=== PATIENT | female | born 1945 | race Caucasian/White ===

== ENCOUNTER → 2019-03-01 11:29 | Outpatient (CLI) | payer MEDICARE, OTHER, SELFPAY ==
[2019-03-01 12:22] LABS: Add Manual Diff / Slide Review NO; Basophils Absolute Auto 0 /uL (0-100); Basophils Percent Auto 0.6 % (0-2); Eosinophils Absolute Auto 300 /uL (0-450); Hematocrit 44.6 % (36-46); Lymphocytes Absolute Auto 1300 /uL (1100-4500); Lymphocytes Percent Auto 22.3 % (25-40); Mean Corpuscular HGB Conc 33.7 % (30-36); Mean Corpuscular Volume 95.1 fL (80-100); Monocytes Absolute Auto 600 /uL (0-900); Monocytes Percent Auto 9.5 % (3-14); Neutrophils Absolute Auto 3700 /uL (1500-7000); Neutrophils Percent Auto 62.6 % (50-75); Platelet Count 306 X10^3/uL (150-400); Red Blood Cell Count 4.69 X10^6/uL (4.0-5.2); Red Cell Distribution Width 12.9 % (11.6-14.8); White Blood Cell Count 5.9 X10^3/uL (4.5-11.0)
[2019-03-01 13:12] LABS: Alanine Aminotransferase 29 IU/L (9-52); Albumin 4.9 g/dL (3.5-5.0); Albumin Globulin Ratio 1.5 (1.0-2.8); Alkaline Phosphatase 90 U/L (38-126); Aspartate Aminotransferase 26 IU/L (14-36); BUN Creatinine Ratio 12.5 (6-22); Bilirubin Total 0.9 mg/dL (0.2-1.3); Blood Urea Nitrogen 10 mg/dL (7-17); C-Reactive Protein Quant 1.6 mg/dL (<1.0); Calcium 9.9 mg/dL (8.4-10.2); Carbon Dioxide 25 mmol/L (22-32); Chloride 102 mmol/L (98-107); Cholesterol 292 mg/dL (140-199); Estimated Glomerular Filt Rate > 60.0 mL/min (>60); Globulin 3.3 g/dL (1.7-4.1); Glucose 106 mg/dL (80-110); HDL Cholesterol 79 mg/dL (40-60); HEMOLYSIS < 15 (0-50); LDL Cholesterol Calculated 180 mg/dL (<100); Sodium 140 mmol/L (137-145); Total Protein 8.2 g/dL (6.3-8.2); Triglycerides 167 mg/dL (35-150)
[2019-03-01 13:44] LABS: Thyroid Stimulating Hormone 2.32 uIU/mL (0.47-4.68)
[2019-03-01 14:57] LABS: Vitamin D 25 Hydroxy (D3) 64.6 ng/mL (30.0-100.0)
[2019-03-04 13:38] LABS: Homocysteine 9.2 umol/L (< 10.4)
== END ==
PROVIDERS: PCP Family Medicine; Visit Provider Family Medicine
DX: R25.1 Tremor, unspecified (principal); Z13.220 Encounter for screening for lipoid disorders; E55.9 Vitamin D deficiency, unspecified; Z13.29 Encounter for screening for other suspected endocrine disorder; E78.5 Hyperlipidemia, unspecified; E78.41 Elevated Lipoprotein(a)
CPT/HCPCS: 36415; 80053; 80061; 82306; 83090; 84443; 85025; 86140

== ENCOUNTER → 2019-03-15 13:35 | Outpatient (CLI) | payer MEDICARE, OTHER, SELFPAY ==
--- NOTE | 2019-03-15 13:41 | DI.US.S_ITS ---
LIMITED ULTRASOUND OF RIGHT BREAST: 03/15/2019 CLINICAL: Bloody nipple discharge right breast. Comparison is made to exam dated: 03/15/2019 [facility]. Real-time and Doppler ultrasound of the right breast 9-10 o'clock, and retroareolar regions were performed. Villalba scale images of the real-time examination were reviewed. Targeted ultrasound of the right nipple and retroareolar region demonstrates no abnormality or mass. There is no focal duct dilitation. No underlying breast mass or abnormality is identified. There is no ultrasound correlate for the previously noted oval focal asymmetry in the right breast near 9:00-10:00 position anterior to middle depth on comparison diagnostic mammograms, which also resolved on additional diagnostic mammogram views performed earlier today. IMPRESSION: NEGATIVE 1) No sonographic abnormality of the right nipple/retroareolar region to explain patient's reported bloody nipple discharge. Recommend clinical follow-up with the patient's referring provider for further evaluation and management. Recommend breast MRI for further evaluation if there is continued clinical concern. 2) No sonographic evidence of malignancy in the imaged right breast. Return to annual screening mammography schedule recommended. The patient is advised to monitor her breasts and to return sooner for re-evaluation should she feel anything grow or change. This exam was interpreted at Station ID: [id number]. Electronically Signed By: Tello Santiago M.D. ecl/:03/15/2019 15:00:54 letter sent: Clinical Evaluation Ultrasound BI-RADS: 1 Negative
--- NOTE | 2019-03-15 13:41 | DI.MG.S_ITS ---
BILATERAL DIGITAL DIAGNOSTIC MAMMOGRAM 3D/2D: 03/15/2019 CLINICAL: Right bloody nipple discharge. No prior exams were available for comparison. The tissue of both breasts is heterogeneously dense. This may lower the sensitivity of mammography. There is no mass or abnormality seen within the right nipple or retroareolar region on mammography. There is an oval focal asymmetry in the right breast near 9:00-10:00 position anterior to middle depth which resolves with spot compression views. There are linear scar markers overlying the breasts bilaterally. There is underlying breast parenchymal scarring. No significant masses, calcifications, or other findings are seen in either breast. IMPRESSION: INCOMPLETE: NEEDS ADDITIONAL IMAGING EVALUATION No mass or abnormality on mammography to correlate with patient's reported bloody nipple discharge. Targeted diagnostic retroareolar ultrasound recommended for further evaluation, which will be performed immediately following this exam. There is an oval focal asymmetry in the right breast near 9:00-10:00 position anterior to middle depth which resolves with spot compression views. Targeted diagnostic ultrasound recommended for further evaluation, which will be performed immediately following this exam. This exam was interpreted at Station ID: [id number]. NOTE: For mammograms, a report in lay terms will be sent to the patient. Approximately 15% of breast malignancies will not be visualized mammographically. In the management of a palpable breast mass, a negative mammogram must not discourage biopsy of a clinically suspicious lesion. Electronically Signed By: Tello Santiago M.D. ecl/:03/15/2019 14:57:19 ACR BI-RADS Category 0: Incomplete [id number]
== END ==
PROVIDERS: PCP Family Medicine; Visit Provider Family Medicine
DX: R92.8 Other abnormal and inconclusive findings on diagnostic imaging of breast (principal); N64.52 Nipple discharge
CPT/HCPCS: 76642; 77066; G0279

== ENCOUNTER → 2019-04-05 13:29 | Outpatient (CLI) | payer MEDICARE, OTHER, SELFPAY ==
--- NOTE | 2019-04-05 13:32 | DI.MRI.S_ITS ---
BREAST MRI OF BOTH BREASTS: 04/05/2019 CLINICAL: Nipple discharge. Comparison is made to exams dated: 03/15/2019 mammogram and 03/15/2019 [facility]. Interpretation of this MRI was correlated with available mammograms and ultrasounds. Informed consent was obtained from the patient. 20 cc of gadolinium contrast was injected. Axial T1, T2, sagittal T1, and pre and post contrast T1 images were obtained with a dedicated breast coil. Bilateral background breast enhancement is mild. Right breast: Within the subareolar region of the right breast at the 6:00 position, there is an oval enhancing mass measuring approximately 1.0 x 0.4 x 0.5 cm. There is associated curvilinear enhancement extending into the nipple as well as posterior to the mass. This involves a region of approximately 2.2 cm in anteroposterior extent and likely follows a ductal distribution. Elsewhere in the right breast no additional mass lesion or abnormal enhancement identified. Left breast: The left breast demonstrates no discrete mass or abnormal enhancement to suggest malignancy. Miscellaneous: Limited evaluation of the visualized thorax demonstrates suspected aneurysmal dilatation of the main pulmonary artery although evaluation is limited on the current study. No evidence of axillary or internal mammary lymphadenopathy by size criteria. IMPRESSION: INCOMPLETE: NEEDS ADDITIONAL IMAGING EVALUATION 1. Retroareolar mass demonstrated at the 6:00 position suspicious for an intraductal mass such as a papilloma. Recommend a dedicated 2nd look ultrasound and ultrasound-guided biopsy if a corresponding mass is identified. If no mass is identified sonographically, an MRI guided biopsy or wire localization for a surgical biopsy may be considered. 2. Possible aneurysmal dilatation of the main pulmonary artery which is not well valuated on the current study. Recommend further evaluation with a CT angiogram of the thorax. This exam was interpreted at Station ID: [id number]. Electronically Signed By: Stephan Mckeon M.D. ddp/:04/05/2019 17:06:53 letter sent: Need Ultrasound ACR BI-RADS Category 0: Incomplete [id number]
== END ==
PROVIDERS: PCP Family Medicine; Visit Provider Family Medicine
DX: R92.8 Other abnormal and inconclusive findings on diagnostic imaging of breast (principal); N64.52 Nipple discharge; N63.10 Unspecified lump in the right breast, unspecified quadrant
CPT/HCPCS: 77049; A9579

== ENCOUNTER → 2019-04-16 10:52 | Outpatient (CLI) | payer MEDICARE, OTHER, SELFPAY ==
[2019-04-16 11:40] LABS: BUN Creatinine Ratio 12.5 (6-22); Blood Urea Nitrogen 10 mg/dL (7-17); Estimated Glomerular Filt Rate > 60.0 mL/min (>60)
== END ==
PROVIDERS: PCP Family Medicine; Visit Provider Family Medicine
DX: I28.1 Aneurysm of pulmonary artery (principal)
CPT/HCPCS: 36415; 82565; 84520

== ENCOUNTER → 2019-04-17 11:10 | Outpatient (CLI) | payer MEDICARE, OTHER, SELFPAY ==
--- NOTE | 2019-04-17 12:33 | DI.CT.S_ITS ---
PROCEDURE: CT ANGIO CHEST INDICATIONS: pulmonary aneurysm on MRI TECHNIQUE: After the administration of intravenous contrast, 2 mm thick sections acquired from the pulmonary apices to the posterior costophrenic angles. 3-dimensional maximum intensity projection (MIP) coronal and sagittal reformats were then acquired through the thorax. For radiation dose reduction, the following was used: automated exposure control, adjustment of mA and/or kV according to patient size. COMPARISON: [facility], MR, MR BREAST BI WO/W CON, 04/05/2019, 13:40. FINDINGS: Image quality: Excellent. Pulmonary arteries: Pulmonary arteries peripherally are normal in size but centrally the main pulmonary artery is abnormally dilated/aneurysmal over much of its length. The maximal craniocaudad dimension is 5.5 cm and a maximal transverse dimension is 5.8 cm. The aneurysmal dilatation of the main pulmonary artery extends into the proximal left pulmonary artery, and the overall area of dilatation is 8.4 cm AP. The pulmonary arteries demonstrate no intraluminal filling defects to suggest central pulmonary embolism. Lungs and pleura: Lungs are clear. No pleural effusions or pneumothorax. Central and peripheral airways are patent. Mediastinum: Heart size is normal, without pericardial effusion. No mediastinal or hilar adenopathy. Thoracic aorta is normal in caliber and enhancement. Esophagus is normal in caliber, without hiatal hernia. Bones and chest wall: No suspicious bony lesions. Ribs and thoracic spine appear intact throughout. Thyroid gland appears normal. No axillary or supraclavicular adenopathy. Abdomen: Visualized upper abdominal solid organs appear normal in the early arterial phase of enhancement. 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 The overall AP length of this abnormality is up to 3.4 cm. No thrombosis is seen. Dictated by: Santosh Leyva M.D. on 04/17/2019 at 14:33 Approved by: Santosh Leyva M.D. on 04/17/2019 at 14:42
== END ==
PROVIDERS: PCP Family Medicine; Visit Provider Family Medicine
DX: I28.1 Aneurysm of pulmonary artery (principal)
CPT/HCPCS: 71275; Q9967

== ENCOUNTER → 2019-10-30 12:00 | Outpatient (CLI) | payer MEDICARE, OTHER, SELFPAY ==
--- NOTE | 2019-10-30 12:03 | DI.US.S_ITS ---
ULTRASOUND OF RIGHT BREAST: 10/30/2019 CLINICAL: 6 month follow-up of negative right breast u/s for intermittent bloody nipple discharge. Comparison is made to exams dated: 04/05/2019 breast MRI, [facility]2019 [facility] Comparison also made to outside images of an ultrasound guided biopsy 04/24/19. Color flow and real-time ultrasound of the right breast were performed. Villalba scale images of the real-time examination were reviewed. There is a 0.2 cm x 0.2 cm x 0.3 cm round intraductal mass in the right breast at 6 o'clock in the retroareolar region. This abnormality is not significantly changed from the pre-biopsy images. There is an adjacent biopsy clip. Color flow imaging demonstrates that there is no vascularity present. IMPRESSION: PROBABLY BENIGN The 0.2 cm x 0.2 cm x 0.3 cm round intraductal mass in the right breast is biopsy proven to be a papilloma and is probably benign. Continued follow-up ultrasound in 6 months at the time of screening mammography is recommended to demonstrate stability. Findings and recommendations were conveyed to the patient at time of exam. This exam was interpreted at Station ID: [id number]. Electronically Signed By: Gita houser/:10/30/2019 14:13:29 letter sent: Followup Recommended Ultrasound BI-RADS: 3 Probably benign
== END ==
PROVIDERS: PCP Family Medicine; Visit Provider Family Medicine
DX: R92.8 Other abnormal and inconclusive findings on diagnostic imaging of breast (principal); D24.1 Benign neoplasm of right breast; Z98.890 Other specified postprocedural states
CPT/HCPCS: 76642

== ENCOUNTER → 2020-08-27 14:58 | Outpatient (CLI) | payer MEDICARE, OTHER, SELFPAY ==
--- NOTE | 2020-08-27 14:59 | DI.MG.S_ITS ---
BILATERAL DIGITAL DIAGNOSTIC MAMMOGRAM 3D/2D: 08/27/2020 CLINICAL: Short follow up, due bilateral. Comparison is made to exams dated: 04/24/2019 mammogram - outside location and 03/15/2019 mammogram - [facility]. The tissue of both breasts is heterogeneously dense. This may lower the sensitivity of mammography. There are benign post operative findings and biopsy clip in the right breast. There also are benign post operative findings in the left breast. No significant masses, calcifications, or other findings are seen in either breast. There has been no significant interval change. IMPRESSION: INCOMPLETE: NEEDS ADDITIONAL IMAGING EVALUATION A targeted ultrasound of the left breast is recommended to evaluate the previously seen subareolar mass and will be performed immediately following this exam. This exam was interpreted at Station ID: [id number]. NOTE: For mammograms, a report in lay terms will be sent to the patient. Approximately 15% of breast malignancies will not be visualized mammographically. In the management of a palpable breast mass, a negative mammogram must not discourage biopsy of a clinically suspicious lesion. Electronically Signed By: Annalise Guido M.D. lk/:08/27/2020 15:33:14 ACR BI-RADS Category 0: Incomplete 3340F
--- NOTE | 2020-08-27 14:59 | DI.US.S_ITS ---
LIMITED ULTRASOUND OF RIGHT BREAST: 08/27/2020 CLINICAL: Patient returns today to evaluate a focal asymmetry in the right breast. No prior exams were available for comparison. Ultrasound of the right breast 3 o'clock, 6 o'clock, 9 o'clock, 12 o'clock, and retroareolar regions was performed on the area of interest. The small echogenic mass seen on the ultrasound dated 10/30/19 is markedly decreased in size on the current study. No new suspicious ultrasound findings in the area previously biopsied and demonstrated to represent a pailloma. IMPRESSION: BENIGN There is no sonographic evidence of malignancy. Previous papiloma biopsy site is stable. Return to annual mammogram screening schedule is recommended. This exam was interpreted at Station ID: [id number]. Electronically Signed By: Annalise Guido M.D. lk/:08/29/2020 13:01:15 letter sent: Normal Exam Ultrasound BI-RADS: 2 Benign
== END ==
PROVIDERS: PCP Family Medicine; Referring Provider Family Medicine; Visit Provider Family Medicine
DX: R92.8 Other abnormal and inconclusive findings on diagnostic imaging of breast (principal); D24.1 Benign neoplasm of right breast
CPT/HCPCS: 76642; 77066; G0279

== ENCOUNTER → 2020-12-25 12:04 | Outpatient (CLI) | payer MEDICARE, OTHER, SELFPAY ==
[2020-12-25 13:12] LABS: Cholesterol 225 mg/dL (140-199); HDL Cholesterol 71 mg/dL (40-60); LDL Cholesterol Calculated 130 mg/dL (<100); Triglycerides 122 mg/dL (35-150)
== END ==
PROVIDERS: PCP Family Medicine
DX: E78.5 Hyperlipidemia, unspecified (principal)
CPT/HCPCS: 36415; 80061

== ENCOUNTER → 2021-03-12 10:58 | Outpatient (CLI) | payer MEDICARE, OTHER, SELFPAY ==
[2021-03-12 12:28] LABS: BUN Creatinine Ratio 12.3 (6-22); Blood Urea Nitrogen 8 mg/dL (7-17); Calcium 9.8 mg/dL (8.4-10.2); Carbon Dioxide 29 mmol/L (22-32); Chloride 103 mmol/L (98-107); Estimated Glomerular Filt Rate > 60.0 mL/min (>60); Glucose 108 mg/dL (80-110); HEMOLYSIS < 15 (0-50); Potassium 4.9 mmol/L (3.4-5.1); Sodium 140 mmol/L (137-145)
== END ==
PROVIDERS: PCP Family Medicine; Referring Provider Internal Medicine Adult Congenital Heart Disease; Visit Provider Internal Medicine Adult Congenital Heart Disease
DX: I10 Essential (primary) hypertension (principal)
CPT/HCPCS: 36415; 80048

== ENCOUNTER → 2021-04-23 10:17 | Outpatient (ROUT) | payer MEDICARE, OTHER, SELFPAY ==
[2021-04-24 16:31] LABS: Fecal Immunochemical Test Negative (Negative)
== END ==
PROVIDERS: PCP Family Medicine; Visit Provider Family Medicine
DX: Z12.11 Encounter for screening for malignant neoplasm of colon (principal)
CPT/HCPCS: 82274

== ENCOUNTER → 2022-06-15 09:54 | Outpatient (CLI) | payer MEDICARE, OTHER, SELFPAY ==
[2022-06-15 10:52] LABS: Add Manual Diff / Slide Review NO; Basophils Absolute Auto 0 /uL (0-100); Basophils Percent Auto 0.5 % (0-2); Eosinophils Absolute Auto 300 /uL (0-450); Eosinophils Percent Auto 5.1 % (2-4); Hematocrit 41.5 % (36-46); Hemoglobin 13.9 g/dL (12.0-16.0); Lymphocytes Absolute Auto 1600 /uL (1100-4500); Lymphocytes Percent Auto 26.6 % (25-40); Mean Corpuscular HGB Conc 33.6 % (30-36); Mean Corpuscular Hemoglobin 32.2 PG (26-34); Mean Corpuscular Volume 95.9 fL (80-100); Monocytes Absolute Auto 600 /uL (0-900); Monocytes Percent Auto 9.7 % (3-14); Neutrophils Absolute Auto 3400 /uL (1500-7000); Neutrophils Percent Auto 58.1 % (50-75); Platelet Count 266 X10^3/uL (150-400); Red Blood Cell Count 4.32 X10^6/uL (4.0-5.2); Red Cell Distribution Width 12.9 % (11.6-14.8); White Blood Cell Count 5.9 X10^3/uL (4.5-11.0)
[2022-06-15 11:27] LABS: Alanine Aminotransferase 29 IU/L (<35); Albumin 4.4 g/dL (3.5-5.0); Albumin Globulin Ratio 1.6 (1.0-2.8); Alkaline Phosphatase 87 U/L (38-126); Aspartate Aminotransferase 25 IU/L (14-36); BUN Creatinine Ratio 10.7 (6-22); Bilirubin Total 0.8 mg/dL (0.2-1.3); Blood Urea Nitrogen 8 mg/dL (7-17); Calcium 9.3 mg/dL (8.4-10.2); Carbon Dioxide 30 mmol/L (22-32); Chloride 102 mmol/L (98-107); Estimated Glomerular Filt Rate > 60 mL/min (>60); Globulin 2.7 g/dL (1.7-4.1); Glucose 99 mg/dL (80-110); HEMOLYSIS < 15 (0-50); Potassium 4.5 mmol/L (3.4-5.1); Sodium 137 mmol/L (137-145); Total Protein 7.1 g/dL (6.3-8.2)
== END ==
PROVIDERS: PCP Family Medicine; Referring Provider Family Medicine; Visit Provider Family Medicine
DX: I10 Essential (primary) hypertension (principal)
CPT/HCPCS: 36415; 80053; 85025

== ENCOUNTER → 2022-06-29 09:49 | Outpatient (CLI) | payer MEDICARE, OTHER, SELFPAY ==
[2022-06-29 12:05] LABS: Cholesterol 180 mg/dL (140-199); HDL Cholesterol 70 mg/dL (40-60); LDL Cholesterol Calculated 84 mg/dL (<100); Triglycerides 129 mg/dL (35-150)
[2022-06-30 15:07] LABS: Fecal Immunochemical Test Negative (Negative)
== END ==
PROVIDERS: PCP Family Medicine; Referring Provider Family Medicine; Visit Provider Family Medicine
DX: I10 Essential (primary) hypertension (principal); Z12.11 Encounter for screening for malignant neoplasm of colon; Z79.899 Other long term (current) drug therapy
CPT/HCPCS: 36415; 80061; 82274

== ENCOUNTER → 2022-08-10 09:54 | Outpatient (CLI) | payer MEDICARE, OTHER, SELFPAY ==
[2022-08-10 13:08] LABS: BUN Creatinine Ratio 8.1 (6-22); Blood Urea Nitrogen 5 mg/dL (7-17); Calcium 8.7 mg/dL (8.4-10.2); Carbon Dioxide 27 mmol/L (22-32); Chloride 102 mmol/L (98-107); Estimated Glomerular Filt Rate > 60 mL/min (>60); Glucose 85 mg/dL (80-110); HEMOLYSIS < 15 (0-50); Potassium 4.1 mmol/L (3.4-5.1); Sodium 139 mmol/L (137-145)
== END ==
PROVIDERS: PCP Family Medicine; Referring Provider Internal Medicine Adult Congenital Heart Disease; Visit Provider Internal Medicine Adult Congenital Heart Disease
DX: I10 Essential (primary) hypertension (principal)
CPT/HCPCS: 36415; 80048

== ENCOUNTER → 2023-09-19 15:40 | Outpatient (CLI) | payer MEDICARE, OTHER, SELFPAY ==
[2023-09-19 16:59] LABS: Alanine Aminotransferase 26 IU/L (<35); Albumin 4.3 g/dL (3.5-5.0); Albumin Globulin Ratio 1.5 (1.0-2.8); Alkaline Phosphatase 65 U/L (38-126); Aspartate Aminotransferase 27 IU/L (14-36); BUN Creatinine Ratio 24.6 (6-22); Bilirubin Total 0.7 mg/dL (0.2-1.3); Blood Urea Nitrogen 17 mg/dL (7-17); Calcium 9.6 mg/dL (8.4-10.2); Carbon Dioxide 26 mmol/L (22-32); Chloride 101 mmol/L (98-107); Estimated Glomerular Filt Rate > 60 mL/min (>60); Globulin 2.9 g/dL (1.7-4.1); Glucose 115 mg/dL (80-110); HEMOLYSIS 17 (0-50); Potassium 3.4 mmol/L (3.4-5.1); Sodium 135 mmol/L (137-145); Total Protein 7.2 g/dL (6.3-8.2)
== END ==
PROVIDERS: PCP Family Medicine; Referring Provider Family Medicine; Visit Provider Family Medicine
DX: I28.1 Aneurysm of pulmonary artery (principal); I10 Essential (primary) hypertension; G25.0 Essential tremor
CPT/HCPCS: 36415; 80053

== ENCOUNTER → 2024-01-16 10:52 | Outpatient (CLI) | payer MEDICARE, OTHER, SELFPAY ==
[2024-01-17 10:14] LABS: Fecal Immunochemical Test Negative (Negative)
== END ==
PROVIDERS: PCP Family Medicine; Referring Provider Family Medicine; Visit Provider Family Medicine
DX: Z12.11 Encounter for screening for malignant neoplasm of colon (principal)
CPT/HCPCS: 82274

== ENCOUNTER 2024-04-16 00:13 | Emergency (ER) | payer MEDICARE, OTHER, SELFPAY ==
[2024-04-16] VITALS (20 sets, daily range): BP systolic 154–194; BP diastolic 51–99; PULSE 66–86; RESP 15–16; TEMP 36.7–36.9; O2SAT 93–98
--- NOTE | 2024-04-16 00:27 | DI.RAD.S_ITS ---
PROCEDURE: XR ANKLE LT MIN 3V INDICATIONS: fall TECHNIQUE: 3 views of the ankle were acquired. COMPARISON: None. FINDINGS: Bones: No acute displaced fracture. Nonacute appearing bone fragment seen adjacent to the lateral malleolus. Mild scattered degenerative changes. Soft tissues: No suspicious calcifications. There is soft tissue swelling. IMPRESSION: No acute displaced fracture or dislocation. Likely old bone fragment seen adjacent to the lateral malleolus, along with mild degenerative changes. If there is high concern for occult injury, consider repeat radiography or cross-sectional imaging. Dictated by: Ld Kaur M.D. on 04/16/2024 at 0:56 Approved by: Ld Kaur M.D. on 04/16/2024 at 0:57
--- NOTE | 2024-04-16 02:43 | ED_ITS ---
HPI - Fall General Chief Complaint: Fall Stated Complaint: GLF Time Seen by Provider: 04/16/24 02:43 Source: patient and EMS Mode of arrival: EMS History of Present Illness HPI Narrative: 78-year-old female with twisting left ankle foot injury earlier today, swelling of the ankle and foot, persisting pain. No other injuries. She denies pain specifically to the head, face, neck, upper back, lower back, chest, abdomen, pelvis. She has no pain to the right lower extremity or either upper extremity. She has no pain cephalad to the left ankle. She had some kind of remote left ankle fracture. She has not tried any pain medications so far. Too painful to attempt weight-bearing Related Data Previous Rx's Medication Instructions Recorded atorvastatin 40 mg tablet 40 mg PO DAILY #90 tabs 09/19/23 losartan 50 mg tablet 50 mg PO DAILY high blood pressure 09/19/23 #90 tabs propranolol 60 mg capsule,24 60 mg PO DAILY #90 caps 09/19/23 hr,extended release oxycodone-acetaminophen 5 mg-325 1 tab PO Q6H PRN pain #20 tabs 04/16/24 mg tablet (Percocet) Allergies Allergy/AdvReac Type Severity Reaction Status Date / Time Penicillins AdvReac Intermediate hives Verified 01/10/24 10:52 Review of Systems Review of Systems Narrative: See HPI Patient History Medical History Benign essential tremor Obesity (BMI 30-39.9) Alcohol use Pulmonary artery aneurysm Hypertension Asthma (~1987) Seasonal allergies (~194) Benign familial tremor (~1959) Osteopenia Fractures Mumps Measles Chicken pox Cataracts, bilateral (~2015) Painful menstrual periods (~1978) Fibroids (~1978) Endometriosis (~1978) Colon polyps (~2011) Pulmonary stenosis (~1995) Surgical History Papilloma of right breast (~2018) Anesthesia History of laparoscopy (~1978) History of lumpectomy History of cardiac catheterization History of open heart surgery (~1950) History of hysterectomy (~1978) Family History Father Cancer Mother Heart disease Social History marital status: number of children: 0 household members: spouse lives independently: Yes education level: college occupational status: other (retired) Smoking Status: Never smoker alcohol intake: current (2 drinks daily) substance use type: does not use Smoking Status: Never smoker Exam Narrative Exam Narrative: GENERAL: Well-developed patient, in mild distress. HEAD: Atraumatic. Normocephalic. EYES: Pupils equal round and reactive. Extraocular motions intact. No scleral icterus. No injection or drainage. ENT: Nose without bleeding, purulent drainage. Throat without erythema, tonsillar hypertrophy or exudate. Airway patent. NECK: Trachea midline. Non tender CARDIOVASCULAR: Regular rate and rhythm without murmurs, gallops, or rubs. RESPIRATORY: Clear to auscultation. Breath sounds equal bilaterally. No wheezes, rales, or rhonchi. GASTROINTESTINAL: Abdomen soft, non-tender, nondistended. EXTREMITIES: Tenderness medial and lateral ankle joint line, some lateral malleolar tenderness. Dorsal foot ecchymoses with swelling midfoot, no tenderness or swelling at toes. Right lower extremity atraumatic. Left lower extremity atraumatic above the level of the ankle. No bilateral hip tenderness BACK: Nontender without deformity or crepitance. No flank tenderness. NEURO: AOx3. SKIN: No rash or erythema of visible areas Initial Vital Signs Initial Vital Signs: Vital Signs Temperature 98.1 F 04/16/24 00:15 Pulse Rate 85 04/16/24 00:15 Respiratory Rate 16 04/16/24 00:15 Blood Pressure 194/85 H 04/16/24 00:15 Pulse Oximetry 98 04/16/24 00:15 Oxygen Delivery Method Room Air 04/16/24 00:15 Course Orders Ordered: ED Orders 04/16/24 00:27 XR ankle LT min 3V Stat 04/16/24 02:49 CT LE LT wo con Stat Discontinued Medications Hydromorphone HCl (Hydromorphone 1 Mg Inj) 1 mg IM NOW ONE Stop: 04/16/24 04:58 Last Admin: 04/16/24 05:17 Dose: 1 mg Documented By: Ketorolac Tromethamine (Ketorolac 30 Mg/Ml Vial) 30 mg IM NOW ONE Stop: 04/16/24 02:51 Last Admin: 04/16/24 03:00 Dose: 30 mg Documented By: Vital Signs Vital signs: Vital Signs - 8 hr 04/16/24 01:00 04/16/24 01:00 04/16/24 01:30 Temperature Pulse Rate 66 73 Respiratory Rate Blood Pressure 156/75 H Pulse Oximetry 96 95 Oxygen Delivery Method 04/16/24 01:31 04/16/24 01:31 04/16/24 02:00 Temperature Pulse Rate 73 72 Respiratory Rate Blood Pressure 173/81 H Pulse Oximetry 95 97 Oxygen Delivery Method 04/16/24 02:00 04/16/24 02:30 04/16/24 02:30 Temperature Pulse Rate 72 Respiratory Rate Blood Pressure 160/73 H 154/73 H Pulse Oximetry 96 Oxygen Delivery Method 04/16/24 03:00 04/16/24 03:00 04/16/24 03:26 Temperature Pulse Rate 86 79 Respiratory Rate Blood Pressure 171/77 H Pulse Oximetry 95 97 Oxygen Delivery Method 04/16/24 03:26 04/16/24 03:30 04/16/24 03:30 Temperature Pulse Rate 76 Respiratory Rate Blood Pressure 175/79 H 159/80 H Pulse Oximetry 97 Oxygen Delivery Method 04/16/24 04:00 04/16/24 04:00 04/16/24 04:30 Temperature Pulse Rate 76 80 Respiratory Rate Blood Pressure 158/68 H Pulse Oximetry 95 96 Oxygen Delivery Method 04/16/24 04:30 04/16/24 05:00 04/16/24 05:00 Temperature Pulse Rate 81 Respiratory Rate Blood Pressure 170/73 H 185/86 H Pulse Oximetry 96 Oxygen Delivery Method 04/16/24 05:30 04/16/24 05:31 04/16/24 05:31 Temperature Pulse Rate 82 78 Respiratory Rate Blood Pressure 192/86 H Pulse Oximetry 95 95 Oxygen Delivery Method 04/16/24 05:58 04/16/24 05:58 04/16/24 06:00 Temperature Pulse Rate 74 81 Respiratory Rate Blood Pressure 185/81 H Pulse Oximetry 93 94 Oxygen Delivery Method 04/16/24 06:08 Temperature 98.4 F Pulse Rate 86 Respiratory Rate 15 Blood Pressure 185/51 H Pulse Oximetry 98 Oxygen Delivery Method Room Air MDM - Fall MDM Narrative Medical decision making narrative: 78-year-old female with left ankle foot pain, marked swelling dorsal foot, also some tenderness and some swelling lateral aspect more than medial aspect ankle. Triage film left ankle ordered but no foot imaging, there is a question of wheth er or not the via small fracture lateral malleolus, further imaging if clinical concern. We will go ahead and obtain CT ankle, and include foot imaging, given swelling and ecchymosis mid foot noted, those bones can be hard to interpret on plain film. Patient agreeable. IM Toradol CT left lower extremity noncontrast. Impressions: ?Nondisplaced fractures of the bases of the 1-4 metatarsals and nondisplaced fractures of the distal fibula and tibia. Extensive subcutaneous inflammatory changes throughout the ankle and foot. Teleradiology report Posterior splint left with stirrup, crutches nonweightbearing. Follow up with Orthopedic surgery, contact information given for office of Dr. Rock, call later today for close follow up appointment, might need surgery for fractures above listed. Percocet prescription electronically sent to her pharmacy. Improved, home with Critical Care Time Critical Care Time Critical Care Time: No Discharge Plan Departure Patient Disposition: Home Clinical Impression: Ankle fracture, bimalleolar, closed, Fracture of metatarsal bone of left foot Activity Restrictions/Additional Instructions: Twist injury with left ankle and foot pain, swelling and bruising to the mid foot, tenderness to ankle as well. Imaging including CT scanning showed numerous fractures. There seemed to be fracture to the distal tibia and distal fibula of the ankle joint, also fractures to the 1st through the 4th metatarsal bones of the foot. Splint was placed after pain medication, crutches nonweightbearing. Follow up with Orthopedic surgery, call office of Dr. Rock later this morning during office hours for close follow up, for likely consultation and possible surgical correction of the fractures. Pain medication sent to your pharmacy to use if needed. Elevate extremity. Follow up with Orthopedic surgery as above. Return to this/nearest emergency department for any change worsening symptoms or any concerns prior Prescriptions: New oxycodone-acetaminophen [Percocet] 5-325 mg tablet 1 tab PO Q6H PRN (Reason: pain) Qty: 20 0RF No Action atorvastatin 40 mg tablet 40 mg PO DAILY Qty: 90 3RF losartan 50 mg tablet 50 mg PO DAILY Qty: 90 3RF propranolol 60 mg capsule,extended release 24 hr 60 mg PO DAILY Qty: 90 3RF Referrals: Claudio Garcias DO [Primary Care Provider] - Alethea Rock MD [Physician] - Stand Alone Forms: Patient Portal/API
--- NOTE | 2024-04-16 02:49 | DI.CT.S_ITS ---
PROCEDURE: CT LE LT W CON INDICATIONS: foot swelling/brusing, ankle ?fx on XR, eval foot/ankle TECHNIQUE: Noncontrast 1-1.5 mm axial sections acquired from above the tibiotalar joint to the bottom of the calcaneus, with coronal and sagittal reformats. COMPARISON: [facility], CR, XR ANKLE LT MIN 3V, 04/16/2024, 0:26. FINDINGS: Image quality: Excellent. Bones: There is an acute comminuted fracture involving lateral portion of distal tibia extending to lateral aspect of distal tibial plafond. No significant displacement at fracture site is seen. Slightly comminuted fracture involving distal fibular shaft/lateral malleolus is seen extending to anterior aspect of lateral malleolus tip with minimal anterior displacement of fractured fragments. Acute comminuted fracture is seen involving 2nd, 3rd and 4th metatarsal bases with fracture lines extending to TMT joint space. Slight proximal displacement of fractured fragments are noted. There is also a minimally displaced fracture involving plantar aspect of 1st metatarsal base with fracture line extending to 1st TMT joint space. No other fracture or dislocation is seen. No suspicious intraosseous lesions. Soft tissues: There is significant soft tissue swelling and edema surrounding anterior and lateral aspect of ankle joint. No significant joint effusion or calcified intra-articular loose bodies. Soft tissue swelling over dorsal aspect of metatarsal base fracture sites are seen. No abnormal soft tissue calcifications. No full-thickness tendon rupture. IMPRESSION: 1. Acute slightly comminuted and minimally displaced fractures involving lateral portion of distal tibia extending to distal tibial plafond, distal fibular shaft/lateral malleolus, 1st through 4th metatarsal bases as described above. 2. Significant soft tissue swelling adjacent to the above-mentioned fracture sites. No gross soft tissue mass or drainable fluid collection. No full-thickness tendon rupture. No significant discrepancies from preliminary reading. Dictated by: Damian Latham M.D. on 04/16/2024 at 8:04 Approved by: Damian Latham M.D. on 04/16/2024 at 8:14
[2024-04-16] MEDS: KETOROLAC 30 MG/ML VIAL IM (03:00)
[2024-04-16] MEDS: HYDROMORPHONE 1 MG INJ IM (05:17)
--- NOTE | 2024-04-16 06:05 | PC.NURSE ---
Posterior and stirup splint placed to left foot and ankle. Pt tolerated well.
== END 2024-04-16 06:00 | disposition home or self-care (01) ==
PROVIDERS: Emergency Provider Emergency Medicine; PCP Family Medicine
DX: S82.842A Displaced bimalleolar fracture of left lower leg, initial encounter for closed fracture (principal); S92.312A Displaced fracture of first metatarsal bone, left foot, initial encounter for closed fracture; S92.322A Displaced fracture of second metatarsal bone, left foot, initial encounter for closed fracture; S92.332A Displaced fracture of third metatarsal bone, left foot, initial encounter for closed fracture; S92.342A Displaced fracture of fourth metatarsal bone, left foot, initial encounter for closed fracture; X58.XXXA Exposure to other specified factors, initial encounter
CPT/HCPCS: 29515; 73610; 73700; 96374; 96375; 99283; 99284; J1170; J1885

== ENCOUNTER 2024-04-30 06:52 | Day surgery (SDC) | payer MEDICARE, OTHER, SELFPAY ==
[2024-04-25 12:07] VITALS: BMI 31.7
[2024-04-30] VITALS (7 sets, daily range): BP systolic 99–179; BP diastolic 45–95; PULSE 64–91; RESP 12–20; TEMP 36.1–36.3; O2SAT 94–99; BMI 31.7
--- NOTE | 2024-04-30 | DI.RAD.S_ITS ---
PROCEDURE: XR FOOT LT MIN 3V INDICATIONS: ORIF LEFT ANKLE AND FOOT TECHNIQUE: Multiple intraoperative views of the foot were acquired. COMPARISON: [facility], CT, CT LE LT WO CON, 04/16/2024, 3:04. FINDINGS: Bones: Intraoperative views during left ankle and foot ORIF. No evidence of hardware complication. IMPRESSION: Intraoperative views during left ankle and foot ORIF without evidence of complication. Dictated by: Vito Loredo M.D. on 04/30/2024 at 14:03 Approved by: Vito Loredo M.D. on 04/30/2024 at 14:04
[2024-04-30] MEDS: LACTATED RINGERS 1,000 ML 42 ML IV (07:22)
[2024-04-30] MEDS: ACETAMINOPHEN 325 MG TABLET 975 MG PO (07:22)
--- NOTE | 2024-04-30 07:29 | PM.PREOP ---
Pre-operative Note Interval Note History & Physical reviewed/Exam performed by Physician: Yes Changes to H&P: No
--- NOTE | 2024-04-30 07:44 | P.OP_ITS ---
Operative Date/Time/Diagnoses Date of procedure: 04/30/24 Time of procedure: 08:20 Pre-op diagnosis: Nondisplaced pilon fracture left tibia, disruption syndesmosis ankle joint left, dislocation tarsometatarsal joint left midfoot with 2nd 3rd and 4th metatarsal base fractures Post-op diagnosis: same Procedure & Clinicians Procedure: 1. ORIF (open reduction internal fixation) tibia pilon fracture CPT code 18069 left 2. Fixation syndesmosis ankle left CPT code 79540 modifier 59 for separate incision 3. ORIF left foot tarsometatarsal joint Lisfranc fracture dislocation CPT code 75022 modifier 59 for separate surgery separate site separate incision 4. Open reduction internal fixation ORIF 2nd metatarsal base fracture CPT code 28349 left 5. Non operative treatment of 3rd and 4th metatarsal base fractures Same procedure as scheduled: Yes Indications: The patient is a 78-year-old female that sustained a ground level fall resulting in nondisplaced distal tibia pilon fractures and a Chaput fractures and syndesmotic disruption of the left ankle as well as fracture dislocation of the left midfoot tarsometatarsal joint involving the 2nd 3rd and 4th metatarsal bases. Questionable involvement of 1st TMT joint. She was indicated for surgery due the unstable nature fractures an intra-articular involvement. We discussed fixation of her ankle and foot fractures as well as examination under anesthesia for the stability of her 1st TMT. Due to swelling/blister she was required to elevate and allow the skin to recover for 2 weeks after the injury before surgery be completed. Once her skin was appropriate she was indicated for fixation of the ankle and foot injuries. The risks and benefits of the procedure have been discussed with the patient and given the opportunity to ask questions. The risks of surgery include but are not limited to infection, malunion, nonunion, persistence of pain, damage to nerves and blood vessels, posttraumatic arthritis, DVT, PE, cardiopulmonary complications and . The patient expressed a thorough understanding of the risks and benefits of surgery and has elected to proceed. Consent was signed in the office. Surgeon: Lynette Guzman Click Yes if Unassisted: Yes Anesthesia Type: General, Peripheral nerve block and Local Operative Notes Findings: Exam under anesthesia. Stress examination of the 1st TMT did not demonstrate any opening therefore 1st TMT joint was treated without fixation. There was a displaced 2nd metatarsal base fracture with a Lisfranc fracture fragment this was open reduced and held with a pointed reduction clamp. A solid screw was placed from the 2nd metatarsal base across the Lisfranc interval into the medial cuneiform following reduction. Third and 4th metatarsal base fractures were nondisplaced and were treated non operatively. Left tibial pilon fracture was nondisplaced but involved a large posterior malleolar fracture as well as the comminuted nature of the anterior Chaput fracture indicative of a pilon and syndesmotic disruption. Need AP cannulated screw across the tibial pilon component was completed to avoid late displacement and stabilize the fracture. Additional lateral to medial syndesmotic screw was placed from the fibula into the tibia for syndesmotic fixation. The Chaput fragment representing the anterior syndesmosis disruption was stabilized indirectly by the syndesmotic screw. Closure Type: primary Specimen(s): none sent Prosthetic devices, grafts, tissues, transplants, or devices: Arthrex 4.0 cannulated screw 38 mm for the left tibial pilon fracture Arthrex 3.5 solid cortical screw 45 mm with a left ankle syndesmosis Arthrex 3.5 solid cortical screw 42mm with a left Lisfranc fracture dislocation 2nd metatarsal base fracture Estimated Blood Loss (mL): 10 Blood products transfused: none Tourniquet time (min): 39 Procedure in detail: Patient was seen in the preoperative area the site of surgery was marked this was the left lower extremity and informed consent was confirmed. The anesthesia team saw the patient in the preoperative area and a regional block was placed for postoperative pain control. The patient was then brought to the operating room and placed on the operative table. Anesthesia was administered. The left lower extremity had a well-padded thigh tourniquet placed and an ipsilateral thigh bump. An SCD was placed on the contralateral lower extremity. The left lower extremity was then prepped and draped in standard sterile fashion a formal time-out procedure was performed confirming the patient's side and site of surgery administration of appropriate preoperative antibiotic and presence of informed consent. All were in agreement. Esmarch was used for exsanguination the tourniquet was raised on the thigh to 250 mmHg. Attention turned to the left lower extremity we started with the ankle. Left tibial pilon fixation. C-arm was brought in and do see level of the known posterior pilon fracture was marked out on the skin. A small incision just above the level of the physeal scar was marked out anterior the on the skin and then in the lateral views the trajectory was marked on the skin as well. Next skin incision was made blunt dissection was taken down to the anterior tibia. A pin for a 4.0 cannulated screw was then directed from anterior to posterior across the minimally displaced fracture this was then measured then advanced and overdrilled and a 38 mm short thread cannulated lag screw was applied to stabilize the tibial pilon fracture. Once this was completed attention was turned to the syndesmosis. Left ankle syndesmosis fixation. Due to the nature of the fracture with a posterior tibial pilon as well as comminuted anterior tibial Chaput fractures these represented a syndesmotic disruption. Due to the injury of the fracture and desire for early mobilization additional syndesmotic fixation was indicated as the tibial trapezoid fracture was highly comminuted and not amenable to direct hardware fixation. Level proximally 4 cm above the joint was marked out anterior and laterally. A small incision was made laterally over the fibula and dissected bluntly down to bone. The drill was then centered in the fibula on the lateral and advanced from lateral to medial across the fibula and tibia for a tetra cortical screw. This was then measured and a 45 mm cortical screw was applied with gentle thumb pressure reduction fixation over the syndesmosis while this was secured. Once this was completed ankle was taken through range of motion external rotation stress and the mortise was stable on stress fluoroscopy examination. At this time attention was turned to the left foot. Previous bumps were removed. A small sterile triangle was used to position for visualization of the midfoot the C-arm was brought in and foot fluoroscopy x- rays obtained these demonstrated a displaced 2nd metatarsal base fracture and Lisfranc interval disruption. Nondisplaced fractures of the 3rd and 4th metatarsals. The 1st tarsometatarsal joint was examined under anesthesia with stress under live fluoroscopy and did not open therefore this was deemed stable. The 2nd metatarsal base fracture and displaced Lisfranc interval was unstable and required fixation. A 2 cm incision was made lateral to the 2nd metatarsal base careful blunt dissection was taken down to the lateral cortex of the 2nd metatarsal base. Fracture hematoma was evacuated. A small stab incision was made on the medial cuneiform medially and a large Dsouza clamp was used to reduce the Lisfranc interval and this was checked for appropriate placement and reduction on fluoroscopic examination in the AP, oblique and lateral planes. Once this was completed K-wire for a 4.0 cannulated screw was drilled across the interval atilio ured, advanced and then overdrilled. A K-wire was then removed and a solid 3.5 screw was applied stabilizing the 2nd metatarsal base fracture and Lisfranc interval in a reduced position. Once this was completed the clamp was removed and the foot was evaluated under AP, oblique and lateral images demonstrated a well aligned 2nd TMT reduced Lisfranc interval. Additionally stress exam was then completed on the 3rd and 4th metatarsal bases which remained nondisplaced and were treated closed. Next the tourniquet was released and hemostasis was achieved. Wounds were closed with 4-0 Monocryl and 3-0 nylon suture. Additional 20 cc of 0.25% Marcaine with epinephrine was injected for local anesthetic. And the foot and ankle were splinted with sterile dressings including Xeroform, 4 x 4 gauze, Webril bulky Browne cotton and a posterior and U splint. The patient was woken from anesthesia and taken to the recovery unit in good condition there no immediate complications. All counts were correct. Complications: none Post-operative Condition: stable Disposition: PACU Plan for aftercare: Nonweightbearing left lower extremity x6 weeks. Follow up in 2-3 weeks postop at which time we will place her into a tall boot and she will come out for init iation of early range of motion the maintain nonweightbearing on the left lower extremity for 6 weeks. We will use aspirin for DVT prophylaxis.
--- NOTE | 2024-04-30 08:00 | SUR.PREOP ---
Time out 0744 Block start time 0745 . Monitoring initiated and maintained throughout procedure. Oxygen and medications given by anesthesiologist . Patient remained stable throughout procedure, no adverse reactions noted. Block end time 0758.
[2024-04-30] MEDS: CEFAZOLIN 2 GM/100 ML PREMIX 100 ML IV (08:10)
--- NOTE | 2024-04-30 08:31 | SUR.OPER ---
Supine on padded OR bed, head on pillow, arms secured on padded arm boards at <90 degrees abduction, safety belt across abdomen, bump under left hip, padded lateral post @ left hip, tape over towel over right lower leg, left leg prepped into sterile field. Confirmed by Dr. Anderson.
[2024-04-30] MEDS: BUPIVACAINE 0.25% (PF) 30 ML, EPINEPHrine 0.15 MG INJ (08:55)
== END 2024-04-30 11:02 | disposition home or self-care (01) ==
PROVIDERS: PCP Family Medicine; Referring Provider Orthopaedic Surgery Foot and Ankle Surgery; Visit Provider Orthopaedic Surgery Foot and Ankle Surgery
PROC: (CPT 27827; principal; 2024-04-30 07:45)
DX: S82.875A Nondisplaced pilon fracture of left tibia, initial encounter for closed fracture (principal); S93.439A Sprain of tibiofibular ligament of unspecified ankle, initial encounter; S93.326A Dislocation of tarsometatarsal joint of unspecified foot, initial encounter; W18.30XA Fall on same level, unspecified, initial encounter; Y92.009 Unspecified place in unspecified non-institutional (private) residence as the place of occurrence of the external cause
CPT/HCPCS: 27827; 28485; 28615; 27829; 73630; 76000; J0171; J0690; J1885; J2405; J2704

== ENCOUNTER → 2024-09-20 14:47 | Outpatient (CLI) | payer MEDICARE, OTHER, SELFPAY ==
[2024-09-20 16:43] LABS: Hematocrit 39.4 % (36-46); Hemoglobin 13.2 g/dL (12.0-16.0); Mean Corpuscular HGB Conc 33.4 % (30-36); Mean Corpuscular Hemoglobin 32.3 PG (26-34); Mean Corpuscular Volume 96.8 fL (80-100); Platelet Count 256 X10^3/uL (150-400); Red Blood Cell Count 4.07 X10^6/uL (4.0-5.2); White Blood Cell Count 6.8 X10^3/uL (4.5-11.0)
[2024-09-20 17:12] LABS: Alanine Aminotransferase 16 IU/L (<35); Albumin 4.2 g/dL (3.5-5.0); Albumin Globulin Ratio 1.6 (1.0-2.8); Alkaline Phosphatase 78 U/L (38-126); Aspartate Aminotransferase 24 IU/L (14-36); BUN Creatinine Ratio 15.1 (6-22); Bilirubin Total 0.6 mg/dL (0.2-1.3); Blood Urea Nitrogen 11 mg/dL (7-17); Calcium 9.6 mg/dL (8.4-10.2); Carbon Dioxide 29 mmol/L (22-32); Chloride 102 mmol/L (98-107); Cholesterol 173 mg/dL (140-199); Estimated Glomerular Filt Rate > 60 mL/min (>60); Globulin 2.7 g/dL (1.7-4.1); Glucose 95 mg/dL (80-110); HDL Cholesterol 73 mg/dL (40-60); HEMOLYSIS < 15 (0-50); LDL Cholesterol Calculated 75 mg/dL (<100); Sodium 134 mmol/L (137-145); Total Protein 6.9 g/dL (6.3-8.2); Triglycerides 126 mg/dL (35-150)
[2024-09-20 18:13] LABS: Hep C Virus Ab w/Reflex Quant NEGATIVE s/c (NEGATIVE)
== END ==
PROVIDERS: Family Provider Family Medicine; PCP Family Medicine; Referring Provider Family Medicine; Visit Provider Family Medicine
DX: Z00.00 Encounter for general adult medical examination without abnormal findings (principal); G25.0 Essential tremor; I10 Essential (primary) hypertension; I28.1 Aneurysm of pulmonary artery; Z72.89 Other problems related to lifestyle
CPT/HCPCS: 36415; 80053; 80061; 85027; 86803

== ENCOUNTER → 2025-01-01 14:47 | Outpatient (CLI) | payer MEDICARE, OTHER, SELFPAY ==
[2025-01-02 12:39] LABS: Fecal Immunochemical Test Negative (Negative)
== END ==
LOC: LAB 14:48
PROVIDERS: Family Provider Family Medicine; PCP Family Medicine; Referring Provider Family Medicine; Visit Provider Family Medicine
DX: Z12.11 Encounter for screening for malignant neoplasm of colon (principal)
CPT/HCPCS: 82274

== ENCOUNTER 2025-03-05 13:45 | Outpatient (RCR) | payer MEDICARE, OTHER, SELFPAY ==
--- NOTE | 2024-07-25 13:45 | PT.OIE ---
Current Diagnoses Pain in right ankle and joints of right foot (07/25/24) Nondisplaced pilon fracture of right tibia, subsequent encounter for closed fracture with routine healing (07/25/24) Nondisplaced pilon fracture of left tibia, initial encounter for closed fracture (07/25/24) Dislocation of tarsometatarsal joint of left foot, initial encounter (07/25/24) Sprain of tibiofibular ligament of left ankle, initial encounter (07/25/24) Past Medical History (Last Reviewed 01/10/24 @ 11:39 by Aleksandra Leal PA-C) Alcohol use Asthma (~1987) Benign essential tremor Benign familial tremor (~1959) Cataracts, bilateral (~2015) Chicken pox Colon polyps (~2011) Endometriosis (~1978) Fibroids (~1978) Fractures Hypertension Measles Mumps Obesity (BMI 30-39.9) Osteopenia Painful menstrual periods (~1978) Pulmonary artery aneurysm Pulmonary stenosis (~1995) Seasonal allergies (~1945) Past Surgical History (Last Updated 04/25/24 @ 12:16 by Jyoti Loja RN) Anesthesia History of cardiac catheterization History of colonoscopy (01/2012) History of hysterectomy (~1978) History of laparoscopy (~1978) History of lumpectomy History of open heart surgery (~1950) Papilloma of right breast (~2018) Visit Care Team Role Provider Type Claudio Garcias DO Family Provider Physician Primary Care Provider Specialty: Family Practice Address: [address] [place] [address], [address], [address] Email: [email or web address] Attending Provider Physician Referring Provider Specialty: Orthopedics Orthopedic Surgery Address: [address] [place] [address], [id number] Email: [email or web address] Physical Therapy Initial Evaluation PT-OP-A Visit Information Start: 07/12/24 17:42 Freq: Status: Active Protocol: Document 07/25/24 11:38 [facility] (Rec: 07/25/24 13:45 [facility] [id number]) Out-Patient Physical Therapy Visit Information Visit Information Visit Type Initial Evaluation Visit Note 10/26 Visit Start Time 11:35 Visit Stop Time 12:23 Visit Number 1 Number of MEDICAL FRONT DESK SPECIALIST Visits 0 PT-OP-B Current Condition Start: 07/12/24 17:42 Freq: Status: Active Protocol: Document 07/25/24 11:38 [facility] (Rec: 07/25/24 13:45 [facility] [id number]) Current Condition History of Current Condition Onset Date injury april 15, sx 04/30 Current Complaints L ORIF lisfranc, pilon and syndesmosis History of Current Condition Pt reports stood up to go to bed on April 15 and fell over her feet and broke her leg and bones in foot. She was put in splint ER and on April 30 got screws in foot, leg and ankle. Has had boot for 6-8 weeks. Tried to do the walker when cleared to in May and it hurt so bad, she couldn't do it. Dr Flor Guzman told her to wait a couple weeks again and on 06/19 was told again. Sees her again next Tuesday. Last tried to use walker about 1.5 weeks ago but it is too painful . When uses the walker, L shoulder has been more painful too. Broke ankle in 80s without surgery. Denies LE and back pain. Pt reports prior ot this was a couch potato. prior to this was indep w/dressing and bathing. Cannot get into shower so has been doing bird baths insteadwith help . He helps some w/dressing too . It is a walk in shower but has a step up so can't get in. Has a built in seat in there with grab bars in there. DOes SPT for all transfers w/o FWW. Has a ramp built in now for livingroom area to cover step. [facility] w/flat entry. Pt has been doing APs Treatment Goals Patient/Caregiver Goals get back to walking PT-OP-C Subjective Start: 07/12/24 17:42 Freq: Status: Active Protocol: Document 07/25/24 11:38 [facility] (Rec: 07/25/24 13:45 [facility] [id number]) Patient Questionnaires Foot & Ankle Ability Measure- ADL and Sports FAAM-ADL Score 6/84 Lower Extremity Functional Scale LEFS Score 15/80 PT-OP-F Manual Assessment Start: 07/12/24 17:42 Freq: Status: Active Protocol: Document 07/25/24 11:38 [facility] (Rec: 07/25/24 13:45 [facility] [id number]) Manual Assessments Other Manual Assessments Other Manual Assessments signficiant midfoot swelling, some dry skin on midfoot PT-OP-G Mobility & Gait Start: 07/12/24 17:42 Freq: Status: Active Protocol: Document 07/25/24 11:38 [facility] (Rec: 07/25/24 13:45 [facility] [id number]) OP Gait Assessment Comments Gait Comments came in w/WC. able to amb w/ FWW w/cues for step to pattern PT-OP-K Range of Motion Start: 07/12/24 17:42 Freq: Status: Active Protocol: Document 07/25/24 11:38 [facility] (Rec: 07/25/24 13:45 [facility] [id number]) Ankle and Foot Goniometric Range of Motion Ankle and Foot Right Active Dorsiflexion with Knee Flexed 2 Plantarflexion 60 Inversion 36 Eversion 21 Left Active Dorsiflexion with Knee Flexed 6 Plantarflexion 36 Inversion 19 Eversion 12 Comments lacking DF to neural PT-OP-Q Treatments Start: 07/12/24 17:42 Freq: Status: Active Protocol: Document 07/25/24 11:38 [facility] (Rec: 07/25/24 13:45 [facility] [id number]) Gait Training Gait Activity step Comments up/down 4 in step w/FWW w/cues for sequencing x1 FWW Comments amb w/cues for sequence and how to set up walker height 30ft and w/turning Self-Care/Home Management Treatment Education Other Education 9 min: edu on why FWW better than 4WW for pt current condition. Discussed appropriate walker height. discussed w/pt improtance of working on inc WB. Encouraged APs mult times in day and focus on full range PT-OP-T Assessment and Plan Start: 07/12/24 17:42 Freq: Status: Active Protocol: Document 07/25/24 11:38 [facility] (Rec: 07/25/24 13:45 [facility] [id number]) Physical Therapy Assessment Goals ROM Short Term Goal (STG) Pt will have DF to neutral in knee flex position STG Duration 11/15 Correction Goal (LTG) Pt will have at least DF to 5 deg in knee flex and extended position to allow for improved gait mechanics. LTG Duration 10/17/23 activity Short Term Goal (STG) Pt will ambulate in house w/ LRAD 100% of the time instead of use WC STG Duration 08/25 Correction Goal (LTG) Pt will amb w/o AD w/o significant gait deviations and be able to go for short walks w/o inc pain greater than 2/10 LTG Duration 10/17/23 LEFS Impairment 15/80 Short Term Goal (STG) Pt will improve LEFS score to at least 30/80 to show improved functional ability. STG Duration 09/11/24 Mammography Technologist Goal (LTG) Pt will improve LEFS score to at least 50/80 to show improved functional ability. LTG Duration 10/17/24 Assessment Summary Assessment Pt is 3 months s/p L ORIF lisfranc, pilon and syndesmosis with overall decreased tolerance to WB since surgery. She has limited ROM and overall weakness d/t prolonged mobility, and signifciant swelling and pain limiting her mobility. She would benefit from skilled PT to return to more indep ADLs and improved gait along w/ improve LE strength and ankle mobility. Physical Therapy Plan Frequency and Duration Frequency of Treatment 2x/Week Duration of treatment (weeks) 12 Plan of Care Start Date 07/25/24 Plan of Care End Date 10/17/24 Therapeutic Interventions Therapeutic Interventions Balance Training,Gait Training ,Home Exercise Program,Joint Mobilizations,Manual Therapy, Neuromuscular Re-education, Orthotic/Prosthetic Management ,Patient/Caregiver Education, Self-Care/Home Management,Soft Tissue Mobilization,Taping, Therapeutic Activities, Therapeutic Exercises Modalities Cold Pack/Ice Massage,Electric Stimulation,Hot Packs, Infrared Therapy Next Visit Focus/Plan Next Note Type Treatment Note Next Visit Plan Give HEP: sit to stands, Seated hip strenthening and knee strengthening exercises gradually inc WB attempt by 25 % per wk as pt tolerates w/FWW , check how much currently WB w/boot, work on gait w/FWW and ability to step up/down step for shower and sunken living room
--- NOTE | 2024-07-25 13:45 | PT.OPPOC ---
Physical, Occupational & Speech Therapy At [facility] Current Diagnoses Pain in right ankle and joints of right foot (07/25/24) Nondisplaced pilon fracture of right tibia, subsequent encounter for closed fracture with routine healing (07/25/24) Nondisplaced pilon fracture of left tibia, initial encounter for closed fracture (07/25/24) Dislocation of tarsometatarsal joint of left foot, initial encounter (07/25/24) Sprain of tibiofibular ligament of left ankle, initial encounter (07/25/24) Visit Care Team Role Provider Type Claudio Garcias DO Family Provider Physician Primary Care Provider Specialty: Family Practice Address: [address] [place] [address], [facility] [address], [place], [address] Email: [email or web address] Guzman MD Attending Provider Physician Referring Provider Specialty: Orthopedics Orthopedic Surgery Address: [address] [place] [address], [id number] Email: [email or web address] Plan Of Care PT-OP-B Current Condition Start: 07/12/24 17:42 Freq: Status: Active Protocol: Document 07/25/24 11:38 [facility] (Rec: 07/25/24 13:45 [facility] [id number]) Current Condition History of Current Condition Onset Date injury april 15, sx 04/30 Current Complaints L ORIF lisfranc, pilon and syndesmosis History of Current Condition Pt reports stood up to go to bed on April 15 and fell over her feet and broke her leg and bones in foot. She was put in splint ER and on April 30 got screws in foot, leg and ankle. Has had boot for 6-8 weeks. Tried to do the walker when cleared to in May and it hurt so bad, she couldn't do it. Dr Flor Guzman told her to wait a couple weeks again and on 06/19 was told again. Sees her again next Tuesday. Last tried to use walker about 1.5 weeks ago but it is too painful . When uses the walker, L shoulder has been more painful too. Broke ankle in 80s without surgery. Denies LE and back pain. Pt reports prior ot this was a couch potato. prior to this was indep w/dressing and bathing. Cannot get into shower so has been doing bird baths insteadwith help . He helps some w/dressing too . It is a walk in shower but has a step up so can't get in. Has a built in seat in there with grab bars in there. DOes SPT for all transfers w/o FWW. Has a ramp built in now for livingroom area to cover step. H w/flat entry. Pt has been doing APs Treatment Goals Patient/Caregiver Goals get back to walking PT-OP-T Assessment and Plan Start: 07/12/24 17:42 Freq: Status: Active Protocol: Document 07/25/24 11:38 [facility] (Rec: 07/25/24 13:45 [facility] [id number]) Physical Therapy Assessment Goals ROM Short Term Goal (STG) Pt will have DF to neutral in knee flex position STG Duration 08/31 Penitentiary Goal (LTG) Pt will have at least DF to 5 deg in knee flex and extended position to allow for improved gait mechanics. LTG Duration 10/17/23 activity Short Term Goal (STG) Pt will ambulate in house w/ LRAD 100% of the time instead of use WC STG Duration 08/25 Care Coordinator Goal (LTG) Pt will amb w/o AD w/o significant gait deviations and be able to go for short walks w/o inc pain greater than 2/10 LTG Duration 10/17/23 LEFS Impairment 15/80 Short Term Goal (STG) Pt will improve LEFS score to at least 30/80 to show improved functional ability. STG Duration 09/11/24 Care Coordinator Goal (LTG) Pt will improve LEFS score to at least 50/80 to show improved functional ability. LTG Duration 10/17/24 Assessment Summary Assessment Pt is 3 months s/p L ORIF lisfranc, pilon and syndesmosis with overall decreased tolerance to WB since surgery. She has limited ROM and overall weakness d/t prolonged mobility, and signifciant swelling and pain limiting her mobility. She would benefit from skilled PT to return to more indep ADLs and improved gait along w/ improve LE strength and ankle mobility. Physical Therapy Plan Frequency and Duration Frequency of Treatment 2x/Week Duration of treatment (weeks) 12 Plan of Care Start Date 07/25/24 Plan of Care End Date 10/17/24 Therapeutic Interventions Therapeutic Interventions Balance Training,Gait Training ,Home Exercise Program,Joint Mobilizations,Manual Therapy, Neuromuscular Re-education, Orthotic/Prosthetic Management ,Patient/Caregiver Education, Self-Care/Home Management,Soft Tissue Mobilization,Taping, Therapeutic Activities, Therapeutic Exercises Modalities Cold Pack/Ice Massage,Electric Stimulation,Hot Packs, Infrared Therapy Next Visit Focus/Plan Next Note Type Treatment Note Next Visit Plan Give HEP: sit to stands, Seated hip strenthening and knee strengthening exercises gradually inc WB attempt by 25 % per wk as pt tolerates w/FWW , check how much currently WB w/boot, work on gait w/FWW and ability to step up/down step for shower and sunken living room Plan of Care Dates Plan of Care Start Date 07/25/24 Plan of Care End Date 10/17/24 Electronically Signed by: Tiarra Graf, PT 07/25/24 2710 If you are in agreement with this Plan of Care, please return a signed and dated copy. I have reviewed this Plan of Care and certify that the skilled therapy services above are required to meet the patient?s needs. Physician Signature Date Printed Name and Credentials Clinical Instructor Signature Printed Name and Credentials
--- NOTE | 2024-07-27 16:33 | PT.OTN ---
Current Diagnoses Pain in right ankle and joints of right foot (07/27/24) Nondisplaced pilon fracture of right tibia, subsequent encounter for closed fracture with routine healing (07/27/24) Nondisplaced pilon fracture of left tibia, initial encounter for closed fracture (07/27/24) Dislocation of tarsometatarsal joint of left foot, initial encounter (07/27/24) Sprain of tibiofibular ligament of left ankle, initial encounter (07/27/24) Physical Therapy Treatment Note PT-OP-A Visit Information Start: 07/12/24 17:42 Freq: Status: Active Protocol: Document 07/27/24 12:39 AB (Rec: 07/27/24 16:33 AB [id number]) Out-Patient Physical Therapy Visit Information Visit Information Visit Type Treatment Note Visit Note 11/26 Access Code [id number] Visit Start Time 13:49 Visit Stop Time 14:34 Visit Number 2 Number of LOADING MACHINE OPERATOR HELPER Visits 1 PT-OP-B Current Condition Start: 07/12/24 17:42 Freq: Status: Active Protocol: Document 07/25/24 11:38 [facility] (Rec: 07/25/24 13:45 [facility] [id number]) Current Condition History of Current Condition Onset Date injury april 15, sx 04/30 Current Complaints L ORIF lisfranc, pilon and syndesmosis History of Current Condition Pt reports stood up to go to bed on April 15 and fell over her feet and broke her leg and bones in foot. She was put in splint ER and on April 30 got screws in foot, leg and ankle. Has had boot for 6-8 weeks. Tried to do the walker when cleared to in May and it hurt so bad, she couldn't do it. Dr Flor Guzman told her to wait a couple weeks again and on 06/19 was told again. Sees her again next Tuesday. Last tried to use walker about 1.5 weeks ago but it is too painful . When uses the walker, L shoulder has been more painful too. Broke ankle in 80s without surgery. Denies LE and back pain. Pt reports prior ot this was a couch potato. prior to this was indep w/dressing and bathing. Cannot get into shower so has been doing bird baths insteadwith help . He helps some w/dressing too . It is a walk in shower but has a step up so can't get in. Has a built in seat in there with grab bars in there. DOes SPT for all transfers w/o FWW. Has a ramp built in now for livingroom area to cover step. [facility] w/flat entry. Pt has been doing APs Treatment Goals Patient/Caregiver Goals get back to walking PT-OP-C Subjective Start: 07/12/24 17:42 Freq: Status: Active Protocol: Document 07/27/24 12:39 AB (Rec: 07/27/24 16:33 AB [id number]) OP-PT Subjective Patient Comments Patient Comments Patient into session with FWW, adjusted too low, elbows fully extended, boot in place left LE in ER. Patient reports pain with ambulation is 2-3/ 10 and and reports bilateral shoulder pain 2/10 start of session.(FWW adjusted in waiting area due to reports of 5-6/10 left ankle pain ambulating into session and at home) Patient reports pain decreased to 2/10 post FWW height adjustment PT-OP-F Manual Assessment Start: 07/12/24 17:42 Freq: Status: Active Protocol: Document 07/25/24 11:38 [facility] (Rec: 07/25/24 13:45 [facility] [id number]) Manual Assessments Other Manual Assessments Other Manual Assessments signficiant midfoot swelling, some dry skin on midfoot PT-OP-G Mobility & Gait Start: 07/12/24 17:42 Freq: Status: Active Protocol: Document 07/25/24 11:38 [facility] (Rec: 07/25/24 13:45 [facility] [id number]) OP Gait Assessment Comments Gait Comments came in w/WC. able to amb w/ FWW w/cues for step to pattern PT-OP-K Range of Motion Start: 07/12/24 17:42 Freq: Status: Active Protocol: Document 07/25/24 11:38 [facility] (Rec: 07/25/24 13:45 [facility] [id number]) Ankle and Foot Goniometric Range of Motion Ankle and Foot Right Active Dorsiflexion with Knee Flexed 2 Plantarflexion 60 Inversion 36 Eversion 21 Left Active Dorsiflexion with Knee Flexed 6 Plantarflexion 36 Inversion 19 Eversion 12 Comments lacking DF to neural PT-OP-Q Treatments Start: 07/12/24 17:42 Freq: Status: Active Protocol: Document 07/27/24 12:39 AB (Rec: 07/27/24 16:33 AB [id number]) Therapeutic Exercises Sitting Exercises seated hip abduction Sitting Exercise Name HEP Resistance [place] green band Reps/Minutes one minute X 1 and X 10 without hold Comments Verbal cues long arc quad Sitting Exercise Name HEP without band Side left Resistance level 2, level 1 and no band Reps/Minutes X4, X 3 and X 10 Comments reports feeling it it the knee with bands Standing Exercises sit to stand Standing Exercise Name HEP Side bilateral Reps/Minutes X5 X 3 post training Comments Verbal cues to avoid left LE ER and knee ext for set up and for hip hinge Gait Training Gait Activity FWW Device Used FWW Comments FWW height increased in waiting area prior to am into clinic with VC to avoid toeing out. On scale(patient estimates weight at 195#)left LE 100- 109 # weight bearing ( L LE on scale) with FWW X4 with reports of shoulders hurting without ankle pain. Gait training on curb ascends with right descends with left using FWW, verbal cues for FWW position and sequence, down X 2 up X 1. Patient advised to perform shorter walks more often due to reports of shoulder pain bilaterally. Spouse advised to bring car to curb end of session. PT-OP-T Assessment and Plan Start: 07/12/24 17:42 Freq: Status: Active Protocol: Document 07/27/24 12:39 AB (Rec: 07/27/24 16:33 AB [id number]) Physical Therapy Assessment Goals ROM Short Term Goal (STG) Pt will have DF to neutral in knee flex position STG Duration 08/31 Base Ply Hand Goal (LTG) Pt will have at least DF to 5 deg in knee flex and extended position to allow for improved gait mechanics. LTG Duration 10/17/23 activity Short Term Goal (STG) Pt will ambulate in house w/ LRAD 100% of the time instead of use WC STG Duration 08/25 Base Ply Hand Goal (LTG) Pt will amb w/o AD w/o significant gait deviations and be able to go for short walks w/o inc pain greater than 2/10 LTG Duration 10/17/23 LEFS Impairment 15 Short Term Goal (STG) Pt will improve LEFS score to at least 30/80 to show improved functional ability. STG Duration 09/11/24 Base Ply Hand Goal (LTG) Pt will improve LEFS score to at least 50/80 to show improved functional ability. LTG Duration 10/17/24 Assessment Summary Assessment Patient rates left LE pain 2/ 10 ambulating out of session wiht FWW. Patient into session with reports of 5-6/10 ambulating with FWW ant home left ankle, and increased shoulder pain. Significant decrease in symptoms post FWW height raised. Physical Therapy Plan Frequency and Duration Frequency of Treatment 2x/Week Duration of treatment (weeks) 12 Plan of Care Start Date 07/25/24 Plan of Care End Date 10/17/24 Next Visit Focus/Plan Next Note Type Treatment Note Next Visit Plan assess zaynab to HEP: sit to stands, Seated hip strenthening and knee strengthening exercises gradually inc WB attempt by 25 % per wk as pt tolerates w/FWW , check how much currently WB w/boot,
--- NOTE | 2024-07-30 17:12 | PT.OTN ---
Current Diagnoses Pain in right ankle and joints of right foot (07/30/24) Nondisplaced pilon fracture of right tibia, subsequent encounter for closed fracture with routine healing (07/30/24) Nondisplaced pilon fracture of left tibia, initial encounter for closed fracture (07/30/24) Dislocation of tarsometatarsal joint of left foot, initial encounter (07/30/24) Sprain of tibiofibular ligament of left ankle, initial encounter (07/30/24) Physical Therapy Treatment Note PT-OP-A Visit Information Start: 07/12/24 17:42 Freq: Status: Active Protocol: Document 07/30/24 15:42 [facility] (Rec: 07/30/24 17:12 [facility] [id number]) Out-Patient Physical Therapy Visit Information Visit Information Visit Type Treatment Note Visit Note 12/24 Access Code [id number] Visit Start Time 15:20 Visit Stop Time 16:00 Visit Number 3 Number of CASING TRIMMER Visits 0 PT-OP-B Current Condition Start: 07/12/24 17:42 Freq: Status: Active Protocol: Document 07/25/24 11:38 [facility] (Rec: 07/25/24 13:45 [facility] [id number]) Current Condition History of Current Condition Onset Date injury april 15, sx 04/30 Current Complaints L ORIF lisfranc, pilon and syndesmosis History of Current Condition Pt reports stood up to go to bed on April 15 and fell over her feet and broke her leg and bones in foot. She was put in splint ER and on April 30 got screws in foot, leg and ankle. Has had boot for 6-8 weeks. Tried to do the walker when cleared to in May and it hurt so bad, she couldn't do it. Dr Flor Guzman told her to wait a couple weeks again and on 06/19 was told again. Sees her again next Tuesday. Last tried to use walker about 1.5 weeks ago but it is too painful . When uses the walker, L shoulder has been more painful too. Broke ankle in 80s without surgery. Denies LE and back pain. Pt reports prior ot this was a couch potato. prior to this was indep w/dressing and bathing. Cannot get into shower so has been doing bird baths insteadwith help . He helps some w/dressing too . It is a walk in shower but has a step up so can't get in. Has a built in seat in there with grab bars in there. DOes SPT for all transfers w/o FWW. Has a ramp built in now for livingroom area to cover step. [facility] w/flat entry. Pt has been doing APs Treatment Goals Patient/Caregiver Goals get back to walking PT-OP-C Subjective Start: 07/12/24 17:42 Freq: Status: Active Protocol: Document 07/30/24 15:42 [facility] (Rec: 07/30/24 17:12 [facility] [id number]) OP-PT Subjective Patient Comments Patient Comments Pt reports irritated R shoulder Tuesday so didn't walk this weekend. Did do HEP. sees tomorrow PT-OP-F Manual Assessment Start: 07/12/24 17:42 Freq: Status: Active Protocol: Document 07/25/24 11:38 [facility] (Rec: 07/25/24 13:45 [facility] [id number]) Manual Assessments Other Manual Assessments Other Manual Assessments signficiant midfoot swelling, some dry skin on midfoot PT-OP-G Mobility & Gait Start: 07/12/24 17:42 Freq: Status: Active Protocol: Document 07/25/24 11:38 [facility] (Rec: 07/25/24 13:45 [facility] [id number]) OP Gait Assessment Comments Gait Comments came in w/WC. able to amb w/ FWW w/cues for step to pattern PT-OP-K Range of Motion Start: 07/12/24 17:42 Freq: Status: Active Protocol: Document 07/25/24 11:38 [facility] (Rec: 07/25/24 13:45 [facility] [id number]) Ankle and Foot Goniometric Range of Motion Ankle and Foot Right Active Dorsiflexion with Knee Flexed 2 Plantarflexion 60 Inversion 36 Eversion 21 Left Active Dorsiflexion with Knee Flexed 6 Plantarflexion 36 Inversion 19 Eversion 12 Comments lacking DF to neural PT-OP-Q Treatments Start: 07/12/24 17:42 Freq: Status: Active Protocol: Document 07/30/24 15:42 [facility] (Rec: 07/30/24 17:12 [facility] [id number]) Therapeutic Exercises Sitting Exercises APs Side bilateral Reps/Minutes 29 december Side bilateral Resistance L3 Reps/Minutes 15 ea HS curls Side bilateral Equipment Used L2 Reps/Minutes 15 seated hip abduction Sitting Exercise Name HEP review Resistance [place] [employer] green band Reps/Minutes one minute X 1 and X 10 without hold Comments Verbal cues long arc quad Sitting Exercise Name HEP review Side left Reps/Minutes 5 sec hold x10 Standing Exercises sit to stand Standing Exercise Name HEP review Side bilateral Reps/Minutes x8 Comments Verbal cues to avoid left LE ER and knee ext for set up and for hip hinge Gait Training Gait Activity sidestep Description for shower manuever over small step over Comments lat over x1 ea way step Comments up/down 5 in step w/FWW w/cues for sequencing x3 FWW Device Used FWW Comments amb w/FWW 40ft, 20ft w/cues for posture PT-OP-T Assessment and Plan Start: 07/12/24 17:42 Freq: Status: Active Protocol: Document 07/30/24 15:42 [facility] (Rec: 07/30/24 17:12 [facility] [id number]) Physical Therapy Assessment Goals ROM Short Term Goal (STG) Pt will have DF to neutral in knee flex position STG Duration 08/31 Nursing Home Goal (LTG) Pt will have at least DF to 5 deg in knee flex and extended position to allow for improved gait mechanics. LTG Duration 10/17/23 activity Short Term Goal (STG) Pt will ambulate in house w/ LRAD 100% of the time instead of use WC STG Duration 08/25 Car Barn Laborer Goal (LTG) Pt will amb w/o AD w/o significant gait deviations and be able to go for short walks w/o inc pain greater than 2/10 LTG Duration 10/17/23 LEFS Impairment 15/80 Short Term Goal (STG) Pt will improve LEFS score to at least 30/80 to show improved functional ability. STG Duration 09/11/24 Nursing Home Goal (LTG) Pt will improve LEFS score to at least 50/80 to show improved functional ability. LTG Duration 10/17/24 Assessment Summary Assessment Pt improves w/posture w/gait when cued but cont to slouch which likely inc force into shoulders. She did well with step training and over obstacle to immitate shower. Physical Therapy Plan Frequency and Duration Frequency of Treatment 2x/Week Duration of treatment (weeks) 12 Plan of Care Start Date 07/25/24 Plan of Care End Date 10/17/24 Next Visit Focus/Plan Next Note Type Treatment Note Next Visit Plan advance HEP and LE strength; cont to advance WB as tolerated; cont to work on stair training (will need to for hair appt); chek in re: appt [facility]
--- NOTE | 2024-08-03 15:14 | PT.OTN ---
Current Diagnoses Pain in right ankle and joints of right foot (08/02/24) Nondisplaced pilon fracture of right tibia, subsequent encounter for closed fracture with routine healing (08/02/24) Nondisplaced pilon fracture of left tibia, initial encounter for closed fracture (08/02/24) Dislocation of tarsometatarsal joint of left foot, initial encounter (08/02/24) Sprain of tibiofibular ligament of left ankle, initial encounter (08/02/24) Physical Therapy Treatment Note PT-OP-A Visit Information Start: 07/12/24 17:42 Freq: Status: Active Protocol: Document 08/02/24 14:34 SP (Rec: 08/02/24 16:04 SP [id number]) Out-Patient Physical Therapy Visit Information Visit Information Visit Type Treatment Note Visit Note 01/24 Visit Start Time 14:34 Visit Stop Time 15:14 Visit Number 4 Number of CAREER SERVICES MANAGER Visits 1 PT-OP-B Current Condition Start: 07/12/24 17:42 Freq: Status: Active Protocol: Document 07/25/24 11:38 [facility] (Rec: 07/25/24 13:45 [facility] [id number]) Current Condition History of Current Condition Onset Date injury april 15, sx 04/30 Current Complaints L ORIF lisfranc, pilon and syndesmosis History of Current Condition Pt reports stood up to go to bed on April 15 and fell over her feet and broke her leg and bones in foot. She was put in splint ER and on April 30 got screws in foot, leg and ankle. Has had boot for 6-8 weeks. Tried to do the walker when cleared to in May and it hurt so bad, she couldn't do it. Dr Flor Guzman told her to wait a couple weeks again and on 06/19 was told again. Sees her again next Tuesday. Last tried to use walker about 1.5 weeks ago but it is too painful . When uses the walker, L shoulder has been more painful too. Broke ankle in 80s without surgery. Denies LE and back pain. Pt reports prior ot this was a couch potato. prior to this was indep w/dressing and bathing. Cannot get into shower so has been doing bird baths insteadwith help . He helps some w/dressing too . It is a walk in shower but has a step up so can't get in. Has a built in seat in there with grab bars in there. DOes SPT for all transfers w/o FWW. Has a ramp built in now for livingroom area to cover step. [facility] w/flat entry. Pt has been doing APs Treatment Goals Patient/Caregiver Goals get back to walking PT-OP-C Subjective Start: 07/12/24 17:42 Freq: Status: Active Protocol: Document 08/02/24 14:34 SP (Rec: 08/02/24 16:04 SP [id number]) OP-PT Subjective Patient Comments Patient Comments Pt reports saw ortho Dr Anna on (next follow up Sep) is cleared for wearing shoe about 1 hr day to increased ankle mobility. PT-OP-F Manual Assessment Start: 07/12/24 17:42 Freq: Status: Active Protocol: Document 07/25/24 11:38 [facility] (Rec: 07/25/24 13:45 [facility] [id number]) Manual Assessments Other Manual Assessments Other Manual Assessments signficiant midfoot swelling, some dry skin on midfoot PT-OP-G Mobility & Gait Start: 07/12/24 17:42 Freq: Status: Active Protocol: Document 07/25/24 11:38 [facility] (Rec: 07/25/24 13:45 [facility] [id number]) OP Gait Assessment Comments Gait Comments came in w/WC. able to amb w/ FWW w/cues for step to pattern PT-OP-K Range of Motion Start: 07/12/24 17:42 Freq: Status: Active Protocol: Document 07/25/24 11:38 [facility] (Rec: 07/25/24 13:45 [facility] [id number]) Ankle and Foot Goniometric Range of Motion Ankle and Foot Right Active Dorsiflexion with Knee Flexed 2 Plantarflexion 60 Inversion 36 Eversion 21 Left Active Dorsiflexion with Knee Flexed 6 Plantarflexion 36 Inversion 19 Eversion 12 Comments lacking DF to neural PT-OP-Q Treatments Start: 07/12/24 17:42 Freq: Status: Active Protocol: Document 08/02/24 14:34 SP (Rec: 08/02/24 16:04 SP [id number]) Cardio Equipment Recumbent Elliptical (Biodex) Duration (Minutes) 6 Resistance 0 Seat Position 10 Other BLEs Therapeutic Exercises Sitting Exercises toe scrunches Sitting Exercise Name added to HEP /c HO Side left Resistance AROM Reps/Minutes x10 Comments cued slow tolerant range arch lift and toe flexion for support gait toe off ankle DF, EV, IV Sitting Exercise Name added to HEP /c HO Side left Resistance AROM Reps/Minutes x10 each Comments cued knee still BAPS Sitting Exercise Name trialed in PT Side left Resistance ball 1>2 Equipment Used F/B/L/CCW/CW to challenging. Reps/Minutes x10 reps each direction Comments challenge PF>IV range- low discomfort improved range with reps HS curls Sitting Exercise Name added new HO Side bilateral Resistance L2 Equipment Used anchored by therapist/ home towel behind band Reps/Minutes 15 Comments Time spent figure out set up best for her, good HS tiring. Gait Training Gait Activity FWW Device Used FWW Distance/Duration across gym x2, approx 80 ft x2 Comments cues for posture, gait phase: heel toe and try DF into toe off , trial receiprocal stepping Manual Therapy Treatment Consent Patient gave verbal consent for manual Yes treatment Soft Tissue Mobilization swelling reduction L foot Body Location retrograde massage L dorsal and plantar foot, ankle, mid baxter Mobilization Type Manual Lymphatic Drainage Intensity/Depth Superficial Body Position Supine Comments gentle light manual prox> distal>prox- discussion carryover assist for swelling reduction and reabsorption. Slight decrease swelling noted. Discussed and will acquire compression socks for additional support. Self-Care/Home Management Treatment Education Patient Education Pain Management,Safety Caregiver Education understanding assist anchor band for HS curl and assist retrograde massage and donning compression sock. Other Education Education by PT and CAREER SERVICES MANAGER acquiring compression sock and assist retro grade massage for swelling fluid absorption. PT-OP-T Assessment and Plan Start: 07/12/24 17:42 Freq: Status: Active Protocol: Document 08/02/24 14:34 SP (Rec: 08/02/24 16:04 SP [id number]) Physical Therapy Assessment Goals ROM Short Term Goal (STG) Pt will have DF to neutral in knee flex position STG Duration 08/31 Digital Media Designer Goal (LTG) Pt will have at least DF to 5 deg in knee flex and extended position to allow for improved gait mechanics. LTG Duration 10/17/23 activity Short Term Goal (STG) Pt will ambulate in house w/ LRAD 100% of the time instead of use WC STG Duration 08/25 Fpc Goal (LTG) Pt will amb w/o AD w/o significant gait deviations and be able to go for short walks w/o inc pain greater than 2/10 LTG Duration 10/17/23 LEFS Impairment 15/80 Short Term Goal (STG) Pt will improve LEFS score to at least 30/80 to show improved functional ability. STG Duration 09/11/24 Digital Media Designer Goal (LTG) Pt will improve LEFS score to at least 50/80 to show improved functional ability. LTG Duration 10/17/24 Assessment Summary Assessment Pt reported and demonstrated improved L ankle AROM, provided ankle AROM HO. TOlerated increased resistance use of BAPS board today, challenged in supination/CCW motion. Initated toe scrunches for plantar foot intrinic mobility /c HOs for gait phase support. Improved HS engagement with new set up spouse hold band front to support strengthening for gait . Physical Therapy Plan Frequency and Duration Frequency of Treatment 2x/Week Duration of treatment (weeks) 12 Plan of Care Start Date 07/25/24 Plan of Care End Date 10/17/24 Therapeutic Interventions Therapeutic Interventions Balance Training,Gait Training ,Home Exercise Program,Joint Mobilizations,Manual Therapy, Neuromuscular Re-education, Orthotic/Prosthetic Management ,Patient/Caregiver Education, Self-Care/Home Management,Soft Tissue Mobilization,Taping, Therapeutic Activities, Therapeutic Exercises Modalities Cold Pack/Ice Massage,Electric Stimulation,Hot Packs, Infrared Therapy Next Visit Focus/Plan Next Note Type Treatment Note Next Visit Plan Recheck foot HEP. POC: advance HEP and LE strength; cont to advance WB as tolerated; cont to work on stair training (will need to for hair appt); chek in re: MD [facility]
--- NOTE | 2024-08-06 14:40 | PT.OTN ---
Current Diagnoses Pain in right ankle and joints of right foot (08/06/24) Nondisplaced pilon fracture of right tibia, subsequent encounter for closed fracture with routine healing (08/06/24) Nondisplaced pilon fracture of left tibia, initial encounter for closed fracture (08/06/24) Dislocation of tarsometatarsal joint of left foot, initial encounter (08/06/24) Sprain of tibiofibular ligament of left ankle, initial encounter (08/06/24) Physical Therapy Treatment Note PT-OP-A Visit Information Start: 07/12/24 17:42 Freq: Status: Active Protocol: Document 08/06/24 13:43 SP (Rec: 08/06/24 15:29 SP [id number]) Out-Patient Physical Therapy Visit Information Visit Information Visit Type Treatment Note Visit Note 02/23 Visit Start Time 13:45 Visit Stop Time 14:40 Visit Number 5 Number of FINANCIAL AID COUNSELOR Visits 2 PT-OP-B Current Condition Start: 07/12/24 17:42 Freq: Status: Active Protocol: Document 07/25/24 11:38 [facility] (Rec: 07/25/24 13:45 [facility] [id number]) Current Condition History of Current Condition Onset Date injury april 15, sx 04/30 Current Complaints L ORIF lisfranc, pilon and syndesmosis History of Current Condition Pt reports stood up to go to bed on April 15 and fell over her feet and broke her leg and bones in foot. She was put in splint ER and on April 30 got screws in foot, leg and ankle. Has had boot for 6-8 weeks. Tried to do the walker when cleared to in May and it hurt so bad, she couldn't do it. Dr Flor Guzman told her to wait a couple weeks again and on 06/19 was told again. Sees her again next Tuesday. Last tried to use walker about 1.5 weeks ago but it is too painful . When uses the walker, L shoulder has been more painful too. Broke ankle in 80s without surgery. Denies LE and back pain. Pt reports prior ot this was a couch potato. prior to this was indep w/dressing and bathing. Cannot get into shower so has been doing bird baths insteadwith help . He helps some w/dressing too . It is a walk in shower but has a step up so can't get in. Has a built in seat in there with grab bars in there. DOes SPT for all transfers w/o FWW. Has a ramp built in now for livingroom area to cover step. [facility] w/flat entry. Pt has been doing APs Treatment Goals Patient/Caregiver Goals get back to walking PT-OP-C Subjective Start: 07/12/24 17:42 Freq: Status: Active Protocol: Document 08/06/24 13:43 SP (Rec: 08/06/24 15:29 SP [id number]) OP-PT Subjective Patient Comments Patient Comments Pt reports was little achy L ankle after last appt but not affecting her getting around. Her R shld is still bothersome and trying to still use but not cause pain. She states took Tylenol before PT to help . PT-OP-F Manual Assessment Start: 07/12/24 17:42 Freq: Status: Active Protocol: Document 07/25/24 11:38 [facility] (Rec: 07/25/24 13:45 [facility] [id number]) Manual Assessments Other Manual Assessments Other Manual Assessments signficiant midfoot swelling, some dry skin on midfoot PT-OP-G Mobility & Gait Start: 07/12/24 17:42 Freq: Status: Active Protocol: Document 07/25/24 11:38 [facility] (Rec: 07/25/24 13:45 [facility] [id number]) OP Gait Assessment Comments Gait Comments came in w/WC. able to amb w/ FWW w/cues for step to pattern PT-OP-K Range of Motion Start: 07/12/24 17:42 Freq: Status: Active Protocol: Document 07/25/24 11:38 [facility] (Rec: 07/25/24 13:45 [facility] [id number]) Ankle and Foot Goniometric Range of Motion Ankle and Foot Right Active Dorsiflexion with Knee Flexed 2 Plantarflexion 60 Inversion 36 Eversion 21 Left Active Dorsiflexion with Knee Flexed 6 Plantarflexion 36 Inversion 19 Eversion 12 Comments lacking DF to neural PT-OP-Q Treatments Start: 07/12/24 17:42 Freq: Status: Active Protocol: Document 08/06/24 13:43 SP (Rec: 08/06/24 15:29 SP [id number]) Cardio Equipment Recumbent Elliptical (Biodex) Duration (Minutes) 6 Resistance 0 Seat Position 10 Other BLEs only Therapeutic Exercises Sitting Exercises toe abduction Side right Reps/Minutes 10 reps, 2 sec pause hold toe scrunches Side left Resistance AROM Equipment Used marble hop picker Reps/Minutes x10 Comments cued toe scrunch ankle DF, EV, IV Side left Resistance AROM Reps/Minutes x10 each Comments improved knee stability, IV BAPS Sitting Exercise Name F/B/L/CCW/ improved CW Side left Resistance ball 2>3 Equipment Used AROM Reps/Minutes x10 reps each direction Comments improved PF to IV, cued slower pacing range Standing Exercises sit to stand Standing Exercise Name HEP review Side bilateral Reps/Minutes x8 Comments Verbal cues to avoid left LE ER and knee ext for set up and for hip hinge Gait Training Gait Activity WB LLE acceptance Description f/b/lateral Device Used FWW Level of Assistance close SBA Surface foam Treatment Focus WBAT into L ankle Comments 1. wt shift f/b/lateral R & L- 10 reps each direction- light contact fww as needed 2. heel raise, heavily BUE WB on FWW- 2 reps stopped L ankle pain 3. marching, heavily BUE WB on FWW - 2 reps stopped L ankle pain stairs Description Trialed for safety and awareness prepare return to hair appt (has stairs) Device Used B HR Heavily WB BUE Level of Assistance close SBA Distance/Duration 6 stairs (4 steps) Treatment Focus step to patterning, WBAT LLE Comments Cues for lead RLE ascend, lead LLE descending, TKE LLE during WB FWW Device Used FWW Distance/Duration across gym x2 Comments cues for posture, gait phase: semi receiprocal stepping Manual Therapy Treatment Consent Patient gave verbal consent for manual Yes treatment Soft Tissue Mobilization swelling reduction L foot Body Location retrograde massage L dorsal and plantar foot, ankle, mid baxter Mobilization Type Manual Lymphatic Drainage Intensity/Depth Superficial through sock Body Position Supine Comments gentle light manual prox> distal>prox- discussion carryover assist for swelling reduction and reabsorption. Slight decrease swelling noted. Discussed and will acquire compression socks for additional support. Manual Techniques PROM L ankle Type DF- L ankle Reps/Duration 10 reps x5 SH Comments monitored for pain free range Self-Care/Home Management Treatment Education Patient Education Home Exercise Program,Posture Caregiver Education Education to pt and for pt to get up and walk around every hour if tolerated on L ankle to increase WB and progress functiona mobility / c use FWW, include 1 step mgt between room as tolerated. PT-OP-R Modalities Start: 07/12/24 17:42 Freq: Status: Active Protocol: Document 08/06/24 13:43 SP (Rec: 08/06/24 15:29 SP [id number]) Hot Pack/Cold Pack Treatment CP Location L ankle Patient Position Hooklying Patient Tolerance Good Comments Reports helps decreased discomfort end tx. PT-OP-T Assessment and Plan Start: 07/12/24 17:42 Freq: Status: Active Protocol: Document 08/06/24 13:43 SP (Rec: 08/06/24 15:29 SP [id number]) Physical Therapy Assessment Goals ROM Short Term Goal (STG) Pt will have DF to neutral in knee flex position STG Duration 08/31 Residential Goal (LTG) Pt will have at least DF to 5 deg in knee flex and extended position to allow for improved gait mechanics. LTG Duration 10/17/23 activity Short Term Goal (STG) Pt will ambulate in house w/ LRAD 100% of the time instead of use WC STG Duration 08/25 Manager Policy Goal (LTG) Pt will amb w/o AD w/o significant gait deviations and be able to go for short walks w/o inc pain greater than 2/10 LTG Duration 10/17/23 LEFS Impairment 15/80 Short Term Goal (STG) Pt will improve LEFS score to at least 30/80 to show improved functional ability. STG Duration 09/11/24 Manager Policy Goal (LTG) Pt will improve LEFS score to at least 50/80 to show improved functional ability. LTG Duration 10/17/24 Assessment Summary Assessment Pt continues to have swelling L ankle but less than previous tx, retrograde STMs. She improved increased L ankle AROM IV during BAPS level 3 ball all directions, cues for slow motion EV to DF and IV to DF motion for improved strengthening control. Initiated Wt shift BLE on uneven foam FWW support for LLE wt acceptance with reduction UE support. 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 Pt deemed not quite ready due to L ankle discomfort during short stance time on LLE to advance RLE but was pleased able to complete with. Cued to wt shift more over RLE and LUE for not over irritate WB. Pt responded well to CP on L ankle end tx for support pain control. She reports painreduction but scale rating not given. She was able to don sock self in sitting now . Physical Therapy Plan Frequency and Duration Frequency of Treatment 2x/Week Duration of treatment (weeks) 12 Plan of Care Start Date 07/25/24 Plan of Care End Date 10/17/24 Therapeutic Interventions Therapeutic Interventions Balance Training,Gait Training ,Home Exercise Program,Joint Mobilizations,Manual Therapy, Neuromuscular Re-education, Orthotic/Prosthetic Management ,Patient/Caregiver Education, Self-Care/Home Management,Soft Tissue Mobilization,Taping, Therapeutic Activities, Therapeutic Exercises Modalities Cold Pack/Ice Massage,Electric Stimulation,Hot Packs, Infrared Therapy Next Visit Focus/Plan Next Note Type Treatment Note Next Visit Plan Recheck foot HEP. POC: add leg wt to R LAQ (boot home), LE strength: SLR supine and side maybe bridge next tx; cont to advance WB as tolerated; cont to work on stair training (will need to for hair appt); check in re: appt [facility]
--- NOTE | 2024-08-10 14:34 | PT.OTN ---
Current Diagnoses Pain in right ankle and joints of right foot (08/10/24) Nondisplaced pilon fracture of right tibia, subsequent encounter for closed fracture with routine healing (08/10/24) Nondisplaced pilon fracture of left tibia, initial encounter for closed fracture (08/10/24) Dislocation of tarsometatarsal joint of left foot, initial encounter (08/10/24) Sprain of tibiofibular ligament of left ankle, initial encounter (08/10/24) Physical Therapy Treatment Note PT-OP-A Visit Information Start: 07/12/24 17:42 Freq: Status: Active Protocol: Document 08/10/24 13:50 SP (Rec: 08/10/24 14:36 SP [id number]) Out-Patient Physical Therapy Visit Information Visit Information Visit Type Treatment Note Visit Note 03/26 Visit Start Time 13:50 Visit Stop Time 14:34 Visit Number 6 (03/26 since eval) Number of DIAMOND FINISHING SUPERVISOR Visits 3 PT-OP-B Current Condition Start: 07/12/24 17:42 Freq: Status: Active Protocol: Document 07/25/24 11:38 [facility] (Rec: 07/25/24 13:45 [facility] [id number]) Current Condition History of Current Condition Onset Date injury april 15, sx 04/30 Current Complaints L ORIF lisfranc, pilon and syndesmosis History of Current Condition Pt reports stood up to go to bed on April 15 and fell over her feet and broke her leg and bones in foot. She was put in splint ER and on April 30 got screws in foot, leg and ankle. Has had boot for 6-8 weeks. Tried to do the walker when cleared to in May and it hurt so bad, she couldn't do it. Dr Flor Guzman told her to wait a couple weeks again and on 06/19 was told again. Sees her again next Tuesday. Last tried to use walker about 1.5 weeks ago but it is too painful . When uses the walker, L shoulder has been more painful too. Broke ankle in 80s without surgery. Denies LE and back pain. Pt reports prior ot this was a couch potato. prior to this was indep w/dressing and bathing. Cannot get into shower so has been doing bird baths insteadwith help . He helps some w/dressing too . It is a walk in shower but has a step up so can't get in. Has a built in seat in there with grab bars in there. DOes SPT for all transfers w/o FWW. Has a ramp built in now for livingroom area to cover step. [facility] w/flat entry. Pt has been doing APs Treatment Goals Patient/Caregiver Goals get back to walking PT-OP-C Subjective Start: 07/12/24 17:42 Freq: Status: Active Protocol: Document 08/10/24 13:50 SP (Rec: 08/10/24 14:36 SP [id number]) OP-PT Subjective Patient Comments Patient Comments Pt report L ankle sore after last tx. Using CP for swelling control. PT-OP-F Manual Assessment Start: 07/12/24 17:42 Freq: Status: Active Protocol: Document 07/25/24 11:38 [facility] (Rec: 07/25/24 13:45 [facility] [id number]) Manual Assessments Other Manual Assessments Other Manual Assessments signficiant midfoot swelling, some dry skin on midfoot PT-OP-G Mobility & Gait Start: 07/12/24 17:42 Freq: Status: Active Protocol: Document 07/25/24 11:38 [facility] (Rec: 07/25/24 13:45 [facility] [id number]) OP Gait Assessment Comments Gait Comments came in w/WC. able to amb w/ FWW w/cues for step to pattern PT-OP-K Range of Motion Start: 07/12/24 17:42 Freq: Status: Active Protocol: Document 07/25/24 11:38 [facility] (Rec: 07/25/24 13:45 [facility] [id number]) Ankle and Foot Goniometric Range of Motion Ankle and Foot Right Active Dorsiflexion with Knee Flexed 2 Plantarflexion 60 Inversion 36 Eversion 21 Left Active Dorsiflexion with Knee Flexed 6 Plantarflexion 36 Inversion 19 Eversion 12 Comments lacking DF to neural PT-OP-Q Treatments Start: 07/12/24 17:42 Freq: Status: Active Protocol: Document 08/10/24 13:50 SP (Rec: 08/10/24 14:36 SP [id number]) Cardio Equipment Recumbent Elliptical (Biodex) Duration (Minutes) 6 Resistance 1 Seat Position 10 Other BLEs only Therapeutic Exercises Sitting Exercises toe abduction Side right Reps/Minutes 10 reps, 2 sec pause hold ankle DF, EV, IV Sitting Exercise Name PF, DF, EV, IV- added to HEP / c HO Side left Resistance AROM>TB 1 Reps/Minutes x10 each Comments occ cue for knee still, eccentric return BAPS Sitting Exercise Name F/B/L/CCW/ improved CW Side left Resistance ball 3>4 (5 next tx) Equipment Used AROM Reps/Minutes x10 reps each direction Comments improved PF to IV, cued slower pacing range long arc quad Sitting Exercise Name HEP review Side left Resistance AROM Reps/Minutes 5 sec hold x10 Manual Therapy Treatment Consent Patient gave verbal consent for manual Yes treatment Soft Tissue Mobilization swelling reduction L foot Body Location retrograde massage L dorsal and plantar foot, ankle, mid baxter Mobilization Type Manual Lymphatic Drainage, Myofascial Release Intensity/Depth Moderate Body Position Supine Comments Noted decreased in swelling/ fluid reabsorption. Discussed continue wear compression socks, arrived not donned. Manual Techniques PROM L ankle Type DF- L ankle Reps/Duration 10 reps x5 SH Comments monitored for pain free range PT-OP-R Modalities Start: 07/12/24 17:42 Freq: Status: Active Protocol: Document 08/06/24 13:43 SP (Rec: 08/06/24 15:29 SP [id number]) Hot Pack/Cold Pack Treatment CP Location L ankle Patient Position Hooklying Patient Tolerance Good Comments Reports helps decreased discomfort end tx. PT-OP-T Assessment and Plan Start: 07/12/24 17:42 Freq: Status: Active Protocol: Document 08/10/24 13:50 SP (Rec: 08/10/24 14:36 SP [id number]) Physical Therapy Assessment Goals ROM Short Term Goal (STG) Pt will have DF to neutral in knee flex position STG Duration 08/31 Mcc Goal (LTG) Pt will have at least DF to 5 deg in knee flex and extended position to allow for improved gait mechanics. LTG Duration 10/17/23 activity Short Term Goal (STG) Pt will ambulate in house w/ LRAD 100% of the time instead of use WC STG Duration 08/25 Senior Risk Analyst Goal (LTG) Pt will amb w/o AD w/o significant gait deviations and be able to go for short walks w/o inc pain greater than 2/10 LTG Duration 10/17/23 LEFS Impairment 15/80 Short Term Goal (STG) Pt will improve LEFS score to at least 30/80 to show improved functional ability. STG Duration 09/11/24 Mcc Goal (LTG) Pt will improve LEFS score to at least 50/80 to show improved functional ability. LTG Duration 10/17/24 Assessment Summary Assessment Improved swelling reduction post manual, MF glides, will check when gets home if can don her L croc shoe vs wearing husbands with cues for continued use compression socks. Progressed resisted ankle mobility/strengthening and noted improved AROM BAPS 3 >4. Instructed pt hold LAQ 5 SH for progression strength. BEtter tolerance L ankle ROM on bike today, no report instance of discomfort anterior L ankle into DF. Pt is increasing walking time using FWW, modified step over step to patterning noted still not tolerating full weight on L ankle but mechanics better. Would benefit from ankle mobility on step next tx and trial rocker board with UE support. Physical Therapy Plan Frequency and Duration Frequency of Treatment 2x/Week Duration of treatment (weeks) 12 Plan of Care Start Date 07/25/24 Plan of Care End Date 10/17/24 Therapeutic Interventions Therapeutic Interventions Balance Training,Gait Training ,Home Exercise Program,Joint Mobilizations,Manual Therapy, Neuromuscular Re-education, Orthotic/Prosthetic Management ,Patient/Caregiver Education, Self-Care/Home Management,Soft Tissue Mobilization,Taping, Therapeutic Activities, Therapeutic Exercises Modalities Cold Pack/Ice Massage,Electric Stimulation,Hot Packs, Infrared Therapy Next Visit Focus/Plan Next Note Type Treatment Note Next Visit Plan Recheck resisted ankle HEP. try resisted LAQ, add bridge and ankle mobility step and trial rocker board next tx. POC: LE strength: add SLR supine and side maybe bridge next tx; cont to advance WB as tolerated; cont to work on stair training (will need to for hair appt); check in re: appt [facility]
--- NOTE | 2024-08-13 14:29 | PT.OTN ---
Current Diagnoses Pain in right ankle and joints of right foot (08/13/24) Nondisplaced pilon fracture of right tibia, subsequent encounter for closed fracture with routine healing (08/13/24) Nondisplaced pilon fracture of left tibia, initial encounter for closed fracture (08/13/24) Dislocation of tarsometatarsal joint of left foot, initial encounter (08/13/24) Sprain of tibiofibular ligament of left ankle, initial encounter (08/13/24) Physical Therapy Treatment Note PT-OP-A Visit Information Start: 07/12/24 17:42 Freq: Status: Active Protocol: Document 08/13/24 13:46 SP (Rec: 08/13/24 14:35 SP [id number]) Out-Patient Physical Therapy Visit Information Visit Information Visit Type Treatment Note Visit Note 04/25 Visit Start Time 13:46 Visit Stop Time 14:29 Visit Number 7 (04/25 since eval) 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 She was put in splint ER and on April 30 got screws in foot, leg and ankle. Has had boot for 6-8 weeks. Tried to do the walker when cleared to in May and it hurt so bad, she couldn't do it. Dr Flor Guzman told her to wait a couple weeks again and on 06/19 was told again. Sees her again next Tuesday. Last tried to use walker about 1.5 weeks ago but it is too painful . When uses the walker, L shoulder has been more painful too. Broke ankle in 80s without surgery. Denies LE and back pain. Pt reports prior ot this was a couch potato. prior to this was indep w/dressing and bathing. Cannot get into shower so has been doing bird baths insteadwith help . He helps some w/dressing too . It is a walk in shower but has a step up so can't get in. Has a built in seat in there with grab bars in there. DOes SPT for all transfers w/o FWW. Has a ramp built in now for livingroom area to cover step. [facility] w/flat entry. Pt has been doing APs Treatment Goals Patient/Caregiver Goals get back to walking PT-OP-C Subjective Start: 07/12/24 17:42 Freq: Status: Active Protocol: Document 08/13/24 13:46 SP (Rec: 08/13/24 14:35 SP [id number]) OP-PT Subjective Patient Comments Patient Comments Pt reports feels ankle moving little more, complaint with HEP. Still not walking as normal as hoped by now but slowly seeing improvement. PT-OP-F Manual Assessment Start: 07/12/24 17:42 Freq: Status: Active Protocol: Document 07/25/24 11:38 [facility] (Rec: 07/25/24 13:45 [facility] [id number]) Manual Assessments Other Manual Assessments Other Manual Assessments signficiant midfoot swelling, some dry skin on midfoot PT-OP-G Mobility & Gait Start: 07/12/24 17:42 Freq: Status: Active Protocol: Document 07/25/24 11:38 [facility] (Rec: 07/25/24 13:45 [facility] [id number]) OP Gait Assessment Comments Gait Comments came in w/WC. able to amb w/ FWW w/cues for step to pattern PT-OP-K Range of Motion Start: 07/12/24 17:42 Freq: Status: Active Protocol: Document 07/25/24 11:38 [facility] (Rec: 07/25/24 13:45 [facility] [id number]) Ankle and Foot Goniometric Range of Motion Ankle and Foot Right Active Dorsiflexion with Knee Flexed 2 Plantarflexion 60 Inversion 36 Eversion 21 Left Active Dorsiflexion with Knee Flexed 6 Plantarflexion 36 Inversion 19 Eversion 12 Comments lacking DF to neural PT-OP-Q Treatments Start: 07/12/24 17:42 Freq: Status: Active Protocol: Document 08/13/24 13:46 SP (Rec: 08/13/24 14:35 SP [id number]) Cardio Equipment Recumbent Bicycle Duration (Minutes) 5 Resistance 0 Seat Position 6 Other full revolutions- reports ankle and leg tiring Therapeutic Exercises Sitting Exercises ankle DF, EV, IV Sitting Exercise Name PF, DF, EV, IV- HEP Side left Resistance TB 1>2 Reps/Minutes x10 each Comments occ cue for knee still, eccentric return march Side bilateral Resistance L3 at feet Reps/Minutes 30 ea alternating Comments cues keep feet apart HS curls Side bilateral Resistance L Equipment Used anchored by therapist/ home towel behind band Reps/Minutes 15 Comments Time spent figure out set up best for her, good HS tiring. Standing Exercises rocker board Standing Exercise Name f/b/lateral Side bilateral Resistance AROM, supported BUE on front HR Reps/Minutes x10 Comments reports no pain, L ankle tiring ankle & knee mobility Standing Exercise Name trialed in PT Side left Equipment Used L foot on 2nd step, BUE rail support Reps/Minutes x10 Comments cued painfree range Gait Training Gait Activity stairs Device Used B HR Moderate WB BUE Level of Assistance close SBA Distance/Duration 6 stairs (4 steps) Treatment Focus Reciprocal stepping ascending, step to descending, WBAT LLE Comments Cues for taller posturing UE straighter on rail support, TKE over LLE during RLR transition ascending. Unable to tolerate receiprocal stepping leading RLE to step to performed. Manual Therapy Treatment Consent Patient gave verbal consent for manual Yes treatment Soft Tissue Mobilization swelling reduction L foot Body Location retrograde massage L dorsal and plantar foot, ankle, mid baxter Mobilization Type Manual Lymphatic Drainage, Myofascial Release Intensity/Depth Moderate Body Position Supine Comments Noted decreased in swelling/ fluid reabsorption, more inferior med/lateral malleolus and distal med/lat achilles. Discussed continue wear compression socks, arrived not donned. Manual Techniques PROM L ankle Type DF- L ankle Reps/Duration 10 reps x5 SH Comments monitored for pain free range PT-OP-R Modalities Start: 07/12/24 17:42 Freq: Status: Active Protocol: Document 08/06/24 13:43 SP (Rec: 08/06/24 15:29 SP [id number]) Hot Pack/Cold Pack Treatment CP Location L ankle Patient Position Hooklying Patient Tolerance Good Comments Reports helps decreased discomfort end tx. PT-OP-T Assessment and Plan Start: 07/12/24 17:42 Freq: Status: Active Protocol: Document 08/13/24 13:46 SP (Rec: 08/13/24 14:35 SP [id number]) Physical Therapy Assessment Goals ROM Short Term Goal (STG) Pt will have DF to neutral in knee flex position STG Duration 08/31 Vessel Captain Goal (LTG) Pt will have at least DF to 5 deg in knee flex and extended position to allow for improved gait mechanics. LTG Duration 10/17/23 activity Short Term Goal (STG) Pt will ambulate in house w/ LRAD 100% of the time instead of use WC STG Duration 08/25 Custodial Goal (LTG) Pt will amb w/o AD w/o significant gait deviations and be able to go for short walks w/o inc pain greater than 2/10 LTG Duration 10/17/23 LEFS Impairment 15/80 Short Term Goal (STG) Pt will improve LEFS score to at least 30/80 to show improved functional ability. STG Duration 09/11/24 Custodial Goal (LTG) Pt will improve LEFS score to at least 50/80 to show improved functional ability. LTG Duration 10/17/24 Assessment Summary Assessment Pt tolerated tx well including trial of recumbent full revolutions, trialed increased ankle mobiltiy activities, she reports L ankle tiring with ther ex today. Discomfort end feel ankle flexion during ankle mobility so stayed within range tolerated. Continued encouragement walking regularly around home and icing. Declined modality end PT tx will do home. Physical Therapy Plan Frequency and Duration Frequency of Treatment 2x/Week Duration of treatment (weeks) 12 Plan of Care Start Date 07/25/24 Plan of Care End Date 10/17/24 Therapeutic Interventions Therapeutic Interventions Balance Training,Gait Training ,Home Exercise Program,Joint Mobilizations,Manual Therapy, Neuromuscular Re-education, Orthotic/Prosthetic Management ,Patient/Caregiver Education, Self-Care/Home Management,Soft Tissue Mobilization,Taping, Therapeutic Activities, Therapeutic Exercises Modalities Cold Pack/Ice Massage,Electric Stimulation,Hot Packs, Infrared Therapy Next Visit Focus/Plan Next Note Type Treatment Note Next Visit Plan Recheck resisted ankle HEP. Try resisted LAQ, add bridge Progress standing mobility. POC: LE strength: add SLR supine and side maybe bridge next tx; cont to advance WB as tolerated; cont to work on stair training (will need to for hair appt); check in re: MD joan downing
--- NOTE | 2024-08-23 14:50 | PT.OTN ---
Current Diagnoses Pain in right ankle and joints of right foot (08/23/24) Nondisplaced pilon fracture of right tibia, subsequent encounter for closed fracture with routine healing (08/23/24) Nondisplaced pilon fracture of left tibia, initial encounter for closed fracture (08/23/24) Dislocation of tarsometatarsal joint of left foot, initial encounter (08/23/24) Sprain of tibiofibular ligament of left ankle, initial encounter (08/23/24) Physical Therapy Treatment Note PT-OP-A Visit Information Start: 07/12/24 17:42 Freq: Status: Active Protocol: Document 08/23/24 13:50 [facility] (Rec: 08/23/24 14:50 [facility] [id number]) Out-Patient Physical Therapy Visit Information Visit Information Visit Type Treatment Note Visit Note 05/26 Visit Start Time 13:45 Visit Stop Time 14:30 Visit Number 8 (05/26 since eval) 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 She was put in splint ER and on April 30 got screws in foot, leg and ankle. Has had boot for 6-8 weeks. Tried to do the walker when cleared to in May and it hurt so bad, she couldn't do it. Dr Flor Guzman told her to wait a couple weeks again and on 06/19 was told again. Sees her again next Tuesday. Last tried to use walker about 1.5 weeks ago but it is too painful . When uses the walker, L shoulder has been more painful too. Broke ankle in 80s without surgery. Denies LE and back pain. Pt reports prior ot this was a couch potato. prior to this was indep w/dressing and bathing. Cannot get into shower so has been doing bird baths insteadwith help . He helps some w/dressing too . It is a walk in shower but has a step up so can't get in. Has a built in seat in there with grab bars in there. DOes SPT for all transfers w/o FWW. Has a ramp built in now for livingroom area to cover step. [facility] w/flat entry. Pt has been doing APs Treatment Goals Patient/Caregiver Goals get back to walking PT-OP-C Subjective Start: 07/12/24 17:42 Freq: Status: Active Protocol: Document 08/23/24 13:50 [facility] (Rec: 08/23/24 14:50 [facility] [id number]) OP-PT Subjective Patient Comments Patient Comments pt reports she did not like the reumbant bike last visit as her right calf got really sore afterwards. She reports not wanting to do the recumbant bike again as she is afraid to tear her calf muscle PT-OP-F Manual Assessment Start: 07/12/24 17:42 Freq: Status: Active Protocol: Document 07/25/24 11:38 [facility] (Rec: 07/25/24 13:45 [facility] [id number]) Manual Assessments Other Manual Assessments Other Manual Assessments signficiant midfoot swelling, some dry skin on midfoot PT-OP-G Mobility & Gait Start: 07/12/24 17:42 Freq: Status: Active Protocol: Document 07/25/24 11:38 [facility] (Rec: 07/25/24 13:45 [facility] [id number]) OP Gait Assessment Comments Gait Comments came in w/WC. able to amb w/ FWW w/cues for step to pattern PT-OP-K Range of Motion Start: 07/12/24 17:42 Freq: Status: Active Protocol: Document 07/25/24 11:38 [facility] (Rec: 07/25/24 13:45 [facility] [id number]) Ankle and Foot Goniometric Range of Motion Ankle and Foot Right Active Dorsiflexion with Knee Flexed 2 Plantarflexion 60 Inversion 36 Eversion 21 Left Active Dorsiflexion with Knee Flexed 6 Plantarflexion 36 Inversion 19 Eversion 12 Comments lacking DF to neural PT-OP-Q Treatments Start: 07/12/24 17:42 Freq: Status: Active Protocol: Document 08/23/24 13:50 [facility] (Rec: 08/23/24 14:50 [facility] [id number]) Therapeutic Exercises Sitting Exercises ankle DF, EV, IV Sitting Exercise Name PF, DF, EV, IV- HEP Side left Resistance TB 1>2 Reps/Minutes x10 each Comments occ cue for knee still, eccentric return march Side bilateral Resistance L3 at feet Reps/Minutes 30 ea alternating Comments cues keep feet apart seated hip abduction Sitting Exercise Name HEP review Resistance [place] green band Reps/Minutes one minute X 1 and X 10 without hold Comments Verbal cues Standing Exercises PIPPA dynamic calf stretch Reps/Minutes 20 reps standing calf stretch Standing Exercise Name hands on rail for support Reps/Minutes able to do bilaterally 2 x 30 sec rocker board Standing Exercise Name f/b/lateral Side bilateral Resistance AROM, supported BUE on front HR Reps/Minutes x10 Comments reports no pain, L ankle tiring ankle & knee mobility Standing Exercise Name in clinic only Side left Equipment Used L foot on 2nd step, BUE rail support Reps/Minutes x10 Comments cued painfree range PT-OP-R Modalities Start: 07/12/24 17:42 Freq: Status: Active Protocol: Document 08/06/24 13:43 SP (Rec: 08/06/24 15:29 SP [id number]) Hot Pack/Cold Pack Treatment CP Location L ankle Patient Position Hooklying Patient Tolerance Good Comments Reports helps decreased discomfort end tx. PT-OP-T Assessment and Plan Start: 07/12/24 17:42 Freq: Status: Active Protocol: Document 08/23/24 13:50 [facility] (Rec: 08/23/24 14:50 [facility] [id number]) Physical Therapy Assessment Goals ROM Short Term Goal (STG) Pt will have DF to neutral in knee flex position STG Duration 08/31 Halfway Goal (LTG) Pt will have at least DF to 5 deg in knee flex and extended position to allow for improved gait mechanics. LTG Duration 10/17/23 activity Short Term Goal (STG) Pt will ambulate in house w/ LRAD 100% of the time instead of use WC STG Duration 08/25 Halfway Goal (LTG) Pt will amb w/o AD w/o significant gait deviations and be able to go for short walks w/o inc pain greater than 2/10 LTG Duration 10/17/23 LEFS Impairment 15/80 Short Term Goal (STG) Pt will improve LEFS score to at least 30/80 to show improved functional ability. STG Duration 09/11/24 Client Partner Goal (LTG) Pt will improve LEFS score to at least 50/80 to show improved functional ability. LTG Duration 10/17/24 Assessment Summary Assessment I was able to have [place] on the biodex today and she tolerated this well with her right calf. I explained to her how her right calf even though it wasn't injured it got tight especially since she was in a wheelchair x 3 months. I added in a standing calf stretch and advised her to do her ROM ankle exercises on both side. She tolerated all the rest of her exercises well without any other reports of right sided calf pain. Physical Therapy Plan Frequency and Duration Frequency of Treatment 2x/Week Duration of treatment (weeks) 12 Plan of Care Start Date 07/25/24 Plan of Care End Date 10/17/24 Therapeutic Interventions Therapeutic Interventions Balance Training,Gait Training ,Home Exercise Program,Joint Mobilizations,Manual Therapy, Neuromuscular Re-education, Orthotic/Prosthetic Management ,Patient/Caregiver Education, Self-Care/Home Management,Soft Tissue Mobilization,Taping, Therapeutic Activities, Therapeutic Exercises Modalities Cold Pack/Ice Massage,Electric Stimulation,Hot Packs, Infrared Therapy Next Visit Focus/Plan Next Note Type Treatment Note Next Visit Plan continue with standing calf stretch and PIPPA for dynamic calf stretching, add bridge Progress standing mobility. POC: LE strength: add SLR supine and side maybe bridge next tx; cont to advance WB as tolerated; cont to work on stair trainingMD recheck in re : October 02
--- NOTE | 2024-09-18 15:43 | PT.OTRE ---
Current Diagnoses Pain in right ankle and joints of right foot (09/18/24) Nondisplaced pilon fracture of right tibia, subsequent encounter for closed fracture with routine healing (09/18/24) Nondisplaced pilon fracture of left tibia, initial encounter for closed fracture (09/18/24) Dislocation of tarsometatarsal joint of left foot, initial encounter (09/18/24) Sprain of tibiofibular ligament of left ankle, initial encounter (09/18/24) Past Medical History (Last Updated 09/19/24 @ 15:16 by Claudio Garcias DO) Alcohol use Asthma (~1987) Benign essential tremor Benign familial tremor (~1959) Cataracts, bilateral (~2015) Chicken pox Colon polyps (~2011) Encounter for subsequent annual wellness visit (AWV) in Medicare patient Endometriosis (~1978) Fibroids (~1978) Fractures Hypertension Measles Mumps Obesity (BMI 30-39.9) Osteopenia Painful menstrual periods (~1978) Pulmonary artery aneurysm Pulmonary stenosis (~1995) Seasonal allergies (~194) Surgical History (Last Updated 04/25/24 @ 12:16 by Jyoti Loja RN) Anesthesia History of cardiac catheterization History of colonoscopy (01/2012) History of hysterectomy (~1978) History of laparoscopy (~1978) History of lumpectomy History of open heart surgery (~1950) Papilloma of right breast (~2018) Visit Care Team Role Provider Type Claudio Garcias DO Family Provider Physician Primary Care Provider Specialty: Family Practice Address: [address] [place] [address], [address] Email: [email or web address] Attending Provider Physician Referring Provider Specialty: Orthopedics Orthopedic Surgery Address: [address] [place] [address], [id number] Email: [email or web address] Physical Therapy Re-Evaluation PT-OP-A Visit Information Start: 07/12/24 17:42 Freq: Status: Active Protocol: Document 09/18/24 14:41 SW (Rec: 09/18/24 16:46 [facility] [id number]) Out-Patient Physical Therapy Visit Information Visit Information Visit Type Treatment Note Visit Note PT Tiarra Graf present at beginning of session for re- evaluation Visit Start Time 14:30 Visit Stop Time 15:15 Visit Number 9 (06/26 since eval) Number of BOILING HOUSE HAND Visits 1 PT-OP-B Current Condition Start: 07/12/24 17:42 Freq: Status: Active Protocol: Document 09/18/24 14:45 [facility] (Rec: 09/18/24 18:08 [facility] [id number]) Current Condition History of Current Condition Onset Date injury april 15, sx 04/30 Current Complaints L ORIF lisfranc, pilon and syndesmosis History of Current Condition 09/18/24-pt fell 09/04 on 1 step w/FWW and hurt from L knee down to foot. Saw ortho and no further fx and cleared to cont PT and does not have return to ortho IE:Pt reports stood up to go to bed on April 15 and fell over her feet and broke her leg and bones in foot. She was put in splint ER and on April 30 got screws in foot, leg and ankle. Has had boot for 6-8 weeks. Tried to do the walker when cleared to in May and it hurt so bad, she couldn't do it. Dr. Guzman told her to wait a couple weeks again and on 06/19 was told again. Sees her again next Tuesday. Last tried to use walker about 1.5 weeks ago but it is too painful . When uses the walker , L shoulder has been more painful too. Broke ankle in 80s without surgery. Denies LE and back pain. Pt reports prior ot this was a couch potato. prior to this was indep w/dressing and bathing. Cannot get into shower so has been doing bird baths insteadwith help. He helps some w/dressing too. It is a walk in shower but has a step up so can't get in. Has a built in seat in there with grab bars in there. DOes SPT for all transfers w/o FWW. Has a ramp built in now for livingroom area to cover step. H w/flat entry. Pt has been doing APs Treatment Goals Patient/Caregiver Goals get back to walking PT-OP-C Subjective Start: 07/12/24 17:42 Freq: Status: Active Protocol: Document 09/18/24 14:41 (Rec: 09/18/24 15:25 [id number]) OP-PT Subjective Patient Comments Patient Comments Pt reports setback, had a fall on 08/25/24 on the one step at pt home. Pt reports being in a wheelchair for 2 weeks post fall, ambulated into session today with walker. Pt reports went to doctor and followed up with surgeon. Pt reports no broken bones, doctor has cleared pt for PT. PT-OP-F Manual Assessment Start: 07/12/24 17:42 Freq: Status: Active Protocol: Document 09/18/24 14:45 [facility] (Rec: 09/18/24 18:08 [facility] [id number]) Manual Assessments Other Manual Assessments Other Manual Assessments lat foot bruising, cont foot swelling L PT-OP-G Mobility & Gait Start: 07/12/24 17:42 Freq: Status: Active Protocol: Document 07/25/24 11:38 [facility] (Rec: 07/25/24 13:45 [facility] [id number]) OP Gait Assessment Comments Gait Comments came in w/WC. able to amb w/ FWW w/cues for step to pattern PT-OP-K Range of Motion Start: 07/12/24 17:42 Freq: Status: Active Protocol: Document 09/18/24 14:45 [facility] (Rec: 09/18/24 14:46 [facility] [id number]) Ankle and Foot Goniometric Range of Motion Ankle and Foot Measured in Degrees Left Active Dorsiflexion with Knee Flexed 10 Dorsiflexion with Knee Extended 14 Plantarflexion 36 Inversion 12 Eversion 18 Comments lacking DF to neural both positions PT-OP-M Strength Start: 07/12/24 17:42 Freq: Status: Active Protocol: Document 09/18/24 14:45 [facility] (Rec: 09/18/24 14:46 [facility] [id number]) Ankle/Foot Strength Ankle and Foot Manual Muscle Testing Right Dorsiflexion (L4) 5 Normal Plantarflexion (S1) 5 Normal Inversion 5 Normal Eversion (S1) 5 Normal Comments toes 3+/5 Left Dorsiflexion (L4) 3+ Fair+ Plantarflexion (S1) 3+ Fair+ Inversion 3 Fair Eversion (S1) 3+ Fair+ Comments pain; 3/5 toe ext; unable to flex PT-OP-Q Treatments Start: 07/12/24 17:42 Freq: Status: Active Protocol: Document 09/18/24 14:41 SW (Rec: 09/18/24 15:25 SW [id number]) Therapeutic Exercises Sitting Exercises Calf stretch Sitting Exercise Name seated 1. Hold 2. Dynamic stretch Equipment Used Mateus Reps/Minutes 1. 2x30 2. x10 toe scrunches Sitting Exercise Name HEP review Side left Resistance AROM Equipment Used marble cloth picker Reps/Minutes x10 Comments cued toe scrunch ankle DF, EV, IV Sitting Exercise Name 1. ROM 2. Resisted, PF, DF, EV , IV- HEP Side left Resistance TB 1 Reps/Minutes x10 ea HS curls Sitting Exercise Name Review Side bilateral Resistance L Equipment Used anchored by therapist/ home towel behind band Reps/Minutes 15 Comments Time spent figure out set up best for her, good HS tiring. long arc quad Sitting Exercise Name reviewed HEP Standing Exercises Weight shifting Standing Exercise Name weight shifting Side bilateral Equipment Used walker for balance support Comments for increased standing tolerance and weight acceptance into LLE sit to stand Standing Exercise Name HEP review Side bilateral Reps/Minutes x8 Comments slow eccentric control PT-OP-R Modalities Start: 07/12/24 17:42 Freq: Status: Active Protocol: Document 08/06/24 13:43 SP (Rec: 08/06/24 15:29 SP [id number]) Hot Pack/Cold Pack Treatment CP Location L ankle Patient Position Hooklying Patient Tolerance Good Comments Reports helps decreased discomfort end tx. PT-OP-T Assessment and Plan Start: 07/12/24 17:42 Freq: Status: Active Protocol: Document 09/18/24 14:45 [facility] (Rec: 09/18/24 18:08 [facility] [id number]) Physical Therapy Assessment Goals ROM Short Term Goal (STG) Pt will have DF to neutral in knee flex position 09/18-worse since fall STG Duration 10/16 Thermodynamicist Goal (LTG) Pt will have at least DF to 5 deg in knee flex and extended position to allow for improved gait mechanics. LTG Duration 2/2 activity Short Term Goal (STG) Pt will ambulate in house w/ LRAD 100% of the time instead of use WC 09/18-during day but not at night STG Duration 10/16 Thermodynamicist Goal (LTG) Pt will amb w/o AD w/o significant gait deviations and be able to go for short walks w/o inc pain greater than 2/10 LTG Duration 12/11 LEFS Impairment 15/80 Short Term Goal (STG) Pt will improve LEFS score to at least 30/80 to show improved functional ability. 09/18- STG Duration 10/17/24 Assisted Goal (LTG) Pt will improve LEFS score to at least 50/80 to show improved functional ability. LTG Duration 12/11/24 Assessment Summary Assessment Pt presents after fall and clearance from physician to return to PT without any found fx. She does have dec strength, ROM and inc pain since this. She will benefit from cont PT to improve functional mobility. Since starting PT, pt is using walker more and not only using WC for mobility Physical Therapy Plan Frequency and Duration Frequency of Treatment 2x/Week Duration of treatment (weeks) 12 Plan of Care Start Date 09/18/24 Plan of Care End Date 12/11/24 Therapeutic Interventions Therapeutic Interventions Balance Training,Gait Training ,Home Exercise Program,Joint Mobilizations,Manual Therapy, Neuromuscular Re-education, Orthotic/Prosthetic Management ,Patient/Caregiver Education, Self-Care/Home Management,Soft Tissue Mobilization,Taping, Therapeutic Activities, Therapeutic Exercises Modalities Cold Pack/Ice Massage,Electric Stimulation,Hot Packs, Infrared Therapy Next Visit Focus/Plan Next Note Type Treatment Note Next Visit Plan cont exercises as pt tolerates . Consider taping if pt not allergic and no open wounds, cont to work on gait, manual to foot/ankle to improve mobility
--- NOTE | 2024-09-18 15:44 | PT.OPPOC ---
Addendum entered and electronically signed by Tiarra Graf, PT 09/20/24 11:47: POC faxed to Original Note: Physical, Occupational & Speech Therapy At [facility] Current Diagnoses Pain in right ankle and joints of right foot (09/18/24) Nondisplaced pilon fracture of right tibia, subsequent encounter for closed fracture with routine healing (09/18/24) Nondisplaced pilon fracture of left tibia, initial encounter for closed fracture (09/18/24) Dislocation of tarsometatarsal joint of left foot, initial encounter (09/18/24) Sprain of tibiofibular ligament of left ankle, initial encounter (09/18/24) Visit Care Team Role Provider Type Claudio Garcias DO Family Provider Physician Primary Care Provider Specialty: Family Practice Address: [address] [place] [address], [address], [address] Email: [email or web address] Attending Provider Physician Referring Provider Specialty: Orthopedics Orthopedic Surgery Address: [address] [place] [address], [id number] Email: [email or web address] Plan Of Care PT-OP-B Current Condition Start: 07/12/24 17:42 Freq: Status: Active Protocol: Document 09/18/24 14:45 [facility] (Rec: 09/18/24 18:08 [facility] [id number]) Current Condition History of Current Condition Onset Date injury april 15, sx 04/30 Current Complaints L ORIF lisfranc, pilon and syndesmosis History of Current Condition 09/18/24-pt fell 09/04 on 1 step w/FWW and hurt from L knee down to foot. Saw ortho and no further fx and cleared to cont PT and does not have return to ortho IE:Pt reports stood up to go to bed on April 15 and fell over her feet and broke her leg and bones in foot. She was put in splint ER and on April 30 got screws in foot, leg and ankle. Has had boot for 6-8 weeks. Tried to do the walker when cleared to in May and it hurt so bad, she couldn't do it. Dr. Guzman told her to wait a couple weeks again and on 06/19 was told again. Sees her again next Tuesday. Last tried to use walker about 1.5 weeks ago but it is too painful . When uses the walker , L shoulder has been more painful too. Broke ankle in 80s without surgery. Denies LE and back pain. Pt reports prior ot this was a couch potato. prior to this was indep w/dressing and bathing. Cannot get into shower so has been doing bird baths insteadwith help. He helps some w/dressing too. It is a walk in shower but has a step up so can't get in. Has a built in seat in there with grab bars in there. DOes SPT for all transfers w/o FWW. Has a ramp built in now for livingroom area to cover step. SLH w/flat entry. Pt has been doing APs Treatment Goals Patient/Caregiver Goals get back to walking PT-OP-T Assessment and Plan Start: 07/12/24 17:42 Freq: Status: Active Protocol: Document 09/18/24 14:45 [facility] (Rec: 09/18/24 18:08 [facility] [id number]) Physical Therapy Assessment Goals ROM Short Term Goal (STG) Pt will have DF to neutral in knee flex position 09/18-worse since fall STG Duration 10/16 Senior Living Goal (LTG) Pt will have at least DF to 5 deg in knee flex and extended position to allow for improved gait mechanics. LTG Duration / activity Short Term Goal (STG) Pt will ambulate in house w/ LRAD 100% of the time instead of use WC 09/18-during day but not at night STG Duration 10/16 Machine Chocolate Molder Goal (LTG) Pt will amb w/o AD w/o significant gait deviations and be able to go for short walks w/o inc pain greater than 2/10 LTG Duration 12/11 LEFS Impairment 15/80 Short Term Goal (STG) Pt will improve LEFS score to at least 30/80 to show improved functional ability. 09/18- STG Duration 10/17/24 Senior Living Goal (LTG) Pt will improve LEFS score to at least 50/80 to show improved functional ability. LTG Duration 12/11/24 Assessment Summary Assessment Pt presents after fall and clearance from physician to return to PT without any found fx. She does have dec strength, ROM and inc pain since this. She will benefit from cont PT to improve functional mobility. Since starting PT, pt is using walker more and not only using WC for mobility Physical Therapy Plan Frequency and Duration Frequency of Treatment 2x/Week Duration of treatment (weeks) 12 Plan of Care Start Date 09/18/24 Plan of Care End Date 12/11/24 Therapeutic Interventions Therapeutic Interventions Balance Training,Gait Training ,Home Exercise Program,Joint Mobilizations,Manual Therapy, Neuromuscular Re-education, Orthotic/Prosthetic Management ,Patient/Caregiver Education, Self-Care/Home Management,Soft Tissue Mobilization,Taping, Therapeutic Activities, Therapeutic Exercises Modalities Cold Pack/Ice Massage,Electric Stimulation,Hot Packs, Infrared Therapy Next Visit Focus/Plan Next Note Type Treatment Note Next Visit Plan cont exercises as pt tolerates . Consider taping if pt not allergic and no open wounds, cont to work on gait, manual to foot/ankle to improve mobility Plan of Care Dates Plan of Care Start Date 09/18/24 Plan of Care End Date 12/11/24 Electronically Signed by: Tiarra Graf, PT 09/20/24 [id number] If you are in agreement with this Plan of Care, please return a signed and dated copy. I have reviewed this Plan of Care and certify that the skilled therapy services above are required to meet the patient?s needs. Physician Signature Date Printed Name and Credentials Clinical Instructor Signature Printed Name and Credentials
--- NOTE | 2024-09-18 15:45 | PT.OPPOC ---
Physical, Occupational & Speech Therapy At [facility] Current Diagnoses Pain in right ankle and joints of right foot (09/18/24) Nondisplaced pilon fracture of right tibia, subsequent encounter for closed fracture with routine healing (09/18/24) Nondisplaced pilon fracture of left tibia, initial encounter for closed fracture (09/18/24) Dislocation of tarsometatarsal joint of left foot, initial encounter (09/18/24) Sprain of tibiofibular ligament of left ankle, initial encounter (09/18/24) Visit Care Team Role Provider Type Claudio Garcias DO Family Provider Physician Primary Care Provider Specialty: Family Practice Address: [address] [place] [address], [facility] [address], [place], [address] Email: [email or web address] Provider Physician Referring Provider Specialty: Orthopedics Orthopedic Surgery Address: [address] [place] [address], [address] Email: [email or web address] Plan Of Care PT-OP-B Current Condition Start: 07/12/24 17:42 Freq: Status: Active Protocol: Document 09/18/24 14:45 [facility] (Rec: 09/18/24 18:08 [facility] [id number]) Current Condition History of Current Condition Onset Date injury april 15, sx 04/30 Current Complaints L ORIF lisfranc, pilon and syndesmosis History of Current Condition 09/18/24-pt fell 09/04 on 1 step w/FWW and hurt from L knee down to foot. Saw ortho and no further fx and cleared to cont PT and does not have return to ortho IE:Pt reports stood up to go to bed on April 15 and fell over her feet and broke her leg and bones in foot. She was put in splint ER and on April 30 got screws in foot, leg and ankle. Has had boot for 6-8 weeks. Tried to do the walker when cleared to in May and it hurt so bad, she couldn't do it. Dr. Guzman told her to wait a couple weeks again and on 06/19 was told again. Sees her again next Tuesday. Last tried to use walker about 1.5 weeks ago but it is too painful . When uses the walker , L shoulder has been more painful too. Broke ankle in 80s without surgery. Denies LE and back pain. Pt reports prior ot this was a couch potato. prior to this was indep w/dressing and bathing. Cannot get into shower so has been doing bird baths insteadwith help. He helps some w/dressing too. It is a walk in shower but has a step up so can't get in. Has a built in seat in there with grab bars in there. DOes SPT for all transfers w/o FWW. Has a ramp built in now for livingroom area to cover step. H w/flat entry. Pt has been doing APs Treatment Goals Patient/Caregiver Goals get back to walking PT-OP-T Assessment and Plan Start: 07/12/24 17:42 Freq: Status: Active Protocol: Document 09/18/24 14:45 [facility] (Rec: 09/18/24 18:08 [facility] [id number]) Physical Therapy Assessment Goals ROM Short Term Goal (STG) Pt will have DF to neutral in knee flex position 09/18-worse since fall STG Duration 10/16 Business Writer Goal (LTG) Pt will have at least DF to 5 deg in knee flex and extended position to allow for improved gait mechanics. LTG Duration 11/18 activity Short Term Goal (STG) Pt will ambulate in house w/ LRAD 100% of the time instead of use WC 09/18-during day but not at night STG Duration 10/16 Business Writer Goal (LTG) Pt will amb w/o AD w/o significant gait deviations and be able to go for short walks w/o inc pain greater than 2/10 LTG Duration 12/11 LEFS Impairment 15/80 Short Term Goal (STG) Pt will improve LEFS score to at least 30/80 to show improved functional ability. 09/18- STG Duration 10/17/24 Business Writer Goal (LTG) Pt will improve LEFS score to at least 50/80 to show improved functional ability. LTG Duration 12/11/24 Assessment Summary Assessment Pt presents after fall and clearance from physician to return to PT without any found fx. She does have dec strength, ROM and inc pain since this. She will benefit from cont PT to improve functional mobility. Since starting PT, pt is using walker more and not only using WC for mobility Physical Therapy Plan Frequency and Duration Frequency of Treatment 2x/Week Duration of treatment (weeks) 12 Plan of Care Start Date 09/18/24 Plan of Care End Date 12/11/24 Therapeutic Interventions Therapeutic Interventions Balance Training,Gait Training ,Home Exercise Program,Joint Mobilizations,Manual Therapy, Neuromuscular Re-education, Orthotic/Prosthetic Management ,Patient/Caregiver Education, Self-Care/Home Management,Soft Tissue Mobilization,Taping, Therapeutic Activities, Therapeutic Exercises Modalities Cold Pack/Ice Massage,Electric Stimulation,Hot Packs, Infrared Therapy Next Visit Focus/Plan Next Note Type Treatment Note Next Visit Plan cont exercises as pt tolerates . Consider taping if pt not allergic and no open wounds, cont to work on gait, manual to foot/ankle to improve mobility Plan of Care Dates Plan of Care Start Date 09/18/24 Plan of Care End Date 12/11/24 Electronically Signed by: Tiarra Graf, PT 09/20/24 1755 If you are in agreement with this Plan of Care, please return a signed and dated copy. I have reviewed this Plan of Care and certify that the skilled therapy services above are required to meet the patient?s needs. Physician Signature Date Printed Name and Credentials Clinical Instructor Signature Printed Name and Credentials
--- NOTE | 2024-09-18 17:08 | PT.OTN ---
Current Diagnoses Pain in right ankle and joints of right foot (09/18/24) Nondisplaced pilon fracture of right tibia, subsequent encounter for closed fracture with routine healing (09/18/24) Nondisplaced pilon fracture of left tibia, initial encounter for closed fracture (09/18/24) Dislocation of tarsometatarsal joint of left foot, initial encounter (09/18/24) Sprain of tibiofibular ligament of left ankle, initial encounter (09/18/24) Physical Therapy Treatment Note PT-OP-A Visit Information Start: 07/12/24 17:42 Freq: Status: Active Protocol: Document 09/18/24 14:41 (Rec: 09/18/24 16:46 [id number]) Out-Patient Physical Therapy Visit Information Visit Information Visit Type Treatment Note Visit Note PT Tiarra Graf present at beginning of session for re- evaluation Visit Start Time 14:30 Visit Stop Time 15:15 Visit Number 9 (06/26 since eval) 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 She was put in splint ER and on April 30 got screws in foot, leg and ankle. Has had boot for 6-8 weeks. Tried to do the walker when cleared to in May and it hurt so bad, she couldn't do it. Dr Flor Guzman told her to wait a couple weeks again and on 06/19 was told again. Sees her again next Tuesday. Last tried to use walker about 1.5 weeks ago but it is too painful . When uses the walker, L shoulder has been more painful too. Broke ankle in 80s without surgery. Denies LE and back pain. Pt reports prior ot this was a couch potato. prior to this was indep w/dressing and bathing. Cannot get into shower so has been doing bird baths insteadwith help . He helps some w/dressing too . It is a walk in shower but has a step up so can't get in. Has a built in seat in there with grab bars in there. DOes SPT for all transfers w/o FWW. Has a ramp built in now for livingroom area to cover step. [facility] w/flat entry. Pt has been doing APs Treatment Goals Patient/Caregiver Goals get back to walking PT-OP-C Subjective Start: 07/12/24 17:42 Freq: Status: Active Protocol: Document 09/18/24 14:41 SW (Rec: 09/18/24 15:25 SW [id number]) OP-PT Subjective Patient Comments Patient Comments Pt reports setback, had a fall on 08/25/24 on the one step at pt home. Pt reports being in a wheelchair for 2 weeks post fall, ambulated into session today with walker. Pt reports went to doctor and followed up with surgeon. Pt reports no broken bones, doctor has cleared pt for PT. PT-OP-F Manual Assessment Start: 07/12/24 17:42 Freq: Status: Active Protocol: Document 07/25/24 11:38 [facility] (Rec: 07/25/24 13:45 [facility] [id number]) Manual Assessments Other Manual Assessments Other Manual Assessments signficiant midfoot swelling, some dry skin on midfoot PT-OP-G Mobility & Gait Start: 07/12/24 17:42 Freq: Status: Active Protocol: Document 07/25/24 11:38 [facility] (Rec: 07/25/24 13:45 [facility] [id number]) OP Gait Assessment Comments Gait Comments came in w/WC. able to amb w/ FWW w/cues for step to pattern PT-OP-K Range of Motion Start: 07/12/24 17:42 Freq: Status: Active Protocol: Document 09/18/24 14:30 LR (Rec: 09/18/24 14:46 [facility] [id number]) Ankle and Foot Goniometric Range of Motion Ankle and Foot Left Active Dorsiflexion with Knee Flexed 10 Dorsiflexion with Knee Extended 14 Plantarflexion 36 Inversion 12 Eversion 18 Comments lacking DF to neural both positions PT-OP-M Strength Start: 07/12/24 17:42 Freq: Status: Active Protocol: Document 09/18/24 14:30 [facility] (Rec: 09/18/24 14:46 [facility] [id number]) Ankle/Foot Strength Ankle and Foot Manual Muscle Testing Right Dorsiflexion (L4) 5 Normal Plantarflexion (S1) 5 Normal Inversion 5 Normal Eversion (S1) 5 Normal Comments toes 3+/5 Left Dorsiflexion (L4) 3+ Fair+ Plantarflexion (S1) 3+ Fair+ Inversion 3 Fair Eversion (S1) 3+ Fair+ Comments pain; 3/5 toe ext; unable to flex PT-OP-Q Treatments Start: 07/12/24 17:42 Freq: Status: Active Protocol: Document 09/18/24 14:41 SW (Rec: 09/18/24 15:25 SW [id number]) Therapeutic Exercises Sitting Exercises Calf stretch Sitting Exercise Name seated 1. Hold 2. Dynamic stretch Equipment Used Mateus Reps/Minutes 1. 2x30 2. x10 toe scrunches Sitting Exercise Name HEP review Side left Resistance AROM Equipment Used marble leaf size picker Reps/Minutes x10 Comments cued toe scrunch ankle DF, EV, IV Sitting Exercise Name 1. ROM 2. Resisted, PF, DF, EV , IV- HEP Side left Resistance TB 1 Reps/Minutes x10 ea HS curls Sitting Exercise Name Review Side bilateral Resistance L Equipment Used anchored by therapist/ home towel behind band Reps/Minutes 15 Comments Time spent figure out set up best for her, good HS tiring. long arc quad Sitting Exercise Name reviewed HEP Standing Exercises Weight shifting Standing Exercise Name weight shifting Side bilateral Equipment Used walker for balance support Comments for increased standing tolerance and weight acceptance into LLE sit to stand Standing Exercise Name HEP review Side bilateral Reps/Minutes x8 Comments slow eccentric control PT-OP-R Modalities Start: 07/12/24 17:42 Freq: Status: Active Protocol: Document 08/06/24 13:43 SP (Rec: 08/06/24 15:29 SP [id number]) Hot Pack/Cold Pack Treatment CP Location L ankle Patient Position Hooklying Patient Tolerance Good Comments Reports helps decreased discomfort end tx. PT-OP-T Assessment and Plan Start: 07/12/24 17:42 Freq: Status: Active Protocol: Document 09/18/24 14:41 SW (Rec: 09/18/24 15:25 SW [id number]) Physical Therapy Assessment Goals ROM Short Term Goal (STG) Pt will have DF to neutral in knee flex position STG Duration 08/31 Shelter Goal (LTG) Pt will have at least DF to 5 deg in knee flex and extended position to allow for improved gait mechanics. LTG Duration 10/17/23 activity Short Term Goal (STG) Pt will ambulate in house w/ LRAD 100% of the time instead of use WC STG Duration 08/25 Bulb Filler Goal (LTG) Pt will amb w/o AD w/o significant gait deviations and be able to go for short walks w/o inc pain greater than 2/10 LTG Duration 10/17/23 LEFS Impairment 15/80 Short Term Goal (STG) Pt will improve LEFS score to at least 30/80 to show improved functional ability. STG Duration 09/11/24 Shelter Goal (LTG) Pt will improve LEFS score to at least 50/80 to show improved functional ability. LTG Duration 10/17/24 Assessment Summary Assessment Pt had setback with fall on August 25, 2024, on the one step at pt home, pt was in a wheelchair for 2 weeks post fall. Pt reports was cleared by to come back to PT. PT Tiarra Graf was present at beginning of session for re- evaluation. Pt reports making progress prior to fall, has not been doing all of the exercises on HEP since the fall, doing some. Focused on HEP review of exercises this session for tolerance, decreased resistance to lvl 1 TB. Initiated standing weight shifts this session to increase pt standing tolerance and weight acceptance into LLE. Physical Therapy Plan Frequency and Duration Frequency of Treatment 2x/Week Duration of treatment (weeks) 12 Plan of Care Start Date 07/25/24 Plan of Care End Date 10/17/24 Therapeutic Interventions Therapeutic Interventions Balance Training,Gait Training ,Home Exercise Program,Joint Mobilizations,Manual Therapy, Neuromuscular Re-education, Orthotic/Prosthetic Management ,Patient/Caregiver Education, Self-Care/Home Management,Soft Tissue Mobilization,Taping, Therapeutic Activities, Therapeutic Exercises Modalities Cold Pack/Ice Massage,Electric Stimulation,Hot Packs, Infrared Therapy Next Visit Focus/Plan Next Note Type Treatment Note Next Visit Plan Recheck pt tolerance to HEP exercises, decreased resistance this session due to setback with pt fall on 08/25/24. Progress standing tolerance. add bridge Progress standing mobility. POC: LE strength: add SLR supine and side maybe bridge next tx; cont to advance WB as tolerated; cont to work on stair trainingMD recheck in re : October 02
--- NOTE | 2024-09-18 18:08 | PT.OTRE ---
Current Diagnoses Pain in right ankle and joints of right foot (09/18/24) Nondisplaced pilon fracture of right tibia, subsequent encounter for closed fracture with routine healing (09/18/24) Nondisplaced pilon fracture of left tibia, initial encounter for closed fracture (09/18/24) Dislocation of tarsometatarsal joint of left foot, initial encounter (09/18/24) Sprain of tibiofibular ligament of left ankle, initial encounter (09/18/24) Past Medical History (Last Reviewed 01/10/24 @ 11:39 by Aleksandra Leal PA-C) Alcohol use Asthma (~1987) Benign essential tremor Benign familial tremor (~1959) Cataracts, bilateral (~2015) Chicken pox Colon polyps (~2011) Endometriosis (~1978) Fibroids (~1978) Fractures Hypertension Measles Mumps Obesity (BMI 30-39.9) Osteopenia Painful menstrual periods (~1978) Pulmonary artery aneurysm Pulmonary stenosis (~1995) Seasonal allergies (~1945) Surgical History (Last Updated 04/25/24 @ 12:16 by Jyoti Loja RN) Anesthesia History of cardiac catheterization History of colonoscopy (01/2012) History of hysterectomy (~1978) History of laparoscopy (~1978) History of lumpectomy History of open heart surgery (~1950) Papilloma of right breast (~2018) Visit Care Team Role Provider Type Claudio Garcias DO Family Provider Physician Primary Care Provider Specialty: Family Practice Address: [address] [place] [address], [address], [address] Email: [email or web address] Attending Provider Physician Referring Provider Specialty: Orthopedics Orthopedic Surgery Address: [address] [place] [address], [id number] Email: [email or web address] Physical Therapy Re-Evaluation PT-OP-A Visit Information Start: 07/12/24 17:42 Freq: Status: Active Protocol: Document 09/18/24 14:41 SW (Rec: 09/18/24 16:46 SW [id number]) Out-Patient Physical Therapy Visit Information Visit Information Visit Type Treatment Note Visit Note PT Tiarra Graf present at beginning of session for re- evaluation Visit Start Time 14:30 Visit Stop Time 15:15 Visit Number 9 (06/26 since eval) 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 Saw ortho and no further fx and cleared to cont PT and does not have return to ortho IE:Pt reports stood up to go to bed on April 15 and fell over her feet and broke her leg and bones in foot. She was put in splint ER and on April 30 got screws in foot, leg and ankle. Has had boot for 6-8 weeks. Tried to do the walker when cleared to in May and it hurt so bad, she couldn't do it. Dr. Guzman told her to wait a couple weeks again and on 06/19 was told again. Sees her again next Tuesday. Last tried to use walker about 1.5 weeks ago but it is too painful . When uses the walker , L shoulder has been more painful too. Broke ankle in 80s without surgery. Denies LE and back pain. Pt reports prior ot this was a couch potato. prior to this was indep w/dressing and bathing. Cannot get into shower so has been doing bird baths insteadwith help. He helps some w/dressing too. It is a walk in shower but has a step up so can't get in. Has a built in seat in there with grab bars in there. DOes SPT for all transfers w/o FWW. Has a ramp built in now for livingroom area to cover step. [facility] w/flat entry. Pt has been doing APs Treatment Goals Patient/Caregiver Goals get back to walking PT-OP-C Subjective Start: 07/12/24 17:42 Freq: Status: Active Protocol: Document 09/18/24 14:41 SW (Rec: 09/18/24 15:25 SW [id number]) OP-PT Subjective Patient Comments Patient Comments Pt reports setback, had a fall on 08/25/24 on the one step at pt home. Pt reports being in a wheelchair for 2 weeks post fall, ambulated into session today with walker. Pt reports went to doctor and followed up with surgeon. Pt reports no broken bones, doctor has cleared pt for PT. PT-OP-F Manual Assessment Start: 07/12/24 17:42 Freq: Status: Active Protocol: Document 09/18/24 14:30 [facility] (Rec: 09/18/24 18:08 [facility] [id number]) Manual Assessments Other Manual Assessments Other Manual Assessments lat foot bruising, cont foot swelling L PT-OP-G Mobility & Gait Start: 07/12/24 17:42 Freq: Status: Active Protocol: Document 07/25/24 11:38 [facility] (Rec: 07/25/24 13:45 [facility] [id number]) OP Gait Assessment Comments Gait Comments came in w/WC. able to amb w/ FWW w/cues for step to pattern PT-OP-K Range of Motion Start: 07/12/24 17:42 Freq: Status: Active Protocol: Document 09/18/24 14:30 [facility] (Rec: 09/18/24 14:46 [facility] [id number]) Ankle and Foot Goniometric Range of Motion Ankle and Foot Measured in Degrees Left Active Dorsiflexion with Knee Flexed 10 Dorsiflexion with Knee Extended 14 Plantarflexion 36 Inversion 12 Eversion 18 Comments lacking DF to neural both positions PT-OP-M Strength Start: 07/12/24 17:42 Freq: Status: Active Protocol: Document 09/18/24 14:30 [facility] (Rec: 09/18/24 14:46 [facility] [id number]) Ankle/Foot Strength Ankle and Foot Manual Muscle Testing Right Dorsiflexion (L4) 5 Normal Plantarflexion (S1) 5 Normal Inversion 5 Normal Eversion (S1) 5 Normal Comments toes 3+/5 Left Dorsiflexion (L4) 3+ Fair+ Plantarflexion (S1) 3+ Fair+ Inversion 3 Fair Eversion (S1) 3+ Fair+ Comments pain; 3/5 toe ext; unable to flex PT-OP-Q Treatments Start: 07/12/24 17:42 Freq: Status: Active Protocol: Document 09/18/24 14:41 SW (Rec: 09/18/24 15:25 SW [id number]) Therapeutic Exercises Sitting Exercises Calf stretch Sitting Exercise Name seated 1. Hold 2. Dynamic stretch Equipment Used Mateus Reps/Minutes 1. 2x30 2. x10 toe scrunches Sitting Exercise Name HEP review Side left Resistance AROM Equipment Used marble flower buncher or picker Reps/Minutes x10 Comments cued toe scrunch ankle DF, EV, IV Sitting Exercise Name 1. ROM 2. Resisted, PF, DF, EV , IV- HEP Side left Resistance TB 1 Reps/Minutes x10 ea HS curls Sitting Exercise Name Review Side bilateral Resistance L Equipment Used anchored by therapist/ home towel behind band Reps/Minutes 15 Comments Time spent figure out set up best for her, good HS tiring. long arc quad Sitting Exercise Name reviewed HEP Standing Exercises Weight shifting Standing Exercise Name weight shifting Side bilateral Equipment Used walker for balance support Comments for increased standing tolerance and weight acceptance into LLE sit to stand Standing Exercise Name HEP review Side bilateral Reps/Minutes x8 Comments slow eccentric control PT-OP-R Modalities Start: 07/12/24 17:42 Freq: Status: Active Protocol: Document 08/06/24 13:43 SP (Rec: 08/06/24 15:29 SP [id number]) Hot Pack/Cold Pack Treatment CP Location L ankle Patient Position Hooklying Patient Tolerance Good Comments Reports helps decreased discomfort end tx. PT-OP-T Assessment and Plan Start: 07/12/24 17:42 Freq: Status: Active Protocol: Document 09/18/24 14:41 SW (Rec: 09/18/24 15:25 SW [id number]) Physical Therapy Assessment Goals ROM Short Term Goal (STG) Pt will have DF to neutral in knee flex position STG Duration 08/31 Speech Language Assistant Goal (LTG) Pt will have at least DF to 5 deg in knee flex and extended position to allow for improved gait mechanics. LTG Duration 10/17/23 activity Short Term Goal (STG) Pt will ambulate in house w/ LRAD 100% of the time instead of use WC STG Duration 08/25 [facility] Goal (LTG) Pt will amb w/o AD w/o significant gait deviations and be able to go for short walks w/o inc pain greater than 2/10 LTG Duration 10/17/23 LEFS Impairment 15/80 Short Term Goal (STG) Pt will improve LEFS score to at least 30/80 to show improved functional ability. STG Duration 09/11/24 Speech Language Assistant Goal (LTG) Pt will improve LEFS score to at least 50/80 to show improved functional ability. LTG Duration 10/17/24 Assessment Summary Assessment Pt had setback with fall on August 25, 2024, on the one step at pt home, pt was in a wheelchair for 2 weeks post fall. Pt reports was cleared by MD to come back to PT. PT Tiarra Graf was present at beginning of session for re- evaluation. Pt reports making progress prior to fall, has not been doing all of the exercises on HEP since the fall, doing some. Focused on HEP review of exercises this session for tolerance, decreased resistance to lvl 1 TB. Initiated standing weight shifts this session to increase pt standing tolerance and weight acceptance into LLE. Physical Therapy Plan Frequency and Duration Frequency of Treatment 2x/Week Duration of treatment (weeks) 12 Plan of Care Start Date 07/25/24 Plan of Care End Date 10/17/24 Therapeutic Interventions Therapeutic Interventions Balance Training,Gait Training ,Home Exercise Program,Joint Mobilizations,Manual Therapy, Neuromuscular Re-education, Orthotic/Prosthetic Management ,Patient/Caregiver Education, Self-Care/Home Management,Soft Tissue Mobilization,Taping, Therapeutic Activities, Therapeutic Exercises Modalities Cold Pack/Ice Massage,Electric Stimulation,Hot Packs, Infrared Therapy Next Visit Focus/Plan Next Note Type Treatment Note Next Visit Plan Recheck pt tolerance to HEP exercises, decreased resistance this session due to setback with pt fall on 08/25/24. Progress standing tolerance. add bridge Progress standing mobility. POC: LE strength: add SLR supine and side maybe bridge next tx; cont to advance WB as tolerated; cont to work on stair trainingMD recheck in re : October 02
--- NOTE | 2024-09-18 18:08 | PT.OPPOC ---
Physical, Occupational & Speech Therapy At [facility] Current Diagnoses Pain in right ankle and joints of right foot (09/18/24) Nondisplaced pilon fracture of right tibia, subsequent encounter for closed fracture with routine healing (09/18/24) Nondisplaced pilon fracture of left tibia, initial encounter for closed fracture (09/18/24) Dislocation of tarsometatarsal joint of left foot, initial encounter (09/18/24) Sprain of tibiofibular ligament of left ankle, initial encounter (09/18/24) Visit Care Team Role Provider Type Claudio Garcias DO Family Provider Physician Primary Care Provider Specialty: Family Practice Address: [address] [place] [address], [facility] [address], [place], [address] Email: [email or web address] Guzman MD Attending Provider Physician Referring Provider Specialty: Orthopedics Orthopedic Surgery Address: [address] [place] [address], [address] Email: [email or web address] Plan Of Care PT-OP-B Current Condition Start: 07/12/24 17:42 Freq: Status: Active Protocol: Document 09/18/24 14:30 [facility] (Rec: 09/18/24 18:08 [facility] [id number]) Current Condition History of Current Condition Onset Date injury april 15, sx 04/30 Current Complaints L ORIF lisfranc, pilon and syndesmosis History of Current Condition 09/18/24-pt fell 09/04 on 1 step w/FWW and hurt from L knee down to foot. Saw ortho and no further fx and cleared to cont PT and does not have return to ortho IE:Pt reports stood up to go to bed on April 15 and fell over her feet and broke her leg and bones in foot. She was put in splint ER and on April 30 got screws in foot, leg and ankle. Has had boot for 6-8 weeks. Tried to do the walker when cleared to in May and it hurt so bad, she couldn't do it. Dr. Guzman told her to wait a couple weeks again and on 06/19 was told again. Sees her again next Tuesday. Last tried to use walker about 1.5 weeks ago but it is too painful . When uses the walker , L shoulder has been more painful too. Broke ankle in 80s without surgery. Denies LE and back pain. Pt reports prior ot this was a couch potato. prior to this was indep w/dressing and bathing. Cannot get into shower so has been doing bird baths insteadwith help. He helps some w/dressing too. It is a walk in shower but has a step up so can't get in. Has a built in seat in there with grab bars in there. DOes SPT for all transfers w/o FWW. Has a ramp built in now for livingroom area to cover step. [facility] w/flat entry. Pt has been doing APs Treatment Goals Patient/Caregiver Goals get back to walking PT-OP-T Assessment and Plan Start: 07/12/24 17:42 Freq: Status: Active Protocol: Document 09/18/24 14:41 (Rec: 09/18/24 15:25 [id number]) Physical Therapy Assessment Goals ROM Short Term Goal (STG) Pt will have DF to neutral in knee flex position STG Duration 08/31 Machine Woodworking Sander Goal (LTG) Pt will have at least DF to 5 deg in knee flex and extended position to allow for improved gait mechanics. LTG Duration 10/17/23 activity Short Term Goal (STG) Pt will ambulate in house w/ LRAD 100% of the time instead of use WC STG Duration 08/25 Machine Woodworking Sander Goal (LTG) Pt will amb w/o AD w/o significant gait deviations and be able to go for short walks w/o inc pain greater than 2/10 LTG Duration 10/17/23 LEFS Impairment 15/80 Short Term Goal (STG) Pt will improve LEFS score to at least 30/80 to show improved functional ability. STG Duration 09/11/24 [facility] Care Goal (LTG) Pt will improve LEFS score to at least 50/80 to show improved functional ability. LTG Duration 10/17/24 Assessment Summary Assessment Pt had setback with fall on August 25, 2024, on the one step at pt home, pt was in a wheelchair for 2 weeks post fall. Pt reports was cleared by to come back to PT. PT Tiarra Graf was present at beginning of session for re- evaluation. Pt reports making progress prior to fall, has not been doing all of the exercises on HEP since the fall, doing some. Focused on HEP review of exercises this session for tolerance, decreased resistance to lvl 1 TB. Initiated standing weight shifts this session to increase pt standing tolerance and weight acceptance into LLE. Physical Therapy Plan Frequency and Duration Frequency of Treatment 2x/Week Duration of treatment (weeks) 12 Plan of Care Start Date 07/25/24 Plan of Care End Date 10/17/24 Therapeutic Interventions Therapeutic Interventions Balance Training,Gait Training ,Home Exercise Program,Joint Mobilizations,Manual Therapy, Neuromuscular Re-education, Orthotic/Prosthetic Management ,Patient/Caregiver Education, Self-Care/Home Management,Soft Tissue Mobilization,Taping, Therapeutic Activities, Therapeutic Exercises Modalities Cold Pack/Ice Massage,Electric Stimulation,Hot Packs, Infrared Therapy Next Visit Focus/Plan Next Note Type Treatment Note Next Visit Plan Recheck pt tolerance to HEP exercises, decreased resistance this session due to setback with pt fall on 08/25/24. Progress standing tolerance. add bridge Progress standing mobility. POC: LE strength: add SLR supine and side maybe bridge next tx; cont to advance WB as tolerated; cont to work on stair trainingMD recheck in re : October 02 Plan of Care Dates Plan of Care Start Date 07/25/24 Plan of Care End Date 10/17/24 Electronically Signed by: Tiarra Graf, PT 09/18/24 3216 If you are in agreement with this Plan of Care, please return a signed and dated copy. I have reviewed this Plan of Care and certify that the skilled therapy services above are required to meet the patient?s needs. Physician Signature Date Printed Name and Credentials Clinical Instructor Signature Printed Name and Credentials
--- NOTE | 2024-09-20 11:42 | PT.OTRE ---
Current Diagnoses Pain in right ankle and joints of right foot (09/18/24) Nondisplaced pilon fracture of right tibia, subsequent encounter for closed fracture with routine healing (09/18/24) Nondisplaced pilon fracture of left tibia, initial encounter for closed fracture (09/18/24) Dislocation of tarsometatarsal joint of left foot, initial encounter (09/18/24) Sprain of tibiofibular ligament of left ankle, initial encounter (09/18/24) Past Medical History (Last Updated 09/19/24 @ 15:16 by Claudio Garcias DO) Alcohol use Asthma (~1987) Benign essential tremor Benign familial tremor (~1959) Cataracts, bilateral (~2015) Chicken pox Colon polyps (~2011) Encounter for subsequent annual wellness visit (AWV) in Medicare patient Endometriosis (~1978) Fibroids (~1978) Fractures Hypertension Measles Mumps Obesity (BMI 30-39.9) Osteopenia Painful menstrual periods (~1978) Pulmonary artery aneurysm Pulmonary stenosis (~1995) Seasonal allergies (~194) Surgical History (Last Updated 04/25/24 @ 12:16 by Jyoti Loja RN) Anesthesia History of cardiac catheterization History of colonoscopy (01/2012) History of hysterectomy (~1978) History of laparoscopy (~1978) History of lumpectomy History of open heart surgery (~1950) Papilloma of right breast (~2018) Visit Care Team Role Provider Type Claudio Garcias DO Family Provider Physician Primary Care Provider Specialty: Family Practice Address: [address] [place] [address], [id number] Email: [email or web address] Lynette Guzman MD Attending Provider Physician Referring Provider Specialty: Orthopedics Orthopedic Surgery Address: [address] [place] [address], [id number] Email: [email or web address] Physical Therapy Re-Evaluation PT-OP-A Visit Information Start: 07/12/24 17:42 Freq: Status: Active Protocol: Document 09/18/24 14:41 SW (Rec: 09/18/24 16:46 [facility] [id number]) Out-Patient Physical Therapy Visit Information Visit Information Visit Type Treatment Note Visit Note PT Tiarra Graf present at beginning of session for re- evaluation Visit Start Time 14:30 Visit Stop Time 15:15 Visit Number 9 (06/26 since eval) Number of WELDING TESTER Visits 1 PT-OP-B Current Condition Start: 07/12/24 17:42 Freq: Status: Active Protocol: Document 09/18/24 14:45 [facility] (Rec: 09/18/24 18:08 [facility] [id number]) Current Condition History of Current Condition Onset Date injury april 15, sx 04/30 Current Complaints L ORIF lisfranc, pilon and syndesmosis History of Current Condition 09/18/24-pt fell 09/04 on 1 step w/FWW and hurt from L knee down to foot. Saw ortho and no further fx and cleared to cont PT and does not have return to ortho IE:Pt reports stood up to go to bed on April 15 and fell over her feet and broke her leg and bones in foot. She was put in splint ER and on April 30 got screws in foot, leg and ankle. Has had boot for 6-8 weeks. Tried to do the walker when cleared to in May and it hurt so bad, she couldn't do it. Dr. Guzman told her to wait a couple weeks again and on 06/19 was told again. Sees her again next Tuesday. Last tried to use walker about 1.5 weeks ago but it is too painful . When uses the walker , L shoulder has been more painful too. Broke ankle in 80s without surgery. Denies LE and back pain. Pt reports prior ot this was a couch potato. prior to this was indep w/dressing and bathing. Cannot get into shower so has been doing bird baths insteadwith help. He helps some w/dressing too. It is a walk in shower but has a step up so can't get in. Has a built in seat in there with grab bars in there. DOes SPT for all transfers w/o FWW. Has a ramp built in now for livingroom area to cover step. H w/flat entry. Pt has been doing APs Treatment Goals Patient/Caregiver Goals get back to walking PT-OP-C Subjective Start: 07/12/24 17:42 Freq: Status: Active Protocol: Document 09/18/24 14:41 (Rec: 09/18/24 15:25 [id number]) OP-PT Subjective Patient Comments Patient Comments Pt reports setback, had a fall on 08/25/24 on the one step at pt home. Pt reports being in a wheelchair for 2 weeks post fall, ambulated into session today with walker. Pt reports went to doctor and followed up with surgeon. Pt reports no broken bones, doctor has cleared pt for PT. PT-OP-F Manual Assessment Start: 07/12/24 17:42 Freq: Status: Active Protocol: Document 09/18/24 14:45 [facility] (Rec: 09/18/24 18:08 [facility] [id number]) Manual Assessments Other Manual Assessments Other Manual Assessments lat foot bruising, cont foot swelling L PT-OP-G Mobility & Gait Start: 07/12/24 17:42 Freq: Status: Active Protocol: Document 07/25/24 11:38 [facility] (Rec: 07/25/24 13:45 [facility] [id number]) OP Gait Assessment Comments Gait Comments came in w/WC. able to amb w/ FWW w/cues for step to pattern PT-OP-K Range of Motion Start: 07/12/24 17:42 Freq: Status: Active Protocol: Document 09/18/24 14:45 [facility] (Rec: 09/18/24 14:46 [facility] [id number]) Ankle and Foot Goniometric Range of Motion Ankle and Foot Measured in Degrees Left Active Dorsiflexion with Knee Flexed 10 Dorsiflexion with Knee Extended 14 Plantarflexion 36 Inversion 12 Eversion 18 Comments lacking DF to neural both positions PT-OP-M Strength Start: 07/12/24 17:42 Freq: Status: Active Protocol: Document 09/18/24 14:45 [facility] (Rec: 09/18/24 14:46 [facility] [id number]) Ankle/Foot Strength Ankle and Foot Manual Muscle Testing Right Dorsiflexion (L4) 5 Normal Plantarflexion (S1) 5 Normal Inversion 5 Normal Eversion (S1) 5 Normal Comments toes 3+/5 Left Dorsiflexion (L4) 3+ Fair+ Plantarflexion (S1) 3+ Fair+ Inversion 3 Fair Eversion (S1) 3+ Fair+ Comments pain; 3/5 toe ext; unable to flex PT-OP-Q Treatments Start: 07/12/24 17:42 Freq: Status: Active Protocol: Document 09/18/24 14:41 SW (Rec: 09/18/24 15:25 SW [id number]) Therapeutic Exercises Sitting Exercises Calf stretch Sitting Exercise Name seated 1. Hold 2. Dynamic stretch Equipment Used Mateus Reps/Minutes 1. 2x30 2. x10 toe scrunches Sitting Exercise Name HEP review Side left Resistance AROM Equipment Used marble poultry picker Reps/Minutes x10 Comments cued toe scrunch ankle DF, EV, IV Sitting Exercise Name 1. ROM 2. Resisted, PF, DF, EV , IV- HEP Side left Resistance TB 1 Reps/Minutes x10 ea HS curls Sitting Exercise Name Review Side bilateral Resistance L Equipment Used anchored by therapist/ home towel behind band Reps/Minutes 15 Comments Time spent figure out set up best for her, good HS tiring. long arc quad Sitting Exercise Name reviewed HEP Standing Exercises Weight shifting Standing Exercise Name weight shifting Side bilateral Equipment Used walker for balance support Comments for increased standing tolerance and weight acceptance into LLE sit to stand Standing Exercise Name HEP review Side bilateral Reps/Minutes x8 Comments slow eccentric control PT-OP-R Modalities Start: 07/12/24 17:42 Freq: Status: Active Protocol: Document 08/06/24 13:43 SP (Rec: 08/06/24 15:29 SP [id number]) Hot Pack/Cold Pack Treatment CP Location L ankle Patient Position Hooklying Patient Tolerance Good Comments Reports helps decreased discomfort end tx. PT-OP-T Assessment and Plan Start: 07/12/24 17:42 Freq: Status: Active Protocol: Document 09/18/24 14:45 [facility] (Rec: 09/18/24 18:08 [facility] [id number]) Physical Therapy Assessment Goals ROM Short Term Goal (STG) Pt will have DF to neutral in knee flex position 09/18-worse since fall STG Duration 10/16 Radiologist Diagnostic Goal (LTG) Pt will have at least DF to 5 deg in knee flex and extended position to allow for improved gait mechanics. LTG Duration 2/2 activity Short Term Goal (STG) Pt will ambulate in house w/ LRAD 100% of the time instead of use WC 09/18-during day but not at night STG Duration 10/16 Radiologist Diagnostic Goal (LTG) Pt will amb w/o AD w/o significant gait deviations and be able to go for short walks w/o inc pain greater than 2/10 LTG Duration 12/11 LEFS Impairment 15/80 Short Term Goal (STG) Pt will improve LEFS score to at least 30/80 to show improved functional ability. 09/18- STG Duration 10/17/24 Fdc Goal (LTG) Pt will improve LEFS score to at least 50/80 to show improved functional ability. LTG Duration 12/11/24 Assessment Summary Assessment Pt presents after fall and clearance from physician to return to PT without any found fx. She does have dec strength, ROM and inc pain since this. She will benefit from cont PT to improve functional mobility. Since starting PT, pt is using walker more and not only using WC for mobility Physical Therapy Plan Frequency and Duration Frequency of Treatment 2x/Week Duration of treatment (weeks) 12 Plan of Care Start Date 09/18/24 Plan of Care End Date 12/11/24 Therapeutic Interventions Therapeutic Interventions Balance Training,Gait Training ,Home Exercise Program,Joint Mobilizations,Manual Therapy, Neuromuscular Re-education, Orthotic/Prosthetic Management ,Patient/Caregiver Education, Self-Care/Home Management,Soft Tissue Mobilization,Taping, Therapeutic Activities, Therapeutic Exercises Modalities Cold Pack/Ice Massage,Electric Stimulation,Hot Packs, Infrared Therapy Next Visit Focus/Plan Next Note Type Treatment Note Next Visit Plan cont exercises as pt tolerates . Consider taping if pt not allergic and no open wounds, cont to work on gait, manual to foot/ankle to improve mobility
--- NOTE | 2024-09-20 14:59 | PT.OTN ---
Current Diagnoses Pain in right ankle and joints of right foot (09/20/24) Nondisplaced pilon fracture of right tibia, subsequent encounter for closed fracture with routine healing (09/20/24) Nondisplaced pilon fracture of left tibia, initial encounter for closed fracture (09/20/24) Dislocation of tarsometatarsal joint of left foot, initial encounter (09/20/24) Sprain of tibiofibular ligament of left ankle, initial encounter (09/20/24) Physical Therapy Treatment Note PT-OP-A Visit Information Start: 07/12/24 17:42 Freq: Status: Active Protocol: Document 09/20/24 13:52 [facility] (Rec: 09/20/24 14:44 [facility] [id number]) Out-Patient Physical Therapy Visit Information Visit Information Visit Type Treatment Note Visit Start Time 13:51 Visit Stop Time 14:32 Visit Number 10 (2/10 since re-eval) Number of SENIOR SECURITY ARCHITECT Visits 0 PT-OP-B Current Condition Start: 07/12/24 17:42 Freq: Status: Active Protocol: Document 09/18/24 14:45 [facility] (Rec: 09/18/24 18:08 [facility] [id number]) Current Condition History of Current Condition Onset Date injury april 15, sx 04/30 Current Complaints L ORIF lisfranc, pilon and syndesmosis History of Current Condition 09/18/24-pt fell 09/04 on 1 step w/FWW and hurt from L knee down to foot. Saw ortho and no further fx and cleared to cont PT and does not have return to ortho IE:Pt reports stood up to go to bed on April 15 and fell over her feet and broke her leg and bones in foot. She was put in splint ER and on April 30 got screws in foot, leg and ankle. Has had boot for 6-8 weeks. Tried to do the walker when cleared to in May and it hurt so bad, she couldn't do it. Dr. Guzman told her to wait a couple weeks again and on 06/19 was told again. Sees her again next Tuesday. Last tried to use walker about 1.5 weeks ago but it is too painful . When uses the walker , L shoulder has been more painful too. Broke ankle in 80s without surgery. Denies LE and back pain. Pt reports prior ot this was a couch potato. prior to this was indep w/dressing and bathing. Cannot get into shower so has been doing bird baths insteadwith help. He helps some w/dressing too. It is a walk in shower but has a step up so can't get in. Has a built in seat in there with grab bars in there. DOes SPT for all transfers w/o FWW. Has a ramp built in now for livingroom area to cover step. SLH w/flat entry. Pt has been doing APs Treatment Goals Patient/Caregiver Goals get back to walking PT-OP-C Subjective Start: 07/12/24 17:42 Freq: Status: Active Protocol: Document 09/20/24 13:52 [facility] (Rec: 09/20/24 14:44 [id number]-PT Subjective Patient Comments Patient Comments Pt reports knee feels like it is going to give out when walking. PT-OP-F Manual Assessment Start: 07/12/24 17:42 Freq: Status: Active Protocol: Document 09/18/24 14:45 [facility] (Rec: 09/18/24 18:08 [id number] Manual Assessments Other Manual Assessments Other Manual Assessments lat foot bruising, cont foot swelling L PT-OP-G Mobility & Gait Start: 07/12/24 17:42 Freq: Status: Active Protocol: Document 07/25/24 11:38 [facility] (Rec: 07/25/24 13:45 [id number] OP Gait Assessment Comments Gait Comments came in w/WC. able to amb w/ FWW w/cues for step to pattern PT-OP-K Range of Motion Start: 07/12/24 17:42 Freq: Status: Active Protocol: Document 09/18/24 14:45 [facility] (Rec: 09/18/24 14:46 [facility] [id number]) Ankle and Foot Goniometric Range of Motion Ankle and Foot Left Active Dorsiflexion with Knee Flexed 10 Dorsiflexion with Knee Extended 14 Plantarflexion 36 Inversion 12 Eversion 18 Comments lacking DF to neural both positions PT-OP-M Strength Start: 07/12/24 17:42 Freq: Status: Active Protocol: Document 09/18/24 14:45 [facility] (Rec: 09/18/24 14:46 [facility] [id number]) Ankle/Foot Strength Ankle and Foot Manual Muscle Testing Right Dorsiflexion (L4) 5 Normal Plantarflexion (S1) 5 Normal Inversion 5 Normal Eversion (S1) 5 Normal Comments toes 3+/5 Left Dorsiflexion (L4) 3+ Fair+ Plantarflexion (S1) 3+ Fair+ Inversion 3 Fair Eversion (S1) 3+ Fair+ Comments pain; 3/5 toe ext; unable to flex PT-OP-Q Treatments Start: 07/12/24 17:42 Freq: Status: Active Protocol: Document 09/20/24 13:52 [facility] (Rec: 09/20/24 14:44 [facility] [id number]) Cardio Equipment Recumbent Elliptical ([employer]) Duration (Minutes) 6 Resistance 1-2 Seat Position 9 Other BLEs only Therapeutic Exercises Sitting Exercises Calf stretch Equipment Used towel Reps/Minutes 1 min Standing Exercises sit to stand Standing Exercise Name HEP review Side bilateral Reps/Minutes 11 Comments slow eccentric control no hands Gait Training Gait Activity WB LLE acceptance Comments wt/ shift w/alt LE w/FWW as needed only x10 ea FWW Comments cues for step through gait w/ FWW 50ft, 100ft, 150ft Manual Therapy Treatment Consent Patient gave verbal consent for manual Yes treatment Soft Tissue Mobilization calf Body Location L Mobilization Type Rolling,Other Body Position Supine plantar fascia Body Location L Mobilization Type Rolling Body Position Supine Joint Mobilizations MTP Joint L distraction 1st digit Grade II Taping KT Comments arch support and I strip for ankle support (med to lat) PT-OP-R Modalities Start: 07/12/24 17:42 Freq: Status: Active Protocol: Document 08/06/24 13:43 SP (Rec: 08/06/24 15:29 SP [id number]) Hot Pack/Cold Pack Treatment CP Location L ankle Patient Position Hooklying Patient Tolerance Good Comments Reports helps decreased discomfort end tx. PT-OP-T Assessment and Plan Start: 07/12/24 17:42 Freq: Status: Active Protocol: Document 09/20/24 13:52 [facility] (Rec: 09/20/24 14:44 [facility] [id number]) Physical Therapy Assessment Goals ROM Short Term Goal (STG) Pt will have DF to neutral in knee flex position 09/18-worse since fall STG Duration 10/16 It Quality Assurance Analyst Goal (LTG) Pt will have at least DF to 5 deg in knee flex and extended position to allow for improved gait mechanics. LTG Duration 11/18 activity Short Term Goal (STG) Pt will ambulate in house w/ LRAD 100% of the time instead of use WC 09/18-during day but not at night STG Duration 10/16 Group Home Goal (LTG) Pt will amb w/o AD w/o significant gait deviations and be able to go for short walks w/o inc pain greater than 2/10 LTG Duration 12/11 LEFS Impairment 15/80 Short Term Goal (STG) Pt will improve LEFS score to at least 30/80 to show improved functional ability. 09/18- STG Duration 10/17/24 Group Home Goal (LTG) Pt will improve LEFS score to at least 50/80 to show improved functional ability. LTG Duration 12/11/24 Assessment Summary Assessment Pt felt more stable amb after manual and taping and was able to do step trhough w/greater ease after manual. Improved gait by end of session. Physical Therapy Plan Frequency and Duration Frequency of Treatment 2x/Week Duration of treatment (weeks) 12 Plan of Care Start Date 09/18/24 Plan of Care End Date 12/11/24 Next Visit Focus/Plan Next Note Type Treatment Note
--- NOTE | 2024-09-24 12:16 | PT.OTN ---
Current Diagnoses Pain in right ankle and joints of right foot (09/24/24) Nondisplaced pilon fracture of right tibia, subsequent encounter for closed fracture with routine healing (09/24/24) Nondisplaced pilon fracture of left tibia, initial encounter for closed fracture (09/24/24) Dislocation of tarsometatarsal joint of left foot, initial encounter (09/24/24) Sprain of tibiofibular ligament of left ankle, initial encounter (09/24/24) Physical Therapy Treatment Note PT-OP-A Visit Information Start: 07/12/24 17:42 Freq: Status: Active Protocol: Document 09/24/24 11:30 SP (Rec: 09/24/24 12:37 SP [id number]) Out-Patient Physical Therapy Visit Information Visit Information Visit Type Treatment Note Visit Start Time 11:30 Visit Stop Time 12:16 Visit Number 11 (12/24 since re-eval) 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 Saw ortho and no further fx and cleared to cont PT and does not have return to ortho IE:Pt reports stood up to go to bed on April 15 and fell over her feet and broke her leg and bones in foot. She was put in splint ER and on April 30 got screws in foot, leg and ankle. Has had boot for 6-8 weeks. Tried to do the walker when cleared to in May and it hurt so bad, she couldn't do it. Dr. Guzman told her to wait a couple weeks again and on 06/19 was told again. Sees her again next Tuesday. Last tried to use walker about 1.5 weeks ago but it is too painful . When uses the walker , L shoulder has been more painful too. Broke ankle in 80s without surgery. Denies LE and back pain. Pt reports prior ot this was a couch potato. prior to this was indep w/dressing and bathing. Cannot get into shower so has been doing bird baths insteadwith help. He helps some w/dressing too. It is a walk in shower but has a step up so can't get in. Has a built in seat in there with grab bars in there. DOes SPT for all transfers w/o FWW. Has a ramp built in now for livingroom area to cover step. H w/flat entry. Pt has been doing APs Treatment Goals Patient/Caregiver Goals get back to walking PT-OP-C Subjective Start: 07/12/24 17:42 Freq: Status: Active Protocol: Document 09/24/24 11:30 SP (Rec: 09/24/24 12:37 SP [id number]) OP-PT Subjective Patient Comments Patient Comments Pt arrvies with pink Crocs, mid R foot still little swollen unable to get foot PT-OP-F Manual Assessment Start: 07/12/24 17:42 Freq: Status: Active Protocol: Document 09/18/24 14:45 [facility] (Rec: 09/18/24 18:08 [facility] [id number]) Manual Assessments Other Manual Assessments Other Manual Assessments lat foot bruising, cont foot swelling L PT-OP-G Mobility & Gait Start: 07/12/24 17:42 Freq: Status: Active Protocol: Document 07/25/24 11:38 LR (Rec: 07/25/24 13:45 [facility] [id number]) OP Gait Assessment Comments Gait Comments came in w/WC. able to amb w/ FWW w/cues for step to pattern PT-OP-K Range of Motion Start: 07/12/24 17:42 Freq: Status: Active Protocol: Document 09/18/24 14:45 [facility] (Rec: 09/18/24 14:46 [facility] [id number]) Ankle and Foot Goniometric Range of Motion Ankle and Foot Left Active Dorsiflexion with Knee Flexed 10 Dorsiflexion with Knee Extended 14 Plantarflexion 36 Inversion 12 Eversion 18 Comments lacking DF to neural both positions PT-OP-M Strength Start: 07/12/24 17:42 Freq: Status: Active Protocol: Document 09/18/24 14:45 [facility] (Rec: 09/18/24 14:46 [facility] [id number]) Ankle/Foot Strength Ankle and Foot Manual Muscle Testing Right Dorsiflexion (L4) 5 Normal Plantarflexion (S1) 5 Normal Inversion 5 Normal Eversion (S1) 5 Normal Comments toes 3+/5 Left Dorsiflexion (L4) 3+ Fair+ Plantarflexion (S1) 3+ Fair+ Inversion 3 Fair Eversion (S1) 3+ Fair+ Comments pain; 3/5 toe ext; unable to flex PT-OP-Q Treatments Start: 07/12/24 17:42 Freq: Status: Active Protocol: Document 09/24/24 11:30 SP (Rec: 09/24/24 12:37 SP [id number]) Cardio Equipment Recumbent Elliptical (Biodex) Duration (Minutes) 6 Resistance 1>2 Seat Position 9 Other BLEs only Therapeutic Exercises Sitting Exercises Calf stretch Side left Equipment Used towel at forefoot Reps/Minutes 1 min Comments leg held front into LAQ positioning- good calf stretch toe abduction Sitting Exercise Name Toe extension at PIP, ABD Side left Reps/Minutes 2 SH x10 each toe scrunches Sitting Exercise Name HEP review Side left Resistance AROM Equipment Used MTP flexion over tennis ball Reps/Minutes 2 SHx10 Comments cued toe 1-5 flexion Standing Exercises olvin stepping Standing Exercise Name L ankle mobility Side bilateral Resistance 6 hurles, //bars Reps/Minutes 10 ft x3 laps Comments receiprocal stepping- cued PF toe off, knee flexion DF advancement sit to stand Standing Exercise Name HEP review Side bilateral Equipment Used 18 mesh chair, no UE Reps/Minutes 5 x2 Comments slow eccentric control no hands Gait Training Gait Activity WB LLE acceptance Description front mirror Device Used FWW Distance/Duration 10 reps Treatment Focus ankle mobility gait phases Comments wt/ shift w/alt LE: DF heel strike pos.<> PF Toe off pos. FWW Comments cues for step through gait w/ FWW 50ft, 100ft x2 Manual Therapy Treatment Consent Patient gave verbal consent for manual Yes treatment Soft Tissue Mobilization calf Body Location L Mobilization Type Rolling,Other Body Position Supine plantar fascia Body Location L Mobilization Type Myofascial Release,Rolling Body Position Supine Joint Mobilizations MTP Joint L distraction 1st digit Grade II PT-OP-R Modalities Start: 07/12/24 17:42 Freq: Status: Active Protocol: Document 08/06/24 13:43 SP (Rec: 08/06/24 15:29 SP [id number]) Hot Pack/Cold Pack Treatment CP Location L ankle Patient Position Hooklying Patient Tolerance Good Comments Reports helps decreased discomfort end tx. PT-OP-T Assessment and Plan Start: 07/12/24 17:42 Freq: Status: Active Protocol: Document 09/24/24 11:30 SP (Rec: 09/24/24 12:37 SP [id number]) Physical Therapy Assessment Goals ROM Short Term Goal (STG) Pt will have DF to neutral in knee flex position 09/18-worse since fall STG Duration 10/16 Snf Goal (LTG) Pt will have at least DF to 5 deg in knee flex and extended position to allow for improved gait mechanics. LTG Duration 11/18 activity Short Term Goal (STG) Pt will ambulate in house w/ LRAD 100% of the time instead of use WC 09/18-during day but not at night STG Duration 10/16 Restaurant Recruiter Goal (LTG) Pt will amb w/o AD w/o significant gait deviations and be able to go for short walks w/o inc pain greater than 2/10 LTG Duration 12/11 LEFS Impairment 15/80 Short Term Goal (STG) Pt will improve LEFS score to at least 30/80 to show improved functional ability. 09/18- STG Duration 10/17/24 Restaurant Recruiter Goal (LTG) Pt will improve LEFS score to at least 50/80 to show improved functional ability. LTG Duration 12/11/24 Assessment Summary Assessment Pt reported more ankle mobility after manual and midfoot HEP review. Cues wt shifting for ankle gait phases : DF toe lift heel down then PF heel lift toe down front of the mirror then with movement in //bars . Improved performance with repetitions and carryover over yard sticks and hurdles. She was able to receiprocal stepping toe off on L better leaving. Physical Therapy Plan Frequency and Duration Frequency of Treatment 2x/Week Duration of treatment (weeks) 12 Plan of Care Start Date 09/18/24 Plan of Care End Date 12/11/24 Therapeutic Interventions Therapeutic Interventions Balance Training,Gait Training ,Home Exercise Program,Joint Mobilizations,Manual Therapy, Neuromuscular Re-education, Orthotic/Prosthetic Management ,Patient/Caregiver Education, Self-Care/Home Management,Soft Tissue Mobilization,Taping, Therapeutic Activities, Therapeutic Exercises Modalities Cold Pack/Ice Massage,Electric Stimulation,Hot Packs, Infrared Therapy Next Visit Focus/Plan Next Note Type Treatment Note Next Visit Plan Retape arch, ankle mobility HEP for ankle gait phases. Manual to foot/ankle to improve mobility
--- NOTE | 2024-09-27 12:20 | PT.OTN ---
Current Diagnoses Pain in right ankle and joints of right foot (09/27/24) Nondisplaced pilon fracture of right tibia, subsequent encounter for closed fracture with routine healing (09/27/24) Nondisplaced pilon fracture of left tibia, initial encounter for closed fracture (09/27/24) Dislocation of tarsometatarsal joint of left foot, initial encounter (09/27/24) Sprain of tibiofibular ligament of left ankle, initial encounter (09/27/24) Physical Therapy Treatment Note PT-OP-A Visit Information Start: 07/12/24 17:42 Freq: Status: Active Protocol: Document 09/27/24 11:39 SP (Rec: 09/27/24 12:34 SP [id number]) Out-Patient Physical Therapy Visit Information Visit Information Visit Type Treatment Note Visit Start Time 11:39 Visit Stop Time 12:20 Visit Number 12 (01/24 since re-eval) 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 Saw ortho and no further fx and cleared to cont PT and does not have return to ortho IE:Pt reports stood up to go to bed on April 15 and fell over her feet and broke her leg and bones in foot. She was put in splint ER and on April 30 got screws in foot, leg and ankle. Has had boot for 6-8 weeks. Tried to do the walker when cleared to in May and it hurt so bad, she couldn't do it. Dr. Guzman told her to wait a couple weeks again and on 06/19 was told again. Sees her again next Tuesday. Last tried to use walker about 1.5 weeks ago but it is too painful . When uses the walker , L shoulder has been more painful too. Broke ankle in 80s without surgery. Denies LE and back pain. Pt reports prior ot this was a couch potato. prior to this was indep w/dressing and bathing. Cannot get into shower so has been doing bird baths insteadwith help. He helps some w/dressing too. It is a walk in shower but has a step up so can't get in. Has a built in seat in there with grab bars in there. DOes SPT for all transfers w/o FWW. Has a ramp built in now for livingroom area to cover step. SL[facility] w/flat entry. Pt has been doing APs Treatment Goals Patient/Caregiver Goals get back to walking PT-OP-C Subjective Start: 07/12/24 17:42 Freq: Status: Active Protocol: Document 09/27/24 11:39 SP (Rec: 09/27/24 12:34 SP [id number]) OP-PT Subjective Patient Comments Patient Comments Pt reports wants to retape to help swelling, think helped 2 tx ago. Was little sore in L ankle after last tx and icing home helped. Still not able to put pink croc fully on L foot . PT-OP-F Manual Assessment Start: 07/12/24 17:42 Freq: Status: Active Protocol: Document 09/18/24 14:45 [facility] (Rec: 09/18/24 18:08 [facility] [id number]) Manual Assessments Other Manual Assessments Other Manual Assessments lat foot bruising, cont foot swelling L PT-OP-G Mobility & Gait Start: 07/12/24 17:42 Freq: Status: Active Protocol: Document 07/25/24 11:38 LR (Rec: 07/25/24 13:45 [facility] [id number]) OP Gait Assessment Comments Gait Comments came in w/WC. able to amb w/ FWW w/cues for step to pattern PT-OP-K Range of Motion Start: 07/12/24 17:42 Freq: Status: Active Protocol: Document 09/18/24 14:45 [facility] (Rec: 09/18/24 14:46 [facility] [id number]) Ankle and Foot Goniometric Range of Motion Ankle and Foot Left Active Dorsiflexion with Knee Flexed 10 Dorsiflexion with Knee Extended 14 Plantarflexion 36 Inversion 12 Eversion 18 Comments lacking DF to neural both positions PT-OP-M Strength Start: 07/12/24 17:42 Freq: Status: Active Protocol: Document 09/18/24 14:45 [facility] (Rec: 09/18/24 14:46 [facility] [id number]) Ankle/Foot Strength Ankle and Foot Manual Muscle Testing Right Dorsiflexion (L4) 5 Normal Plantarflexion (S1) 5 Normal Inversion 5 Normal Eversion (S1) 5 Normal Comments toes 3+/5 Left Dorsiflexion (L4) 3+ Fair+ Plantarflexion (S1) 3+ Fair+ Inversion 3 Fair Eversion (S1) 3+ Fair+ Comments pain; 3/5 toe ext; unable to flex PT-OP-Q Treatments Start: 07/12/24 17:42 Freq: Status: Active Protocol: Document 09/27/24 11:39 SP (Rec: 09/27/24 12:34 SP [id number]) Cardio Equipment Recumbent Bicycle Duration (Minutes) 6 Resistance 3 Seat Position 7 Other cued ankle mobility Therapeutic Exercises Sitting Exercises ankle DF, EV, IV Sitting Exercise Name verbal review continue daily- bid Standing Exercises heel raises/ toe raises Standing Exercise Name trialed in PT and added to HEP declined HO Side bilateral Resistance AROM Equipment Used rail support. Reps/Minutes 10 reps Comments monitor for pain L heel raise due to L 1st MTP extension discomfort rocker board Standing Exercise Name fwd/bwd, lateral Side bilateral Equipment Used min> 2 finger support rail outside shuttle balance Reps/Minutes 10 reps Comments improved tolerance wt shift, cues for even WB BLE Gait Training Gait Activity FWW Device Used FWW Distance/Duration 100 ft x2 Comments cues for LLE shorter stride, step through gait w/FWW moving , proximity to back legs walker /c upright posure enter /leave- improved heel lift/toe off LLE Manual Therapy Treatment Consent Patient gave verbal consent for manual Yes treatment Soft Tissue Mobilization calf Body Location L Mobilization Type Myofascial Release Body Position Supine plantar fascia Body Location L Mobilization Type Myofascial Release Body Position Supine swelling reduction L foot Body Location retrograde massage L dorsal and plantar foot, inferior med /lat malleolus Mobilization Type Manual Lymphatic Drainage, Myofascial Release Intensity/Depth Moderate Body Position Supine Comments Noted decreased in swelling/ fluid reabsorption, more inferior med/lateral malleolus and distal med/lat achilles. Provided Ktaping & Discussed continue wear compression socks. Joint Mobilizations MTP Joint L gross motor rotational forefoot, PA MTPs, distraction 1st digit Grade II Taping KT Comments arch support, then fanning dorsal foot, inferior med & lateral malliolis Manual Techniques PROM L ankle Type DF- L ankle Reps/Duration 5 reps x5 SH Comments monitored for pain free range Other Other Manual Treatments L ankle/foot measurements: MTPs L MTP 23.8 cm> 23.5, 7cm above 1st PIP 26cm>26 cm, med/lat malloli 29cm>29cm post manual. R MTP 22 cm, 7cm above 1st PIP 23.5, med/lat malloli 28cm Neuro Re-Education Treatment Balance Activities tilt board Details fwd, bwd, lateral Equipment light contact rail shuttle balance Reps/Duration 10 reps each direction PT-OP-R Modalities Start: 07/12/24 17:42 Freq: Status: Active Protocol: Document 08/06/24 13:43 SP (Rec: 08/06/24 15:29 SP [id number]) Hot Pack/Cold Pack Treatment CP Location L ankle Patient Position Hooklying Patient Tolerance Good Comments Reports helps decreased discomfort end tx. PT-OP-T Assessment and Plan Start: 07/12/24 17:42 Freq: Status: Active Protocol: Document 09/27/24 11:39 SP (Rec: 09/27/24 12:34 SP [id number]) Physical Therapy Assessment Goals ROM Short Term Goal (STG) Pt will have DF to neutral in knee flex position 09/18-worse since fall STG Duration 10/16 Doctor Of Naprapathy Goal (LTG) Pt will have at least DF to 5 deg in knee flex and extended position to allow for improved gait mechanics. LTG Duration 2/ activity Short Term Goal (STG) Pt will ambulate in house w/ LRAD 100% of the time instead of use WC 09/18-during day but not at night STG Duration 10/16 Half-Way Goal (LTG) Pt will amb w/o AD w/o significant gait deviations and be able to go for short walks w/o inc pain greater than 2/10 LTG Duration 12/11 LEFS Impairment 15/80 Short Term Goal (STG) Pt will improve LEFS score to at least 30/80 to show improved functional ability. 09/18- STG Duration 10/17/24 Half-Way Goal (LTG) Pt will improve LEFS score to at least 50/80 to show improved functional ability. LTG Duration 12/11/24 Assessment Summary Assessment Swelling reduction 0.3 cm over PIP on L post manual. Provdied Ktaping arch support and slight approx 25% tension retraction skin lift dorsal foot and inferior med&lat malleolus with visual felt less puffy. Good understanding removal up to 4 days or sooner if needed. Improved WB tolerance heel toe rocker board lighten up 2 fingers rail and carryover toe off leaving today. Discussed heel /toe raises HEP but declined HO for carryover ankle/foot mobility. Physical Therapy Plan Frequency and Duration Frequency of Treatment 2x/Week Duration of treatment (weeks) 12 Plan of Care Start Date 09/18/24 Plan of Care End Date 12/11/24 Therapeutic Interventions Therapeutic Interventions Balance Training,Gait Training ,Home Exercise Program,Joint Mobilizations,Manual Therapy, Neuromuscular Re-education, Orthotic/Prosthetic Management ,Patient/Caregiver Education, Self-Care/Home Management,Soft Tissue Mobilization,Taping, Therapeutic Activities, Therapeutic Exercises Modalities Cold Pack/Ice Massage,Electric Stimulation,Hot Packs, Infrared Therapy Next Visit Focus/Plan Next Note Type Treatment Note Next Visit Plan Retape arch/dorsal/med&lat malleoli swelling reduction. Progress ankle mobility HEP for ankle gait phases, continue functional mobility strengthening.. Manual to foot /ankle to improve mobility
--- NOTE | 2024-10-04 12:48 | PT.OTN ---
Current Diagnoses Pain in right ankle and joints of right foot (10/04/24) Nondisplaced pilon fracture of right tibia, subsequent encounter for closed fracture with routine healing (10/04/24) Nondisplaced pilon fracture of left tibia, initial encounter for closed fracture (10/04/24) Dislocation of tarsometatarsal joint of left foot, initial encounter (10/04/24) Sprain of tibiofibular ligament of left ankle, initial encounter (10/04/24) Physical Therapy Treatment Note PT-OP-A Visit Information Start: 07/12/24 17:42 Freq: Status: Active Protocol: Document 10/04/24 11:37 (Rec: 10/04/24 12:45 [id number]) Out-Patient Physical Therapy Visit Information Visit Information Visit Type Treatment Note Visit Start Time 11:32 Visit Stop Time 12:15 Visit Number 13 (02/23 since re- eval) Number of CORRECTIVE THERAPY AIDE Visits 3 PT-OP-B Current Condition Start: 07/12/24 17:42 Freq: Status: Active Protocol: Document 09/18/24 14:45 [facility] (Rec: 09/18/24 18:08 [facility] [id number]) Current Condition History of Current Condition Onset Date injury april 15, sx 04/30 Current Complaints L ORIF lisfranc, pilon and syndesmosis History of Current Condition 09/18/24-pt fell 09/04 on 1 step w/FWW and hurt from L knee down to foot. Saw ortho and no further fx and cleared to cont PT and does not have return to ortho IE:Pt reports stood up to go to bed on April 15 and fell over her feet and broke her leg and bones in foot. She was put in splint ER and on April 30 got screws in foot, leg and ankle. Has had boot for 6-8 weeks. Tried to do the walker when cleared to in May and it hurt so bad, she couldn't do it. Dr. Guzman told her to wait a couple weeks again and on 06/19 was told again. Sees her again next Tuesday. Last tried to use walker about 1.5 weeks ago but it is too painful . When uses the walker , L shoulder has been more painful too. Broke ankle in 80s without surgery. Denies LE and back pain. Pt reports prior ot this was a couch potato. prior to this was indep w/dressing and bathing. Cannot get into shower so has been doing bird baths insteadwith help. He helps some w/dressing too. It is a walk in shower but has a step up so can't get in. Has a built in seat in there with grab bars in there. DOes SPT for all transfers w/o FWW. Has a ramp built in now for livingroom area to cover step. H w/flat entry. Pt has been doing APs Treatment Goals Patient/Caregiver Goals get back to walking PT-OP-C Subjective Start: 07/12/24 17:42 Freq: Status: Active Protocol: Document 10/04/24 11:37 SW (Rec: 10/04/24 12:45 [id number]) OP-PT Subjective Patient Comments Patient Comments Pt reports hurt knee standing up without hands, pain level 4 -5/10. PT-OP-F Manual Assessment Start: 07/12/24 17:42 Freq: Status: Active Protocol: Document 09/18/24 14:45 [facility] (Rec: 09/18/24 18:08 [facility] [id number]) Manual Assessments Other Manual Assessments Other Manual Assessments lat foot bruising, cont foot swelling L PT-OP-G Mobility & Gait Start: 07/12/24 17:42 Freq: Status: Active Protocol: Document 07/25/24 11:38 [facility] (Rec: 07/25/24 13:45 [facility] [id number]) OP Gait Assessment Comments Gait Comments came in w/WC. able to amb w/ FWW w/cues for step to pattern PT-OP-K Range of Motion Start: 07/12/24 17:42 Freq: Status: Active Protocol: Document 09/18/24 14:45 [facility] (Rec: 09/18/24 14:46 [facility] [id number]) Ankle and Foot Goniometric Range of Motion Ankle and Foot Left Active Dorsiflexion with Knee Flexed 10 Dorsiflexion with Knee Extended 14 Plantarflexion 36 Inversion 12 Eversion 18 Comments lacking DF to neural both positions PT-OP-M Strength Start: 07/12/24 17:42 Freq: Status: Active Protocol: Document 09/18/24 14:45 [facility] (Rec: 09/18/24 14:46 [facility] [id number]) Ankle/Foot Strength Ankle and Foot Manual Muscle Testing Right Dorsiflexion (L4) 5 Normal Plantarflexion (S1) 5 Normal Inversion 5 Normal Eversion (S1) 5 Normal Comments toes 3+/5 Left Dorsiflexion (L4) 3+ Fair+ Plantarflexion (S1) 3+ Fair+ Inversion 3 Fair Eversion (S1) 3+ Fair+ Comments pain; 3/5 toe ext; unable to flex PT-OP-Q Treatments Start: 07/12/24 17:42 Freq: Status: Active Protocol: Document 10/04/24 11:37 SW (Rec: 10/04/24 12:45 SW [id number]) Cardio Equipment Recumbent Stepper (Sci-Fit) Duration (Minutes) 6 Resistance 3 Other cued foot placement Therapeutic Exercises Sitting Exercises HS curls Sitting Exercise Name Review Side bilateral Resistance L Equipment Used anchored by CORRECTIVE THERAPY AIDE Reps/Minutes 2x10 w/3 hold Comments Time spent figure out set up best for her, good HS tiring. Manual Therapy Treatment Soft Tissue Mobilization calf Body Location L Mobilization Type Myofascial Release Body Position Supine plantar fascia Body Location L Mobilization Type Myofascial Release,Rolling Body Position Supine swelling reduction L foot Body Location retrograde massage L dorsal and plantar foot, inferior med /lat malleolus Mobilization Type Manual Lymphatic Drainage, Myofascial Release Intensity/Depth Moderate Body Position Supine Taping KT Body Location Left Foot Treatment Focus Edema management Type of Tape Kinesio Tape Skin Inspection Skin fully intact, no redness or dryness present Comments Fanning from L side achilles inferior to lateral malliolus over metatarsals, Fanning from R side achilles inferior to medial malliolus perpendicular across metatarsals Pt education on removal timeframe and signs of adverse reaction PT-OP-R Modalities Start: 07/12/24 17:42 Freq: Status: Active Protocol: Document 08/06/24 13:43 SP (Rec: 08/06/24 15:29 SP [id number]) Hot Pack/Cold Pack Treatment CP Location L ankle Patient Position Hooklying Patient Tolerance Good Comments Reports helps decreased discomfort end tx. PT-OP-T Assessment and Plan Start: 07/12/24 17:42 Freq: Status: Active Protocol: Document 10/04/24 11:37 SW (Rec: 10/04/24 12:45 SW [id number]) Physical Therapy Assessment Goals ROM Short Term Goal (STG) Pt will have DF to neutral in knee flex position 09/18-worse since fall STG Duration 10/16 Social Director Goal (LTG) Pt will have at least DF to 5 deg in knee flex and extended position to allow for improved gait mechanics. LTG Duration 11/18 activity Short Term Goal (STG) Pt will ambulate in house w/ LRAD 100% of the time instead of use WC 09/18-during day but not at night STG Duration 10/16 Social Director Goal (LTG) Pt will amb w/o AD w/o significant gait deviations and be able to go for short walks w/o inc pain greater than 2/10 LTG Duration 12/11 LEFS Impairment 15/80 Short Term Goal (STG) Pt will improve LEFS score to at least 30/80 to show improved functional ability. 09/18- STG Duration 10/17/24 Mcfp Goal (LTG) Pt will improve LEFS score to at least 50/80 to show improved functional ability. LTG Duration 12/11/24 Assessment Summary Assessment PT present at beginning of session for 5 min to assess pt knee pain, PT instructed pt to do non-weight bearing exercises this session. Pt tolerated session well, pt reports no knee pain or foot pain at end of session post stepper. Pt unable to get foot fully in croc due to ongoing swelling, Re-applied Ktape for edema management this session . Progressed HS curls this session, instructed pt to increase reps at home to increase muscle strength. Plan to followup next session on knee pain and further progress HS strengthening as able. Physical Therapy Plan Frequency and Duration Frequency of Treatment 2x/Week Duration of treatment (weeks) 12 Plan of Care Start Date 09/18/24 Plan of Care End Date 12/11/24 Therapeutic Interventions Therapeutic Interventions Balance Training,Gait Training ,Home Exercise Program,Joint Mobilizations,Manual Therapy, Neuromuscular Re-education, Orthotic/Prosthetic Management ,Patient/Caregiver Education, Self-Care/Home Management,Soft Tissue Mobilization,Taping, Therapeutic Activities, Therapeutic Exercises Modalities Cold Pack/Ice Massage,Electric Stimulation,Hot Packs, Infrared Therapy Next Visit Focus/Plan Next Note Type Treatment Note Next Visit Plan Next: Assess pt knee pain, assess tolerance to increased reps of HS curls and further progress HS strength as able next session. Retape arch/dorsal/med&lat malleoli swelling reduction. Progress ankle mobility HEP for ankle gait phases, continue functional mobility strengthening.. Manual to foot /ankle to improve mobility
--- NOTE | 2024-10-11 13:50 | PT.OTN ---
Current Diagnoses Pain in right ankle and joints of right foot (10/11/24) Nondisplaced pilon fracture of right tibia, subsequent encounter for closed fracture with routine healing (10/11/24) Nondisplaced pilon fracture of left tibia, initial encounter for closed fracture (10/11/24) Dislocation of tarsometatarsal joint of left foot, initial encounter (10/11/24) Sprain of tibiofibular ligament of left ankle, initial encounter (10/11/24) Physical Therapy Treatment Note PT-OP-A Visit Information Start: 07/12/24 17:42 Freq: Status: Active Protocol: Document 10/11/24 13:48 TS (Rec: 10/11/24 16:28 TS [id number]) Out-Patient Physical Therapy Visit Information Visit Information Visit Type Treatment Note Visit Start Time 13:50 Visit Stop Time 14:30 Visit Number 14 Number of SOFTWARE ENGINEER KERNEL Visits 4 PT-OP-B Current Condition Start: 07/12/24 17:42 Freq: Status: Active Protocol: Document 09/18/24 14:45 [facility] (Rec: 09/18/24 18:08 [facility] [id number]) Current Condition History of Current Condition Onset Date injury april 15, sx 04/30 Current Complaints L ORIF lisfranc, pilon and syndesmosis History of Current Condition 09/18/24-pt fell 09/04 on 1 step w/FWW and hurt from L knee down to foot. Saw ortho and no further fx and cleared to cont PT and does not have return to ortho IE:Pt reports stood up to go to bed on April 15 and fell over her feet and broke her leg and bones in foot. She was put in splint ER and on April 30 got screws in foot, leg and ankle. Has had boot for 6-8 weeks. Tried to do the walker when cleared to in May and it hurt so bad, she couldn't do it. Dr. Guzman told her to wait a couple weeks again and on 06/19 was told again. Sees her again next Tuesday. Last tried to use walker about 1.5 weeks ago but it is too painful . When uses the walker , L shoulder has been more painful too. Broke ankle in 80s without surgery. Denies LE and back pain. Pt reports prior ot this was a couch potato. prior to this was indep w/dressing and bathing. Cannot get into shower so has been doing bird baths insteadwith help. He helps some w/dressing too. It is a walk in shower but has a step up so can't get in. Has a built in seat in there with grab bars in there. DOes SPT for all transfers w/o FWW. Has a ramp built in now for livingroom area to cover step. SLH w/flat entry. Pt has been doing APs Treatment Goals Patient/Caregiver Goals get back to walking PT-OP-C Subjective Start: 07/12/24 17:42 Freq: Status: Active Protocol: Document 10/11/24 13:48 TS (Rec: 10/11/24 16:28 TS [id number]) OP-PT Subjective Patient Comments Patient Comments Pt reports pain of 1/10. Got new shoes for comfort and due to swelling. PT-OP-F Manual Assessment Start: 07/12/24 17:42 Freq: Status: Active Protocol: Document 09/18/24 14:45 [facility] (Rec: 09/18/24 18:08 [id number] Manual Assessments Other Manual Assessments Other Manual Assessments lat foot bruising, cont foot swelling L PT-OP-G Mobility & Gait Start: 07/12/24 17:42 Freq: Status: Active Protocol: Document 07/25/24 11:38 LR (Rec: 07/25/24 13:45 [id number] OP Gait Assessment Comments Gait Comments came in w/WC. able to amb w/ FWW w/cues for step to pattern PT-OP-K Range of Motion Start: 07/12/24 17:42 Freq: Status: Active Protocol: Document 09/18/24 14:45 [facility] (Rec: 09/18/24 14:46 [facility] [id number]) Ankle and Foot Goniometric Range of Motion Ankle and Foot Left Active Dorsiflexion with Knee Flexed 10 Dorsiflexion with Knee Extended 14 Plantarflexion 36 Inversion 12 Eversion 18 Comments lacking DF to neural both positions PT-OP-M Strength Start: 07/12/24 17:42 Freq: Status: Active Protocol: Document 09/18/24 14:45 [facility] (Rec: 09/18/24 14:46 [facility] [id number]) Ankle/Foot Strength Ankle and Foot Manual Muscle Testing Right Dorsiflexion (L4) 5 Normal Plantarflexion (S1) 5 Normal Inversion 5 Normal Eversion (S1) 5 Normal Comments toes 3+/5 Left Dorsiflexion (L4) 3+ Fair+ Plantarflexion (S1) 3+ Fair+ Inversion 3 Fair Eversion (S1) 3+ Fair+ Comments pain; 3/5 toe ext; unable to flex PT-OP-Q Treatments Start: 07/12/24 17:42 Freq: Status: Active Protocol: Document 10/11/24 13:48 TS (Rec: 10/11/24 16:28 TS [id number]) Cardio Equipment Recumbent Stepper (Sci-Fit) Duration (Minutes) 8 Resistance 3 Other cued foot placement Therapeutic Exercises Standing Exercises heel raises/ toe raises Standing Exercise Name trialed in PT and added to HEP declined HO Side bilateral Resistance AROM Equipment Used rail support. Reps/Minutes x20 reps rocker board Standing Exercise Name fwd/bwd, lateral Side bilateral Equipment Used min> 2 finger support rail outside shuttle balance Reps/Minutes 10 reps Comments improved tolerance wt shift, cues for even WB BLE sit to stand Reps/Minutes x5 Comments througout session Manual Therapy Treatment Soft Tissue Mobilization calf Body Location L Mobilization Type Myofascial Release Body Position Supine plantar fascia Body Location L Mobilization Type Myofascial Release,Rolling Body Position Supine swelling reduction L foot Body Location retrograde massage L dorsal and plantar foot, inferior med /lat malleolus Mobilization Type Manual Lymphatic Drainage, Myofascial Release Intensity/Depth Moderate Body Position Supine Joint Mobilizations MTP Joint L gross motor rotational forefoot, PA MTPs, distraction 1st digit Grade II Comments 1st MTP very sore with distraction and APs/PAs PT-OP-R Modalities Start: 07/12/24 17:42 Freq: Status: Active Protocol: Document 08/06/24 13:43 SP (Rec: 08/06/24 15:29 SP [id number]) Hot Pack/Cold Pack Treatment CP Location L ankle Patient Position Hooklying Patient Tolerance Good Comments Reports helps decreased discomfort end tx. PT-OP-T Assessment and Plan Start: 07/12/24 17:42 Freq: Status: Active Protocol: Document 10/11/24 13:48 TS (Rec: 10/11/24 16:28 TS [id number]) Physical Therapy Assessment Goals ROM Short Term Goal (STG) Pt will have DF to neutral in knee flex position 09/18-worse since fall STG Duration 10/16 Residential Goal (LTG) Pt will have at least DF to 5 deg in knee flex and extended position to allow for improved gait mechanics. LTG Duration 11/18 activity Short Term Goal (STG) Pt will ambulate in house w/ LRAD 100% of the time instead of use WC 09/18-during day but not at night STG Duration 10/16 Research And Development Director Goal (LTG) Pt will amb w/o AD w/o significant gait deviations and be able to go for short walks w/o inc pain greater than 2/10 LTG Duration 12/11 LEFS Impairment 15/80 Short Term Goal (STG) Pt will improve LEFS score to at least 30/80 to show improved functional ability. 09/18- STG Duration 10/17/24 Residential Goal (LTG) Pt will improve LEFS score to at least 50/80 to show improved functional ability. LTG Duration 12/11/24 Assessment Summary Assessment Pt has discomfort/pain with 1st MTP distraction and PA's/ AP's. K tape reapplied at end of session. P presented today with larger shoes due to swelling, they are more comfortable, they do limit her ROM more. She continues to have knee pain with STS's. Physical Therapy Plan Next Visit Focus/Plan Next Note Type Treatment Note Next Visit Plan Next: Continue to assess knee pain, ankle manual/ROM. Retape arch/dorsal/med&lat malleoli swelling reduction. Progress ankle mobility HEP for ankle gait phases, continue functional mobility strengthening.. Manual to foot /ankle to improve mobility
--- NOTE | 2024-10-18 12:25 | PT.OTN ---
Current Diagnoses Pain in right ankle and joints of right foot (10/18/24) Nondisplaced pilon fracture of right tibia, subsequent encounter for closed fracture with routine healing (10/18/24) Nondisplaced pilon fracture of left tibia, initial encounter for closed fracture (10/18/24) Dislocation of tarsometatarsal joint of left foot, initial encounter (10/18/24) Sprain of tibiofibular ligament of left ankle, initial encounter (10/18/24) Physical Therapy Treatment Note PT-OP-A Visit Information Start: 07/12/24 17:42 Freq: Status: Active Protocol: Document 10/18/24 10:41 [facility] (Rec: 10/18/24 12:25 [facility] [id number]) Out-Patient Physical Therapy Visit Information Visit Information Visit Type Progress Note Visit Start Time 11:30 Visit Stop Time 12:10 Visit Number 15 (10/26 PN) Number of TEAM PHYSICIAN Visits 0 PT-OP-B Current Condition Start: 07/12/24 17:42 Freq: Status: Active Protocol: Document 09/18/24 14:45 [facility] (Rec: 09/18/24 18:08 [facility] [id number]) Current Condition History of Current Condition Onset Date injury april 15, sx 04/30 Current Complaints L ORIF lisfranc, pilon and syndesmosis History of Current Condition 09/18/24-pt fell 09/04 on 1 step w/FWW and hurt from L knee down to foot. Saw ortho and no further fx and cleared to cont PT and does not have return to ortho IE:Pt reports stood up to go to bed on April 15 and fell over her feet and broke her leg and bones in foot. She was put in splint ER and on April 30 got screws in foot, leg and ankle. Has had boot for 6-8 weeks. Tried to do the walker when cleared to in May and it hurt so bad, she couldn't do it. Dr. Guzman told her to wait a couple weeks again and on 06/19 was told again. Sees her again next Tuesday. Last tried to use walker about 1.5 weeks ago but it is too painful . When uses the walker , L shoulder has been more painful too. Broke ankle in 80s without surgery. Denies LE and back pain. Pt reports prior ot this was a couch potato. prior to this was indep w/dressing and bathing. Cannot get into shower so has been doing bird baths insteadwith help. He helps some w/dressing too. It is a walk in shower but has a step up so can't get in. Has a built in seat in there with grab bars in there. DOes SPT for all transfers w/o FWW. Has a ramp built in now for livingroom area to cover step. H w/flat entry. Pt has been doing APs Treatment Goals Patient/Caregiver Goals get back to walking PT-OP-C Subjective Start: 07/12/24 17:42 Freq: Status: Active Protocol: Document 10/18/24 10:41 [facility] (Rec: 10/18/24 12:25 [facility] [id number]) OP-PT Subjective Patient Comments Patient Comments pt reports feels like L knee and ankle better PT-OP-F Manual Assessment Start: 07/12/24 17:42 Freq: Status: Active Protocol: Document 09/18/24 14:45 [facility] ([facility]18/24 18[id number] Manual Assessments Other Manual Assessments Other Manual Assessments lat foot bruising, cont foot swelling L PT-OP-G Mobility & Gait Start: 07/12/24 17:42 Freq: Status: Active Protocol: Document 07/25/24 11:38 [facility] (Rec: 07/25/24 13:45 [id number] OP Gait Assessment Comments Gait Comments came in w/WC. able to amb w/ FWW w/cues for step to pattern PT-OP-K Range of Motion Start: 07/12/24 17:42 Freq: Status: Active Protocol: Document 10/18/24 10:41 [facility] (Rec: 10/18/24 12:25 [facility] [id number]) Ankle and Foot Goniometric Range of Motion Ankle and Foot Left Active Dorsiflexion with Knee Flexed 2 Dorsiflexion with Knee Extended 14 Plantarflexion 51 Inversion 22 Eversion 21 Comments lacking DF to neural both positions PT-OP-M Strength Start: 07/12/24 17:42 Freq: Status: Active Protocol: Document 10/18/24 10:41 [facility] (Rec: 10/18/24 12:25 [facility] [id number]) Hip Strength Hip Manual Muscle Testing Left Flexion (L2) 4 Good Abduction 3+ Fair+ External Rotation 4 Good Internal Rotation 4- Good- Right Flexion (L2) 4 Good Abduction 4 Good External Rotation 4 Good Internal Rotation 4 Good Knee Strength Knee Manual Muscle Testing Left Flexion (S2) 4- Good- Extension (L3) 4 Good Right Flexion (S2) 4 Good Extension (L3) 4+ Good+ Ankle/Foot Strength Ankle and Foot Manual Muscle Testing Right Dorsiflexion (L4) 5 Normal Plantarflexion (S1) 5 Normal Inversion 5 Normal Eversion (S1) 5 Normal Left Dorsiflexion (L4) 4- Good- Plantarflexion (S1) 4 Good Inversion 3+ Fair+ Eversion (S1) 4- Good- Comments mild pain; 3/5 toe ext; 3-/5 toe flex PF tested seated PT-OP-Q Treatments Start: 07/12/24 17:42 Freq: Status: Active Protocol: Document 10/18/24 10:41 [facility] (Rec: 10/18/24 12:25 [facility] [id number]) Therapeutic Exercises Sitting Exercises isometrics Sitting Exercise Name BLE MMT Side bilateral ankle DF, EV, IV Sitting Exercise Name AROM measurement Side left Gait Training Gait Activity cane Distance/Duration 10ftx6 Comments cues for sequence w/cane in RUE w/LLE WB LLE acceptance Comments amb w/bar in R hand 2x10ft cues posture FWW Distance/Duration 50ftx2 Comments cues to dec press w/UEs Manual Therapy Treatment Consent Patient gave verbal consent for manual Yes treatment Soft Tissue Mobilization ant Body Location ant tib and MFR sup foot Mobilization Type Myofascial Release,Rolling Body Position Supine calf Body Location L Mobilization Type Myofascial Release Body Position Supine plantar fascia Body Location L Mobilization Type Myofascial Release,Rolling Body Position Supine Joint Mobilizations calcaneus Joint L distraction Grade II Body Position Supine MTP Joint L 1st distraction Grade II Taping KT Body Location Left Foot Treatment Focus Edema management Type of Tape Kinesio Tape Skin Inspection Skin fully intact, no redness or dryness present Comments Fanning from L side achilles inferior to lateral malliolus over metatarsals, Fanning from R side achilles inferior to medial malliolus perpendicular across metatarsals Pt education on removal timeframe and signs of adverse reaction Neuro Re-Education Treatment Balance Activities foam Details head turns and EC trials Surface black foam Comments WBOS, NBOS, staggered stance B PT-OP-R Modalities Start: 07/12/24 17:42 Freq: Status: Active Protocol: Document 08/06/24 13:43 [facility] (Rec: 08/06/24 15:29 [facility] [id number]) Hot Pack/Cold Pack Treatment CP Location L ankle Patient Position Hooklying Patient Tolerance Good Comments Reports helps decreased discomfort end tx. PT-OP-T Assessment and Plan Start: 07/12/24 17:42 Freq: Status: Active Protocol: Document 10/18/24 10:41 [facility] (Rec: 10/18/24 12:25 [facility] [id number]) Physical Therapy Assessment Goals ROM Short Term Goal (STG) Pt will have DF to neutral in knee flex position 09/18-worse since fall 10/18-much improved, -2 STG Duration 10/16 [employer] Office [employer] Goal (LTG) Pt will have at least DF to 5 deg in knee flex and extended position to allow for improved gait mechanics. LTG Duration 11/18 activity Short Term Goal (STG) Pt will ambulate in house w/ LRAD 100% of the time instead of use WC 09/18-during day but not at night STG Duration achieved 10/18 Shelter Goal (LTG) Pt will amb w/o AD w/o significant gait deviations and be able to go for short walks w/o inc pain greater than 2/10 LTG Duration 12/11 LEFS Impairment 15/80 Short Term Goal (STG) Pt will improve LEFS score to at least 30/80 to show improved functional ability. 09/18-14 10/18- STG Duration 10/17/24 [employer] Office Clerk Goal (LTG) Pt will improve LEFS score to at least 50/80 to show improved functional ability. LTG Duration 12/11/24 Assessment Summary Assessment Pt is making excellent progress with PT in past month . ROM and strength are improving and pt tolerating more standing and was able to start progression towards SPC today. She still is very weak at L ankle and restricted w/DF ROM but other ROM improving well. She would benefit from cont PT to work on strength, balance, ROM and gait. Physical Therapy Plan Frequency and Duration Frequency of Treatment 2x/Week Duration of treatment (weeks) 12 Plan of Care Start Date 09/18/24 Plan of Care End Date 12/11/24 Therapeutic Interventions Therapeutic Interventions Balance Training,Gait Training ,Home Exercise Program,Joint Mobilizations,Manual Therapy, Neuromuscular Re-education, Orthotic/Prosthetic Management ,Patient/Caregiver Education, Self-Care/Home Management,Soft Tissue Mobilization,Taping, Therapeutic Activities, Therapeutic Exercises Modalities Cold Pack/Ice Massage,Electric Stimulation,Hot Packs, Infrared Therapy Next Visit Focus/Plan Next Note Type Treatment Note Next Visit Plan work to progress pt to use of cane and WB activity focus and balance to wean pt off walker to cane and eventually no AD Retape arch/dorsal/med&lat malleoli swelling reduction. Progress ankle mobility HEP for ankle gait phases, continue functional mobility strengthening.. Manual to foot /ankle to improve mobility
--- NOTE | 2024-10-22 12:25 | PT.OTN ---
Current Diagnoses Pain in right ankle and joints of right foot (10/22/24) Nondisplaced pilon fracture of right tibia, subsequent encounter for closed fracture with routine healing (10/22/24) Nondisplaced pilon fracture of left tibia, initial encounter for closed fracture (10/22/24) Dislocation of tarsometatarsal joint of left foot, initial encounter (10/22/24) Sprain of tibiofibular ligament of left ankle, initial encounter (10/22/24) Physical Therapy Treatment Note PT-OP-A Visit Information Start: 07/12/24 17:42 Freq: Status: Active Protocol: Document 10/22/24 11:35 [facility] (Rec: 10/22/24 12:31 [facility] [id number]) Out-Patient Physical Therapy Visit Information Visit Information Visit Type Treatment Note Visit Start Time 11:35 Visit Stop Time 12:25 Visit Number 16 (2/10 PN) Number of GLASS WORKER Visits 1 PT-OP-B Current Condition Start: 07/12/24 17:42 Freq: Status: Active Protocol: Document 09/18/24 14:45 [facility] (Rec: 09/18/24 18:08 [facility] [id number]) Current Condition History of Current Condition Onset Date injury april 15, sx 04/30 Current Complaints L ORIF lisfranc, pilon and syndesmosis History of Current Condition 09/18/24-pt fell 09/04 on 1 step w/FWW and hurt from L knee down to foot. Saw ortho and no further fx and cleared to cont PT and does not have return to ortho IE:Pt reports stood up to go to bed on April 15 and fell over her feet and broke her leg and bones in foot. She was put in splint ER and on April 30 got screws in foot, leg and ankle. Has had boot for 6-8 weeks. Tried to do the walker when cleared to in May and it hurt so bad, she couldn't do it. Dr. Guzman told her to wait a couple weeks again and on 06/19 was told again. Sees her again next Tuesday. Last tried to use walker about 1.5 weeks ago but it is too painful . When uses the walker , L shoulder has been more painful too. Broke ankle in 80s without surgery. Denies LE and back pain. Pt reports prior ot this was a couch potato. prior to this was indep w/dressing and bathing. Cannot get into shower so has been doing bird baths insteadwith help. He helps some w/dressing too. It is a walk in shower but has a step up so can't get in. Has a built in seat in there with grab bars in there. DOes SPT for all transfers w/o FWW. Has a ramp built in now for livingroom area to cover step. H w/flat entry. Pt has been doing APs Treatment Goals Patient/Caregiver Goals get back to walking PT-OP-C Subjective Start: 07/12/24 17:42 Freq: Status: Active Protocol: Document 10/22/24 11:35 [facility] (Rec: 10/22/24 12:31 SP [id number]) OP-PT Subjective Patient Comments Patient Comments Pt arrives with husbands Keen shoes on with improved ankle mobiltiy gait, use of FWW continues. Brought wooden cane for use during PT. PT-OP-F Manual Assessment Start: 07/12/24 17:42 Freq: Status: Active Protocol: Document 09/18/24 14:45 [facility] (Rec: 09/18/24 18:08 [facility] [id number]) Manual Assessments Other Manual Assessments Other Manual Assessments lat foot bruising, cont foot swelling L PT-OP-G Mobility & Gait Start: 07/12/24 17:42 Freq: Status: Active Protocol: Document 07/25/24 11:38 [facility] (Rec: 07/25/24 13:45 [facility] [id number]) OP Gait Assessment Comments Gait Comments came in w/WC. able to amb w/ FWW w/cues for step to pattern PT-OP-K Range of Motion Start: 07/12/24 17:42 Freq: Status: Active Protocol: Document 10/18/24 10:41 [facility] (Rec: 10/18/24 12:25 [facility] [id number]) Ankle and Foot Goniometric Range of Motion Ankle and Foot Left Active Dorsiflexion with Knee Flexed 2 Dorsiflexion with Knee Extended 14 Plantarflexion 51 Inversion 22 Eversion 21 Comments lacking DF to neural both positions PT-OP-M Strength Start: 07/12/24 17:42 Freq: Status: Active Protocol: Document 10/18/24 10:41 [facility] (Rec: 10/18/24 12:25 [facility] [id number]) Hip Strength Hip Manual Muscle Testing Left Flexion (L2) 4 Good Abduction 3+ Fair+ External Rotation 4 Good Internal Rotation 4- Good- Right Flexion (L2) 4 Good Abduction 4 Good External Rotation 4 Good Internal Rotation 4 Good Knee Strength Knee Manual Muscle Testing Left Flexion (S2) 4- Good- Extension (L3) 4 Good Right Flexion (S2) 4 Good Extension (L3) 4+ Good+ Ankle/Foot Strength Ankle and Foot Manual Muscle Testing Right Dorsiflexion (L4) 5 Normal Plantarflexion (S1) 5 Normal Inversion 5 Normal Eversion (S1) 5 Normal Left Dorsiflexion (L4) 4- Good- Plantarflexion (S1) 4 Good Inversion 3+ Fair+ Eversion (S1) 4- Good- Comments mild pain; 3/5 toe ext; 3-/5 toe flex PF tested seated PT-OP-Q Treatments Start: 07/12/24 17:42 Freq: Status: Active Protocol: Document 10/22/24 11:35 [facility] (Rec: 10/22/24 12:31 [id number]) Therapeutic Exercises Supine Exercises Bridge Supine Exercise Name added to HEP Side bilateral Resistance TB #3 at thighs, press out Equipment Used forefoot on 1/2 foam roll Reps/Minutes 2x10 reps Comments cued glut, core engagement lift, good ankle mobiltiy reported Standing Exercises Step ups Standing Exercise Name Single leg repeated: added to HEP Side bilateral Equipment Used 6 step repeated Reps/Minutes x10 reps each side Comments cued TKE heel raises/ toe raises Standing Exercise Name added to HEP declined HO Side bilateral Resistance AROM Equipment Used rail support Reps/Minutes x20 reps Comments cued no rock back Gait Training Gait Activity cane Device Used teliscoping (borrow from friend) vs wooden personal cane Distance/Duration 15ftx6 front mirror Comments cues for sequence w/cane in RUE w/LLE, midline posturing WB LLE acceptance Description continue next tx step Comments 1 step w/Cane w/cues for sequencing x3 Manual Therapy Treatment Consent Patient gave verbal consent for manual Yes treatment Soft Tissue Mobilization ant Body Location ant tib and MFR sup foot Mobilization Type Myofascial Release,Rolling Body Position Supine calf Body Location L Mobilization Type Myofascial Release Body Position Supine Joint Mobilizations Talocrual Joint PA with DF calcaneus Joint L distraction Grade II Body Position Supine MTP Joint L 1st distraction Grade II Taping KT Body Location Left Foot Treatment Focus Edema management Type of Tape Kinesio Tape Skin Inspection Skin fully intact, no redness or dryness present Comments Fanning from L side achilles inferior to lateral malliolus over metatarsals, Fanning from R side achilles inferior to medial malliolus perpendicular across metatarsals Pt education on removal timeframe and signs of adverse reaction PT-OP-R Modalities Start: 07/12/24 17:42 Freq: Status: Active Protocol: Document 08/06/24 13:43 SP (Rec: 08/06/24 15:29 [facility] [id number]) Hot Pack/Cold Pack Treatment CP Location L ankle Patient Position Hooklying Patient Tolerance Good Comments Reports helps decreased discomfort end tx. PT-OP-T Assessment and Plan Start: 07/12/24 17:42 Freq: Status: Active Protocol: Document 10/22/24 11:35 [facility] (Rec: 10/22/24 12:31 [facility] [id number]) Physical Therapy Assessment Goals ROM Short Term Goal (STG) Pt will have DF to neutral in knee flex position 09/18-worse since fall 10/18-much improved, -2 STG Duration 10/16 [facility] Goal (LTG) Pt will have at least DF to 5 deg in knee flex and extended position to allow for improved gait mechanics. LTG Duration 11/18 activity Short Term Goal (STG) Pt will ambulate in house w/ LRAD 100% of the time instead of use WC 09/18-during day but not at night STG Duration achieved 10/18 [facility] Goal (LTG) Pt will amb w/o AD w/o significant gait deviations and be able to go for short walks w/o inc pain greater than 2/10 LTG Duration 12/11 LEFS Impairment Short Term Goal (STG) Pt will improve LEFS score to at least 30/80 to show improved functional ability. 09/18-14 10/18- STG Duration 10/17/24 [employer] Bank Attendant Goal (LTG) Pt will improve LEFS score to at least 50/80 to show improved functional ability. LTG Duration 12/11/24 Assessment Summary Assessment Pt responded well to bridge today for support progression and improved demonstration TA with glut firing and DF ROM toward gait (forefoot supported on 1/2 foam roll, suggested rolled towel home). Trialed using cane to increase confidence in curb mgt during tx, noted weakess in quads. Continued SPC use druing gait with cues and use of mirror for midline posturing and step ups for LE strength to support stance time gait. Continued heel and toe raises for ankle mobilty and LE strengthening. Continued Ktaping for R ankle swelling support. Physical Therapy Plan Frequency and Duration Frequency of Treatment 2x/Week Duration of treatment (weeks) 12 Plan of Care Start Date 09/18/24 Plan of Care End Date 12/11/24 Therapeutic Interventions Therapeutic Interventions Balance Training,Gait Training ,Home Exercise Program,Joint Mobilizations,Manual Therapy, Neuromuscular Re-education, Orthotic/Prosthetic Management ,Patient/Caregiver Education, Self-Care/Home Management,Soft Tissue Mobilization,Taping, Therapeutic Activities, Therapeutic Exercises Modalities Cold Pack/Ice Massage,Electric Stimulation,Hot Packs, Infrared Therapy Next Visit Focus/Plan Next Note Type Treatment Note Next Visit Plan Continue: wt shift LE acceptance pre gait, progress pt to use of cane and WB activity focus and balance to wean pt off walker to cane and eventually no AD Recheck step ups and HRTR. Retape arch/dorsal/med&lat malleoli swelling reduction. Progress ankle mobility HEP for ankle gait phases, continue functional mobility strengthening.. Manual to foot /ankle to improve mobility
--- NOTE | 2024-10-25 12:16 | PT.OTN ---
Current Diagnoses Pain in right ankle and joints of right foot (10/25/24) Nondisplaced pilon fracture of right tibia, subsequent encounter for closed fracture with routine healing (10/25/24) Nondisplaced pilon fracture of left tibia, initial encounter for closed fracture (10/25/24) Dislocation of tarsometatarsal joint of left foot, initial encounter (10/25/24) Sprain of tibiofibular ligament of left ankle, initial encounter (10/25/24) Physical Therapy Treatment Note PT-OP-A Visit Information Start: 07/12/24 17:42 Freq: Status: Active Protocol: Document 10/25/24 11:30 SP (Rec: 10/25/24 12:36 SP [id number]) Out-Patient Physical Therapy Visit Information Visit Information Visit Type Treatment Note Visit Start Time 11:30 Visit Stop Time 12:16 Visit Number 17 (12/24 PN) Number of GLUER AND SLICER HAND Visits 2 PT-OP-B Current Condition Start: 07/12/24 17:42 Freq: Status: Active Protocol: Document 09/18/24 14:45 [facility] (Rec: 09/18/24 18:08 [facility] [id number]) Current Condition History of Current Condition Onset Date injury april 15, sx 04/30 Current Complaints L ORIF lisfranc, pilon and syndesmosis History of Current Condition 09/18/24-pt fell 09/04 on 1 step w/FWW and hurt from L knee down to foot. Saw ortho and no further fx and cleared to cont PT and does not have return to ortho IE:Pt reports stood up to go to bed on April 15 and fell over her feet and broke her leg and bones in foot. She was put in splint ER and on April 30 got screws in foot, leg and ankle. Has had boot for 6-8 weeks. Tried to do the walker when cleared to in May and it hurt so bad, she couldn't do it. Dr. Guzman told her to wait a couple weeks again and on 06/19 was told again. Sees her again next Tuesday. Last tried to use walker about 1.5 weeks ago but it is too painful . When uses the walker , L shoulder has been more painful too. Broke ankle in 80s without surgery. Denies LE and back pain. Pt reports prior ot this was a couch potato. prior to this was indep w/dressing and bathing. Cannot get into shower so has been doing bird baths insteadwith help. He helps some w/dressing too. It is a walk in shower but has a step up so can't get in. Has a built in seat in there with grab bars in there. DOes SPT for all transfers w/o FWW. Has a ramp built in now for livingroom area to cover step. SLH w/flat entry. Pt has been doing APs Treatment Goals Patient/Caregiver Goals get back to walking PT-OP-C Subjective Start: 07/12/24 17:42 Freq: Status: Active Protocol: Document 10/25/24 11:30 SP (Rec: 10/25/24 12:36 SP [id number]) OP-PT Subjective Patient Comments Patient Comments Pt reports more soreness mostly shins after last tx but initially ankle stiffness when start walking. Is using SPC around home more now, fWW for community gait. Continues to wear husbands hiking boot for added support. PT-OP-F Manual Assessment Start: 07/12/24 17:42 Freq: Status: Active Protocol: Document 09/18/24 14:45 [facility] (Rec: 09/18/24 18:08 [facility] [id number]) Manual Assessments Other Manual Assessments Other Manual Assessments lat foot bruising, cont foot swelling L PT-OP-G Mobility & Gait Start: 07/12/24 17:42 Freq: Status: Active Protocol: Document 07/25/24 11:38 LR (Rec: 07/25/24 13:45 [facility] [id number]) OP Gait Assessment Comments Gait Comments came in w/WC. able to amb w/ FWW w/cues for step to pattern PT-OP-K Range of Motion Start: 07/12/24 17:42 Freq: Status: Active Protocol: Document 10/18/24 10:41 LR (Rec: 10/18/24 12:25 [facility] [id number]) Ankle and Foot Goniometric Range of Motion Ankle and Foot Left Active Dorsiflexion with Knee Flexed 2 Dorsiflexion with Knee Extended 14 Plantarflexion 51 Inversion 22 Eversion 21 Comments lacking DF to neural both positions PT-OP-M Strength Start: 07/12/24 17:42 Freq: Status: Active Protocol: Document 10/18/24 10:41 [facility] (Rec: 10/18/24 12:25 [facility] [id number]) Hip Strength Hip Manual Muscle Testing Left Flexion (L2) 4 Good Abduction 3+ Fair+ External Rotation 4 Good Internal Rotation 4- Good- Right Flexion (L2) 4 Good Abduction 4 Good External Rotation 4 Good Internal Rotation 4 Good Knee Strength Knee Manual Muscle Testing Left Flexion (S2) 4- Good- Extension (L3) 4 Good Right Flexion (S2) 4 Good Extension (L3) 4+ Good+ Ankle/Foot Strength Ankle and Foot Manual Muscle Testing Right Dorsiflexion (L4) 5 Normal Plantarflexion (S1) 5 Normal Inversion 5 Normal Eversion (S1) 5 Normal Left Dorsiflexion (L4) 4- Good- Plantarflexion (S1) 4 Good Inversion 3+ Fair+ Eversion (S1) 4- Good- Comments mild pain; 3/5 toe ext; 3-/5 toe flex PF tested seated PT-OP-Q Treatments Start: 07/12/24 17:42 Freq: Status: Active Protocol: Document 10/25/24 11:30 SP (Rec: 10/25/24 12:36 SP [id number]) Cardio Equipment Recumbent Bicycle Duration (Minutes) 6 Resistance 3 Seat Position 7 Other cued ankle mobility Therapeutic Exercises Standing Exercises Step ups Standing Exercise Name Single leg repeated Side bilateral Equipment Used 6 step repeated Reps/Minutes x10 reps each side Comments cued TKE Gait Training Gait Activity 4WW Device Used 4WW Distance/Duration 20 ft front mirror Comments Cued tall /c scap squeeze, soft heel toe stepping- improved midiline alignment and patterning form almost even geovanna when focused cane Device Used teliscoping SPC Distance/Duration 15ftx6 front mirror Comments Good sequence w/cane in RUE w/ LLE, cues scap squeeze, soft heel toe, improved more midline posturing when focused WB LLE acceptance Device Used each LLE fwd and back positioning Comments elevated table support (front mirror next tx), cued tall with trunk over pelvis over fwd LE, glut engagement step Surface 6 step Comments 1 step w/Cane w/cues for sequencing x3 Cued TKE and glut engagement, weaker L than R. Manual Therapy Treatment Soft Tissue Mobilization ant Body Location ant tib and MFR sup foot Mobilization Type Instrument Assisted,Myofascial Release,Rolling Body Position Supine calf Body Location L Mobilization Type Instrument Assisted,Myofascial Release,Strumming Body Position Supine Joint Mobilizations Talocrual Joint PA with DF calcaneus Joint L distraction Grade II Body Position Supine MTP Joint L 1st distraction Grade II Taping KT Body Location Left Foot Treatment Focus Edema management Type of Tape Kinesio Tape Skin Inspection Skin fully intact, no redness or dryness present Comments Fanning from R side achilles inferior to medial malliolus perpendicular across metatarsals good feedback less swellign support Neuro Re-Education Treatment Balance Activities foam Details wt shift, head turns and EC trials Surface black foam, hands hover elevated table Equipment Shoes doffed Comments NBOS: wt shift f/b, HTs & vertical, EC 7, 17 sec Staggered: wt shift acceptance (contact elevated table) Self-Care/Home Management Treatment Education Patient Education Home Exercise Program,Pain Management,Posture Other Education Ed use CP, rolling pin, dragon balm on shins to decrease soreness while improving strengthening. Ed swap FWW for a 4WW at [employer] and ed/ instruction proper height longer distance and continue SPC in home. PT-OP-R Modalities Start: 07/12/24 17:42 Freq: Status: Active Protocol: Document 08/06/24 13:43 SP (Rec: 08/06/24 15:29 SP [id number]) Hot Pack/Cold Pack Treatment CP Location L ankle Patient Position Hooklying Patient Tolerance Good Comments Reports helps decreased discomfort end tx. PT-OP-T Assessment and Plan Start: 07/12/24 17:42 Freq: Status: Active Protocol: Document 10/25/24 11:30 SP (Rec: 10/25/24 12:36 SP [id number]) Physical Therapy Assessment Goals ROM Short Term Goal (STG) Pt will have DF to neutral in knee flex position 09/18-worse since fall 10/18-much improved, -2 STG Duration 10/16 Detention Goal (LTG) Pt will have at least DF to 5 deg in knee flex and extended position to allow for improved gait mechanics. LTG Duration 2/2 activity Short Term Goal (STG) Pt will ambulate in house w/ LRAD 100% of the time instead of use WC 09/18-during day but not at night STG Duration achieved 1/2 Detention Goal (LTG) Pt will amb w/o AD w/o significant gait deviations and be able to go for short walks w/o inc pain greater than 2/10 LTG Duration 12/11 LEFS Impairment 15 Short Term Goal (STG) Pt will improve LEFS score to at least 30/80 to show improved functional ability. 09/18-10/18- STG Duration 10/17/24 Certified Coatings Inspector Goal (LTG) Pt will improve LEFS score to at least 50/80 to show improved functional ability. LTG Duration 12/11/24 Assessment Summary Assessment Pt making improvements in swellign reduction. Tx focused on wt shift acceptance, progression cane in front mirror for self awareness corrections midline posture soft heel toe stepping with provided cues for short distances and use 4WW today for longer commmunity gait support increase funcitonal mobility strength. will swap out FWW for 4WW at [employer] tomorrow. GLUER AND SLICER HAND provided index card with cues written to allow carryover postural and BLE normalize stepping gait to put on seat 4WW self help corrections. Physical Therapy Plan Frequency and Duration Frequency of Treatment 2x/Week Duration of treatment (weeks) 12 Plan of Care Start Date 09/18/24 Plan of Care End Date 12/11/24 Therapeutic Interventions Therapeutic Interventions Balance Training,Gait Training ,Home Exercise Program,Joint Mobilizations,Manual Therapy, Neuromuscular Re-education, Orthotic/Prosthetic Management ,Patient/Caregiver Education, Self-Care/Home Management,Soft Tissue Mobilization,Taping, Therapeutic Activities, Therapeutic Exercises Modalities Cold Pack/Ice Massage,Electric Stimulation,Hot Packs, Infrared Therapy Next Visit Focus/Plan Next Note Type Treatment Note Next Visit Plan Continue: wt shift LE acceptance pre gait, progress pt to use of cane and WB activity focus and balance to wean pt off walker to cane and eventually no AD Recheck step ups and HRTR. Retape arch/dorsal/med&lat malleoli swelling reduction. Progress ankle mobility HEP for ankle gait phases, continue functional mobility strengthening.. Manual to foot /ankle to improve mobility
--- NOTE | 2024-10-29 12:31 | PT.OTN ---
Current Diagnoses Pain in right ankle and joints of right foot (10/29/24) Nondisplaced pilon fracture of right tibia, subsequent encounter for closed fracture with routine healing (10/29/24) Nondisplaced pilon fracture of left tibia, initial encounter for closed fracture (10/29/24) Dislocation of tarsometatarsal joint of left foot, initial encounter (10/29/24) Sprain of tibiofibular ligament of left ankle, initial encounter (10/29/24) Physical Therapy Treatment Note PT-OP-A Visit Information Start: 07/12/24 17:42 Freq: Status: Active Protocol: Document 10/29/24 11:36 [facility] (Rec: 10/29/24 12:31 [facility] [id number]) Out-Patient Physical Therapy Visit Information Visit Information Visit Type Treatment Note Visit Start Time 11:35 Visit Stop Time 12:15 Visit Number 18 (4/10 PN) Number of CENTRAL OFFICE ASSOCIATE Visits 0 PT-OP-B Current Condition Start: 07/12/24 17:42 Freq: Status: Active Protocol: Document 09/18/24 14:45 [facility] (Rec: 09/18/24 18:08 [facility] [id number]) Current Condition History of Current Condition Onset Date injury april 15, sx 04/30 Current Complaints L ORIF lisfranc, pilon and syndesmosis History of Current Condition 09/18/24-pt fell 09/04 on 1 step w/FWW and hurt from L knee down to foot. Saw ortho and no further fx and cleared to cont PT and does not have return to ortho IE:Pt reports stood up to go to bed on April 15 and fell over her feet and broke her leg and bones in foot. She was put in splint ER and on April 30 got screws in foot, leg and ankle. Has had boot for 6-8 weeks. Tried to do the walker when cleared to in May and it hurt so bad, she couldn't do it. Dr. Guzman told her to wait a couple weeks again and on 06/19 was told again. Sees her again next Tuesday. Last tried to use walker about 1.5 weeks ago but it is too painful . When uses the walker , L shoulder has been more painful too. Broke ankle in 80s without surgery. Denies LE and back pain. Pt reports prior ot this was a couch potato. prior to this was indep w/dressing and bathing. Cannot get into shower so has been doing bird baths insteadwith help. He helps some w/dressing too. It is a walk in shower but has a step up so can't get in. Has a built in seat in there with grab bars in there. DOes SPT for all transfers w/o FWW. Has a ramp built in now for livingroom area to cover step. H w/flat entry. Pt has been doing APs Treatment Goals Patient/Caregiver Goals get back to walking PT-OP-C Subjective Start: 07/12/24 17:42 Freq: Status: Active Protocol: Document 10/29/24 11:36 [facility] (Rec: 10/29/24 12:31 [id number]-PT Subjective Patient Comments Patient Comments Pt reports foot is sore. has iced once PT-OP-F Manual Assessment Start: 07/12/24 17:42 Freq: Status: Active Protocol: Document 09/18/24 14:45 [facility] (Rec: 09/18/24 18:08 [id number] Manual Assessments Other Manual Assessments Other Manual Assessments lat foot bruising, cont foot swelling L PT-OP-G Mobility & Gait Start: 07/12/24 17:42 Freq: Status: Active Protocol: Document 07/25/24 11:38 [facility] (Rec: 07/25/24 13:45 [id number] OP Gait Assessment Comments Gait Comments came in w/WC. able to amb w/ FWW w/cues for step to pattern PT-OP-K Range of Motion Start: 07/12/24 17:42 Freq: Status: Active Protocol: Document 10/18/24 10:41 [facility] (Rec: 10/18/24 12:25 [facility] [id number]) Ankle and Foot Goniometric Range of Motion Ankle and Foot Left Active Dorsiflexion with Knee Flexed 2 Dorsiflexion with Knee Extended 14 Plantarflexion 51 Inversion 22 Eversion 21 Comments lacking DF to neural both positions PT-OP-M Strength Start: 07/12/24 17:42 Freq: Status: Active Protocol: Document 10/18/24 10:41 [facility] (Rec: 10/18/24 12:25 [facility] [id number]) Hip Strength Hip Manual Muscle Testing Left Flexion (L2) 4 Good Abduction 3+ Fair+ External Rotation 4 Good Internal Rotation 4- Good- Right Flexion (L2) 4 Good Abduction 4 Good External Rotation 4 Good Internal Rotation 4 Good Knee Strength Knee Manual Muscle Testing Left Flexion (S2) 4- Good- Extension (L3) 4 Good Right Flexion (S2) 4 Good Extension (L3) 4+ Good+ Ankle/Foot Strength Ankle and Foot Manual Muscle Testing Right Dorsiflexion (L4) 5 Normal Plantarflexion (S1) 5 Normal Inversion 5 Normal Eversion (S1) 5 Normal Left Dorsiflexion (L4) 4- Good- Plantarflexion (S1) 4 Good Inversion 3+ Fair+ Eversion (S1) 4- Good- Comments mild pain; 3/5 toe ext; 3-/5 toe flex PF tested seated PT-OP-Q Treatments Start: 07/12/24 17:42 Freq: Status: Active Protocol: Document 10/29/24 11:36 [facility] (Rec: 10/29/24 12:31 [facility] [id number]) Therapeutic Exercises Sitting Exercises toe abduction Sitting Exercise Name self gentle big toe abd, ext, flex Side left Reps/Minutes 5 ea Manual Therapy Treatment Consent Patient gave verbal consent for manual Yes treatment Soft Tissue Mobilization calf Body Location L achilles and soleus Mobilization Type Myofascial Release,Rolling Body Position Sitting plantar fascia Body Location L Mobilization Type Myofascial Release,Rolling Body Position Sitting Joint Mobilizations Talocrual Joint PA with DF and distraction calcaneus MTP Joint L 1st distraction and AP and PA Grade II Taping KT Type of Tape Kinesio Tape Comments I strip for arch support Neuro Re-Education Treatment Balance Activities foam Details head turns and EC trials Surface blue foam Equipment Shoes donned Comments WBOS and NBOS Staggered stance B tilt board Details fwd/ bwd, lateral Reps/Duration 10 reps each direction Coordination Activities wt shifts Comments 10 B PT-OP-R Modalities Start: 07/12/24 17:42 Freq: Status: Active Protocol: Document 08/06/24 13:43 SP (Rec: 08/06/24 15:29 SP [id number]) Hot Pack/Cold Pack Treatment CP Location L ankle Patient Position Hooklying Patient Tolerance Good Comments Reports helps decreased discomfort end tx. PT-OP-T Assessment and Plan Start: 07/12/24 17:42 Freq: Status: Active Protocol: Document 10/29/24 11:36 [facility] (Rec: 10/29/24 12:31 [facility] [id number]) Physical Therapy Assessment Goals ROM Short Term Goal (STG) Pt will have DF to neutral in knee flex position 09/18-worse since fall 10/18-much improved, -2 STG Duration 10/16 Shelter Goal (LTG) Pt will have at least DF to 5 deg in knee flex and extended position to allow for improved gait mechanics. LTG Duration 11/18 activity Short Term Goal (STG) Pt will ambulate in house w/ LRAD 100% of the time instead of use WC 09/18-during day but not at night STG Duration achieved 10/18 Shelter Goal (LTG) Pt will amb w/o AD w/o significant gait deviations and be able to go for short walks w/o inc pain greater than 2/10 LTG Duration 12/11 LEFS Impairment [id number] Short Term Goal (STG) Pt will improve LEFS score to at least 30/80 to show improved functional ability. 09/18-10/18- STG Duration 10/17/24 Lead Material Handler Goal (LTG) Pt will improve LEFS score to at least 50/80 to show improved functional ability. LTG Duration 12/11/24 Assessment Summary Assessment Pt had improved big toe ROM after manual. Did better with balance activities today but still has pain w/full wt acceptance on LLE which limits gait ability. Physical Therapy Plan Frequency and Duration Frequency of Treatment 2x/Week Duration of treatment (weeks) 12 Plan of Care Start Date 09/18/24 Plan of Care End Date 12/11/24 Next Visit Focus/Plan Next Note Type Treatment Note Next Visit Plan cont to work on balance, dec pain w/full wt acceptance LLE, toe mobility, work on gait w/ cane
--- NOTE | 2024-11-01 12:14 | PT.OTN ---
Current Diagnoses Pain in right ankle and joints of right foot (11/01/24) Nondisplaced pilon fracture of right tibia, subsequent encounter for closed fracture with routine healing (11/01/24) Nondisplaced pilon fracture of left tibia, initial encounter for closed fracture (11/01/24) Dislocation of tarsometatarsal joint of left foot, initial encounter (11/01/24) Sprain of tibiofibular ligament of left ankle, initial encounter (11/01/24) Physical Therapy Treatment Note PT-OP-A Visit Information Start: 07/12/24 17:42 Freq: Status: Active Protocol: Document 11/01/24 11:31 SP (Rec: 11/01/24 12:24 SP [id number]) Out-Patient Physical Therapy Visit Information Visit Information Visit Type Treatment Note Visit Start Time 11:31 Visit Stop Time 12:14 Visit Number 19 (5/10 PN) Number of CABLE TECHNICIAN Visits 1 PT-OP-B Current Condition Start: 07/12/24 17:42 Freq: Status: Active Protocol: Document 09/18/24 14:45 [facility] (Rec: 09/18/24 18:08 [facility] [id number]) Current Condition History of Current Condition Onset Date injury april 15, sx 04/30 Current Complaints L ORIF lisfranc, pilon and syndesmosis History of Current Condition 09/18/24-pt fell 09/04 on 1 step w/FWW and hurt from L knee down to foot. Saw ortho and no further fx and cleared to cont PT and does not have return to ortho IE:Pt reports stood up to go to bed on April 15 and fell over her feet and broke her leg and bones in foot. She was put in splint ER and on April 30 got screws in foot, leg and ankle. Has had boot for 6-8 weeks. Tried to do the walker when cleared to in May and it hurt so bad, she couldn't do it. Dr. Guzman told her to wait a couple weeks again and on 06/19 was told again. Sees her again next Tuesday. Last tried to use walker about 1.5 weeks ago but it is too painful . When uses the walker , L shoulder has been more painful too. Broke ankle in 80s without surgery. Denies LE and back pain. Pt reports prior ot this was a couch potato. prior to this was indep w/dressing and bathing. Cannot get into shower so has been doing bird baths insteadwith help. He helps some w/dressing too. It is a walk in shower but has a step up so can't get in. Has a built in seat in there with grab bars in there. DOes SPT for all transfers w/o FWW. Has a ramp built in now for livingroom area to cover step. SLH w/flat entry. Pt has been doing APs Treatment Goals Patient/Caregiver Goals get back to walking PT-OP-C Subjective Start: 07/12/24 17:42 Freq: Status: Active Protocol: Document 11/01/24 11:31 SP (Rec: 11/01/24 12:24 SP [id number]) OP-PT Subjective Patient Comments Patient Comments Pt arrives using SPC only, and acquired 4WW for longer community distances. She reports accidently came home with gait belt. Thinks manual helped with ankle mobility. PT-OP-F Manual Assessment Start: 07/12/24 17:42 Freq: Status: Active Protocol: Document 09/18/24 14:45 [facility] (Rec: 09/18/24 18:08 [facility] [id number]) Manual Assessments Other Manual Assessments Other Manual Assessments lat foot bruising, cont foot swelling L PT-OP-G Mobility & Gait Start: 07/12/24 17:42 Freq: Status: Active Protocol: Document 07/25/24 11:38 LR (Rec: 07/25/24 13:45 [facility] [id number]) OP Gait Assessment Comments Gait Comments came in w/WC. able to amb w/ FWW w/cues for step to pattern PT-OP-K Range of Motion Start: 07/12/24 17:42 Freq: Status: Active Protocol: Document 10/18/24 10:41 [facility] (Rec: 10/18/24 12:25 [facility] [id number]) Ankle and Foot Goniometric Range of Motion Ankle and Foot Left Active Dorsiflexion with Knee Flexed 2 Dorsiflexion with Knee Extended 14 Plantarflexion 51 Inversion 22 Eversion 21 Comments lacking DF to neural both positions PT-OP-M Strength Start: 07/12/24 17:42 Freq: Status: Active Protocol: Document 10/18/24 10:41 [facility] (Rec: 10/18/24 12:25 [facility] [id number]) Hip Strength Hip Manual Muscle Testing Left Flexion (L2) 4 Good Abduction 3+ Fair+ External Rotation 4 Good Internal Rotation 4- Good- Right Flexion (L2) 4 Good Abduction 4 Good External Rotation 4 Good Internal Rotation 4 Good Knee Strength Knee Manual Muscle Testing Left Flexion (S2) 4- Good- Extension (L3) 4 Good Right Flexion (S2) 4 Good Extension (L3) 4+ Good+ Ankle/Foot Strength Ankle and Foot Manual Muscle Testing Right Dorsiflexion (L4) 5 Normal Plantarflexion (S1) 5 Normal Inversion 5 Normal Eversion (S1) 5 Normal Left Dorsiflexion (L4) 4- Good- Plantarflexion (S1) 4 Good Inversion 3+ Fair+ Eversion (S1) 4- Good- Comments mild pain; 3/5 toe ext; 3-/5 toe flex PF tested seated PT-OP-Q Treatments Start: 07/12/24 17:42 Freq: Status: Active Protocol: Document 11/01/24 11:31 SP (Rec: 11/01/24 12:24 [id number]) Therapeutic Exercises Sitting Exercises toe abduction Sitting Exercise Name self gentle big toe abd, ext, flex Side left Reps/Minutes PROM then AROM toe ABD 5 SH x10 ea Standing Exercises heel raises/ toe raises Standing Exercise Name reviewed, ed continue home Side bilateral Resistance AROM Equipment Used rail support Reps/Minutes x20 reps Comments improved no rock back Gait Training Gait Activity WB LLE acceptance Device Used each LLE fwd and back positioning Distance/Duration front mirror, SPC support in RUE Comments elevated table support), cued tall with trunk over pelvis over fwd LE, glut engagement sidestep Description fwd, lateral, retro stepping- discussed continue home near counter (no HO) Device Used SPC in RUE Distance/Duration 20 ft x2 laps each direction Treatment Focus normalize ankle AROM during gait Comments front mirror cues R knee flexion, allow ankle ROM, midline trunk ( rhomboid & TA fac) Manual Therapy Treatment Consent Patient gave verbal consent for manual Yes treatment Soft Tissue Mobilization calf Body Location L achilles and soleus Mobilization Type Myofascial Release,Rolling Body Position Prone Comments STMs and MWM PF/DF plantar fascia Body Location L Mobilization Type Myofascial Release,Rolling Body Position Sitting Joint Mobilizations Talocrual Joint PA with DF and distraction calcaneus calcaneus Joint L distraction Grade II Body Position Supine MTP Joint L 1st distraction and AP and PA Grade II Comments manual and ed self instruction Neuro Re-Education Treatment Balance Activities SLS Details BUE support LLE, light 1 UE contact RLE Surface firm Equipment counter support Comments suggested performing home (no HO) PT-OP-R Modalities Start: 07/12/24 17:42 Freq: Status: Active Protocol: Document 08/06/24 13:43 SP (Rec: 08/06/24 15:29 SP [id number]) Hot Pack/Cold Pack Treatment CP Location L ankle Patient Position Hooklying Patient Tolerance Good Comments Reports helps decreased discomfort end tx. PT-OP-T Assessment and Plan Start: 07/12/24 17:42 Freq: Status: Active Protocol: Document 11/01/24 11:31 SP (Rec: 11/01/24 12:24 SP [id number]) Physical Therapy Assessment Goals ROM Short Term Goal (STG) Pt will have DF to neutral in knee flex position 09/18-worse since fall 10/18-much improved, -2 STG Duration 10/16 Long-Term Goal (LTG) Pt will have at least DF to 5 deg in knee flex and extended position to allow for improved gait mechanics. LTG Duration 11/18 activity Short Term Goal (STG) Pt will ambulate in house w/ LRAD 100% of the time instead of use WC 09/18-during day but not at night STG Duration achieved 10/18 Scuba Dive Training Instructor Goal (LTG) Pt will amb w/o AD w/o significant gait deviations and be able to go for short walks w/o inc pain greater than 2/10 LTG Duration 12/11 LEFS Impairment 15 Short Term Goal (STG) Pt will improve LEFS score to at least 30/80 to show improved functional ability. 09/18-14 10/18- STG Duration 10/17/24 Long-Term Goal (LTG) Pt will improve LEFS score to at least 50/80 to show improved functional ability. LTG Duration 12/11/24 Assessment Summary Assessment Pt improved decreased stiffness post manual, education self seated L foot over R knee, STMs and great toe mobs and toe stretching/ PROM. Improved ankle ROM with wt shift and directional stepping with use mirror for self awareness angle mobility for gait mechanics and balance . Physical Therapy Plan Frequency and Duration Frequency of Treatment 2x/Week Duration of treatment (weeks) 12 Plan of Care Start Date 09/18/24 Plan of Care End Date 12/11/24 Therapeutic Interventions Therapeutic Interventions Balance Training,Gait Training ,Home Exercise Program,Joint Mobilizations,Manual Therapy, Neuromuscular Re-education, Orthotic/Prosthetic Management ,Patient/Caregiver Education, Self-Care/Home Management,Soft Tissue Mobilization,Taping, Therapeutic Activities, Therapeutic Exercises Modalities Cold Pack/Ice Massage,Electric Stimulation,Hot Packs, Infrared Therapy Next Visit Focus/Plan Next Note Type Treatment Note Next Visit Plan HEP review for compliance incorporataing carryover more functional mobility standing, eg stepping. POC: cont to work on balance, dec pain w/full wt acceptance LLE, toe mobility, work on gait w/cane
--- NOTE | 2024-11-05 10:36 | PT.OTN ---
Current Diagnoses Pain in right ankle and joints of right foot (11/05/24) Nondisplaced pilon fracture of right tibia, subsequent encounter for closed fracture with routine healing (11/05/24) Nondisplaced pilon fracture of left tibia, initial encounter for closed fracture (11/05/24) Dislocation of tarsometatarsal joint of left foot, initial encounter (11/05/24) Sprain of tibiofibular ligament of left ankle, initial encounter (11/05/24) Physical Therapy Treatment Note PT-OP-A Visit Information Start: 07/12/24 17:42 Freq: Status: Active Protocol: Document 11/05/24 08:10 AB (Rec: 11/05/24 10:36 AB [id number]) Out-Patient Physical Therapy Visit Information Visit Information Visit Type Treatment Note Visit Start Time 09:45 Visit Stop Time 10:30 Visit Number 20 (5/10 PN) Number of [employer] OFFICER Visits 2 PT-OP-B Current Condition Start: 07/12/24 17:42 Freq: Status: Active Protocol: Document 09/18/24 14:45 [facility] (Rec: 09/18/24 18:08 [facility] [id number]) Current Condition History of Current Condition Onset Date injury april 15, sx 04/30 Current Complaints L ORIF lisfranc, pilon and syndesmosis History of Current Condition 09/18/24-pt fell 09/04 on 1 step w/FWW and hurt from L knee down to foot. Saw ortho and no further fx and cleared to cont PT and does not have return to ortho IE:Pt reports stood up to go to bed on April 15 and fell over her feet and broke her leg and bones in foot. She was put in splint ER and on April 30 got screws in foot, leg and ankle. Has had boot for 6-8 weeks. Tried to do the walker when cleared to in May and it hurt so bad, she couldn't do it. Dr. Guzman told her to wait a couple weeks again and on 06/19 was told again. Sees her again next Tuesday. Last tried to use walker about 1.5 weeks ago but it is too painful . When uses the walker , L shoulder has been more painful too. Broke ankle in 80s without surgery. Denies LE and back pain. Pt reports prior ot this was a couch potato. prior to this was indep w/dressing and bathing. Cannot get into shower so has been doing bird baths insteadwith help. He helps some w/dressing too. It is a walk in shower but has a step up so can't get in. Has a built in seat in there with grab bars in there. DOes SPT for all transfers w/o FWW. Has a ramp built in now for livingroom area to cover step. SLH w/flat entry. Pt has been doing APs Treatment Goals Patient/Caregiver Goals get back to walking PT-OP-C Subjective Start: 07/12/24 17:42 Freq: Status: Active Protocol: Document 11/05/24 08:10 AB (Rec: 11/05/24 10:36 [id number]) OP-PT Subjective Patient Comments Patient Comments Patient arrives with SPC rates toe pain 4-5/10 comments she hit it on the walker over the weekend, did use use, but had to take a Tylenol this morning . Patient ambulates with SPC left LE in ER at hip, dec DF terminal stance, antalgic gait . PT-OP-F Manual Assessment Start: 07/12/24 17:42 Freq: Status: Active Protocol: Document 09/18/24 14:45 [facility] (Rec: 09/18/24 18:08 [facility] [id number]) Manual Assessments Other Manual Assessments Other Manual Assessments lat foot bruising, cont foot swelling L PT-OP-G Mobility & Gait Start: 07/12/24 17:42 Freq: Status: Active Protocol: Document 07/25/24 11:38 LR (Rec: 07/25/24 13:45 [facility] [id number]) OP Gait Assessment Comments Gait Comments came in w/WC. able to amb w/ FWW w/cues for step to pattern PT-OP-K Range of Motion Start: 07/12/24 17:42 Freq: Status: Active Protocol: Document 10/18/24 10:41 LR (Rec: 10/18/24 12:25 [facility] [id number]) Ankle and Foot Goniometric Range of Motion Ankle and Foot Left Active Dorsiflexion with Knee Flexed 2 Dorsiflexion with Knee Extended 14 Plantarflexion 51 Inversion 22 Eversion 21 Comments lacking DF to neural both positions PT-OP-M Strength Start: 07/12/24 17:42 Freq: Status: Active Protocol: Document 10/18/24 10:41 [facility] (Rec: 10/18/24 12:25 [facility] [id number]) Hip Strength Hip Manual Muscle Testing Left Flexion (L2) 4 Good Abduction 3+ Fair+ External Rotation 4 Good Internal Rotation 4- Good- Right Flexion (L2) 4 Good Abduction 4 Good External Rotation 4 Good Internal Rotation 4 Good Knee Strength Knee Manual Muscle Testing Left Flexion (S2) 4- Good- Extension (L3) 4 Good Right Flexion (S2) 4 Good Extension (L3) 4+ Good+ Ankle/Foot Strength Ankle and Foot Manual Muscle Testing Right Dorsiflexion (L4) 5 Normal Plantarflexion (S1) 5 Normal Inversion 5 Normal Eversion (S1) 5 Normal Left Dorsiflexion (L4) 4- Good- Plantarflexion (S1) 4 Good Inversion 3+ Fair+ Eversion (S1) 4- Good- Comments mild pain; 3/5 toe ext; 3-/5 toe flex PF tested seated PT-OP-Q Treatments Start: 07/12/24 17:42 Freq: Status: Active Protocol: Document 11/05/24 08:10 AB (Rec: 11/05/24 10:36 AB [id number]) Therapeutic Exercises Sitting Exercises ankle DF, EV, IV Sitting Exercise Name DF HEP without band post stretch then notes to perform with band Side left Reps/Minutes X10 without band X 10 with level one band Comments verbal cues Standing Exercises heel raises/ toe raises Standing Exercise Name toe raise back to wall HEP Side left Reps/Minutes X10 Comments verbal cues standing calf stretch Standing Exercise Name standing at wall, gastroc and soleus HEP Side left Reps/Minutes 60 sec X 2 each Comments verbal and visual cues sit to stand Reps/Minutes x5 Comments post manual, calf stretches and DF exercises, VC for LE positioning Manual Therapy Treatment Consent Patient gave verbal consent for manual Yes treatment Soft Tissue Mobilization calf Body Location L achilles and soleus Mobilization Type Cross-Friction,Myofascial Release,Rolling,Other Body Position Hooklying Joint Mobilizations Talocrual Joint Mulligan with movement TC mob left ankle Direction AP Grade III Body Position Standing Reps/Duration 3X10 PT-OP-R Modalities Start: 07/12/24 17:42 Freq: Status: Active Protocol: Document 08/06/24 13:43 SP (Rec: 08/06/24 15:29 SP [id number]) Hot Pack/Cold Pack Treatment CP Location L ankle Patient Position Hooklying Patient Tolerance Good Comments Reports helps decreased discomfort end tx. PT-OP-T Assessment and Plan Start: 07/12/24 17:42 Freq: Status: Active Protocol: Document 11/05/24 08:10 AB (Rec: 11/05/24 10:36 AB [id number]) Physical Therapy Assessment Goals ROM Short Term Goal (STG) Pt will have DF to neutral in knee flex position 09/18-worse since fall 10/18-much improved, -2 11/05/2024 lacking 2 deg from neutral end of session AROM left ankle STG Duration 10/16 Skilled Nursing Goal (LTG) Pt will have at least DF to 5 deg in knee flex and extended position to allow for improved gait mechanics. LTG Duration 11/18 activity Short Term Goal (STG) Pt will ambulate in house w/ LRAD 100% of the time instead of use WC 09/18-during day but not at night STG Duration achieved 10/18 Apiculture Teacher Goal (LTG) Pt will amb w/o AD w/o significant gait deviations and be able to go for short walks w/o inc pain greater than 2/10 LTG Duration 12/11 LEFS Impairment 15/80 Short Term Goal (STG) Pt will improve LEFS score to at least 30/80 to show improved functional ability. 09/18-14 10/18- STG Duration 10/17/24 Apiculture Teacher Goal (LTG) Pt will improve LEFS score to at least 50/80 to show improved functional ability. LTG Duration 12/11/24 Assessment Summary Assessment AROM DF with knee straight lacking 2 deg from neutral Left ankle end of session, rates pain 0/10 ambulating out of session with SPC left LE with improved alignment, ie less ER at hip L LE. Physical Therapy Plan Frequency and Duration Frequency of Treatment 2x/Week Duration of treatment (weeks) 12 Plan of Care Start Date 09/18/24 Plan of Care End Date 12/11/24 Next Visit Focus/Plan Next Note Type Treatment Note Next Visit Plan HEP review for compliance incorporataing carryover more functional mobility standing, eg stepping. POC: cont to work on balance, dec pain w/full wt acceptance LLE, toe mobility, work on gait w/cane
--- NOTE | 2024-11-08 12:30 | PT.OTN ---
Current Diagnoses Pain in right ankle and joints of right foot (11/08/24) Nondisplaced pilon fracture of right tibia, subsequent encounter for closed fracture with routine healing (11/08/24) Nondisplaced pilon fracture of left tibia, initial encounter for closed fracture (11/08/24) Dislocation of tarsometatarsal joint of left foot, initial encounter (11/08/24) Sprain of tibiofibular ligament of left ankle, initial encounter (11/08/24) Physical Therapy Treatment Note PT-OP-A Visit Information Start: 07/12/24 17:42 Freq: Status: Active Protocol: Document 11/08/24 11:37 [facility] (Rec: 11/08/24 12:30 [facility] [id number]) Out-Patient Physical Therapy Visit Information Visit Information Visit Type Treatment Note Visit Start Time 11:35 Visit Stop Time 12:15 Visit Number 21 (6 PN) Number of MANAGER MATERIALS MANAGEMENT Visits 0 PT-OP-B Current Condition Start: 07/12/24 17:42 Freq: Status: Active Protocol: Document 09/18/24 14:45 [facility] (Rec: 09/18/24 18:08 [facility] [id number]) Current Condition History of Current Condition Onset Date injury april 15, sx 04/30 Current Complaints L ORIF lisfranc, pilon and syndesmosis History of Current Condition 09/18/24-pt fell 09/04 on 1 step w/FWW and hurt from L knee down to foot. Saw ortho and no further fx and cleared to cont PT and does not have return to ortho IE:Pt reports stood up to go to bed on April 15 and fell over her feet and broke her leg and bones in foot. She was put in splint ER and on April 30 got screws in foot, leg and ankle. Has had boot for 6-8 weeks. Tried to do the walker when cleared to in May and it hurt so bad, she couldn't do it. Dr. Guzman told her to wait a couple weeks again and on 06/19 was told again. Sees her again next Tuesday. Last tried to use walker about 1.5 weeks ago but it is too painful . When uses the walker , L shoulder has been more painful too. Broke ankle in 80s without surgery. Denies LE and back pain. Pt reports prior ot this was a couch potato. prior to this was indep w/dressing and bathing. Cannot get into shower so has been doing bird baths insteadwith help. He helps some w/dressing too. It is a walk in shower but has a step up so can't get in. Has a built in seat in there with grab bars in there. DOes SPT for all transfers w/o FWW. Has a ramp built in now for livingroom area to cover step. H w/flat entry. Pt has been doing APs Treatment Goals Patient/Caregiver Goals get back to walking PT-OP-C Subjective Start: 07/12/24 17:42 Freq: Status: Active Protocol: Document 11/08/24 11:37 [facility] (Rec: 11/08/24 12:30 [id number]-PT Subjective Patient Comments Patient Comments big toe still sore since stubbing it. PT-OP-F Manual Assessment Start: 07/12/24 17:42 Freq: Status: Active Protocol: Document 09/18/24 14:45 [facility] (Rec: 09/18/24 18:08 [id number] Manual Assessments Other Manual Assessments Other Manual Assessments lat foot bruising, cont foot swelling L PT-OP-G Mobility & Gait Start: 07/12/24 17:42 Freq: Status: Active Protocol: Document 07/25/24 11:38 [facility] (Rec: 07/25/24 13:45 [id number] OP Gait Assessment Comments Gait Comments came in w/WC. able to amb w/ FWW w/cues for step to pattern PT-OP-K Range of Motion Start: 07/12/24 17:42 Freq: Status: Active Protocol: Document 10/18/24 10:41 [facility] (Rec: 10/18/24 12:25 [facility] [id number]) Ankle and Foot Goniometric Range of Motion Ankle and Foot Left Active Dorsiflexion with Knee Flexed 2 Dorsiflexion with Knee Extended 14 Plantarflexion 51 Inversion 22 Eversion 21 Comments lacking DF to neural both positions PT-OP-M Strength Start: 07/12/24 17:42 Freq: Status: Active Protocol: Document 10/18/24 10:41 [facility] (Rec: 10/18/24 12:25 [facility] [id number]) Hip Strength Hip Manual Muscle Testing Left Flexion (L2) 4 Good Abduction 3+ Fair+ External Rotation 4 Good Internal Rotation 4- Good- Right Flexion (L2) 4 Good Abduction 4 Good External Rotation 4 Good Internal Rotation 4 Good Knee Strength Knee Manual Muscle Testing Left Flexion (S2) 4- Good- Extension (L3) 4 Good Right Flexion (S2) 4 Good Extension (L3) 4+ Good+ Ankle/Foot Strength Ankle and Foot Manual Muscle Testing Right Dorsiflexion (L4) 5 Normal Plantarflexion (S1) 5 Normal Inversion 5 Normal Eversion (S1) 5 Normal Left Dorsiflexion (L4) 4- Good- Plantarflexion (S1) 4 Good Inversion 3+ Fair+ Eversion (S1) 4- Good- Comments mild pain; 3/5 toe ext; 3-/5 toe flex PF tested seated PT-OP-Q Treatments Start: 07/12/24 17:42 Freq: Status: Active Protocol: Document 11/08/24 11:37 [facility] (Rec: 11/08/24 12:30 [facility] [id number]) Therapeutic Exercises Standing Exercises sidesteps Side bilateral Equipment Used L2 Reps/Minutes 10ftx2 ea Comments cues ft fwd and no lean Step ups Standing Exercise Name Single leg repeated Side bilateral Equipment Used 6 step repeated Reps/Minutes x10 reps each side Comments cued TKE heel raises/ toe raises Standing Exercise Name toe raise back to wall HEP Side bilateral Reps/Minutes 15 Comments verbal cues standing calf stretch Standing Exercise Name standing at wall, gastroc and soleus HEP Side left Reps/Minutes 60 sec ea Comments verbal and visual cues Manual Therapy Treatment Consent Patient gave verbal consent for manual Yes treatment Soft Tissue Mobilization calf Body Location L achilles and soleus Mobilization Type Cross-Friction,Myofascial Release,Rolling,Other Body Position Hooklying plantar fascia Body Location L Mobilization Type Myofascial Release,Rolling Body Position Sitting Joint Mobilizations Talocrual Grade II Comments L distraction calcaneus and talus L med glide talus Neuro Re-Education Treatment Balance Activities tilt board Details fwd/back and lat facing Comments 1. EC balance 2. wt shifts Coordination Activities grape[place] Details b 2x10ft ea Comments 1 rail as needed PT-OP-R Modalities Start: 07/12/24 17:42 Freq: Status: Active Protocol: Document 08/06/24 13:43 [facility] (Rec: 08/06/24 15:29 [facility] [id number]) Hot Pack/Cold Pack Treatment CP Location L ankle Patient Position Hooklying Patient Tolerance Good Comments Reports helps decreased discomfort end tx. PT-OP-T Assessment and Plan Start: 07/12/24 17:42 Freq: Status: Active Protocol: Document 11/08/24 11:37 [facility] (Rec: 11/08/24 12:30 [facility] [id number]) Physical Therapy Assessment Goals ROM Short Term Goal (STG) Pt will have DF to neutral in knee flex position 09/18-worse since fall 10/18-much improved, -2 11/05/2024 lacking 2 deg from neutral end of session AROM left ankle STG Duration 10/16 Long-Term Goal (LTG) Pt will have at least DF to 5 deg in knee flex and extended position to allow for improved gait mechanics. LTG Duration 11/18 activity Short Term Goal (STG) Pt will ambulate in house w/ LRAD 100% of the time instead of use WC 09/18-during day but not at night STG Duration achieved 10/18 Proced Tech Goal (LTG) Pt will amb w/o AD w/o significant gait deviations and be able to go for short walks w/o inc pain greater than 2/10 LTG Duration 12/11 LEFS Impairment 15 Short Term Goal (STG) Pt will improve LEFS score to at least 30/80 to show improved functional ability. 09/18-10/18- STG Duration 10/17/24 Proced Tech Goal (LTG) Pt will improve LEFS score to at least 50/80 to show improved functional ability. LTG Duration 12/11/24 Assessment Summary Assessment Pt is improving w/balance overall but still struggle especially w/EC activities. She is cont to lack DF and encouraged to make sure stretching a few times a day in calf. Physical Therapy Plan Frequency and Duration Frequency of Treatment 2x/Week Duration of treatment (weeks) 12 Plan of Care Start Date 09/18/24 Plan of Care End Date 12/11/24 Next Visit Focus/Plan Next Note Type Treatment Note Next Visit Plan HEP review for compliance incorporataing carryover more functional mobility standing, eg stepping. POC: cont to work on balance, dec pain w/full wt acceptance LLE, toe mobility, work on gait w/cane
--- NOTE | 2024-11-13 13:46 | PT.OTN ---
Current Diagnoses Pain in right ankle and joints of right foot (11/13/24) Nondisplaced pilon fracture of right tibia, subsequent encounter for closed fracture with routine healing (11/13/24) Nondisplaced pilon fracture of left tibia, initial encounter for closed fracture (11/13/24) Dislocation of tarsometatarsal joint of left foot, initial encounter (11/13/24) Sprain of tibiofibular ligament of left ankle, initial encounter (11/13/24) Physical Therapy Treatment Note PT-OP-A Visit Information Start: 07/12/24 17:42 Freq: Status: Active Protocol: Document 11/13/24 13:01 [facility] (Rec: 11/13/24 13:49 [facility] [id number]) Out-Patient Physical Therapy Visit Information Visit Information Visit Type Treatment Note Visit Start Time 13:01 Visit Stop Time 13:46 Visit Number 22 (7 PN) Number of NURSE PLASTICS Visits 1 PT-OP-B Current Condition Start: 07/12/24 17:42 Freq: Status: Active Protocol: Document 09/18/24 14:45 [facility] (Rec: 09/18/24 18:08 [facility] [id number]) Current Condition History of Current Condition Onset Date injury april 15, sx 04/30 Current Complaints L ORIF lisfranc, pilon and syndesmosis History of Current Condition 09/18/24-pt fell 09/04 on 1 step w/FWW and hurt from L knee down to foot. Saw ortho and no further fx and cleared to cont PT and does not have return to ortho IE:Pt reports stood up to go to bed on April 15 and fell over her feet and broke her leg and bones in foot. She was put in splint ER and on April 30 got screws in foot, leg and ankle. Has had boot for 6-8 weeks. Tried to do the walker when cleared to in May and it hurt so bad, she couldn't do it. Dr. Guzman told her to wait a couple weeks again and on 06/19 was told again. Sees her again next Tuesday. Last tried to use walker about 1.5 weeks ago but it is too painful . When uses the walker , L shoulder has been more painful too. Broke ankle in 80s without surgery. Denies LE and back pain. Pt reports prior ot this was a couch potato. prior to this was indep w/dressing and bathing. Cannot get into shower so has been doing bird baths insteadwith help. He helps some w/dressing too. It is a walk in shower but has a step up so can't get in. Has a built in seat in there with grab bars in there. DOes SPT for all transfers w/o FWW. Has a ramp built in now for livingroom area to cover step. H w/flat entry. Pt has been doing APs Treatment Goals Patient/Caregiver Goals get back to walking PT-OP-C Subjective Start: 07/12/24 17:42 Freq: Status: Active Protocol: Document 11/13/24 13:01 [facility] (Rec: 11/13/24 13:49 [facility] [id number]) OP-PT Subjective Patient Comments Patient Comments Pt reports her L knee got unhappy doing step ups. It was ok on R. Did try little side stepping at counter went well. PT-OP-F Manual Assessment Start: 07/12/24 17:42 Freq: Status: Active Protocol: Document 09/18/24 14:45 [facility] (Rec: 09/18/24 18:08 [facility] [id number]) Manual Assessments Other Manual Assessments Other Manual Assessments lat foot bruising, cont foot swelling L PT-OP-G Mobility & Gait Start: 07/12/24 17:42 Freq: Status: Active Protocol: Document 07/25/24 11:38 [facility] (Rec: 07/25/24 13:45 [facility] [id number]) OP Gait Assessment Comments Gait Comments came in w/WC. able to amb w/ FWW w/cues for step to pattern PT-OP-K Range of Motion Start: 07/12/24 17:42 Freq: Status: Active Protocol: Document 10/18/24 10:41 [facility] (Rec: 10/18/24 12:25 [facility] [id number]) Ankle and Foot Goniometric Range of Motion Ankle and Foot Left Active Dorsiflexion with Knee Flexed 2 Dorsiflexion with Knee Extended 14 Plantarflexion 51 Inversion 22 Eversion 21 Comments lacking DF to neural both positions PT-OP-M Strength Start: 07/12/24 17:42 Freq: Status: Active Protocol: Document 10/18/24 10:41 [facility] (Rec: 10/18/24 12:25 [facility] [id number]) Hip Strength Hip Manual Muscle Testing Left Flexion (L2) 4 Good Abduction 3+ Fair+ External Rotation 4 Good Internal Rotation 4- Good- Right Flexion (L2) 4 Good Abduction 4 Good External Rotation 4 Good Internal Rotation 4 Good Knee Strength Knee Manual Muscle Testing Left Flexion (S2) 4- Good- Extension (L3) 4 Good Right Flexion (S2) 4 Good Extension (L3) 4+ Good+ Ankle/Foot Strength Ankle and Foot Manual Muscle Testing Right Dorsiflexion (L4) 5 Normal Plantarflexion (S1) 5 Normal Inversion 5 Normal Eversion (S1) 5 Normal Left Dorsiflexion (L4) 4- Good- Plantarflexion (S1) 4 Good Inversion 3+ Fair+ Eversion (S1) 4- Good- Comments mild pain; 3/5 toe ext; 3-/5 toe flex PF tested seated PT-OP-Q Treatments Start: 07/12/24 17:42 Freq: Status: Active Protocol: Document 11/13/24 13:01 [facility] (Rec: 11/13/24 13:49 [facility] [id number]) Gym Equipment Shuttle Balance Red chains Details WBOS, stride stance (4s) Comments wt shift stationary stance HTs CG- Min A cued glut and rhomboid fac needed for midling stab- improved no shakiness Therapeutic Exercises Sitting Exercises toe abduction Sitting Exercise Name self gentle big toe abd, ext, flex Side left Reps/Minutes AROM toe ABD /c DF 5 SH x5 reps Comments discussed supportive of DF foot clearance, continue home with seated Standing Exercises Step ups Standing Exercise Name Single leg repeated Side bilateral Equipment Used 6 step repeated Reps/Minutes x10 reps R no rail, 8 L 1 UE support Comments cued TKE and glut drive body over foot- tends wt shift laterally heel raises/ toe raises Standing Exercise Name toe raise back to wall / rail HEP Side bilateral Reps/Minutes 15 Comments verbal cues standing calf stretch Standing Exercise Name standing at wall, gastroc and soleus HEP Side left Reps/Minutes 60 sec ea Comments verbal and visual cues rocker board Standing Exercise Name fwd/bwd, lateral Side bilateral Equipment Used light 1 finger shuttle rec rail Reps/Minutes 10 reps Comments improved tolerance wt shift, cues for even WB BLE Manual Therapy Treatment Consent Patient gave verbal consent for manual Yes treatment Soft Tissue Mobilization calf Body Location L achilles and soleus Mobilization Type Cross-Friction,Myofascial Release,Rolling,Other Body Position Hooklying Joint Mobilizations L knee Direction PA Comments support ankle mobility Talocrual Grade II Comments L distraction calcaneus and talus L med glide talus Neuro Re-Education Treatment Balance Activities hurdles Details 6 hurdles- receiprocal stepping Equipment inside //bars, contact 1 UE Reps/Duration 2 laps each Comments fwd, lateral cued tall scap engagement for midline posturing foam Details EC trials Surface black foam Equipment Shoes donned, inside //bars Comments Stride stance- R ft fwd 8 sec, L ft fwd 13 sec before LOB Cued tall over full front/heel of each feet, rhomboid and TA fac. PT-OP-R Modalities Start: 07/12/24 17:42 Freq: Status: Active Protocol: Document 08/06/24 13:43 [facility] (Rec: 08/06/24 15:29 [facility] [id number]) Hot Pack/Cold Pack Treatment CP Location L ankle Patient Position Hooklying Patient Tolerance Good Comments Reports helps decreased discomfort end tx. PT-OP-T Assessment and Plan Start: 07/12/24 17:42 Freq: Status: Active Protocol: Document 11/13/24 13:01 [facility] (Rec: 11/13/24 13:49 [facility] [id number]) Physical Therapy Assessment Goals ROM Short Term Goal (STG) Pt will have DF to neutral in knee flex position 09/18-worse since fall 10/18-much improved, -2 11/05/2024 lacking 2 deg from neutral end of session AROM left ankle STG Duration 10/16 Senior Care Goal (LTG) Pt will have at least DF to 5 deg in knee flex and extended position to allow for improved gait mechanics. 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 12/3-14 12- STG Duration 10/17/24 Senior Care Goal (LTG) Pt will improve LEFS score to at least 50/80 to show improved functional ability. LTG Duration 12/11/24 Assessment Summary Assessment Pt improved wt shifting during balance activities progression rocker board, shuttle balance cues for rhomboid and TA fac over VALENTIN able to complete head turns without UE support. She was able to complete little longer EC stride uneven surface stance. Was able to progress receiprocal olvin stepping but needed light 1 UE support. Physical Therapy Plan Frequency and Duration Frequency of Treatment 2x/Week Duration of treatment (weeks) 12 Plan of Care Start Date 09/18/24 Plan of Care End Date 12/11/24 Therapeutic Interventions Therapeutic Interventions Balance Training,Gait Training ,Home Exercise Program,Joint Mobilizations,Manual Therapy, Neuromuscular Re-education, Orthotic/Prosthetic Management ,Patient/Caregiver Education, Self-Care/Home Management,Soft Tissue Mobilization,Taping, Therapeutic Activities, Therapeutic Exercises Modalities Cold Pack/Ice Massage,Electric Stimulation,Hot Packs, Infrared Therapy Next Visit Focus/Plan Next Note Type Treatment Note Next Visit Plan HEP review for compliance incorporating carryover more functional mobility standing, eg stepping with rail support if needed. POC: cont to work on balance, dec pain w/full wt acceptance LLE, toe mobility, work on gait w/cane
--- NOTE | 2024-11-15 13:50 | PT.OTN ---
Current Diagnoses Pain in right ankle and joints of right foot (11/15/24) Nondisplaced pilon fracture of right tibia, subsequent encounter for closed fracture with routine healing (11/15/24) Nondisplaced pilon fracture of left tibia, initial encounter for closed fracture (11/15/24) Dislocation of tarsometatarsal joint of left foot, initial encounter (11/15/24) Sprain of tibiofibular ligament of left ankle, initial encounter (11/15/24) Physical Therapy Treatment Note PT-OP-A Visit Information Start: 07/12/24 17:42 Freq: Status: Active Protocol: Document 11/15/24 13:03 [facility] (Rec: 11/15/24 13:49 [facility] [id number]) Out-Patient Physical Therapy Visit Information Visit Information Visit Type Progress Note Visit Start Time 13:03 Visit Stop Time 13:43 Visit Number 23 (10/26 Number of LICENSING OFFICER Visits 0 PT-OP-B Current Condition Start: 07/12/24 17:42 Freq: Status: Active Protocol: Document 09/18/24 14:45 [facility] (Rec: 09/18/24 18:08 [facility] [id number]) Current Condition History of Current Condition Onset Date injury april 15, sx 04/30 Current Complaints L ORIF lisfranc, pilon and syndesmosis History of Current Condition 09/18/24-pt fell 09/04 on 1 step w/FWW and hurt from L knee down to foot. Saw ortho and no further fx and cleared to cont PT and does not have return to ortho IE:Pt reports stood up to go to bed on April 15 and fell over her feet and broke her leg and bones in foot. She was put in splint ER and on April 30 got screws in foot, leg and ankle. Has had boot for 6-8 weeks. Tried to do the walker when cleared to in May and it hurt so bad, she couldn't do it. Dr. Guzman told her to wait a couple weeks again and on 06/19 was told again. Sees her again next Tuesday. Last tried to use walker about 1.5 weeks ago but it is too painful . When uses the walker , L shoulder has been more painful too. Broke ankle in 80s without surgery. Denies LE and back pain. Pt reports prior ot this was a couch potato. prior to this was indep w/dressing and bathing. Cannot get into shower so has been doing bird baths insteadwith help. He helps some w/dressing too. It is a walk in shower but has a step up so can't get in. Has a built in seat in there with grab bars in there. DOes SPT for all transfers w/o FWW. Has a ramp built in now for livingroom area to cover step. SLH w/flat entry. Pt has been doing APs Treatment Goals Patient/Caregiver Goals get back to walking PT-OP-C Subjective Start: 07/12/24 17:42 Freq: Status: Active Protocol: Document 11/15/24 13:03 [facility] (Rec: 11/15/24 13:49 [id number]-PT Subjective Patient Comments Patient Comments Pt reports some days her ankle feels good and others less stable PT-OP-F Manual Assessment Start: 07/12/24 17:42 Freq: Status: Active Protocol: Document 09/18/24 14:45 [facility] (Rec: 09/18/24 18:08 [id number] Manual Assessments Other Manual Assessments Other Manual Assessments lat foot bruising, cont foot swelling L PT-OP-G Mobility & Gait Start: 07/12/24 17:42 Freq: Status: Active Protocol: Document 07/25/24 11:38 [facility] (Rec: 07/25/24 13:45 [id number] OP Gait Assessment Comments Gait Comments came in w/WC. able to amb w/ FWW w/cues for step to pattern PT-OP-K Range of Motion Start: 07/12/24 17:42 Freq: Status: Active Protocol: Document 11/15/24 13:03 [facility] (Rec: 11/15/24 13:49 [facility] [id number]) Ankle and Foot Goniometric Range of Motion Ankle and Foot Left Active Dorsiflexion with Knee Flexed 0 Dorsiflexion with Knee Extended 10 Plantarflexion 55 Comments lacking DF to neural in knee ext position PT-OP-M Strength Start: 07/12/24 17:42 Freq: Status: Active Protocol: Document 11/15/24 13:03 [facility] (Rec: 11/15/24 13:49 [facility] [id number]) Hip Strength Hip Manual Muscle Testing Left Flexion (L2) 4 Good Abduction 3+ Fair+ External Rotation 4 Good Internal Rotation 4 Good Right Flexion (L2) 4 Good Abduction 4- Good- External Rotation 4 Good Internal Rotation 4+ Good+ Knee Strength Knee Manual Muscle Testing Left Flexion (S2) 4+ Good+ Extension (L3) 4 Good Right Flexion (S2) 4+ Good+ Extension (L3) 5 Normal Ankle/Foot Strength Ankle and Foot Manual Muscle Testing Right Dorsiflexion (L4) 5 Normal Plantarflexion (S1) 5 Normal Inversion 5 Normal Eversion (S1) 5 Normal Left Dorsiflexion (L4) 4+ Good+ Plantarflexion (S1) 4+ Good+ Inversion 4 Good Eversion (S1) 4 Good Comments mild pain; 3+/5 toe ext; 3_/5 toe flex PF tested seated PT-OP-Q Treatments Start: 07/12/24 17:42 Freq: Status: Active Protocol: Document 11/15/24 13:03 [facility] (Rec: 11/15/24 13:49 [facility] [id number]) Therapeutic Exercises Sitting Exercises isometrics Sitting Exercise Name BLE MMT Side bilateral Calf stretch Sitting Exercise Name AROM ankle L Standing Exercises hip hike Side bilateral Equipment Used step w/rail Reps/Minutes 15 Step ups Standing Exercise Name lat Side left Equipment Used 4 in Reps/Minutes 5 Comments stopped d/t knee pain heel raises/ toe raises Standing Exercise Name heel raises-cues to inc wt inLLE Side bilateral Reps/Minutes 10 standing calf stretch Standing Exercise Name PIPPA Side bilateral Reps/Minutes 1 min Manual Therapy Treatment Consent Patient gave verbal consent for manual Yes treatment Soft Tissue Mobilization ant Body Location ant tib and MFR sup foot Mobilization Type Instrument Assisted,Myofascial Release,Rolling Body Position Supine Comments w/manual and cupping calf Body Location L achilles and soleus Mobilization Type Cross-Friction,Myofascial Release,Rolling,Other Body Position Hooklying plantar fascia Body Location L Mobilization Type Myofascial Release,Rolling Body Position Sitting Joint Mobilizations Talocrual Comments L distraction calcaneus and talus LAP talus MTP Joint L 1st distraction and AP and PA Grade II Comments manual and ed self instruction PT-OP-R Modalities Start: 07/12/24 17:42 Freq: Status: Active Protocol: Document 08/06/24 13:43 [facility] (Rec: 08/06/24 15:29 [facility] [id number]) Hot Pack/Cold Pack Treatment CP Location L ankle Patient Position Hooklying Patient Tolerance Good Comments Reports helps decreased discomfort end tx. PT-OP-T Assessment and Plan Start: 07/12/24 17:42 Freq: Status: Active Protocol: Document 11/15/24 13:03 [facility] (Rec: 11/15/24 13:49 [facility] [id number]) Physical Therapy Assessment Goals ROM Short Term Goal (STG) Pt will have DF to neutral in knee flex position 09/18-worse since fall 10/18-much improved, -2 11/05/2024 lacking 2 deg from neutral end of session AROM left ankle STG Duration achieved 11/15 [employer] Teacher Goal (LTG) Pt will have at least DF to 5 deg in knee flex and extended position to allow for improved gait mechanics. LTG Duration 01/10 activity Short Term Goal (STG) Pt will ambulate in house w/ LRAD 100% of the time instead of use WC 09/18-during day but not at night STG Duration achieved 10/18 Alf Goal (LTG) Pt will amb w/o AD w/o significant gait deviations and be able to go for short walks w/o inc pain greater than 2/10 11/15-amb w/SPC LTG Duration 01/10 LEFS Impairment 15/80 Short Term Goal (STG) Pt will improve LEFS score to at least 30/80 to show improved functional ability. 09/18-14 10/18-1811/15- STG Duration 12/12 Alf Goal (LTG) Pt will improve LEFS score to at least 50/80 to show improved functional ability. LTG Duration 01/10 Assessment Summary Assessment Pt has made good progress w/PT but slow d/t a couple set backs including a fall early on in recovery. She has improved ROM and strength overall and would beneit from cont PT to improve function. Physical Therapy Plan Frequency and Duration Frequency of Treatment 2x/Week Duration of treatment (weeks) 8 Plan of Care Start Date 11/15/24 Plan of Care End Date 01/10/25 Therapeutic Interventions Therapeutic Interventions Balance Training,Gait Training ,Home Exercise Program,Joint Mobilizations,Manual Therapy, Neuromuscular Re-education, Orthotic/Prosthetic Management ,Patient/Caregiver Education, Self-Care/Home Management,Soft Tissue Mobilization,Taping, Therapeutic Activities, Therapeutic Exercises Modalities Cold Pack/Ice Massage,Electric Stimulation,Hot Packs, Infrared Therapy Next Visit Focus/Plan Next Note Type Treatment Note Next Visit Plan HEP review for compliance incorporating carryover more functional mobility standing, eg stepping with rail support if needed. POC: cont to work on balance, dec pain w/full wt acceptance LLE, toe mobility, work on gait w/cane
--- NOTE | 2024-11-15 13:50 | PT.OPPOC ---
Physical, Occupational & Speech Therapy At [facility] Current Diagnoses Pain in right ankle and joints of right foot (11/15/24) Nondisplaced pilon fracture of right tibia, subsequent encounter for closed fracture with routine healing (11/15/24) Nondisplaced pilon fracture of left tibia, initial encounter for closed fracture (11/15/24) Dislocation of tarsometatarsal joint of left foot, initial encounter (11/15/24) Sprain of tibiofibular ligament of left ankle, initial encounter (11/15/24) Visit Care Team Role Provider Type Claudio Garcias DO Family Provider Physician Primary Care Provider Specialty: Family Practice Address: [address] [place] [address], [facility] [address], [place], [address] Email: [email or web address] Attending Provider Physician Referring Provider Specialty: Orthopedics Orthopedic Surgery Address: [address] [place] [address], [id number] Email: [email or web address] Plan Of Care PT-OP-B Current Condition Start: 07/12/24 17:42 Freq: Status: Active Protocol: Document 09/18/24 14:45 [facility] (Rec: 09/18/24 18:08 [facility] [id number]) Current Condition History of Current Condition Onset Date injury april 15, sx 04/30 Current Complaints L ORIF lisfranc, pilon and syndesmosis History of Current Condition 09/18/24-pt fell 09/04 on 1 step w/FWW and hurt from L knee down to foot. Saw ortho and no further fx and cleared to cont PT and does not have return to ortho IE:Pt reports stood up to go to bed on April 15 and fell over her feet and broke her leg and bones in foot. She was put in splint ER and on April 30 got screws in foot, leg and ankle. Has had boot for 6-8 weeks. Tried to do the walker when cleared to in May and it hurt so bad, she couldn't do it. Dr. Guzman told her to wait a couple weeks again and on 06/19 was told again. Sees her again next Tuesday. Last tried to use walker about 1.5 weeks ago but it is too painful . When uses the walker , L shoulder has been more painful too. Broke ankle in 80s without surgery. Denies LE and back pain. Pt reports prior ot this was a couch potato. prior to this was indep w/dressing and bathing. Cannot get into shower so has been doing bird baths insteadwith help. He helps some w/dressing too. It is a walk in shower but has a step up so can't get in. Has a built in seat in there with grab bars in there. DOes SPT for all transfers w/o FWW. Has a ramp built in now for livingroom area to cover step. H w/flat entry. Pt has been doing APs Treatment Goals Patient/Caregiver Goals get back to walking PT-OP-T Assessment and Plan Start: 07/12/24 17:42 Freq: Status: Active Protocol: Document 11/15/24 13:03 [facility] (Rec: 11/15/24 13:49 [facility] [id number]) Physical Therapy Assessment Goals ROM Short Term Goal (STG) Pt will have DF to neutral in knee flex position 09/18-worse since fall 10/18-much improved, -2 11/05/2024 lacking 2 deg from neutral end of session AROM left ankle STG Duration achieved 11/15 [facility]entiary Goal (LTG) Pt will have at least DF to 5 deg in knee flex and extended position to allow for improved gait mechanics. LTG Duration 01/10 activity Short Term Goal (STG) Pt will ambulate in house w/ LRAD 100% of the time instead of use WC 09/18-during day but not at night STG Duration achieved 10/18 [facility]entiary Goal (LTG) Pt will amb w/o AD w/o significant gait deviations and be able to go for short walks w/o inc pain greater than 2/10 11/15-amb w/SPC LTG Duration 01/10 LEFS Impairment Short Term Goal (STG) Pt will improve LEFS score to at least 30/80 to show improved functional ability. 09/18-14 10/18- 11/15- STG Duration 12/12 [facility]entiary Goal (LTG) Pt will improve LEFS score to at least 50/80 to show improved functional ability. LTG Duration 01/10 Assessment Summary Assessment Pt has made good progress w/PT but slow d/t a couple set backs including a fall early on in recovery. She has improved ROM and strength overall and would beneit from cont PT to improve function. Physical Therapy Plan Frequency and Duration Frequency of Treatment 2x/Week Duration of treatment (weeks) 8 Plan of Care Start Date 11/15/24 Plan of Care End Date 01/10/25 Therapeutic Interventions Therapeutic Interventions Balance Training,Gait Training ,Home Exercise Program,Joint Mobilizations,Manual Therapy, Neuromuscular Re-education, Orthotic/Prosthetic Management ,Patient/Caregiver Education, Self-Care/Home Management,Soft Tissue Mobilization,Taping, Therapeutic Activities, Therapeutic Exercises Modalities Cold Pack/Ice Massage,Electric Stimulation,Hot Packs, Infrared Therapy Next Visit Focus/Plan Next Note Type Treatment Note Next Visit Plan HEP review for compliance incorporating carryover more functional mobility standing, eg stepping with rail support if needed. POC: cont to work on balance, dec pain w/full wt acceptance LLE, toe mobility, work on gait w/cane Plan of Care Dates Plan of Care Start Date 11/15/24 Plan of Care End Date 01/10/25 Electronically Signed by: Tiarra Graf, PT 11/15/24 [id number] If you are in agreement with this Plan of Care, please return a signed and dated copy. I have reviewed this Plan of Care and certify that the skilled therapy services above are required to meet the patient?s needs. Physician Signature Date Printed Name and Credentials Clinical Instructor Signature Printed Name and Credentials
--- NOTE | 2024-11-20 14:28 | PT.OTN ---
Current Diagnoses Pain in right ankle and joints of right foot (11/20/24) Nondisplaced pilon fracture of right tibia, subsequent encounter for closed fracture with routine healing (11/20/24) Nondisplaced pilon fracture of left tibia, initial encounter for closed fracture (11/20/24) Dislocation of tarsometatarsal joint of left foot, initial encounter (11/20/24) Sprain of tibiofibular ligament of left ankle, initial encounter (11/20/24) Physical Therapy Treatment Note PT-OP-A Visit Information Start: 07/12/24 17:42 Freq: Status: Active Protocol: Document 11/20/24 13:45 SP (Rec: 11/20/24 14:32 SP [id number]) Out-Patient Physical Therapy Visit Information Visit Information Visit Type Treatment Note Visit Start Time 13:45 Visit Stop Time 14:28 Visit Number 24 (11/26) Number of WINDOWS SERVER SPECIALIST Visits 1 PT-OP-B Current Condition Start: 07/12/24 17:42 Freq: Status: Active Protocol: Document 09/18/24 14:45 [facility] (Rec: 09/18/24 18:08 [facility] [id number]) Current Condition History of Current Condition Onset Date injury april 15, sx 04/30 Current Complaints L ORIF lisfranc, pilon and syndesmosis History of Current Condition 09/18/24-pt fell 09/04 on 1 step w/FWW and hurt from L knee down to foot. Saw ortho and no further fx and cleared to cont PT and does not have return to ortho IE:Pt reports stood up to go to bed on April 15 and fell over her feet and broke her leg and bones in foot. She was put in splint ER and on April 30 got screws in foot, leg and ankle. Has had boot for 6-8 weeks. Tried to do the walker when cleared to in May and it hurt so bad, she couldn't do it. Dr. Guzman told her to wait a couple weeks again and on 06/19 was told again. Sees her again next Tuesday. Last tried to use walker about 1.5 weeks ago but it is too painful . When uses the walker , L shoulder has been more painful too. Broke ankle in 80s without surgery. Denies LE and back pain. Pt reports prior ot this was a couch potato. prior to this was indep w/dressing and bathing. Cannot get into shower so has been doing bird baths insteadwith help. He helps some w/dressing too. It is a walk in shower but has a step up so can't get in. Has a built in seat in there with grab bars in there. DOes SPT for all transfers w/o FWW. Has a ramp built in now for livingroom area to cover step. SLH w/flat entry. Pt has been doing APs Treatment Goals Patient/Caregiver Goals get back to walking PT-OP-C Subjective Start: 07/12/24 17:42 Freq: Status: Active Protocol: Document 11/20/24 13:45 SP (Rec: 11/20/24 14:32 SP [id number]) OP-PT Subjective Patient Comments Patient Comments Pt reports L foot pain ondorsal MTP to anterior ankle and inferior L malleolus and unsure why. ALso L ankle too now. She did bump into couch but not to hard thinks to cause pain. She states compliant with TB PF, AROM out /in, marching. PT-OP-F Manual Assessment Start: 07/12/24 17:42 Freq: Status: Active Protocol: Document 09/18/24 14:45 [facility] (Rec: 09/18/24 18:08 [facility] [id number]) Manual Assessments Other Manual Assessments Other Manual Assessments lat foot bruising, cont foot swelling L PT-OP-G Mobility & Gait Start: 07/12/24 17:42 Freq: Status: Active Protocol: Document 07/25/24 11:38 [facility] (Rec: 07/25/24 13:45 [facility] [id number]) OP Gait Assessment Comments Gait Comments came in w/WC. able to amb w/ FWW w/cues for step to pattern PT-OP-K Range of Motion Start: 07/12/24 17:42 Freq: Status: Active Protocol: Document 11/15/24 13:03 [facility] (Rec: 11/15/24 13:49 [facility] [id number]) Ankle and Foot Goniometric Range of Motion Ankle and Foot Left Active Dorsiflexion with Knee Flexed 0 Dorsiflexion with Knee Extended 10 Plantarflexion 55 Comments lacking DF to neural in knee ext position PT-OP-M Strength Start: 07/12/24 17:42 Freq: Status: Active Protocol: Document 11/15/24 13:03 [facility] (Rec: 11/15/24 13:49 [facility] [id number]) Hip Strength Hip Manual Muscle Testing Left Flexion (L2) 4 Good Abduction 3+ Fair+ External Rotation 4 Good Internal Rotation 4 Good Right Flexion (L2) 4 Good Abduction 4- Good- External Rotation 4 Good Internal Rotation 4+ Good+ Knee Strength Knee Manual Muscle Testing Left Flexion (S2) 4+ Good+ Extension (L3) 4 Good Right Flexion (S2) 4+ Good+ Extension (L3) 5 Normal Ankle/Foot Strength Ankle and Foot Manual Muscle Testing Right Dorsiflexion (L4) 5 Normal Plantarflexion (S1) 5 Normal Inversion 5 Normal Eversion (S1) 5 Normal Left Dorsiflexion (L4) 4+ Good+ Plantarflexion (S1) 4+ Good+ Inversion 4 Good Eversion (S1) 4 Good Comments mild pain; 3+/5 toe ext; 3_/5 toe flex PF tested seated PT-OP-Q Treatments Start: 07/12/24 17:42 Freq: Status: Active Protocol: Document 11/20/24 13:45 SP (Rec: 11/20/24 14:32 SP [id number]) Therapeutic Exercises Sitting Exercises toe abduction Sitting Exercise Name Toe (long sit): DF /c ABD Side left Resistance AROM Reps/Minutes 3 SH x10 Comments discussed supportive of DF foot clearance, continue home with seated toe scrunches Sitting Exercise Name HEP review (support intrinsic strength and assist stand mobility) Side left Resistance AROM Equipment Used MTP flexion Reps/Minutes 10 seated, 5 reps standing Comments cued toe 1-5 flexion ankle DF, EV, IV Sitting Exercise Name PF hammock long sit; DF, EV, IR seated in chair Side left Resistance Tb #3 [place] green Reps/Minutes 2x10 reps each Comments verbal cues psinfree range Standing Exercises Step ups Standing Exercise Name retro & lat Side left Resistance B HR support Equipment Used 4 in Reps/Minutes 5 each direction Comments retro step down glut drive, L knee tender not pain, Weight shifting Standing Exercise Name weight shifting Side bilateral Resistance cane support in RUE Equipment Used for walking balance support Comments for increased standing tolerance and weight acceptance into LLE Gait Training Gait Activity no AD Level of Assistance inside //bars Distance/Duration 10 ft 4 laps Comments cued tall, TA, even geovanna, challenge no later leans dueto L toe extension pain today. stairs Device Used B HR Moderate WB BUE Level of Assistance S Distance/Duration 6 stairs (4 steps) Treatment Focus Reciprocal stepping ascending, step to descending, WBAT LLE Comments Cues for taller posturing UE straighter on rail support, TKE over LLE during RLR transition ascending. Low tolerate receiprocal stepping leading RLE cue to pain in L 1st big toe extension. Manual Therapy Treatment Consent Patient gave verbal consent for manual Yes treatment Joint Mobilizations Talocrual Comments L distraction calcaneus and talus LAP talus calcaneus Joint L distraction Grade II Body Position Supine MTP Joint L 1st-3rd distraction, AP, PA, rotation Grade II Comments manual and ed self instruction PT-OP-R Modalities Start: 07/12/24 17:42 Freq: Status: Active Protocol: Document 08/06/24 13:43 SP (Rec: 08/06/24 15:29 SP [id number]) Hot Pack/Cold Pack Treatment CP Location L ankle Patient Position Hooklying Patient Tolerance Good Comments Reports helps decreased discomfort end tx. PT-OP-T Assessment and Plan Start: 07/12/24 17:42 Freq: Status: Active Protocol: Document 11/20/24 13:45 SP (Rec: 11/20/24 14:32 SP [id number]) Physical Therapy Assessment Goals ROM Short Term Goal (STG) Pt will have DF to neutral in knee flex position 09/18-worse since fall 10/18-much improved, -2 11/05/2024 lacking 2 deg from neutral end of session AROM left ankle STG Duration achieved 11/15 Fdc Goal (LTG) Pt will have at least DF to 5 deg in knee flex and extended position to allow for improved gait mechanics. LTG Duration 01/10 activity Short Term Goal (STG) Pt will ambulate in house w/ LRAD 100% of the time instead of use WC 09/18-during day but not at night STG Duration achieved 10/18 Fdc Goal (LTG) Pt will amb w/o AD w/o significant gait deviations and be able to go for short walks w/o inc pain greater than 2/10 11/15-amb w/SPC LTG Duration 01/10 LEFS Impairment 15/ Short Term Goal (STG) Pt will improve LEFS score to at least 30/80 to show improved functional ability. 09/18-14 10/18- 11/15- STG Duration 12/12 Rural Health Consultant Goal (LTG) Pt will improve LEFS score to at least 50/80 to show improved functional ability. LTG Duration 01/10 Assessment Summary Assessment WINDOWS SERVER SPECIALIST modified PF with hammock set up to include toe flexion/ eccentric ext with HO, reviewed toe curl /c arch lift to support intrinic strength, noted weakness tiring but no pain. Trialed standing but pain in L big toe and retro lean off balance. Discussed contact counter and SPC standing painfree range. No L knee pain with limited 5 reps during step downs today. Included wt shift LLE acceptance and then no AD in / /bars carryover midline trunk even geovanna, little smaller stride allowance, improved. Challenge L great toe ext due to pain during stairs, heavy BUE support. Physical Therapy Plan Frequency and Duration Frequency of Treatment 2x/Week Duration of treatment (weeks) 8 Plan of Care Start Date 11/15/24 Plan of Care End Date 01/10/25 Therapeutic Interventions Therapeutic Interventions Balance Training,Gait Training ,Home Exercise Program,Joint Mobilizations,Manual Therapy, Neuromuscular Re-education, Orthotic/Prosthetic Management ,Patient/Caregiver Education, Self-Care/Home Management,Soft Tissue Mobilization,Taping, Therapeutic Activities, Therapeutic Exercises Modalities Cold Pack/Ice Massage,Electric Stimulation,Hot Packs, Infrared Therapy Next Visit Focus/Plan Next Note Type Treatment Note Next Visit Plan Recheck standing HEP compliance incorporating carryover more functional mobility standing, eg stepping with rail support if needed, side stepping. POC: cont to work on balance, dec pain w/full wt acceptance LLE, toe mobility, work on gait w/cane
--- NOTE | 2024-11-22 13:43 | PT.OTN ---
Current Diagnoses Pain in right ankle and joints of right foot (11/22/24) Nondisplaced pilon fracture of right tibia, subsequent encounter for closed fracture with routine healing (11/22/24) Nondisplaced pilon fracture of left tibia, initial encounter for closed fracture (11/22/24) Dislocation of tarsometatarsal joint of left foot, initial encounter (11/22/24) Sprain of tibiofibular ligament of left ankle, initial encounter (11/22/24) Physical Therapy Treatment Note PT-OP-A Visit Information Start: 07/12/24 17:42 Freq: Status: Active Protocol: Document 11/22/24 13:00 SP (Rec: 11/22/24 13:54 SP [id number]) Out-Patient Physical Therapy Visit Information Visit Information Visit Type Treatment Note Visit Start Time 13:00 Visit Stop Time 13:43 Visit Number 25 (12/24 with PN) Number of ADVANCED MANAGER Visits 2 PT-OP-B Current Condition Start: 07/12/24 17:42 Freq: Status: Active Protocol: Document 09/18/24 14:45 [facility] (Rec: 09/18/24 18:08 [facility] [id number]) Current Condition History of Current Condition Onset Date injury april 15, sx 04/30 Current Complaints L ORIF lisfranc, pilon and syndesmosis History of Current Condition 09/18/24-pt fell 09/04 on 1 step w/FWW and hurt from L knee down to foot. Saw ortho and no further fx and cleared to cont PT and does not have return to ortho IE:Pt reports stood up to go to bed on April 15 and fell over her feet and broke her leg and bones in foot. She was put in splint ER and on April 30 got screws in foot, leg and ankle. Has had boot for 6-8 weeks. Tried to do the walker when cleared to in May and it hurt so bad, she couldn't do it. Dr. Guzman told her to wait a couple weeks again and on 06/19 was told again. Sees her again next Tuesday. Last tried to use walker about 1.5 weeks ago but it is too painful . When uses the walker , L shoulder has been more painful too. Broke ankle in 80s without surgery. Denies LE and back pain. Pt reports prior ot this was a couch potato. prior to this was indep w/dressing and bathing. Cannot get into shower so has been doing bird baths insteadwith help. He helps some w/dressing too. It is a walk in shower but has a step up so can't get in. Has a built in seat in there with grab bars in there. DOes SPT for all transfers w/o FWW. Has a ramp built in now for livingroom area to cover step. H w/flat entry. Pt has been doing APs Treatment Goals Patient/Caregiver Goals get back to walking PT-OP-C Subjective Start: 07/12/24 17:42 Freq: Status: Active Protocol: Document 11/22/24 13:00 SP (Rec: 11/22/24 13:54 SP [id number]) OP-PT Subjective Patient Comments Patient Comments Pt lateral wt shifting gait /c SPC arrival and reports continued L big toe still hurting, not sure why. PT-OP-F Manual Assessment Start: 07/12/24 17:42 Freq: Status: Active Protocol: Document 09/18/24 14:45 [facility] (Rec: 09/18/24 18:08 [facility] [id number]) Manual Assessments Other Manual Assessments Other Manual Assessments lat foot bruising, cont foot swelling L PT-OP-G Mobility & Gait Start: 07/12/24 17:42 Freq: Status: Active Protocol: Document 07/25/24 11:38 [facility] (Rec: 07/25/24 13:45 [facility] [id number]) OP Gait Assessment Comments Gait Comments came in w/WC. able to amb w/ FWW w/cues for step to pattern PT-OP-K Range of Motion Start: 07/12/24 17:42 Freq: Status: Active Protocol: Document 11/15/24 13:03 [facility] (Rec: 11/15/24 13:49 [facility] [id number]) Ankle and Foot Goniometric Range of Motion Ankle and Foot Left Active Dorsiflexion with Knee Flexed 0 Dorsiflexion with Knee Extended 10 Plantarflexion 55 Comments lacking DF to neural in knee ext position PT-OP-M Strength Start: 07/12/24 17:42 Freq: Status: Active Protocol: Document 11/15/24 13:03 [facility] (Rec: 11/15/24 13:49 [facility] [id number]) Hip Strength Hip Manual Muscle Testing Left Flexion (L2) 4 Good Abduction 3+ Fair+ External Rotation 4 Good Internal Rotation 4 Good Right Flexion (L2) 4 Good Abduction 4- Good- External Rotation 4 Good Internal Rotation 4+ Good+ Knee Strength Knee Manual Muscle Testing Left Flexion (S2) 4+ Good+ Extension (L3) 4 Good Right Flexion (S2) 4+ Good+ Extension (L3) 5 Normal Ankle/Foot Strength Ankle and Foot Manual Muscle Testing Right Dorsiflexion (L4) 5 Normal Plantarflexion (S1) 5 Normal Inversion 5 Normal Eversion (S1) 5 Normal Left Dorsiflexion (L4) 4+ Good+ Plantarflexion (S1) 4+ Good+ Inversion 4 Good Eversion (S1) 4 Good Comments mild pain; 3+/5 toe ext; 3_/5 toe flex PF tested seated PT-OP-Q Treatments Start: 07/12/24 17:42 Freq: Status: Active Protocol: Document 11/22/24 13:00 SP (Rec: 11/22/24 13:54 SP [id number]) Cardio Equipment Recumbent Bicycle Duration (Minutes) 6 Resistance 3 Seat Position 7 Other cued ankle mobility Therapeutic Exercises Sitting Exercises toe scrunches Sitting Exercise Name HEP review Side left Resistance AROM Equipment Used MTP flexion Reps/Minutes 10 seated, 5 reps feet on floor standing ankle DF, EV, IV Sitting Exercise Name PF hammock long sit; DF, EV, IR Side left Resistance Tb #3 [place] green Equipment Used long sit today 2/6 Reps/Minutes 20 reps each Comments verbal cues painfree range Standing Exercises air squats Reps/Minutes 5 reps. Comments squat grab item off floor, no problem no outside support Step ups Standing Exercise Name 1. step ups L 2. retro 3. lat Side left Resistance B HR support Equipment Used 6 in Reps/Minutes 10 each direction, only lateral 1 rail support Comments retro step down glut drive, L knee tender not pain, PIPPA dynamic calf stretch Standing Exercise Name fwd/bwd Side bilateral Equipment Used PIPPA, BUE on rail Reps/Minutes 10 Comments improved even WB BLE Manual Therapy Treatment Consent Patient gave verbal consent for manual Yes treatment Soft Tissue Mobilization plantar fascia Body Location L Mobilization Type Myofascial Release,Rolling Body Position Sitting Joint Mobilizations Talocrual Comments L distraction calcaneus and talus calcaneus Joint L distraction Grade II Body Position Supine MTP Joint L 1st MTP: distraction, AP, PA , rotation Grade II Comments manual IP, DIP, MTP Neuro Re-Education Treatment Balance Activities BOSU step up Details repeated step up Surface BOSU, rail support Comments R LE only, not zaynab L hurdles Details 6 hurdles- receiprocal stepping Equipment SPC in RUE Reps/Duration 2 laps each Comments fwd, lateral cued tall scap engagement for midline posturing PT-OP-R Modalities Start: 07/12/24 17:42 Freq: Status: Active Protocol: Document 08/06/24 13:43 SP (Rec: 08/06/24 15:29 SP [id number]) Hot Pack/Cold Pack Treatment CP Location L ankle Patient Position Hooklying Patient Tolerance Good Comments Reports helps decreased discomfort end tx. PT-OP-T Assessment and Plan Start: 07/12/24 17:42 Freq: Status: Active Protocol: Document 11/22/24 13:00 SP (Rec: 11/22/24 13:54 SP [id number]) Physical Therapy Assessment Goals ROM Short Term Goal (STG) Pt will have DF to neutral in knee flex position 09/18-worse since fall 10/18-much improved, -2 11/05/2024 lacking 2 deg from neutral end of session AROM left ankle STG Duration achieved 11/15 Miter Operator Goal (LTG) Pt will have at least DF to 5 deg in knee flex and extended position to allow for improved gait mechanics. LTG Duration 01/10 activity Short Term Goal (STG) Pt will ambulate in house w/ LRAD 100% of the time instead of use WC 09/18-during day but not at night STG Duration achieved 10/18 Longterm Goal (LTG) Pt will amb w/o AD w/o significant gait deviations and be able to go for short walks w/o inc pain greater than 2/10 11/15-amb w/SPC LTG Duration 01/10 LEFS Impairment 15 Short Term Goal (STG) Pt will improve LEFS score to at least 30/80 to show improved functional ability. 09/18-14 10/18- 11/15- STG Duration 12/12 Longterm Goal (LTG) Pt will improve LEFS score to at least 50/80 to show improved functional ability. LTG Duration 01/10 Assessment Summary Assessment ADVANCED MANAGER instructed if L 1st toe doesn't improve, contact PCP by Mon and request feedback and if need further assessment . No Hx of gout reported. Pt sensitive to dorsal 1st toe L, gentle jt mob ok. L toe pain trial BOSU stepping ok on R, ok firm step L but limit reps due to Knee irritation. Improved olvin stepping only SPC support today. Toe off and WB without support on LLE still challenge due to pain. Physical Therapy Plan Frequency and Duration Frequency of Treatment 2x/Week Duration of treatment (weeks) 8 Plan of Care Start Date 11/15/24 Plan of Care End Date 01/10/25 Therapeutic Interventions Therapeutic Interventions Balance Training,Gait Training ,Home Exercise Program,Joint Mobilizations,Manual Therapy, Neuromuscular Re-education, Orthotic/Prosthetic Management ,Patient/Caregiver Education, Self-Care/Home Management,Soft Tissue Mobilization,Taping, Therapeutic Activities, Therapeutic Exercises Modalities Cold Pack/Ice Massage,Electric Stimulation,Hot Packs, Infrared Therapy Next Visit Focus/Plan Next Note Type Treatment Note Next Visit Plan Recheck standing HEP compliance incorporating carryover more functional mobility standing, eg stepping with rail support if needed, side stepping. POC: cont to work on balance, dec pain w/full wt acceptance LLE, toe mobility, work on gait w/cane
--- NOTE | 2024-11-27 13:44 | PT.OTN ---
Current Diagnoses Pain in right ankle and joints of right foot (11/27/24) Nondisplaced pilon fracture of right tibia, subsequent encounter for closed fracture with routine healing (11/27/24) Nondisplaced pilon fracture of left tibia, initial encounter for closed fracture (11/27/24) Dislocation of tarsometatarsal joint of left foot, initial encounter (11/27/24) Sprain of tibiofibular ligament of left ankle, initial encounter (11/27/24) Physical Therapy Treatment Note PT-OP-A Visit Information Start: 07/12/24 17:42 Freq: Status: Active Protocol: Document 11/27/24 13:01 SP (Rec: 11/27/24 13:49 SP [id number]) Out-Patient Physical Therapy Visit Information Visit Information Visit Type Treatment Note Visit Start Time 13:01 Visit Stop Time 13:44 Visit Number 26 (01/24 with PN) Number of FOILING MACHINE OPERATOR Visits 3 PT-OP-B Current Condition Start: 07/12/24 17:42 Freq: Status: Active Protocol: Document 09/18/24 14:45 [facility] (Rec: 09/18/24 18:08 [facility] [id number]) Current Condition History of Current Condition Onset Date injury april 15, sx 04/30 Current Complaints L ORIF lisfranc, pilon and syndesmosis History of Current Condition 09/18/24-pt fell 09/04 on 1 step w/FWW and hurt from L knee down to foot. Saw ortho and no further fx and cleared to cont PT and does not have return to ortho IE:Pt reports stood up to go to bed on April 15 and fell over her feet and broke her leg and bones in foot. She was put in splint ER and on April 30 got screws in foot, leg and ankle. Has had boot for 6-8 weeks. Tried to do the walker when cleared to in May and it hurt so bad, she couldn't do it. Dr. Guzman told her to wait a couple weeks again and on 06/19 was told again. Sees her again next Tuesday. Last tried to use walker about 1.5 weeks ago but it is too painful . When uses the walker , L shoulder has been more painful too. Broke ankle in 80s without surgery. Denies LE and back pain. Pt reports prior ot this was a couch potato. prior to this was indep w/dressing and bathing. Cannot get into shower so has been doing bird baths insteadwith help. He helps some w/dressing too. It is a walk in shower but has a step up so can't get in. Has a built in seat in there with grab bars in there. DOes SPT for all transfers w/o FWW. Has a ramp built in now for livingroom area to cover step. H w/flat entry. Pt has been doing APs Treatment Goals Patient/Caregiver Goals get back to walking PT-OP-C Subjective Start: 07/12/24 17:42 Freq: Status: Active Protocol: Document 11/27/24 13:01 SP (Rec: 11/27/24 13:49 SP [id number]) OP-PT Subjective Patient Comments Patient Comments Pt reports pain in L great toe less but cant bend it walking/stairs with significant change in pain reports, is the most limiting factor. Deciding if should call the DR. PT-OP-F Manual Assessment Start: 07/12/24 17:42 Freq: Status: Active Protocol: Document 09/18/24 14:45 [facility] (Rec: 09/18/24 18:08 [facility] [id number]) Manual Assessments Other Manual Assessments Other Manual Assessments lat foot bruising, cont foot swelling L PT-OP-G Mobility & Gait Start: 07/12/24 17:42 Freq: Status: Active Protocol: Document 07/25/24 11:38 [facility] (Rec: 07/25/24 13:45 [facility] [id number]) OP Gait Assessment Comments Gait Comments came in w/WC. able to amb w/ FWW w/cues for step to pattern PT-OP-K Range of Motion Start: 07/12/24 17:42 Freq: Status: Active Protocol: Document 11/15/24 13:03 [facility] (Rec: 11/15/24 13:49 [facility] [id number]) Ankle and Foot Goniometric Range of Motion Ankle and Foot Left Active Dorsiflexion with Knee Flexed 0 Dorsiflexion with Knee Extended 10 Plantarflexion 55 Comments lacking DF to neural in knee ext position PT-OP-M Strength Start: 07/12/24 17:42 Freq: Status: Active Protocol: Document 11/15/24 13:03 [facility] (Rec: 11/15/24 13:49 [facility] [id number]) Hip Strength Hip Manual Muscle Testing Left Flexion (L2) 4 Good Abduction 3+ Fair+ External Rotation 4 Good Internal Rotation 4 Good Right Flexion (L2) 4 Good Abduction 4- Good- External Rotation 4 Good Internal Rotation 4+ Good+ Knee Strength Knee Manual Muscle Testing Left Flexion (S2) 4+ Good+ Extension (L3) 4 Good Right Flexion (S2) 4+ Good+ Extension (L3) 5 Normal Ankle/Foot Strength Ankle and Foot Manual Muscle Testing Right Dorsiflexion (L4) 5 Normal Plantarflexion (S1) 5 Normal Inversion 5 Normal Eversion (S1) 5 Normal Left Dorsiflexion (L4) 4+ Good+ Plantarflexion (S1) 4+ Good+ Inversion 4 Good Eversion (S1) 4 Good Comments mild pain; 3+/5 toe ext; 3_/5 toe flex PF tested seated PT-OP-Q Treatments Start: 07/12/24 17:42 Freq: Status: Active Protocol: Document 11/27/24 13:01 SP (Rec: 11/27/24 13:49 [id number]) Therapeutic Exercises Standing Exercises air squats Standing Exercise Name AROM Equipment Used foam Reps/Minutes 10 reps. Comments hands hover rail sidesteps Standing Exercise Name added to HEP, declined HO Side bilateral Resistance Tb #2 at shins Reps/Minutes 10ftx2 ea Comments cues toe heel, eccentric trail LE Manual Therapy Treatment Consent Patient gave verbal consent for manual Yes treatment Soft Tissue Mobilization plantar fascia Body Location L Mobilization Type Myofascial Release,Rolling Body Position Supine Joint Mobilizations Talocrual Comments L distraction calcaneus and talus calcaneus Joint L distraction Grade II Body Position Supine MTP Joint L 1st MTP: distraction, AP, PA , rotation Grade II Comments manual IP, DIP, MTP Manual Techniques PROM L ankle Type DF, 1st toe ext- L ft Reps/Duration 5 reps x5 Comments monitored for pain free range Neuro Re-Education Treatment Balance Activities BOSU lunge Details repeated stationary lunge (fwd , lateral) Equipment rail light/PRN contact support Reps/Duration 2x10 each LE each direction Comments Lateral cued buttocks back, pnfree range BOSU stand bal Equipment PRN rail Comments 3, 4, 3 sec- before L toe pain needed to stop hurdles Details 6 hurdles- receiprocal stepping Surface floor 2 laps fwd/ lateral x1, foam fwd x2 laps SPC & light PRN 2nd UE rail Equipment 1 //bar PRN, SPC Comments fwd, lateral cued tall, scap engagement for midline posturing and softer stepping PT-OP-R Modalities Start: 07/12/24 17:42 Freq: Status: Active Protocol: Document 08/06/24 13:43 SP (Rec: 08/06/24 15:29 SP [id number]) Hot Pack/Cold Pack Treatment CP Location L ankle Patient Position Hooklying Patient Tolerance Good Comments Reports helps decreased discomfort end tx. PT-OP-T Assessment and Plan Start: 07/12/24 17:42 Freq: Status: Active Protocol: Document 11/27/24 13:01 SP (Rec: 11/27/24 13:49 SP [id number]) Physical Therapy Assessment Goals ROM Short Term Goal (STG) Pt will have DF to neutral in knee flex position 09/18-worse since fall 10/18-much improved, -2 11/05/2024 lacking 2 deg from neutral end of session AROM left ankle STG Duration achieved 11/15 Employment Service Specialist Goal (LTG) Pt will have at least DF to 5 deg in knee flex and extended position to allow for improved gait mechanics. LTG Duration 01/10 activity Short Term Goal (STG) Pt will ambulate in house w/ LRAD 100% of the time instead of use WC 09/18-during day but not at night STG Duration achieved 10/18 Employment Service Specialist Goal (LTG) Pt will amb w/o AD w/o significant gait deviations and be able to go for short walks w/o inc pain greater than 2/10 11/15-amb w/SPC LTG Duration 01/10 LEFS Impairment 15 Short Term Goal (STG) Pt will improve LEFS score to at least 30/80 to show improved functional ability. 09/18-14 10/18- 11/15- STG Duration 12/12 Employment Service Specialist Goal (LTG) Pt will improve LEFS score to at least 50/80 to show improved functional ability. LTG Duration 01/10 Assessment Summary Assessment Pt continues to be sensitive to L 1st great toe ext during manual and activities. Improved tolerance progression BOSU lunges, cues for buttock back latera, pnfree range fwd for funcitonal mobiltiy. Able to incorporate uneven hurdles SPC and PRN opp UE on rail during L>R stance time stabiltiy self support, cues for posturing. Physical Therapy Plan Frequency and Duration Frequency of Treatment 2x/Week Duration of treatment (weeks) 8 Plan of Care Start Date 11/15/24 Plan of Care End Date 01/10/25 Therapeutic Interventions Therapeutic Interventions Balance Training,Gait Training ,Home Exercise Program,Joint Mobilizations,Manual Therapy, Neuromuscular Re-education, Orthotic/Prosthetic Management ,Patient/Caregiver Education, Self-Care/Home Management,Soft Tissue Mobilization,Taping, Therapeutic Activities, Therapeutic Exercises Modalities Cold Pack/Ice Massage,Electric Stimulation,Hot Packs, Infrared Therapy Next Visit Focus/Plan Next Note Type Treatment Note Next Visit Plan Recheck standing HEP compliance incorporating carryover more functional mobility standing, eg stepping with rail support if needed, side stepping. POC: cont to work on balance, dec pain w/full wt acceptance LLE, toe mobility, work on gait w/cane
--- NOTE | 2024-11-29 13:50 | PT.OTN ---
Current Diagnoses Pain in right ankle and joints of right foot (11/29/24) Nondisplaced pilon fracture of right tibia, subsequent encounter for closed fracture with routine healing (11/29/24) Nondisplaced pilon fracture of left tibia, initial encounter for closed fracture (11/29/24) Dislocation of tarsometatarsal joint of left foot, initial encounter (11/29/24) Sprain of tibiofibular ligament of left ankle, initial encounter (11/29/24) Physical Therapy Treatment Note PT-OP-A Visit Information Start: 07/12/24 17:42 Freq: Status: Active Protocol: Document 11/29/24 13:01 [facility] (Rec: 11/29/24 13:50 [facility] [id number]) Out-Patient Physical Therapy Visit Information Visit Information Visit Type Treatment Note Visit Start Time 13:02 Visit Stop Time 13:42 Visit Number 27 (02/23) Number of CONCRETE CARPENTER Visits 0 PT-OP-B Current Condition Start: 07/12/24 17:42 Freq: Status: Active Protocol: Document 09/18/24 14:45 [facility] (Rec: 09/18/24 18:08 [facility] [id number]) Current Condition History of Current Condition Onset Date injury april 15, sx 04/30 Current Complaints L ORIF lisfranc, pilon and syndesmosis History of Current Condition 09/18/24-pt fell 09/04 on 1 step w/FWW and hurt from L knee down to foot. Saw ortho and no further fx and cleared to cont PT and does not have return to ortho IE:Pt reports stood up to go to bed on April 15 and fell over her feet and broke her leg and bones in foot. She was put in splint ER and on April 30 got screws in foot, leg and ankle. Has had boot for 6-8 weeks. Tried to do the walker when cleared to in May and it hurt so bad, she couldn't do it. Dr. Guzman told her to wait a couple weeks again and on 06/19 was told again. Sees her again next Tuesday. Last tried to use walker about 1.5 weeks ago but it is too painful . When uses the walker , L shoulder has been more painful too. Broke ankle in 80s without surgery. Denies LE and back pain. Pt reports prior ot this was a couch potato. prior to this was indep w/dressing and bathing. Cannot get into shower so has been doing bird baths insteadwith help. He helps some w/dressing too. It is a walk in shower but has a step up so can't get in. Has a built in seat in there with grab bars in there. DOes SPT for all transfers w/o FWW. Has a ramp built in now for livingroom area to cover step. H w/flat entry. Pt has been doing APs Treatment Goals Patient/Caregiver Goals get back to walking PT-OP-C Subjective Start: 07/12/24 17:42 Freq: Status: Active Protocol: Document 11/29/24 13:01 [facility] (Rec: 11/29/24 13[id number] Subjective Patient Comments Patient Comments Pt notes she thinks she had some bruising at lat foot L but no pain PT-OP-F Manual Assessment Start: 07/12/24 17:42 Freq: Status: Active Protocol: Document 09/18/24 14:45 [facility] (Rec: 09/18/24 18:08 [id number] Manual Assessments Other Manual Assessments Other Manual Assessments lat foot bruising, cont foot swelling L PT-OP-G Mobility & Gait Start: 07/12/24 17:42 Freq: Status: Active Protocol: Document 07/25/24 11:38 [facility] (Rec: 07/25/24 13:45 [facility] [id number]) OP Gait Assessment Comments Gait Comments came in w/WC. able to amb w/ FWW w/cues for step to pattern PT-OP-K Range of Motion Start: 07/12/24 17:42 Freq: Status: Active Protocol: Document 11/15/24 13:03 [facility] (Rec: 11/15/24 13:49 [facility] [id number]) Ankle and Foot Goniometric Range of Motion Ankle and Foot Left Active Dorsiflexion with Knee Flexed 0 Dorsiflexion with Knee Extended 10 Plantarflexion 55 Comments lacking DF to neural in knee ext position PT-OP-M Strength Start: 07/12/24 17:42 Freq: Status: Active Protocol: Document 11/15/24 13:03 [facility] (Rec: 11/15/24 13:49 [facility] [id number]) Hip Strength Hip Manual Muscle Testing Left Flexion (L2) 4 Good Abduction 3+ Fair+ External Rotation 4 Good Internal Rotation 4 Good Right Flexion (L2) 4 Good Abduction 4- Good- External Rotation 4 Good Internal Rotation 4+ Good+ Knee Strength Knee Manual Muscle Testing Left Flexion (S2) 4+ Good+ Extension (L3) 4 Good Right Flexion (S2) 4+ Good+ Extension (L3) 5 Normal Ankle/Foot Strength Ankle and Foot Manual Muscle Testing Right Dorsiflexion (L4) 5 Normal Plantarflexion (S1) 5 Normal Inversion 5 Normal Eversion (S1) 5 Normal Left Dorsiflexion (L4) 4+ Good+ Plantarflexion (S1) 4+ Good+ Inversion 4 Good Eversion (S1) 4 Good Comments mild pain; 3+/5 toe ext; 3_/5 toe flex PF tested seated PT-OP-Q Treatments Start: 07/12/24 17:42 Freq: Status: Active Protocol: Document 11/29/24 13:01 [facility] (Rec: 11/29/24 13:50 [facility] [id number]) Therapeutic Exercises Sitting Exercises self release Sitting Exercise Name [employer] left Reps/Minutes 1 min Comments plantar fascia Gait Training Gait Activity gait at wall Comments LLE 15 sec x5 (no PF) no AD Comments in mirror working on push off and no lat lean 10ft x12 WB LLE acceptance Comments resisted gait w/PT at pelvis and pt hands at PT shoulders 4x10ft step Comments 1. fwd step up/backward down x10 L 2. lat step up/down x10 L Manual Therapy Treatment Consent Patient gave verbal consent for manual Yes treatment Soft Tissue Mobilization calf Body Location L achilles and soleus Mobilization Type Cross-Friction,Myofascial Release,Rolling,Other Body Position sit Comments w/AP plantar fascia Body Location L Mobilization Type Myofascial Release,Rolling Body Position sit Neuro Re-Education Treatment Balance Activities tandem Comments B trials 2. fwd walk 10ft w/fingers on bar SLS Comments B trials PT-OP-R Modalities Start: 07/12/24 17:42 Freq: Status: Active Protocol: Document 08/06/24 13:43 SP (Rec: 08/06/24 15:29 SP [id number]) Hot Pack/Cold Pack Treatment CP Location L ankle Patient Position Hooklying Patient Tolerance Good Comments Reports helps decreased discomfort end tx. PT-OP-T Assessment and Plan Start: 07/12/24 17:42 Freq: Status: Active Protocol: Document 11/29/24 13:01 [facility] (Rec: 11/29/24 13:50 [facility] [id number]) Physical Therapy Assessment Goals ROM Short Term Goal (STG) Pt will have DF to neutral in knee flex position 09/18-worse since fall 10/18-much improved, -2 11/05/2024 lacking 2 deg from neutral end of session AROM left ankle STG Duration achieved 11/15 Manager Of Software Goal (LTG) Pt will have at least DF to 5 deg in knee flex and extended position to allow for improved gait mechanics. LTG Duration 01/10 activity Short Term Goal (STG) Pt will ambulate in house w/ LRAD 100% of the time instead of use WC 09/18-during day but not at night STG Duration achieved 10/18 Manager Of Software Goal (LTG) Pt will amb w/o AD w/o significant gait deviations and be able to go for short walks w/o inc pain greater than 2/10 11/15-amb w/SPC LTG Duration 01/10 LEFS Impairment 15/80 Short Term Goal (STG) Pt will improve LEFS score to at least 30/80 to show improved functional ability. 09/18-10/18-1811/15- STG Duration 12/12 Assisted Goal (LTG) Pt will improve LEFS score to at least 50/80 to show improved functional ability. LTG Duration 01/10 Assessment Summary Assessment No bruising noted on foot but vein present and some redness when pt took off shoe. Pt encouraged to check in AM after sleeping to see if shoe pressing into her. Encouraged to follow up w/MD about 1st MTP and L knee as 1st MTP is limiting her most in mobility Physical Therapy Plan Frequency and Duration Frequency of Treatment 2x/Week Duration of treatment (weeks) 8 Plan of Care Start Date 11/15/24 Plan of Care End Date 01/10/25 Next Visit Focus/Plan Next Note Type Treatment Note Next Visit Plan cont t o work on gait, dynamic balance, manual and exercise for iproved ROM and improve hip strength
--- NOTE | 2024-12-03 16:17 | PT.OTN ---
Current Diagnoses Pain in right ankle and joints of right foot (12/03/24) Nondisplaced pilon fracture of right tibia, subsequent encounter for closed fracture with routine healing (12/03/24) Nondisplaced pilon fracture of left tibia, initial encounter for closed fracture (12/03/24) Dislocation of tarsometatarsal joint of left foot, initial encounter (12/03/24) Sprain of tibiofibular ligament of left ankle, initial encounter (12/03/24) Physical Therapy Treatment Note PT-OP-A Visit Information Start: 07/12/24 17:42 Freq: Status: Active Protocol: Document 12/03/24 15:23 [facility] (Rec: 12/03/24 16:17 [facility] [id number]) Out-Patient Physical Therapy Visit Information Visit Information Visit Type Treatment Note Visit Start Time 15:22 Visit Stop Time 16:00 Visit Number 38(03/26) Number of METAL MOLD DRESSER Visits 0 PT-OP-B Current Condition Start: 07/12/24 17:42 Freq: Status: Active Protocol: Document 09/18/24 14:45 [facility] (Rec: 09/18/24 18:08 [facility] [id number]) Current Condition History of Current Condition Onset Date injury april 15, sx 04/30 Current Complaints L ORIF lisfranc, pilon and syndesmosis History of Current Condition 09/18/24-pt fell 09/04 on 1 step w/FWW and hurt from L knee down to foot. Saw ortho and no further fx and cleared to cont PT and does not have return to ortho IE:Pt reports stood up to go to bed on April 15 and fell over her feet and broke her leg and bones in foot. She was put in splint ER and on April 30 got screws in foot, leg and ankle. Has had boot for 6-8 weeks. Tried to do the walker when cleared to in May and it hurt so bad, she couldn't do it. Dr. Guzman told her to wait a couple weeks again and on 06/19 was told again. Sees her again next Tuesday. Last tried to use walker about 1.5 weeks ago but it is too painful . When uses the walker , L shoulder has been more painful too. Broke ankle in 80s without surgery. Denies LE and back pain. Pt reports prior ot this was a couch potato. prior to this was indep w/dressing and bathing. Cannot get into shower so has been doing bird baths insteadwith help. He helps some w/dressing too. It is a walk in shower but has a step up so can't get in. Has a built in seat in there with grab bars in there. DOes SPT for all transfers w/o FWW. Has a ramp built in now for livingroom area to cover step. SLH w/flat entry. Pt has been doing APs Treatment Goals Patient/Caregiver Goals get back to walking PT-OP-C Subjective Start: 07/12/24 17:42 Freq: Status: Active Protocol: Document 12/03/24 15:23 [facility] (Rec: 12/03/24 [id number]PT Subjective Patient Comments Patient Comments Sees PA on wed PT-OP-F Manual Assessment Start: 07/12/24 17:42 Freq: Status: Active Protocol: Document 09/18/24 14:45 [facility] (Rec: 09/18/24 18:08 [id number] Manual Assessments Other Manual Assessments Other Manual Assessments lat foot bruising, cont foot swelling L PT-OP-G Mobility & Gait Start: 07/12/24 17:42 Freq: Status: Active Protocol: Document 07/25/24 11:38 [facility] (Rec: 07/25/24 13:45 [id number] OP Gait Assessment Comments Gait Comments came in w/WC. able to amb w/ FWW w/cues for step to pattern PT-OP-K Range of Motion Start: 07/12/24 17:42 Freq: Status: Active Protocol: Document 11/15/24 13:03 [facility] (Rec: 11/15/24 13:49 [facility] [id number]) Ankle and Foot Goniometric Range of Motion Ankle and Foot Left Active Dorsiflexion with Knee Flexed 0 Dorsiflexion with Knee Extended 10 Plantarflexion 55 Comments lacking DF to neural in knee ext position PT-OP-M Strength Start: 07/12/24 17:42 Freq: Status: Active Protocol: Document 11/15/24 13:03 [facility] (Rec: 11/15/24 13:49 [facility] [id number]) Hip Strength Hip Manual Muscle Testing Left Flexion (L2) 4 Good Abduction 3+ Fair+ External Rotation 4 Good Internal Rotation 4 Good Right Flexion (L2) 4 Good Abduction 4- Good- External Rotation 4 Good Internal Rotation 4+ Good+ Knee Strength Knee Manual Muscle Testing Left Flexion (S2) 4+ Good+ Extension (L3) 4 Good Right Flexion (S2) 4+ Good+ Extension (L3) 5 Normal Ankle/Foot Strength Ankle and Foot Manual Muscle Testing Right Dorsiflexion (L4) 5 Normal Plantarflexion (S1) 5 Normal Inversion 5 Normal Eversion (S1) 5 Normal Left Dorsiflexion (L4) 4+ Good+ Plantarflexion (S1) 4+ Good+ Inversion 4 Good Eversion (S1) 4 Good Comments mild pain; 3+/5 toe ext; 3_/5 toe flex PF tested seated PT-OP-Q Treatments Start: 07/12/24 17:42 Freq: Status: Active Protocol: Document 12/03/24 15:23 [facility] (Rec: 12/03/24 16:17 [facility] [id number]) Therapeutic Exercises Standing Exercises air squats Standing Exercise Name AROM comfortable range Equipment Used foam Reps/Minutes 15 reps. Comments hands hover rail hip hike Side bilateral Equipment Used step w/rail Reps/Minutes 15 sidesteps Standing Exercise Name cues rasheeda lean Side bilateral Resistance Tb #2 around foot Reps/Minutes 10ft ea Step ups Standing Exercise Name 1. step ups/back 2. lat Side bilateral Resistance 1 HR support Equipment Used 6 in Reps/Minutes 12 each direction Comments cues contorl Manual Therapy Treatment Consent Patient gave verbal consent for manual Yes treatment Soft Tissue Mobilization calf Body Location L achilles and soleus Mobilization Type Cross-Friction,Myofascial Release,Rolling,Other Body Position sit Comments w/AP plantar fascia Body Location L Mobilization Type Myofascial Release,Rolling Body Position sit Neuro Re-Education Treatment Balance Activities tandem Comments B trials 2. fwd walk 10ftx2 w/ 2 fingers on bar BOSU lunge Details repeated stationary lunge (fwd , lateral) Equipment rail light/PRN contact support Reps/Duration x10 each LE each direction Comments Lateral cued buttocks back, pnfree range BOSU stand bal Comments DL balance PT-OP-R Modalities Start: 07/12/24 17:42 Freq: Status: Active Protocol: Document 08/06/24 13:43 [facility] (Rec: 08/06/24 15:29 [facility] [id number]) Hot Pack/Cold Pack Treatment CP Location L ankle Patient Position Hooklying Patient Tolerance Good Comments Reports helps decreased discomfort end tx. PT-OP-T Assessment and Plan Start: 07/12/24 17:42 Freq: Status: Active Protocol: Document 12/03/24 15:23 [facility] (Rec: 12/03/24 16:17 [facility] [id number]) Physical Therapy Assessment Goals ROM Short Term Goal (STG) Pt will have DF to neutral in knee flex position 09/18-worse since fall 10/18-much improved, -2 11/05/2024 lacking 2 deg from neutral end of session AROM left ankle STG Duration achieved 11/15 Residential Goal (LTG) Pt will have at least DF to 5 deg in knee flex and extended position to allow for improved gait mechanics. LTG Duration 01/10 activity Short Term Goal (STG) Pt will ambulate in house w/ LRAD 100% of the time instead of use WC 09/18-during day but not at night STG Duration achieved 10/18 Wood Hacker Goal (LTG) Pt will amb w/o AD w/o significant gait deviations and be able to go for short walks w/o inc pain greater than 2/10 11/15-amb w/SPC LTG Duration 01/10 LEFS Impairment 15/80 Short Term Goal (STG) Pt will improve LEFS score to at least 30/80 to show improved functional ability. 09/18-14 10/18-18/11/15- STG Duration 12/12 Residential Goal (LTG) Pt will improve LEFS score to at least 50/80 to show improved functional ability. LTG Duration 01/10 Assessment Summary Assessment pain in toe continues to limit her w/activities d/t pain. She is to see PA re: this on tue and will adjust based on that appt. Physical Therapy Plan Frequency and Duration Frequency of Treatment 2x/Week Duration of treatment (weeks) 8 Plan of Care Start Date 11/15/24 Plan of Care End Date 01/10/25 Next Visit Focus/Plan Next Note Type Treatment Note Next Visit Plan cont t o work on gait, dynamic balance, manual and exercise for iproved ROM and improve hip strength
--- NOTE | 2024-12-05 17:02 | PT.OTN ---
Current Diagnoses Pain in right ankle and joints of right foot (12/05/24) Nondisplaced pilon fracture of right tibia, subsequent encounter for closed fracture with routine healing (12/05/24) Nondisplaced pilon fracture of left tibia, initial encounter for closed fracture (12/05/24) Dislocation of tarsometatarsal joint of left foot, initial encounter (12/05/24) Sprain of tibiofibular ligament of left ankle, initial encounter (12/05/24) Physical Therapy Treatment Note PT-OP-A Visit Information Start: 07/12/24 17:42 Freq: Status: Active Protocol: Document 12/05/24 16:18 [facility] (Rec: 12/05/24 17:02 [facility] [id number]) Out-Patient Physical Therapy Visit Information Visit Information Visit Type Treatment Note Visit Start Time 16:18 Visit Stop Time 16:58 Visit Number 39 (04/25) Number of FAMILY DAY CARER Visits 0 PT-OP-B Current Condition Start: 07/12/24 17:42 Freq: Status: Active Protocol: Document 09/18/24 14:45 [facility] (Rec: 09/18/24 18:08 [facility] [id number]) Current Condition History of Current Condition Onset Date injury april 15, sx 04/30 Current Complaints L ORIF lisfranc, pilon and syndesmosis History of Current Condition 09/18/24-pt fell 09/04 on 1 step w/FWW and hurt from L knee down to foot. Saw ortho and no further fx and cleared to cont PT and does not have return to ortho IE:Pt reports stood up to go to bed on April 15 and fell over her feet and broke her leg and bones in foot. She was put in splint ER and on April 30 got screws in foot, leg and ankle. Has had boot for 6-8 weeks. Tried to do the walker when cleared to in May and it hurt so bad, she couldn't do it. Dr. Guzman told her to wait a couple weeks again and on 06/19 was told again. Sees her again next Tuesday. Last tried to use walker about 1.5 weeks ago but it is too painful . When uses the walker , L shoulder has been more painful too. Broke ankle in 80s without surgery. Denies LE and back pain. Pt reports prior ot this was a couch potato. prior to this was indep w/dressing and bathing. Cannot get into shower so has been doing bird baths insteadwith help. He helps some w/dressing too. It is a walk in shower but has a step up so can't get in. Has a built in seat in there with grab bars in there. DOes SPT for all transfers w/o FWW. Has a ramp built in now for livingroom area to cover step. H w/flat entry. Pt has been doing APs Treatment Goals Patient/Caregiver Goals get back to walking PT-OP-C Subjective Start: 07/12/24 17:42 Freq: Status: Active Protocol: Document 12/05/24 16:18 [facility] (Rec: 12/05/24 17:02 [facility] [id number]) OP-PT Subjective Patient Comments Patient Comments PA is going to start her on meloxicam now and she will see doctor in 2 weeks PT-OP-F Manual Assessment Start: 07/12/24 17:42 Freq: Status: Active Protocol: Document 09/18/24 14:45 [facility] (Rec: 09/18/24 18:08 [facility] [id number]) Manual Assessments Other Manual Assessments Other Manual Assessments lat foot bruising, cont foot swelling L PT-OP-G Mobility & Gait Start: 07/12/24 17:42 Freq: Status: Active Protocol: Document 07/25/24 11:38 [facility] (Rec: 07/25/24 13:45 [facility] [id number]) OP Gait Assessment Comments Gait Comments came in w/WC. able to amb w/ FWW w/cues for step to pattern PT-OP-K Range of Motion Start: 07/12/24 17:42 Freq: Status: Active Protocol: Document 11/15/24 13:03 [facility] (Rec: 11/15/24 13:49 [facility] [id number]) Ankle and Foot Goniometric Range of Motion Ankle and Foot Left Active Dorsiflexion with Knee Flexed 0 Dorsiflexion with Knee Extended 10 Plantarflexion 55 Comments lacking DF to neural in knee ext position PT-OP-M Strength Start: 07/12/24 17:42 Freq: Status: Active Protocol: Document 11/15/24 13:03 [facility] (Rec: 11/15/24 13:49 [facility] [id number]) Hip Strength Hip Manual Muscle Testing Left Flexion (L2) 4 Good Abduction 3+ Fair+ External Rotation 4 Good Internal Rotation 4 Good Right Flexion (L2) 4 Good Abduction 4- Good- External Rotation 4 Good Internal Rotation 4+ Good+ Knee Strength Knee Manual Muscle Testing Left Flexion (S2) 4+ Good+ Extension (L3) 4 Good Right Flexion (S2) 4+ Good+ Extension (L3) 5 Normal Ankle/Foot Strength Ankle and Foot Manual Muscle Testing Right Dorsiflexion (L4) 5 Normal Plantarflexion (S1) 5 Normal Inversion 5 Normal Eversion (S1) 5 Normal Left Dorsiflexion (L4) 4+ Good+ Plantarflexion (S1) 4+ Good+ Inversion 4 Good Eversion (S1) 4 Good Comments mild pain; 3+/5 toe ext; 3_/5 toe flex PF tested seated PT-OP-Q Treatments Start: 07/12/24 17:42 Freq: Status: Active Protocol: Document 12/05/24 16:18 [facility] (Rec: 12/05/24 17:02 [facility] [id number]) Gym Equipment Shuttle Balance Red [employer] Comments fwd & side: WBOS & NBOS fwd: staggered stance B Therapeutic Exercises Sitting Exercises toe scrunches Sitting Exercise Name towel Side left Reps/Minutes 2 min Comments limited scrunch Standing Exercises gait at wall Standing Exercise Name heel down Side bilateral Reps/Minutes 15 sec x3 B Manual Therapy Treatment Consent Patient gave verbal consent for manual Yes treatment Soft Tissue Mobilization calf Body Location L achilles and soleus Mobilization Type Cross-Friction,Myofascial Release,Rolling,Other Body Position sit Comments w/AP Joint Mobilizations calcaneus Comments distraction L Neuro Re-Education Treatment Balance Activities tandem Comments 1.B trials 2. fwd walk 10ftx2 w/ 2 fingers on bar BOSU lunge Details repeated stationary lunge (fwd , lateral) Equipment rail light/PRN contact support Reps/Duration x10 each LE each direction Comments comfortable range PT-OP-R Modalities Start: 07/12/24 17:42 Freq: Status: Active Protocol: Document 08/06/24 13:43 SP (Rec: 08/06/24 15:29 SP [id number]) Hot Pack/Cold Pack Treatment CP Location L ankle Patient Position Hooklying Patient Tolerance Good Comments Reports helps decreased discomfort end tx. PT-OP-T Assessment and Plan Start: 07/12/24 17:42 Freq: Status: Active Protocol: Document 12/05/24 16:18 [facility] (Rec: 12/05/24 17:02 [facility] [id number]) Physical Therapy Assessment Goals ROM Short Term Goal (STG) Pt will have DF to neutral in knee flex position 09/18-worse since fall 10/18-much improved, -2 11/05/2024 lacking 2 deg from neutral end of session AROM left ankle STG Duration achieved 11/15 Fabrication And Layout Craftsman Goal (LTG) Pt will have at least DF to 5 deg in knee flex and extended position to allow for improved gait mechanics. LTG Duration 01/10 activity Short Term Goal (STG) Pt will ambulate in house w/ LRAD 100% of the time instead of use WC 09/18-during day but not at night STG Duration achieved 10/18 Correction Goal (LTG) Pt will amb w/o AD w/o significant gait deviations and be able to go for short walks w/o inc pain greater than 2/10 11/15-amb w/SPC LTG Duration 01/10 LEFS Impairment 15/80 Short Term Goal (STG) Pt will improve LEFS score to at least 30/80 to show improved functional ability. 09/18-14 10/18- 11/15- STG Duration 12/12 Correction Goal (LTG) Pt will improve LEFS score to at least 50/80 to show improved functional ability. LTG Duration 01/10 Assessment Summary Assessment Pt improving w/activity but still challenged by toe pain during activities. Physical Therapy Plan Frequency and Duration Frequency of Treatment 2x/Week Duration of treatment (weeks) 8 Plan of Care Start Date 11/15/24 Plan of Care End Date 01/10/25 Next Visit Focus/Plan Next Note Type Treatment Note Next Visit Plan cont t o work on gait, dynamic balance, manual and exercise for iproved ROM and improve hip strength
--- NOTE | 2024-12-10 12:18 | PT.OTN ---
Current Diagnoses Pain in right ankle and joints of right foot (12/10/24) Nondisplaced pilon fracture of right tibia, subsequent encounter for closed fracture with routine healing (12/10/24) Nondisplaced pilon fracture of left tibia, initial encounter for closed fracture (12/10/24) Dislocation of tarsometatarsal joint of left foot, initial encounter (12/10/24) Sprain of tibiofibular ligament of left ankle, initial encounter (12/10/24) Physical Therapy Treatment Note PT-OP-A Visit Information Start: 07/12/24 17:42 Freq: Status: Active Protocol: Document 12/10/24 11:38 SP (Rec: 12/10/24 12:34 SP [id number]) Out-Patient Physical Therapy Visit Information Visit Information Visit Type Treatment Note Visit Start Time 11:38 Visit Stop Time 12:18 Visit Number 40 (05/26) Number of SHERIFF'S OFFICER Visits 1 PT-OP-B Current Condition Start: 07/12/24 17:42 Freq: Status: Active Protocol: Document 09/18/24 14:45 [facility] (Rec: 09/18/24 18:08 [facility] [id number]) Current Condition History of Current Condition Onset Date injury april 15, sx 04/30 Current Complaints L ORIF lisfranc, pilon and syndesmosis History of Current Condition 09/18/24-pt fell 09/04 on 1 step w/FWW and hurt from L knee down to foot. Saw ortho and no further fx and cleared to cont PT and does not have return to ortho IE:Pt reports stood up to go to bed on April 15 and fell over her feet and broke her leg and bones in foot. She was put in splint ER and on April 30 got screws in foot, leg and ankle. Has had boot for 6-8 weeks. Tried to do the walker when cleared to in May and it hurt so bad, she couldn't do it. Dr. Guzman told her to wait a couple weeks again and on 06/19 was told again. Sees her again next Tuesday. Last tried to use walker about 1.5 weeks ago but it is too painful . When uses the walker , L shoulder has been more painful too. Broke ankle in 80s without surgery. Denies LE and back pain. Pt reports prior ot this was a couch potato. prior to this was indep w/dressing and bathing. Cannot get into shower so has been doing bird baths insteadwith help. He helps some w/dressing too. It is a walk in shower but has a step up so can't get in. Has a built in seat in there with grab bars in there. DOes SPT for all transfers w/o FWW. Has a ramp built in now for livingroom area to cover step. SLH w/flat entry. Pt has been doing APs Treatment Goals Patient/Caregiver Goals get back to walking PT-OP-C Subjective Start: 07/12/24 17:42 Freq: Status: Active Protocol: Document 12/10/24 11:38 SP (Rec: 12/10/24 12:34 SP [id number]) OP-PT Subjective Patient Comments Patient Comments Pt reports saw PA and given Meloxican for L 1st > 2-3 toe pain. Was told can take up to 1 year for ankle more normal mobility. She arrives cane use with lateral trunk shifting. PT-OP-F Manual Assessment Start: 07/12/24 17:42 Freq: Status: Active Protocol: Document 09/18/24 14:45 [facility] (Rec: 09/18/24 18:08 [facility] [id number]) Manual Assessments Other Manual Assessments Other Manual Assessments lat foot bruising, cont foot swelling L PT-OP-G Mobility & Gait Start: 07/12/24 17:42 Freq: Status: Active Protocol: Document 07/25/24 11:38 LR (Rec: 07/25/24 13:45 [facility] [id number]) OP Gait Assessment Comments Gait Comments came in w/WC. able to amb w/ FWW w/cues for step to pattern PT-OP-K Range of Motion Start: 07/12/24 17:42 Freq: Status: Active Protocol: Document 11/15/24 13:03 LR (Rec: 11/15/24 13:49 [facility] [id number]) Ankle and Foot Goniometric Range of Motion Ankle and Foot Left Active Dorsiflexion with Knee Flexed 0 Dorsiflexion with Knee Extended 10 Plantarflexion 55 Comments lacking DF to neural in knee ext position PT-OP-M Strength Start: 07/12/24 17:42 Freq: Status: Active Protocol: Document 11/15/24 13:03 [facility] (Rec: 11/15/24 13:49 [facility] [id number]) Hip Strength Hip Manual Muscle Testing Left Flexion (L2) 4 Good Abduction 3+ Fair+ External Rotation 4 Good Internal Rotation 4 Good Right Flexion (L2) 4 Good Abduction 4- Good- External Rotation 4 Good Internal Rotation 4+ Good+ Knee Strength Knee Manual Muscle Testing Left Flexion (S2) 4+ Good+ Extension (L3) 4 Good Right Flexion (S2) 4+ Good+ Extension (L3) 5 Normal Ankle/Foot Strength Ankle and Foot Manual Muscle Testing Right Dorsiflexion (L4) 5 Normal Plantarflexion (S1) 5 Normal Inversion 5 Normal Eversion (S1) 5 Normal Left Dorsiflexion (L4) 4+ Good+ Plantarflexion (S1) 4+ Good+ Inversion 4 Good Eversion (S1) 4 Good Comments mild pain; 3+/5 toe ext; 3_/5 toe flex PF tested seated PT-OP-Q Treatments Start: 07/12/24 17:42 Freq: Status: Active Protocol: Document 12/10/24 11:38 SP (Rec: 12/10/24 12:34 SP [id number]) Gym Equipment Shuttle Balance Red chains Details WBOS Reps/Duration 5 min Comments fwd/bwd & lateral cues for COG over VALENTIN wt shifting. Therapeutic Exercises Standing Exercises arch lift Standing Exercise Name trialed in PT Side bilateral Reps/Minutes 10 reps Comments free standing socks donned Manual Therapy Treatment Consent Patient gave verbal consent for manual Yes treatment Soft Tissue Mobilization ant Body Location MFR sup foot Mobilization Type Myofascial Release Body Position Sitting Comments gentle glides: anterior foot plantar fascia Body Location L Mobilization Type Myofascial Release,Rolling Body Position sit Joint Mobilizations Talocrual Direction PA Comments L distraction calcaneus and talus calcaneus Comments distraction L MTP Joint L 1-3 MTP: distraction, AP, PA , rotation, flexion, ext Grade II Comments manual IP, DIP, MTP Neuro Re-Education Treatment Balance Activities hurdles Details 6 hurdles- step to>receiprocal stepping Surface floor open area/ GB Equipment noAD (CG- Ricardo) Comments fwd: cues for taller posture, rhomboid engagement PT-OP-R Modalities Start: 07/12/24 17:42 Freq: Status: Active Protocol: Document 08/06/24 13:43 SP (Rec: 08/06/24 15:29 SP [id number]) Hot Pack/Cold Pack Treatment CP Location L ankle Patient Position Hooklying Patient Tolerance Good Comments Reports helps decreased discomfort end tx. PT-OP-T Assessment and Plan Start: 07/12/24 17:42 Freq: Status: Active Protocol: Document 12/10/24 11:38 SP (Rec: 12/10/24 12:34 SP [id number]) Physical Therapy Assessment Goals ROM Short Term Goal (STG) Pt will have DF to neutral in knee flex position 09/18-worse since fall 10/18-much improved, -2 11/05/2024 lacking 2 deg from neutral end of session AROM left ankle STG Duration achieved 11/15 Project Controller Goal (LTG) Pt will have at least DF to 5 deg in knee flex and extended position to allow for improved gait mechanics. LTG Duration 01/10 activity Short Term Goal (STG) Pt will ambulate in house w/ LRAD 100% of the time instead of use WC 09/18-during day but not at night STG Duration achieved 10/18 Nursing Home Goal (LTG) Pt will amb w/o AD w/o significant gait deviations and be able to go for short walks w/o inc pain greater than 2/10 11/15-amb w/SPC LTG Duration 01/10 LEFS Impairment 15/80 Short Term Goal (STG) Pt will improve LEFS score to at least 30/80 to show improved functional ability. 09/18-14 10/18-18/11/15- STG Duration 12/12 Project Controller Goal (LTG) Pt will improve LEFS score to at least 50/80 to show improved functional ability. LTG Duration 01/10 Assessment Summary Assessment Pt required cuing for body positioning wt shift during shuttle balance and olvin stepping with addition support stability, improved corrections, less support. Back track step to then return to receiprocal stepping COG over VALENTIN hurdles CG-5% A compared to LOB to side 20%A. Physical Therapy Plan Frequency and Duration Frequency of Treatment 2x/Week Duration of treatment (weeks) 8 Plan of Care Start Date 11/15/24 Plan of Care End Date 01/10/25 Therapeutic Interventions Therapeutic Interventions Balance Training,Gait Training ,Home Exercise Program,Joint Mobilizations,Manual Therapy, Neuromuscular Re-education, Orthotic/Prosthetic Management ,Patient/Caregiver Education, Self-Care/Home Management,Soft Tissue Mobilization,Taping, Therapeutic Activities, Therapeutic Exercises Modalities Cold Pack/Ice Massage,Electric Stimulation,Hot Packs, Infrared Therapy Next Visit Focus/Plan Next Note Type Treatment Note Next Visit Plan cont to work on gait, dynamic balance hurdles bal board, manual and exercise for iproved ROM and improve hip strength
--- NOTE | 2024-12-12 17:04 | PT.OTN ---
Current Diagnoses Pain in right ankle and joints of right foot (12/12/24) Nondisplaced pilon fracture of right tibia, subsequent encounter for closed fracture with routine healing (12/12/24) Nondisplaced pilon fracture of left tibia, initial encounter for closed fracture (12/12/24) Dislocation of tarsometatarsal joint of left foot, initial encounter (12/12/24) Sprain of tibiofibular ligament of left ankle, initial encounter (12/12/24) Physical Therapy Treatment Note PT-OP-A Visit Information Start: 07/12/24 17:42 Freq: Status: Active Protocol: Document 12/12/24 16:21 [facility] (Rec: 12/12/24 17:03 [facility] [id number]) Out-Patient Physical Therapy Visit Information Visit Information Visit Type Progress Note Visit Start Time 16:20 Visit Stop Time 17:00 Visit Number 41 (10/26) Number of [employer] Visits 0 PT-OP-B Current Condition Start: 07/12/24 17:42 Freq: Status: Active Protocol: Document 09/18/24 14:45 [facility] (Rec: 09/18/24 18:08 [facility] [id number]) Current Condition History of Current Condition Onset Date injury april 15, sx 04/30 Current Complaints L ORIF lisfranc, pilon and syndesmosis History of Current Condition 09/18/24-pt fell 09/04 on 1 step w/FWW and hurt from L knee down to foot. Saw ortho and no further fx and cleared to cont PT and does not have return to ortho IE:Pt reports stood up to go to bed on April 15 and fell over her feet and broke her leg and bones in foot. She was put in splint ER and on April 30 got screws in foot, leg and ankle. Has had boot for 6-8 weeks. Tried to do the walker when cleared to in May and it hurt so bad, she couldn't do it. Dr. Guzman told her to wait a couple weeks again and on 06/19 was told again. Sees her again next Tuesday. Last tried to use walker about 1.5 weeks ago but it is too painful . When uses the walker , L shoulder has been more painful too. Broke ankle in 80s without surgery. Denies LE and back pain. Pt reports prior ot this was a couch potato. prior to this was indep w/dressing and bathing. Cannot get into shower so has been doing bird baths insteadwith help. He helps some w/dressing too. It is a walk in shower but has a step up so can't get in. Has a built in seat in there with grab bars in there. DOes SPT for all transfers w/o FWW. Has a ramp built in now for livingroom area to cover step. H w/flat entry. Pt has been doing APs Treatment Goals Patient/Caregiver Goals get back to walking PT-OP-C Subjective Start: 07/12/24 17:42 Freq: Status: Active Protocol: Document 12/12/24 16:21 [facility] (Rec: 12/12/24 17:03 [facility] [id number]) OP-PT Subjective Patient Comments Patient Comments pt reports called doctor office re: meloxicam inc BP potentially but hasn't heard back.H as taken 2 doses PT-OP-F Manual Assessment Start: 07/12/24 17:42 Freq: Status: Active Protocol: Document 09/18/24 14:45 [facility] (Rec: 09/18/24 18:08 [facility] [id number]) Manual Assessments Other Manual Assessments Other Manual Assessments lat foot bruising, cont foot swelling L PT-OP-G Mobility & Gait Start: 07/12/24 17:42 Freq: Status: Active Protocol: Document 07/25/24 11:38 [facility] (Rec: 07/25/24 13:45 [id number] OP Gait Assessment Comments Gait Comments came in w/WC. able to amb w/ FWW w/cues for step to pattern PT-OP-K Range of Motion Start: 07/12/24 17:42 Freq: Status: Active Protocol: Document 12/12/24 16:21 [facility] (Rec: 12/12/24 17:03 [facility] [id number]) Ankle and Foot Goniometric Range of Motion Ankle and Foot Left Active Dorsiflexion with Knee Flexed 3 Dorsiflexion with Knee Extended 0 PT-OP-M Strength Start: 07/12/24 17:42 Freq: Status: Active Protocol: Document 12/12/24 16:21 [facility] (Rec: 12/12/24 17:03 [facility] [id number]) Ankle/Foot Strength Ankle and Foot Manual Muscle Testing Right Dorsiflexion (L4) 5 Normal Plantarflexion (S1) 5 Normal Inversion 5 Normal Eversion (S1) 5 Normal Left Dorsiflexion (L4) 4+ Good+ Plantarflexion (S1) 4+ Good+ Inversion 4 Good Eversion (S1) 4 Good Comments mild pain; 4/5 toe ext; 3+/5 toe flex PF tested seated PT-OP-Q Treatments Start: 07/12/24 17:42 Freq: Status: Active Protocol: Document 12/12/24 16:21 [facility] (Rec: 12/12/24 17:03 [facility] [id number]) Therapeutic Exercises Sitting Exercises isometrics Sitting Exercise Name BLE MMT Side bilateral Calf stretch Sitting Exercise Name AROM ankle L ankle DF, EV, IV Side left Resistance Tb #3 [place] green Reps/Minutes 12 reps each Comments verbal cues painfree range Standing Exercises heel raises/ toe raises Standing Exercise Name DL Side bilateral Equipment Used rail for balance Reps/Minutes 15 ea direction Neuro Re-Education Treatment Balance Activities BOSU stand bal Comments DL balance tilt board Details fwd/back and lat facing Comments 1. EC balance 2. wt shifts Coordination Activities [place] Details b 2x10ft ea Comments 1 rail as needed Self-Care/Home Management Treatment Activities Self-Care/Home Management Activities BP 169/80 PT-OP-R Modalities Start: 07/12/24 17:42 Freq: Status: Active Protocol: Document 08/06/24 13:43 SP (Rec: 08/06/24 15:29 SP [id number]) Hot Pack/Cold Pack Treatment CP Location L ankle Patient Position Hooklying Patient Tolerance Good Comments Reports helps decreased discomfort end tx. PT-OP-T Assessment and Plan Start: 07/12/24 17:42 Freq: Status: Active Protocol: Document 12/12/24 16:21 [facility] (Rec: 12/12/24 17:03 [facility] [id number]) Physical Therapy Assessment Goals ROM Short Term Goal (STG) Pt will have DF to neutral in knee flex position /3-worse since fall 10/18-much improved, -2 11/05/2024 lacking 2 deg from neutral end of session AROM left ankle STG Duration achieved 11/15 Hazardous Waste Technician Goal (LTG) Pt will have at least DF to 5 deg in knee flex and extended position to allow for improved gait mechanics. 2/26-0 in ext, 2 in flex LTG Duration 01/10 activity Short Term Goal (STG) Pt will ambulate in house w/ LRAD 100% of the time instead of use WC 09/18-during day but not at night STG Duration achieved 10/18 Hazardous Waste Technician Goal (LTG) Pt will amb w/o AD w/o significant gait deviations and be able to go for short walks w/o inc pain greater than 2/10 11/15-amb w/SPC 12/12-amb w/o AD but dec stance time and push off LLE d/t pain LTG Duration 01/10 LEFS Impairment Short Term Goal (STG) Pt will improve LEFS score to at least 30/80 to show improved functional ability. 09/18-10/18- 11/15- STG Duration achieved to 43 Hazardous Waste Technician Goal (LTG) Pt will improve LEFS score to at least 50/80 to show improved functional ability. 12/12- LTG Duration 01/10 Assessment Summary Assessment Pt is making good progress w/ PT w/limitiation in gait d/t L big toe pain which she is workign w/orthopedics w/. She would bneefit from cont PT to work on balance and return to full activity. Physical Therapy Plan Frequency and Duration Frequency of Treatment 2x/Week Duration of treatment (weeks) 8 Plan of Care Start Date 11/15/24 Plan of Care End Date 01/10/25 Therapeutic Interventions Therapeutic Interventions Balance Training,Gait Training ,Home Exercise Program,Joint Mobilizations,Manual Therapy, Neuromuscular Re-education, Orthotic/Prosthetic Management ,Patient/Caregiver Education, Self-Care/Home Management,Soft Tissue Mobilization,Taping, Therapeutic Activities, Therapeutic Exercises Modalities Cold Pack/Ice Massage,Electric Stimulation,Hot Packs, Infrared Therapy Next Visit Focus/Plan Next Note Type Treatment Note Next Visit Plan cont to work on gait, dynamic balance hurdles bal board, manual and exercise for iproved ROM and improve hip strength
--- NOTE | 2024-12-12 18:25 | PT.OPPOC ---
Physical, Occupational & Speech Therapy At [facility] Current Diagnoses Pain in right ankle and joints of right foot (12/12/24) Nondisplaced pilon fracture of right tibia, subsequent encounter for closed fracture with routine healing (12/12/24) Nondisplaced pilon fracture of left tibia, initial encounter for closed fracture (12/12/24) Dislocation of tarsometatarsal joint of left foot, initial encounter (12/12/24) Sprain of tibiofibular ligament of left ankle, initial encounter (12/12/24) Visit Care Team Role Provider Type Claudio Garcias DO Family Provider Physician Primary Care Provider Specialty: Family Practice Address: [address] [place] [address], [facility] [address], [place], [address] Email: [email or web address] Provider Physician Referring Provider Specialty: Orthopedics Orthopedic Surgery Address: [address] [place] [address], [address] Email: [email or web address] Plan Of Care PT-OP-B Current Condition Start: 07/12/24 17:42 Freq: Status: Active Protocol: Document 09/18/24 14:45 [facility] (Rec: 09/18/24 18:08 [facility] [id number]) Current Condition History of Current Condition Onset Date injury april 15, sx 04/30 Current Complaints L ORIF lisfranc, pilon and syndesmosis History of Current Condition 09/18/24-pt fell 09/04 on 1 step w/FWW and hurt from L knee down to foot. Saw ortho and no further fx and cleared to cont PT and does not have return to ortho IE:Pt reports stood up to go to bed on April 15 and fell over her feet and broke her leg and bones in foot. She was put in splint ER and on April 30 got screws in foot, leg and ankle. Has had boot for 6-8 weeks. Tried to do the walker when cleared to in May and it hurt so bad, she couldn't do it. Dr. Guzman told her to wait a couple weeks again and on 06/19 was told again. Sees her again next Tuesday. Last tried to use walker about 1.5 weeks ago but it is too painful . When uses the walker , L shoulder has been more painful too. Broke ankle in 80s without surgery. Denies LE and back pain. Pt reports prior ot this was a couch potato. prior to this was indep w/dressing and bathing. Cannot get into shower so has been doing bird baths insteadwith help. He helps some w/dressing too. It is a walk in shower but has a step up so can't get in. Has a built in seat in there with grab bars in there. DOes SPT for all transfers w/o FWW. Has a ramp built in now for livingroom area to cover step. H w/flat entry. Pt has been doing APs Treatment Goals Patient/Caregiver Goals get back to walking PT-OP-T Assessment and Plan Start: 07/12/24 17:42 Freq: Status: Active Protocol: Document 12/12/24 16:21 [facility] (Rec: 12/12/24 17:03 [facility] [id number]) Physical Therapy Assessment Goals ROM Short Term Goal (STG) Pt will have DF to neutral in knee flex position 09/18-worse since fall 10/18-much improved, -2 11/05/2024 lacking 2 deg from neutral end of session AROM left ankle STG Duration achieved 11/15 Correction Goal (LTG) Pt will have at least DF to 5 deg in knee flex and extended position to allow for improved gait mechanics. 12/12-0 in ext, 2 in flex LTG Duration 02/06 activity Short Term Goal (STG) Pt will ambulate in house w/ LRAD 100% of the time instead of use WC 09/18-during day but not at night STG Duration achieved 10/18 Correction Goal (LTG) Pt will amb w/o AD w/o significant gait deviations and be able to go for short walks w/o inc pain greater than 2/10 11/15-amb w/SPC 12/12-amb w/o AD but dec stance time and push off LLE d/t pain LTG Duration 02/06 LEFS Impairment 15/80 Short Term Goal (STG) Pt will improve LEFS score to at least 30/80 to show improved functional ability. 09/18-10/18- 11/15- STG Duration achieved to 43 Correction Goal (LTG) Pt will improve LEFS score to at least 50/80 to show improved functional ability. 12/12- LTG Duration 02/06 Assessment Summary Assessment Pt is making good progress w/ PT w/limitiation in gait d/t L big toe pain which she is workign w/orthopedics w/. She would bneefit from cont PT to work on balance and return to full activity. Physical Therapy Plan Frequency and Duration Frequency of Treatment 1-2x/wk Duration of treatment (weeks) 8 Plan of Care Start Date 12/12/24 Plan of Care End Date 02/06/25 Therapeutic Interventions Therapeutic Interventions Balance Training,Gait Training ,Home Exercise Program,Joint Mobilizations,Manual Therapy, Neuromuscular Re-education, Orthotic/Prosthetic Management ,Patient/Caregiver Education, Self-Care/Home Management,Soft Tissue Mobilization,Taping, Therapeutic Activities, Therapeutic Exercises Modalities Cold Pack/Ice Massage,Electric Stimulation,Hot Packs, Infrared Therapy Next Visit Focus/Plan Next Note Type Treatment Note Next Visit Plan cont to work on gait, dynamic balance hurdles bal board, manual and exercise for iproved ROM and improve hip strength Plan of Care Dates Plan of Care Start Date 12/12/24 Plan of Care End Date 02/06/25 Electronically Signed by: Tiarra Graf, PT 12/17/24 [id number] If you are in agreement with this Plan of Care, please return a signed and dated copy. I have reviewed this Plan of Care and certify that the skilled therapy services above are required to meet the patient?s needs. Physician Signature Date Printed Name and Credentials Clinical Instructor Signature Printed Name and Credentials
--- NOTE | 2024-12-17 16:17 | PT.OTN ---
Current Diagnoses Pain in right ankle and joints of right foot (12/17/24) Nondisplaced pilon fracture of right tibia, subsequent encounter for closed fracture with routine healing (12/17/24) Nondisplaced pilon fracture of left tibia, initial encounter for closed fracture (12/17/24) Dislocation of tarsometatarsal joint of left foot, initial encounter (12/17/24) Sprain of tibiofibular ligament of left ankle, initial encounter (12/17/24) Physical Therapy Treatment Note PT-OP-A Visit Information Start: 07/12/24 17:42 Freq: Status: Active Protocol: Document 12/17/24 14:38 [facility] (Rec: 12/17/24 16:17 [facility] [id number]) Out-Patient Physical Therapy Visit Information Visit Information Visit Type Treatment Note Visit Start Time 14:35 Visit Stop Time 15:15 Visit Number 42 (11/26) Number of TECHNICAL DESIGNER Visits 0 PT-OP-B Current Condition Start: 07/12/24 17:42 Freq: Status: Active Protocol: Document 09/18/24 14:45 [facility] (Rec: 09/18/24 18:08 [facility] [id number]) Current Condition History of Current Condition Onset Date injury april 15, sx 04/30 Current Complaints L ORIF lisfranc, pilon and syndesmosis History of Current Condition 09/18/24-pt fell 09/04 on 1 step w/FWW and hurt from L knee down to foot. Saw ortho and no further fx and cleared to cont PT and does not have return to ortho IE:Pt reports stood up to go to bed on April 15 and fell over her feet and broke her leg and bones in foot. She was put in splint ER and on April 30 got screws in foot, leg and ankle. Has had boot for 6-8 weeks. Tried to do the walker when cleared to in May and it hurt so bad, she couldn't do it. Dr. Guzman told her to wait a couple weeks again and on 06/19 was told again. Sees her again next Tuesday. Last tried to use walker about 1.5 weeks ago but it is too painful . When uses the walker , L shoulder has been more painful too. Broke ankle in 80s without surgery. Denies LE and back pain. Pt reports prior ot this was a couch potato. prior to this was indep w/dressing and bathing. Cannot get into shower so has been doing bird baths insteadwith help. He helps some w/dressing too. It is a walk in shower but has a step up so can't get in. Has a built in seat in there with grab bars in there. DOes SPT for all transfers w/o FWW. Has a ramp built in now for livingroom area to cover step. SLH w/flat entry. Pt has been doing APs Treatment Goals Patient/Caregiver Goals get back to walking PT-OP-C Subjective Start: 07/12/24 17:42 Freq: Status: Active Protocol: Document 12/17/24 14:38 [facility] (Rec: 12/17/24 16:17 [facility] [id number]) OP-PT Subjective Patient Comments Patient Comments Pt feels like can bend her toe more since taking meloxicam PT-OP-F Manual Assessment Start: 07/12/24 17:42 Freq: Status: Active Protocol: Document 09/18/24 14:45 [facility] (Rec: 09/18/24 18:08 [id number] Manual Assessments Other Manual Assessments Other Manual Assessments lat foot bruising, cont foot swelling L PT-OP-G Mobility & Gait Start: 07/12/24 17:42 Freq: Status: Active Protocol: Document 07/25/24 11:38 [facility] (Rec: 07/25/24 13:45 [id number] OP Gait Assessment Comments Gait Comments came in w/WC. able to amb w/ FWW w/cues for step to pattern PT-OP-K Range of Motion Start: 07/12/24 17:42 Freq: Status: Active Protocol: Document 12/12/24 16:21 [facility] (Rec: 12/12/24 17:03 [facility] [id number]) Ankle and Foot Goniometric Range of Motion Ankle and Foot Left Active Dorsiflexion with Knee Flexed 3 Dorsiflexion with Knee Extended 0 PT-OP-M Strength Start: 07/12/24 17:42 Freq: Status: Active Protocol: Document 12/12/24 16:21 [facility] (Rec: 12/12/24 17:03 [facility] [id number]) Ankle/Foot Strength Ankle and Foot Manual Muscle Testing Right Dorsiflexion (L4) 5 Normal Plantarflexion (S1) 5 Normal Inversion 5 Normal Eversion (S1) 5 Normal Left Dorsiflexion (L4) 4+ Good+ Plantarflexion (S1) 4+ Good+ Inversion 4 Good Eversion (S1) 4 Good Comments mild pain; 4/5 toe ext; 3+/5 toe flex PF tested seated PT-OP-Q Treatments Start: 07/12/24 17:42 Freq: Status: Active Protocol: Document 12/17/24 14:38 [facility] (Rec: 12/17/24 16:17 [facility] [id number]) Gym Equipment Shuttle Recovery Unilateral Heel Raises Details L Resistance 12# Shuttle Recovery Platform Stable Reps/Time 2x15 Unilateral Squats Details L Resistance 37# Shuttle Recovery Platform Stable Reps/Time 2x15 Manual Therapy Treatment Consent Patient gave verbal consent for manual Yes treatment Soft Tissue Mobilization calf Body Location L achilles and soleus Mobilization Type Cross-Friction,Myofascial Release,Rolling,Other Body Position sit Comments w/AP plantar fascia Body Location L Mobilization Type Myofascial Release,Rolling Body Position sit Joint Mobilizations MTP Joint Distraction L MTP 1 Taping knee Comments L Y inverted at patella and I strip under patella Neuro Re-Education Treatment Balance Activities SLS Comments 1. L trials 2. L w/RLE on ball 3. L mod w/RLE on dyandisc ( toes) Coordination Activities wt shifts Comments 15 B w/cues for heel down front foot an dfull wt shift Self-Care/Home Management Treatment Activities Self-Care/Home Management Activities 154/84 PT-OP-R Modalities Start: 07/12/24 17:42 Freq: Status: Active Protocol: Document 08/06/24 13:43 [facility] (Rec: 08/06/24 15:29 SP [id number]) Hot Pack/Cold Pack Treatment CP Location L ankle Patient Position Hooklying Patient Tolerance Good Comments Reports helps decreased discomfort end tx. PT-OP-T Assessment and Plan Start: 07/12/24 17:42 Freq: Status: Active Protocol: Document 12/17/24 14:38 [facility] (Rec: 12/17/24 16:17 [facility] [id number]) Physical Therapy Assessment Goals ROM Short Term Goal (STG) Pt will have DF to neutral in knee flex position 12/3-worse since fall 10/18-much improved, -2 11/05/2024 lacking 2 deg from neutral end of session AROM left ankle STG Duration achieved 11/15 Detention Goal (LTG) Pt will have at least DF to 5 deg in knee flex and extended position to allow for improved gait mechanics. 12/12-0 in ext, 2 in flex LTG Duration 02/06 activity Short Term Goal (STG) Pt will ambulate in house w/ LRAD 100% of the time instead of use WC 09/18-during day but not at night STG Duration achieved 10/18 Detention Goal (LTG) Pt will amb w/o AD w/o significant gait deviations and be able to go for short walks w/o inc pain greater than 2/10 11/15-amb w/SPC 12/12-amb w/o AD but dec stance time and push off LLE d/t pain LTG Duration 02/06 LEFS Impairment 15/80 Short Term Goal (STG) Pt will improve LEFS score to at least 30/80 to show improved functional ability. 09/18-10/18- 11/15- STG Duration achieved to 43 Detention Goal (LTG) Pt will improve LEFS score to at least 50/80 to show improved functional ability. 12/12- LTG Duration 02/06 Assessment Summary Assessment Pt hit elbow (R) on rail when losing balance w/SL activities but able to move fully after. Challenged by balance activtiies. Physical Therapy Plan Frequency and Duration Frequency of Treatment 1-2x/wk Duration of treatment (weeks) 8 Plan of Care Start Date 12/12/24 Plan of Care End Date 02/06/25 Next Visit Focus/Plan Next Note Type Treatment Note Next Visit Plan cont to work on gait, dynamic balance hurdles bal board, manual and exercise for iproved ROM and improve hip strength
--- NOTE | 2024-12-20 13:46 | PT.OTN ---
Current Diagnoses Pain in right ankle and joints of right foot (12/20/24) Nondisplaced pilon fracture of right tibia, subsequent encounter for closed fracture with routine healing (12/20/24) Nondisplaced pilon fracture of left tibia, initial encounter for closed fracture (12/20/24) Dislocation of tarsometatarsal joint of left foot, initial encounter (12/20/24) Sprain of tibiofibular ligament of left ankle, initial encounter (12/20/24) Physical Therapy Treatment Note PT-OP-A Visit Information Start: 07/12/24 17:42 Freq: Status: Active Protocol: Document 12/20/24 13:04 [facility] (Rec: 12/20/24 13:49 [facility] [id number]) Out-Patient Physical Therapy Visit Information Visit Information Visit Type Treatment Note Visit Start Time 13:04 Visit Stop Time 13:46 Visit Number 43 (12/24) Number of TOOL MAKER Visits 1 PT-OP-B Current Condition Start: 07/12/24 17:42 Freq: Status: Active Protocol: Document 09/18/24 14:45 [facility] (Rec: 09/18/24 18:08 [facility] [id number]) Current Condition History of Current Condition Onset Date injury april 15, sx 04/30 Current Complaints L ORIF lisfranc, pilon and syndesmosis History of Current Condition 09/18/24-pt fell 09/04 on 1 step w/FWW and hurt from L knee down to foot. Saw ortho and no further fx and cleared to cont PT and does not have return to ortho IE:Pt reports stood up to go to bed on April 15 and fell over her feet and broke her leg and bones in foot. She was put in splint ER and on April 30 got screws in foot, leg and ankle. Has had boot for 6-8 weeks. Tried to do the walker when cleared to in May and it hurt so bad, she couldn't do it. Dr. Guzman told her to wait a couple weeks again and on 06/19 was told again. Sees her again next Tuesday. Last tried to use walker about 1.5 weeks ago but it is too painful . When uses the walker , L shoulder has been more painful too. Broke ankle in 80s without surgery. Denies LE and back pain. Pt reports prior ot this was a couch potato. prior to this was indep w/dressing and bathing. Cannot get into shower so has been doing bird baths insteadwith help. He helps some w/dressing too. It is a walk in shower but has a step up so can't get in. Has a built in seat in there with grab bars in there. DOes SPT for all transfers w/o FWW. Has a ramp built in now for livingroom area to cover step. [facility] w/flat entry. Pt has been doing APs Treatment Goals Patient/Caregiver Goals get back to walking PT-OP-C Subjective Start: 07/12/24 17:42 Freq: Status: Active Protocol: Document 12/20/24 13:04 [facility] (Rec: 12/20/24 13:49 SP [id number]) OP-PT Subjective Patient Comments Patient Comments Pt arrives into gym without SPC ( holding on to in in waiting room, states only uses outside). She states L lower leg not strong, wonder if it's because pins in L ankle still and not able to do normal activity? Her L great toe better with oral Meloxican. PT-OP-F Manual Assessment Start: 07/12/24 17:42 Freq: Status: Active Protocol: Document 09/18/24 14:45 [facility] (Rec: 09/18/24 18:08 [facility] [id number]) Manual Assessments Other Manual Assessments Other Manual Assessments lat foot bruising, cont foot swelling L PT-OP-G Mobility & Gait Start: 07/12/24 17:42 Freq: Status: Active Protocol: Document 07/25/24 11:38 [facility] (Rec: 07/25/24 13:45 [facility] [id number]) OP Gait Assessment Comments Gait Comments came in w/WC. able to amb w/ FWW w/cues for step to pattern PT-OP-K Range of Motion Start: 07/12/24 17:42 Freq: Status: Active Protocol: Document 12/12/24 16:21 [facility] (Rec: 12/12/24 17:03 [facility] [id number]) Ankle and Foot Goniometric Range of Motion Ankle and Foot Left Active Dorsiflexion with Knee Flexed 3 Dorsiflexion with Knee Extended 0 PT-OP-M Strength Start: 07/12/24 17:42 Freq: Status: Active Protocol: Document 12/12/24 16:21 [facility] (Rec: 12/12/24 17:03 [facility] [id number]) Ankle/Foot Strength Ankle and Foot Manual Muscle Testing Right Dorsiflexion (L4) 5 Normal Plantarflexion (S1) 5 Normal Inversion 5 Normal Eversion (S1) 5 Normal Left Dorsiflexion (L4) 4+ Good+ Plantarflexion (S1) 4+ Good+ Inversion 4 Good Eversion (S1) 4 Good Comments mild pain; 4/5 toe ext; 3+/5 toe flex PF tested seated PT-OP-Q Treatments Start: 07/12/24 17:42 Freq: Status: Active Protocol: Document 12/20/24 13:04 SP (Rec: 12/20/24 13:49 SP [id number]) Gym Equipment Shuttle Recovery Unilateral Heel Raises Details L Resistance 12# Shuttle Recovery Platform Stable Reps/Time 2x15 Unilateral Squats Details L Resistance 37# (1 teal band) Reports navy to strong can extend knee Shuttle Recovery Platform Stable Reps/Time 20 reps, 15 reps Therapeutic Exercises Sitting Exercises toe abduction Sitting Exercise Name Toe (sitting in chair): DF /c ABD Side left Resistance AROM Reps/Minutes 3 SH x10 Comments good form no pain toe scrunches Sitting Exercise Name towel Side left Reps/Minutes 15 Comments improved motion 1, she reports still not much flexion 2nd toe ankle DF, EV, IV Sitting Exercise Name HEP reviewed increased resistance Side left Resistance Tb #3> #4 dark blue TB Equipment Used EV, IV, DF, PF Reps/Minutes 12 reps each Comments verbal cues painfree range Manual Therapy Treatment Consent Patient gave verbal consent for manual Yes treatment Taping knee Body Location black tape with biofreeze assist tacky securing tape better. Type of Tape Kinesio Tape Comments L patella stability: Y inverted at patella and I strip horizontal under patella Neuro Re-Education Treatment Balance Activities SLS Comments 1. L trials- (2-3 sec 6 reps) 2. L w/RLE on ball (50<>30% WB RLE) 3. L mod w/RLE on dyandisc ( toes- pt reports fairly light 30-40%) Coordination Activities wt shifts Equipment rail support stability Reps/Duration 15 reps Comments cues B wt shift toe up then heel up each LE better on L today. PT-OP-R Modalities Start: 07/12/24 17:42 Freq: Status: Active Protocol: Document 08/06/24 13:43 SP (Rec: 08/06/24 15:29 SP [id number]) Hot Pack/Cold Pack Treatment CP Location L ankle Patient Position Hooklying Patient Tolerance Good Comments Reports helps decreased discomfort end tx. PT-OP-T Assessment and Plan Start: 07/12/24 17:42 Freq: Status: Active Protocol: Document 12/20/24 13:04 SP (Rec: 12/20/24 13:49 SP [id number]) Physical Therapy Assessment Goals ROM Short Term Goal (STG) Pt will have DF to neutral in knee flex position 09/18-worse since fall 10/18-much improved, -2 11/05/2024 lacking 2 deg from neutral end of session AROM left ankle STG Duration achieved 11/15 Jail Goal (LTG) Pt will have at least DF to 5 deg in knee flex and extended position to allow for improved gait mechanics. 12/12-0 in ext, 2 in flex LTG Duration 02/06 activity Short Term Goal (STG) Pt will ambulate in house w/ LRAD 100% of the time instead of use WC 09/18-during day but not at night STG Duration achieved 10/18 Jail Goal (LTG) Pt will amb w/o AD w/o significant gait deviations and be able to go for short walks w/o inc pain greater than 2/10 11/15-amb w/SPC 12/12-amb w/o AD but dec stance time and push off LLE d/t pain LTG Duration 02/06 LEFS Impairment 15 Short Term Goal (STG) Pt will improve LEFS score to at least 30/80 to show improved functional ability. 09/18-10/18- 11/15- STG Duration achieved to [employer] Goal (LTG) Pt will improve LEFS score to at least 50/80 to show improved functional ability. 12/12- LTG Duration 02/06 Assessment Summary Assessment Pt tolerated increased resistance with ankle exercises, provided TB #4 for home. Ed continue toe exercises for stabiltiy and strengthening for gait. Continued Ktaping L knee for patella stability and comfort during mobility, no adverse affects and verbalized understanding remove to later than 4 days. Improved SLS time 2-3 sec, education try decrease UE support on rail during activities to allow strength equal geovanna gait, better ankle rocking wt shift reps today cued heel lift/ toe lift. Physical Therapy Plan Frequency and Duration Frequency of Treatment 1-2x/wk Duration of treatment (weeks) 8 Plan of Care Start Date 12/12/24 Plan of Care End Date 02/06/25 Therapeutic Interventions Therapeutic Interventions Balance Training,Gait Training ,Home Exercise Program,Joint Mobilizations,Manual Therapy, Neuromuscular Re-education, Orthotic/Prosthetic Management ,Patient/Caregiver Education, Self-Care/Home Management,Soft Tissue Mobilization,Taping, Therapeutic Activities, Therapeutic Exercises Modalities Cold Pack/Ice Massage,Electric Stimulation,Hot Packs, Infrared Therapy Next Visit Focus/Plan Next Note Type Treatment Note Next Visit Plan cont to work on gait, dynamic balance hurdles bal board, manual and exercise for iproved ROM and improve hip strength, K taping L knee as needed.
--- NOTE | 2024-12-24 17:11 | PT.OTN ---
Current Diagnoses Pain in right ankle and joints of right foot (12/24/24) Nondisplaced pilon fracture of right tibia, subsequent encounter for closed fracture with routine healing (12/24/24) Nondisplaced pilon fracture of left tibia, initial encounter for closed fracture (12/24/24) Dislocation of tarsometatarsal joint of left foot, initial encounter (12/24/24) Sprain of tibiofibular ligament of left ankle, initial encounter (12/24/24) Physical Therapy Treatment Note PT-OP-A Visit Information Start: 07/12/24 17:42 Freq: Status: Active Protocol: Document 12/24/24 13:52 [facility] (Rec: 12/24/24 17:11 [facility] [id number]) Out-Patient Physical Therapy Visit Information Visit Information Visit Type Treatment Note Visit Start Time 13:51 Visit Stop Time 14:31 Visit Number 44 (01/24) Number of FOREST SCIENCE PROFESSOR Visits 0 PT-OP-B Current Condition Start: 07/12/24 17:42 Freq: Status: Active Protocol: Document 09/18/24 14:45 [facility] (Rec: 09/18/24 18:08 [facility] [id number]) Current Condition History of Current Condition Onset Date injury april 15, sx 04/30 Current Complaints L ORIF lisfranc, pilon and syndesmosis History of Current Condition 09/18/24-pt fell 09/04 on 1 step w/FWW and hurt from L knee down to foot. Saw ortho and no further fx and cleared to cont PT and does not have return to ortho IE:Pt reports stood up to go to bed on April 15 and fell over her feet and broke her leg and bones in foot. She was put in splint ER and on April 30 got screws in foot, leg and ankle. Has had boot for 6-8 weeks. Tried to do the walker when cleared to in May and it hurt so bad, she couldn't do it. Dr. Guzman told her to wait a couple weeks again and on 06/19 was told again. Sees her again next Tuesday. Last tried to use walker about 1.5 weeks ago but it is too painful . When uses the walker , L shoulder has been more painful too. Broke ankle in 80s without surgery. Denies LE and back pain. Pt reports prior ot this was a couch potato. prior to this was indep w/dressing and bathing. Cannot get into shower so has been doing bird baths insteadwith help. He helps some w/dressing too. It is a walk in shower but has a step up so can't get in. Has a built in seat in there with grab bars in there. DOes SPT for all transfers w/o FWW. Has a ramp built in now for livingroom area to cover step. [facility] w/flat entry. Pt has been doing APs Treatment Goals Patient/Caregiver Goals get back to walking PT-OP-C Subjective Start: 07/12/24 17:42 Freq: Status: Active Protocol: Document 12/24/24 13:52 [facility] (Rec: 12/24/24 17:11 [id number]-PT Subjective Patient Comments Patient Comments Pt reports yesterday was bending over and tweaked her kne and left kene has been sore since then. Wasbent more at back and hips to tuck mattress pad. Toes been pretty good. PT-OP-F Manual Assessment Start: 07/12/24 17:42 Freq: Status: Active Protocol: Document 09/18/24 14:45 [facility] (Rec: 09/18/24 18:08 [facility] [id number]) Manual Assessments Other Manual Assessments Other Manual Assessments lat foot bruising, cont foot swelling L PT-OP-G Mobility & Gait Start: 07/12/24 17:42 Freq: Status: Active Protocol: Document 07/25/24 11:38 [facility] (Rec: 07/25/24 13:45 [id number] OP Gait Assessment Comments Gait Comments came in w/WC. able to amb w/ FWW w/cues for step to pattern PT-OP-K Range of Motion Start: 07/12/24 17:42 Freq: Status: Active Protocol: Document 12/12/24 16:21 [facility] (Rec: 12/12/24 17:03 [facility] [id number]) Ankle and Foot Goniometric Range of Motion Ankle and Foot Left Active Dorsiflexion with Knee Flexed 3 Dorsiflexion with Knee Extended 0 PT-OP-M Strength Start: 07/12/24 17:42 Freq: Status: Active Protocol: Document 12/12/24 16:21 [facility] (Rec: 12/12/24 17:03 [facility] [id number]) Ankle/Foot Strength Ankle and Foot Manual Muscle Testing Right Dorsiflexion (L4) 5 Normal Plantarflexion (S1) 5 Normal Inversion 5 Normal Eversion (S1) 5 Normal Left Dorsiflexion (L4) 4+ Good+ Plantarflexion (S1) 4+ Good+ Inversion 4 Good Eversion (S1) 4 Good Comments mild pain; 4/5 toe ext; 3+/5 toe flex PF tested seated PT-OP-Q Treatments Start: 07/12/24 17:42 Freq: Status: Active Protocol: Document 12/24/24 13:52 [facility] (Rec: 12/24/24 17:11 [facility] [id number]) Therapeutic Exercises Standing Exercises march Standing Exercise Name slow work on posture Side bilateral Equipment Used rail as needed Reps/Minutes 12 heel raises/ toe raises Standing Exercise Name stair Side bilateral Reps/Minutes 20 Manual Therapy Treatment Consent Patient gave verbal consent for manual Yes treatment Soft Tissue Mobilization calf Body Location L achilles and soleus Mobilization Type Cross-Friction,Myofascial Release,Rolling,Other Body Position sit Comments w/AP plantar fascia Body Location L Mobilization Type Myofascial Release,Rolling Body Position sit Joint Mobilizations innominate Joint L caudal and IR supine c/r Talocrual Joint L med Grade II Body Position Supine Taping knee Comments L Y inverted at patella and I strip under patella Neuro Re-Education Treatment Balance Activities tandem Comments 1. trials B 2. 10ft x2 w/1 finger SLS Comments trials LLE Coordination Activities wt shifts Comments in mirror w/fwd walk to work on no lat lean 3x20ft PT-OP-R Modalities Start: 07/12/24 17:42 Freq: Status: Active Protocol: Document 08/06/24 13:43 SP (Rec: 08/06/24 15:29 SP [id number]) Hot Pack/Cold Pack Treatment CP Location L ankle Patient Position Hooklying Patient Tolerance Good Comments Reports helps decreased discomfort end tx. PT-OP-T Assessment and Plan Start: 07/12/24 17:42 Freq: Status: Active Protocol: Document 12/24/24 13:52 [facility] (Rec: 12/24/24 17:11 [facility] [id number]) Physical Therapy Assessment Goals ROM Short Term Goal (STG) Pt will have DF to neutral in knee flex position 12/3-worse since fall 10/18-much improved, -2 11/05/2024 lacking 2 deg from neutral end of session AROM left ankle STG Duration achieved 11/15 Half-Way Goal (LTG) Pt will have at least DF to 5 deg in knee flex and extended position to allow for improved gait mechanics. 12/12-0 in ext, 2 in flex LTG Duration 02/06 activity Short Term Goal (STG) Pt will ambulate in house w/ LRAD 100% of the time instead of use WC 09/18-during day but not at night STG Duration achieved 10/18 Half-Way Goal (LTG) Pt will amb w/o AD w/o significant gait deviations and be able to go for short walks w/o inc pain greater than 2/10 11/15-amb w/SPC 12/12-amb w/o AD but dec stance time and push off LLE d/t pain LTG Duration 02/06 LEFS Impairment 15 Short Term Goal (STG) Pt will improve LEFS score to at least 30/80 to show improved functional ability. 09/18-10/18- 11/15- STG Duration achieved to 43 Half-Way Goal (LTG) Pt will improve LEFS score to at least 50/80 to show improved functional ability. 12/12- LTG Duration 02/06 Assessment Summary Assessment Pt had improved gait pattern after manual treatment today. She cont to struggle w/balance of LLE but had most difficulty d/t L knee pain today. Encouraged to ice and talk to her ortho about this on Tuesday. Physical Therapy Plan Frequency and Duration Frequency of Treatment 1-2x/wk Duration of treatment (weeks) 8 Plan of Care Start Date 12/12/24 Plan of Care End Date 02/06/25 Next Visit Focus/Plan Next Note Type Treatment Note Next Visit Plan cont to work on gait, dynamic balance hurdles bal board, manual and exercise for iproved ROM and improve hip strength, K taping L knee as needed.
--- NOTE | 2024-12-27 13:45 | PT.OTN ---
Current Diagnoses Pain in right ankle and joints of right foot (12/27/24) Nondisplaced pilon fracture of right tibia, subsequent encounter for closed fracture with routine healing (12/27/24) Nondisplaced pilon fracture of left tibia, initial encounter for closed fracture (12/27/24) Dislocation of tarsometatarsal joint of left foot, initial encounter (12/27/24) Sprain of tibiofibular ligament of left ankle, initial encounter (12/27/24) Physical Therapy Treatment Note PT-OP-A Visit Information Start: 07/12/24 17:42 Freq: Status: Active Protocol: Document 12/27/24 13:04 SP (Rec: 12/27/24 13:47 SP [id number]) Out-Patient Physical Therapy Visit Information Visit Information Visit Type Treatment Note Visit Start Time 13:04 Visit Stop Time 13:45 Visit Number 45 (02/23) Number of SENIOR JAVA WEB APPLICATION DEVELOPER Visits 1 PT-OP-B Current Condition Start: 07/12/24 17:42 Freq: Status: Active Protocol: Document 09/18/24 14:45 [facility] (Rec: 09/18/24 18:08 [facility] [id number]) Current Condition History of Current Condition Onset Date injury april 15, sx 04/30 Current Complaints L ORIF lisfranc, pilon and syndesmosis History of Current Condition 09/18/24-pt fell 09/04 on 1 step w/FWW and hurt from L knee down to foot. Saw ortho and no further fx and cleared to cont PT and does not have return to ortho IE:Pt reports stood up to go to bed on April 15 and fell over her feet and broke her leg and bones in foot. She was put in splint ER and on April 30 got screws in foot, leg and ankle. Has had boot for 6-8 weeks. Tried to do the walker when cleared to in May and it hurt so bad, she couldn't do it. Dr. Guzman told her to wait a couple weeks again and on 06/19 was told again. Sees her again next Tuesday. Last tried to use walker about 1.5 weeks ago but it is too painful . When uses the walker , L shoulder has been more painful too. Broke ankle in 80s without surgery. Denies LE and back pain. Pt reports prior ot this was a couch potato. prior to this was indep w/dressing and bathing. Cannot get into shower so has been doing bird baths insteadwith help. He helps some w/dressing too. It is a walk in shower but has a step up so can't get in. Has a built in seat in there with grab bars in there. DOes SPT for all transfers w/o FWW. Has a ramp built in now for livingroom area to cover step. SL[facility] w/flat entry. Pt has been doing APs Treatment Goals Patient/Caregiver Goals get back to walking PT-OP-C Subjective Start: 07/12/24 17:42 Freq: Status: Active Protocol: Document 12/27/24 13:04 SP (Rec: 12/27/24 13:47 SP [id number]) OP-PT Subjective Patient Comments Patient Comments Pt reports had pedicure and took little layer skin on 1st toe L foot. The Meloxican is helping 1st great toe jt pain. She states see ortho tomorrow , is going to ask if can return to driving. SENIOR JAVA WEB APPLICATION DEVELOPER deferred her inquire to , not sure if there was discussion on restrictions. PT-OP-F Manual Assessment Start: 07/12/24 17:42 Freq: Status: Active Protocol: Document 09/18/24 14:45 [facility] (Rec: 09/18/24 18:08 [facility] [id number]) Manual Assessments Other Manual Assessments Other Manual Assessments lat foot bruising, cont foot swelling L PT-OP-G Mobility & Gait Start: 07/12/24 17:42 Freq: Status: Active Protocol: Document 07/25/24 11:38 LR (Rec: 07/25/24 13:45 [facility] [id number]) OP Gait Assessment Comments Gait Comments came in w/WC. able to amb w/ FWW w/cues for step to pattern PT-OP-K Range of Motion Start: 07/12/24 17:42 Freq: Status: Active Protocol: Document 12/12/24 16:21 LR (Rec: 12/12/24 17:03 [facility] [id number]) Ankle and Foot Goniometric Range of Motion Ankle and Foot Left Active Dorsiflexion with Knee Flexed 3 Dorsiflexion with Knee Extended 0 PT-OP-M Strength Start: 07/12/24 17:42 Freq: Status: Active Protocol: Document 12/12/24 16:21 [facility] (Rec: 12/12/24 17:03 [facility] [id number]) Ankle/Foot Strength Ankle and Foot Manual Muscle Testing Right Dorsiflexion (L4) 5 Normal Plantarflexion (S1) 5 Normal Inversion 5 Normal Eversion (S1) 5 Normal Left Dorsiflexion (L4) 4+ Good+ Plantarflexion (S1) 4+ Good+ Inversion 4 Good Eversion (S1) 4 Good Comments mild pain; 4/5 toe ext; 3+/5 toe flex PF tested seated PT-OP-Q Treatments Start: 07/12/24 17:42 Freq: Status: Active Protocol: Document 12/27/24 13:04 SP (Rec: 12/27/24 15:47 SP [id number]) Therapeutic Exercises Supine Exercises Bridge Supine Exercise Name reviewed Side bilateral Resistance AROM Equipment Used forefoot on 1/2 foam roll Reps/Minutes 2x10 reps Comments cued glut, core engagement lift, good ankle mobiltiy reported Standing Exercises heel raises/ toe raises Standing Exercise Name HR: 1. UE support edge step 2 . on floor unsupported Side bilateral Equipment Used 1. heels off step /c rail support 2. PRN rail Reps/Minutes 1. 20 2. 10 reps cues trunk wt shift back due to LOB Fwd Comments cued slow pace slower, parallel foot alignment, postural alignment back HR standing calf stretch Standing Exercise Name off edge step Side bilateral Equipment Used rail support Reps/Minutes 30 SH Comments good response Gait Training Gait Activity dynamic gait Description use metronome Device Used 0 Level of Assistance CG>close SBA with metronome Distance/Duration hallway 50 ft laps fwd, near rail 20 ft laps retro stepping Treatment Focus increase geovanna, L ankle mobility, midline stability Comments Trunk viering over wt shift with HTs, LOB x2 light contact wall recovery, no metronome. Cues for arm swing, improved stability with use metronome 93 bpm fwd, 65 bpm retro stepping. Manual Therapy Treatment Consent Patient gave verbal consent for manual Yes treatment Soft Tissue Mobilization calf Body Location L gastroc, soleus, achilles Mobilization Type Cross-Friction,Myofascial Release,Rolling,Other Body Position Prone Comments STMs adjustment in pressure with feedback today more sensitive musculotendonus junction and MWM w/AP Joint Mobilizations Talocrual Joint L PA Grade II Body Position Supine MTP Joint L MTPs gross forefoot: rotation Comments no 1st toe manual due to cut in skin lateral toe from peticure Manual Techniques PROM L ankle Type DF Body Position Prone Reps/Duration 5 reps x10 SH Comments monitored for pain free range Neuro Re-Education Treatment Balance Activities hurdles Details 6 hurdles- step to>receiprocal stepping Surface floor open area/ GB Equipment noAD (CG- 10%A) Comments fwd: cues for taller posture wt shift over advanced LE with softer stepping, improved less heavy stepping and lateral viering with reps reciprocal stepping 1 direction vs other. PT-OP-R Modalities Start: 07/12/24 17:42 Freq: Status: Active Protocol: Document 08/06/24 13:43 SP (Rec: 08/06/24 15:29 SP [id number]) Hot Pack/Cold Pack Treatment CP Location L ankle Patient Position Hooklying Patient Tolerance Good Comments Reports helps decreased discomfort end tx. PT-OP-T Assessment and Plan Start: 07/12/24 17:42 Freq: Status: Active Protocol: Document 12/27/24 13:04 SP (Rec: 12/27/24 13:47 SP [id number]) Physical Therapy Assessment Goals ROM Short Term Goal (STG) Pt will have DF to neutral in knee flex position 09/18-worse since fall 10/18-much improved, -2 11/05/2024 lacking 2 deg from neutral end of session AROM left ankle STG Duration achieved 11/15 Client Solutions Specialist Goal (LTG) Pt will have at least DF to 5 deg in knee flex and extended position to allow for improved gait mechanics. 12/12-0 in ext, 2 in flex LTG Duration 02/06 activity Short Term Goal (STG) Pt will ambulate in house w/ LRAD 100% of the time instead of use WC 09/18-during day but not at night STG Duration achieved 10/18 Penitentiary Goal (LTG) Pt will amb w/o AD w/o significant gait deviations and be able to go for short walks w/o inc pain greater than 2/10 11/15-amb w/SPC 12/12-amb w/o AD but dec stance time and push off LLE d/t pain LTG Duration 02/06 LEFS Impairment 15/ Short Term Goal (STG) Pt will improve LEFS score to at least 30/80 to show improved functional ability. 09/18-10/18- 11/15- STG Duration achieved to 43 Penitentiary Goal (LTG) Pt will improve LEFS score to at least 50/80 to show improved functional ability. 12/12- LTG Duration 02/06 Assessment Summary Assessment Pt demonstrated improved less trunk viering and softer stepping during hurdles today with cues trunk wt shift into forward LE. Carryover more midline stability use of metronome today 93 bpm fwd and 65 retro stepping with cues for arm swing. Suggested use of metronome home near wall to improve stability during gait without UE support. Physical Therapy Plan Frequency and Duration Frequency of Treatment 1-2x/wk Duration of treatment (weeks) 8 Plan of Care Start Date 12/12/24 Plan of Care End Date 02/06/25 Therapeutic Interventions Therapeutic Interventions Balance Training,Gait Training ,Home Exercise Program,Joint Mobilizations,Manual Therapy, Neuromuscular Re-education, Orthotic/Prosthetic Management ,Patient/Caregiver Education, Self-Care/Home Management,Soft Tissue Mobilization,Taping, Therapeutic Activities, Therapeutic Exercises Modalities Cold Pack/Ice Massage,Electric Stimulation,Hot Packs, Infrared Therapy Next Visit Focus/Plan Next Note Type Treatment Note Next Visit Plan Ask ortho appt went next tx. Cont to work on gait use metronome, dynamic balance, hurdles, bal board, stairs and curb. manual and exercise for iproved ROM and improve hip strength, K taping L knee as needed.
--- NOTE | 2025-01-01 14:33 | PT.OTN ---
Current Diagnoses Pain in right ankle and joints of right foot (01/01/25) Nondisplaced pilon fracture of right tibia, subsequent encounter for closed fracture with routine healing (01/01/25) Nondisplaced pilon fracture of left tibia, initial encounter for closed fracture (01/01/25) Dislocation of tarsometatarsal joint of left foot, initial encounter (01/01/25) Sprain of tibiofibular ligament of left ankle, initial encounter (01/01/25) Physical Therapy Treatment Note PT-OP-A Visit Information Start: 07/12/24 17:42 Freq: Status: Active Protocol: Document 01/01/25 13:49 SP (Rec: 01/01/25 14:33 SP [id number]) Out-Patient Physical Therapy Visit Information Visit Information Visit Type Treatment Note Visit Start Time 13:49 Visit Stop Time 14:33 Visit Number 46 (03/26) Number of HISTOTECHNOLOGIST SUPERVISOR Visits 2 PT-OP-B Current Condition Start: 07/12/24 17:42 Freq: Status: Active Protocol: Document 09/18/24 14:45 [facility] (Rec: 09/18/24 18:08 [facility] [id number]) Current Condition History of Current Condition Onset Date injury april 15, sx 04/30 Current Complaints L ORIF lisfranc, pilon and syndesmosis History of Current Condition 09/18/24-pt fell 09/04 on 1 step w/FWW and hurt from L knee down to foot. Saw ortho and no further fx and cleared to cont PT and does not have return to ortho IE:Pt reports stood up to go to bed on April 15 and fell over her feet and broke her leg and bones in foot. She was put in splint ER and on April 30 got screws in foot, leg and ankle. Has had boot for 6-8 weeks. Tried to do the walker when cleared to in May and it hurt so bad, she couldn't do it. Dr. Guzman told her to wait a couple weeks again and on 06/19 was told again. Sees her again next Tuesday. Last tried to use walker about 1.5 weeks ago but it is too painful . When uses the walker , L shoulder has been more painful too. Broke ankle in 80s without surgery. Denies LE and back pain. Pt reports prior ot this was a couch potato. prior to this was indep w/dressing and bathing. Cannot get into shower so has been doing bird baths insteadwith help. He helps some w/dressing too. It is a walk in shower but has a step up so can't get in. Has a built in seat in there with grab bars in there. DOes SPT for all transfers w/o FWW. Has a ramp built in now for livingroom area to cover step. H w/flat entry. Pt has been doing APs Treatment Goals Patient/Caregiver Goals get back to walking PT-OP-C Subjective Start: 07/12/24 17:42 Freq: Status: Active Protocol: Document 01/01/25 13:49 SP (Rec: 01/01/25 14:33 SP [id number]) OP-PT Subjective Patient Comments Patient Comments Pt reports Dr Guzman pleased with ankle mobility and pins doing well in L ankle. 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 Pt was please able to don her own slip on shoes today due to decreased ankle swelling and use of Meloxican med. Gave her a script for her L knee as well. PT to Re-Eval and add L knee to POC during 01/10/25 appt. PT-OP-F Manual Assessment Start: 07/12/24 17:42 Freq: Status: Active Protocol: Document 09/18/24 14:45 [facility] (Rec: 09/18/24 18:08 [facility] [id number]) Manual Assessments Other Manual Assessments Other Manual Assessments lat foot bruising, cont foot swelling L PT-OP-G Mobility & Gait Start: 07/12/24 17:42 Freq: Status: Active Protocol: Document 07/25/24 11:38 LR (Rec: 07/25/24 13:45 [facility] [id number]) OP Gait Assessment Comments Gait Comments came in w/WC. able to amb w/ FWW w/cues for step to pattern PT-OP-K Range of Motion Start: 07/12/24 17:42 Freq: Status: Active Protocol: Document 12/12/24 16:21 LR (Rec: 12/12/24 17:03 [facility] [id number]) Ankle and Foot Goniometric Range of Motion Ankle and Foot Left Active Dorsiflexion with Knee Flexed 3 Dorsiflexion with Knee Extended 0 PT-OP-M Strength Start: 07/12/24 17:42 Freq: Status: Active Protocol: Document 12/12/24 16:21 [facility] (Rec: 12/12/24 17:03 [facility] [id number]) Ankle/Foot Strength Ankle and Foot Manual Muscle Testing Right Dorsiflexion (L4) 5 Normal Plantarflexion (S1) 5 Normal Inversion 5 Normal Eversion (S1) 5 Normal Left Dorsiflexion (L4) 4+ Good+ Plantarflexion (S1) 4+ Good+ Inversion 4 Good Eversion (S1) 4 Good Comments mild pain; 4/5 toe ext; 3+/5 toe flex PF tested seated PT-OP-Q Treatments Start: 07/12/24 17:42 Freq: Status: Active Protocol: Document 01/01/25 13:49 SP (Rec: 01/01/25 14:33 SP [id number]) Cardio Equipment Recumbent Bicycle Duration (Minutes) 6 Resistance 3 Seat Position 7 Other cued ankle mobility Therapeutic Exercises Standing Exercises miniture lunges Standing Exercise Name added to HEP /c HO Side bilateral Resistance AROM Equipment Used rail support 1 UE Reps/Minutes 10 reps Comments cued WBOS, allow back heel lift, hip hinge mini lunge pnfree range DF back to wall Standing Exercise Name HEP reviewed Side bilateral Resistance AROM Reps/Minutes 2x10 Comments cued feet // march Standing Exercise Name reviewed in PT only Side bilateral Resistance TB #3 under feet Equipment Used light rail support Reps/Minutes 2x10 Comments cued wide VALENTIN, soft foot landing sidesteps Standing Exercise Name HEP reviewed Side bilateral Resistance Tb #2>#3 at ankles Equipment Used near rail Reps/Minutes 10ft x3laps Comments cued no lateral lean heel raises/ toe raises Standing Exercise Name HEP Side bilateral Resistance AROM Equipment Used near rail no UE support Reps/Minutes 2x10 Comments cued slow pace, head toward ceiling Neuro Re-Education Treatment Balance Activities tandem Details 1. stationary 2. walking Comments L fwd 9 sec R fwd 10 sec 2. 10 ft 1 lap PRN rail PT-OP-R Modalities Start: 07/12/24 17:42 Freq: Status: Active Protocol: Document 08/06/24 13:43 SP (Rec: 08/06/24 15:29 SP [id number]) Hot Pack/Cold Pack Treatment CP Location L ankle Patient Position Hooklying Patient Tolerance Good Comments Reports helps decreased discomfort end tx. PT-OP-T Assessment and Plan Start: 07/12/24 17:42 Freq: Status: Active Protocol: Document 01/01/25 13:49 SP (Rec: 01/01/25 14:33 SP [id number]) Physical Therapy Assessment Goals ROM Short Term Goal (STG) Pt will have DF to neutral in knee flex position 09/18-worse since fall 10/18-much improved, -2 11/05/2024 lacking 2 deg from neutral end of session AROM left ankle STG Duration achieved 11/15 Longterm Goal (LTG) Pt will have at least DF to 5 deg in knee flex and extended position to allow for improved gait mechanics. 12/12-0 in ext, 2 in flex LTG Duration 02/06 activity Short Term Goal (STG) Pt will ambulate in house w/ LRAD 100% of the time instead of use WC 09/18-during day but not at night STG Duration achieved 10/18 Social Group Worker Goal (LTG) Pt will amb w/o AD w/o significant gait deviations and be able to go for short walks w/o inc pain greater than 2/10 11/15-amb w/SPC 12/12-amb w/o AD but dec stance time and push off LLE d/t pain LTG Duration 02/06 LEFS Impairment 15/80 Short Term Goal (STG) Pt will improve LEFS score to at least 30/80 to show improved functional ability. 09/18-14 10/18- 11/15- STG Duration achieved to 43 Longterm Goal (LTG) Pt will improve LEFS score to at least 50/80 to show improved functional ability. 12/12- LTG Duration 02/06 Assessment Summary Assessment Pt good tolerance to focused on standing HEP for progression WB ankle strength and mobility. She reported L ankle little uncomfortable first few reps resisted marching and side stepping but improved with cues softer step landing and reps. No pain reported, cued for ankle alignment during added mini lunges with cues for small range. Physical Therapy Plan Frequency and Duration Frequency of Treatment 1-2x/wk Duration of treatment (weeks) 8 Plan of Care Start Date 12/12/24 Plan of Care End Date 02/06/25 Therapeutic Interventions Therapeutic Interventions Balance Training,Gait Training ,Home Exercise Program,Joint Mobilizations,Manual Therapy, Neuromuscular Re-education, Orthotic/Prosthetic Management ,Patient/Caregiver Education, Self-Care/Home Management,Soft Tissue Mobilization,Taping, Therapeutic Activities, Therapeutic Exercises Modalities Cold Pack/Ice Massage,Electric Stimulation,Hot Packs, Infrared Therapy Next Visit Focus/Plan Next Note Type Treatment Note Next Visit Plan PT 5th visit and 9th visit PN, 01/10/25 with PT Nayana. Cxl 01/29 appts. Condense HEP. Cont to work on gait use metronome, dynamic balance, hurdles, bal board, stairs and curb. manual and exercise for improved ROM and improve hip strength, K taping L knee as needed.
--- NOTE | 2025-01-03 14:33 | PT.OTN ---
Addendum entered and electronically signed by Mel Ortega, APPETIZER PACKER 01/03/25 16:25: Update feedback progression with goals next tx 01/08/25. Original Note: Current Diagnoses Pain in right ankle and joints of right foot (01/03/25) Nondisplaced pilon fracture of right tibia, subsequent encounter for closed fracture with routine healing (01/03/25) Nondisplaced pilon fracture of left tibia, initial encounter for closed fracture (01/03/25) Dislocation of tarsometatarsal joint of left foot, initial encounter (01/03/25) Sprain of tibiofibular ligament of left ankle, initial encounter (01/03/25) Physical Therapy Treatment Note PT-OP-A Visit Information Start: 07/12/24 17:42 Freq: Status: Active Protocol: Document 01/03/25 13:51 SP (Rec: 01/03/25 14:33 SP [id number]) Out-Patient Physical Therapy Visit Information Visit Information Visit Type Treatment Note Visit Start Time 13:51 Visit Stop Time 14:33 Visit Number 47 (04/25) Number of APPETIZER PACKER Visits 3 PT-OP-B Current Condition Start: 07/12/24 17:42 Freq: Status: Active Protocol: Document 09/18/24 14:45 [facility] (Rec: 09/18/24 18:08 [facility] [id number]) Current Condition History of Current Condition Onset Date injury april 15, sx 04/30 Current Complaints L ORIF lisfranc, pilon and syndesmosis History of Current Condition 09/18/24-pt fell 09/04 on 1 step w/FWW and hurt from L knee down to foot. Saw ortho and no further fx and cleared to cont PT and does not have return to ortho IE:Pt reports stood up to go to bed on April 15 and fell over her feet and broke her leg and bones in foot. She was put in splint ER and on April 30 got screws in foot, leg and ankle. Has had boot for 6-8 weeks. Tried to do the walker when cleared to in May and it hurt so bad, she couldn't do it. Dr. Guzman told her to wait a couple weeks again and on 06/19 was told again. Sees her again next Tuesday. Last tried to use walker about 1.5 weeks ago but it is too painful . When uses the walker , L shoulder has been more painful too. Broke ankle in 80s without surgery. Denies LE and back pain. Pt reports prior ot this was a couch potato. prior to this was indep w/dressing and bathing. Cannot get into shower so has been doing bird baths insteadwith help. He helps some w/dressing too. It is a walk in shower but has a step up so can't get in. Has a built in seat in there with grab bars in there. DOes SPT for all transfers w/o FWW. Has a ramp built in now for livingroom area to cover step. SLH w/flat entry. Pt has been doing APs Treatment Goals Patient/Caregiver Goals get back to walking PT-OP-C Subjective Start: 07/12/24 17:42 Freq: Status: Active Protocol: Document 01/03/25 13:51 SP (Rec: 01/03/25 14:33 SP [id number]) OP-PT Subjective Patient Comments Patient Comments Pt arrives with noSPC and all HOs to condense to only perform what is needed for ankle strength and normalizing gait. She stated purchased a L knee compression sleeve with hole over patella and flexible stays on side for stability to check if will be supportive to L knee as the Ktaping has? PT-OP-F Manual Assessment Start: 07/12/24 17:42 Freq: Status: Active Protocol: Document 09/18/24 14:45 [facility] (Rec: 09/18/24 18:08 [facility] [id number]) Manual Assessments Other Manual Assessments Other Manual Assessments lat foot bruising, cont foot swelling L PT-OP-G Mobility & Gait Start: 07/12/24 17:42 Freq: Status: Active Protocol: Document 07/25/24 11:38 LR (Rec: 07/25/24 13:45 [facility] [id number]) OP Gait Assessment Comments Gait Comments came in w/WC. able to amb w/ FWW w/cues for step to pattern PT-OP-K Range of Motion Start: 07/12/24 17:42 Freq: Status: Active Protocol: Document 12/12/24 16:21 LR (Rec: 12/12/24 17:03 [facility] [id number]) Ankle and Foot Goniometric Range of Motion Ankle and Foot Left Active Dorsiflexion with Knee Flexed 3 Dorsiflexion with Knee Extended 0 PT-OP-M Strength Start: 07/12/24 17:42 Freq: Status: Active Protocol: Document 12/12/24 16:21 [facility] (Rec: 12/12/24 17:03 [facility] [id number]) Ankle/Foot Strength Ankle and Foot Manual Muscle Testing Right Dorsiflexion (L4) 5 Normal Plantarflexion (S1) 5 Normal Inversion 5 Normal Eversion (S1) 5 Normal Left Dorsiflexion (L4) 4+ Good+ Plantarflexion (S1) 4+ Good+ Inversion 4 Good Eversion (S1) 4 Good Comments mild pain; 4/5 toe ext; 3+/5 toe flex PF tested seated PT-OP-Q Treatments Start: 07/12/24 17:42 Freq: Status: Active Protocol: Document 01/03/25 13:51 SP (Rec: 01/03/25 14:33 SP [id number]) Therapeutic Exercises Sitting Exercises ankle DF, EV, IV Sitting Exercise Name HEP reviewed: DF with HO, verbal review rest Side left Resistance Tb #4 dark blue TB Equipment Used EV, IV, DF, PF Reps/Minutes 12 reps each Comments verbal cues painfree range Standing Exercises miniture lunges Standing Exercise Name HEP reviewed Side bilateral Resistance AROM Equipment Used rail support 1 UE light Reps/Minutes 10 reps Comments cued WBOS, allow back heel lift, hip hinge mini lunge pnfree range DF back to wall Standing Exercise Name HEP reviewed Side bilateral Resistance AROM Reps/Minutes 2x10 Comments cued feet // Step ups Standing Exercise Name HEP reviewed: single repeated- 1. step up/back down 2. lateral Side bilateral Resistance 1 HR support light, opp stance LE Equipment Used 6 in Reps/Minutes 10 each direction Comments cued control step back down standing calf stretch Standing Exercise Name lunge position: Gastroc & soleus stretch Side bilateral Equipment Used rail/wall support Reps/Minutes 60 sec hold each position and LE Comments cued heel down: knee straight then bent Gait Training Gait Activity curb mgt Device Used 0 Level of Assistance SBA Distance/Duration 1 curb x3 reps Treatment Focus asc/desc, eccentric motion with decreased momentum or quick descend flexion Comments Pt decreased controlled step down and up end tx after all exercises and no UE support today, normally has/utilizes SPC. dynamic gait Description use metronome Device Used 0 Level of Assistance SBA with metronome Distance/Duration HR Hallway Treatment Focus increase geovanna, L ankle mobility, midline stability Comments Cues for arm swing, improved stability with use metronome lower pacing 85 bpm fwd today, last activity after stairs Device Used R HR Min support Level of Assistance S Distance/Duration MAP bldg stairs 28 forward, 1 rail support Treatment Focus Reciprocal stepping ascending, step to descending, WBAT LLE Comments Cued softer stepping. Pt reported is most steps has done at 1 time and tired especially after all the other exercises. Self-Care/Home Management Treatment Education Patient Education Joint Protection,Pain Management Other Education APPETIZER PACKER checked L knee stabililty compression sleeve with cues may need to readjust superior glide (patella positioned in hole on front) as needed but as long as support comfort for knee seems to be supportive. PT-OP-R Modalities Start: 07/12/24 17:42 Freq: Status: Active Protocol: Document 08/06/24 13:43 SP (Rec: 08/06/24 15:29 SP [id number]) Hot Pack/Cold Pack Treatment CP Location L ankle Patient Position Hooklying Patient Tolerance Good Comments Reports helps decreased discomfort end tx. PT-OP-T Assessment and Plan Start: 07/12/24 17:42 Freq: Status: Active Protocol: Document 01/03/25 13:51 SP (Rec: 01/03/25 14:33 SP [id number]) Physical Therapy Assessment Goals ROM Short Term Goal (STG) Pt will have DF to neutral in knee flex position 09/18-worse since fall 10/18-much improved, -2 11/05/2024 lacking 2 deg from neutral end of session AROM left ankle STG Duration achieved 11/15 Biostatistics Director Goal (LTG) Pt will have at least DF to 5 deg in knee flex and extended position to allow for improved gait mechanics. 12/12-0 in ext, 2 in flex LTG Duration 02/06 activity Short Term Goal (STG) Pt will ambulate in house w/ LRAD 100% of the time instead of use WC 09/18-during day but not at night STG Duration achieved 10/18 Shelter Goal (LTG) Pt will amb w/o AD w/o significant gait deviations and be able to go for short walks w/o inc pain greater than 2/10 11/15-amb w/SPC 12/12-amb w/o AD but dec stance time and push off LLE d/t pain LTG Duration 02/06 LEFS Impairment Short Term Goal (STG) Pt will improve LEFS score to at least 30/80 to show improved functional ability. 09/18-10/18- 11/15- STG Duration achieved to 43 Biostatistics Director Goal (LTG) Pt will improve LEFS score to at least 50/80 to show improved functional ability. 12/12- LTG Duration 02/06 Assessment Summary Assessment Tx focused on condensing HEP with 4 more active standing HEP for ankle/LE strengthening for gait with good tiring effort and cues for proper form during mini lunges. Continued gait geovanna for heel toe performance, decreased today 95 bpm due to perofrmed end tx and tired post ex and 28 stairs. Will continue walking with metronome and curb mgt without UE support and add uneven surfaces next appt. Physical Therapy Plan Frequency and Duration Frequency of Treatment 1-2x/wk Duration of treatment (weeks) 8 Plan of Care Start Date 12/12/24 Plan of Care End Date 02/06/25 Therapeutic Interventions Therapeutic Interventions Balance Training,Gait Training ,Home Exercise Program,Joint Mobilizations,Manual Therapy, Neuromuscular Re-education, Orthotic/Prosthetic Management ,Patient/Caregiver Education, Self-Care/Home Management,Soft Tissue Mobilization,Taping, Therapeutic Activities, Therapeutic Exercises Modalities Cold Pack/Ice Massage,Electric Stimulation,Hot Packs, Infrared Therapy Next Visit Focus/Plan Next Note Type Treatment Note Next Visit Plan Re-eval on 01/10/25 with PT Nayana , add L knee to POC. Cxl 1 01/29 appts. Cont to work on gait use metronome, dynamic balance, hurdles, bal board, stairs and curb. manual and exercise for improved ROM and improve hip strength, K taping L knee as needed.
--- NOTE | 2025-01-08 14:27 | PT.OTN ---
Current Diagnoses Pain in right ankle and joints of right foot (01/08/25) Nondisplaced pilon fracture of right tibia, subsequent encounter for closed fracture with routine healing (01/08/25) Nondisplaced pilon fracture of left tibia, initial encounter for closed fracture (01/08/25) Dislocation of tarsometatarsal joint of left foot, initial encounter (01/08/25) Sprain of tibiofibular ligament of left ankle, initial encounter (01/08/25) Physical Therapy Treatment Note PT-OP-A Visit Information Start: 07/12/24 17:42 Freq: Status: Active Protocol: Document 01/08/25 13:47 SP (Rec: 01/08/25 14:30 SP [id number]) Out-Patient Physical Therapy Visit Information Visit Information Visit Type Treatment Note Visit Start Time 13:47 Visit Stop Time 14:27 Visit Number 48 (05/26) Number of STEM SHAPER Visits 4 PT-OP-B Current Condition Start: 07/12/24 17:42 Freq: Status: Active Protocol: Document 09/18/24 14:45 [facility] (Rec: 09/18/24 18:08 [facility] [id number]) Current Condition History of Current Condition Onset Date injury april 15, sx 04/30 Current Complaints L ORIF lisfranc, pilon and syndesmosis History of Current Condition 09/18/24-pt fell 09/04 on 1 step w/FWW and hurt from L knee down to foot. Saw ortho and no further fx and cleared to cont PT and does not have return to ortho IE:Pt reports stood up to go to bed on April 15 and fell over her feet and broke her leg and bones in foot. She was put in splint ER and on April 30 got screws in foot, leg and ankle. Has had boot for 6-8 weeks. Tried to do the walker when cleared to in May and it hurt so bad, she couldn't do it. Dr. Guzman told her to wait a couple weeks again and on 06/19 was told again. Sees her again next Tuesday. Last tried to use walker about 1.5 weeks ago but it is too painful . When uses the walker , L shoulder has been more painful too. Broke ankle in 80s without surgery. Denies LE and back pain. Pt reports prior ot this was a couch potato. prior to this was indep w/dressing and bathing. Cannot get into shower so has been doing bird baths insteadwith help. He helps some w/dressing too. It is a walk in shower but has a step up so can't get in. Has a built in seat in there with grab bars in there. DOes SPT for all transfers w/o FWW. Has a ramp built in now for livingroom area to cover step. H w/flat entry. Pt has been doing APs Treatment Goals Patient/Caregiver Goals get back to walking PT-OP-C Subjective Start: 07/12/24 17:42 Freq: Status: Active Protocol: Document 01/08/25 13:47 SP (Rec: 01/08/25 14:30 SP [id number]) OP-PT Subjective Patient Comments Patient Comments Pt reports L ankle is stiff in am when wakes up. She arrives without L knee compression sleeve noted, STEM SHAPER didn't ask about L knee today. Patient Questionnaires Lower Extremity Functional Scale LEFS Score 38/80= 47.5 % LEFS Impairment 40 to 59% Impaired (Score 32- 47) PT-OP-F Manual Assessment Start: 07/12/24 17:42 Freq: Status: Active Protocol: Document 09/18/24 14:45 [facility] (Rec: 09/18/24 18:08 [facility] [id number]) Manual Assessments Other Manual Assessments Other Manual Assessments lat foot bruising, cont foot swelling L PT-OP-G Mobility & Gait Start: 07/12/24 17:42 Freq: Status: Active Protocol: Document 07/25/24 11:38 [facility] (Rec: 07/25/24 13:45 [facility] [id number]) OP Gait Assessment Comments Gait Comments came in w/WC. able to amb w/ FWW w/cues for step to pattern PT-OP-K Range of Motion Start: 07/12/24 17:42 Freq: Status: Active Protocol: Document 12/12/24 16:21 [facility] (Rec: 12/12/24 17:03 [facility] [id number]) Ankle and Foot Goniometric Range of Motion Ankle and Foot Left Active Dorsiflexion with Knee Flexed 3 Dorsiflexion with Knee Extended 0 PT-OP-M Strength Start: 07/12/24 17:42 Freq: Status: Active Protocol: Document 12/12/24 16:21 [facility] (Rec: 12/12/24 17:03 [facility] [id number]) Ankle/Foot Strength Ankle and Foot Manual Muscle Testing Right Dorsiflexion (L4) 5 Normal Plantarflexion (S1) 5 Normal Inversion 5 Normal Eversion (S1) 5 Normal Left Dorsiflexion (L4) 4+ Good+ Plantarflexion (S1) 4+ Good+ Inversion 4 Good Eversion (S1) 4 Good Comments mild pain; 4/5 toe ext; 3+/5 toe flex PF tested seated PT-OP-Q Treatments Start: 07/12/24 17:42 Freq: Status: Active Protocol: Document 01/08/25 13:47 SP (Rec: 01/08/25 14:30 SP [id number]) Therapeutic Exercises Standing Exercises SL slider Standing Exercise Name added to HEP: 3, 4-5, 6 o' clock Side bilateral Equipment Used rail light 1 UE support Reps/Minutes 5 reps x2 sets Comments cued feet // forward. DF back to wall Standing Exercise Name HEP reviewed Side bilateral Resistance AROM Reps/Minutes 2x10 Comments cued feet // sidesteps Standing Exercise Name HEP reviewed lateral, fwd, bwd Side bilateral Resistance Tb #3 at ankles Equipment Used near rail Reps/Minutes 10ft x3 laps Comments cued no lateral lean Gait Training Gait Activity dynamic gait Description use metronome Device Used 0 Level of Assistance SBA with metronome Distance/Duration no rail fwd, light contact bwd Hallway Treatment Focus increase geovanna, L ankle mobility, midline stability Comments Cues for arm swing, improved stability with use metronome lower pacing 90 bpm fwd today bacward 82 bpm. Manual Therapy Treatment Consent Patient gave verbal consent for manual Yes treatment Joint Mobilizations L knee Joint Tibfemoral Direction PA Grade II Body Position Hooklying Comments support ankle mobility, no pain Talocrual Joint L PA Grade II Body Position Supine calcaneus Comments distraction L MTP Joint L MTPs gross forefoot: rotation Comments no 1st toe manual due to cut in skin lateral toe from peticure PT-OP-R Modalities Start: 07/12/24 17:42 Freq: Status: Active Protocol: Document 08/06/24 13:43 SP (Rec: 08/06/24 15:29 SP [id number]) Hot Pack/Cold Pack Treatment CP Location L ankle Patient Position Hooklying Patient Tolerance Good Comments Reports helps decreased discomfort end tx. PT-OP-T Assessment and Plan Start: 07/12/24 17:42 Freq: Status: Active Protocol: Document 01/08/25 13:47 SP (Rec: 01/08/25 14:30 SP [id number]) Physical Therapy Assessment Goals ROM Short Term Goal (STG) Pt will have DF to neutral in knee flex position 09/18-worse since fall 10/18-much improved, -2 11/05/2024 lacking 2 deg from neutral end of session AROM left ankle STG Duration achieved 11/15 Pomologist Goal (LTG) Pt will have at least DF to 5 deg in knee flex and extended position to allow for improved gait mechanics. 12/12-0 in ext, 2 in flex 01/08/25: measure next tx LTG Duration 02/06 activity Short Term Goal (STG) Pt will ambulate in house w/ LRAD 100% of the time instead of use WC 09/18-during day but not at night STG Duration achieved 10/18 [facility]ci Goal (LTG) Pt will amb w/o AD w/o significant gait deviations and be able to go for short walks w/o inc pain greater than 2/10 11/15-amb w/SPC 12/12-amb w/o AD but dec stance time and push off LLE d/t pain 01/08/25: GOAL MET: not using SPC inside but using over grass, every now and then twinge 2/10 at most and arch foot when wakes up but AROm makes it go away.. LTG Duration 02/06 GOAL MET 01/08/25 LEFS Impairment 15 Short Term Goal (STG) Pt will improve LEFS score to at least 30/80 to show improved functional ability. 09/18-10/18- 11/15- STG Duration achieved to 43 Pomologist Goal (LTG) Pt will improve LEFS score to at least 50/80 to show improved functional ability. 12/12- 01/08/25: 38/80=47.5%, reports many activities doesn't perform dynamic running activities so logged how difficult thinks would be to perform. LTG Duration 02/06 updated 01/08/25 Assessment Summary Assessment Pt making gains in activities overall back to almost PLOF. She improves geovanna and ankle mechanics with use of metronome today with cues for arm swing but reports she didn 't walk this quicker pacing 90 -93bpm. She isn't having pain other than very occasional twinge over uneven surfaces. Isn't using SPC other than over uneven surfaces. Pt tolerated added SL slider with rail contact today for hip, knee and ankle strengthening with no pain only reports tiring mostly in quads. Next appt pt will be assessed by PT (reeval) for her Lknee, new script and update goals, would benefit from continued dynamic gait including stairs, curb, uneven surface. Physical Therapy Plan Frequency and Duration Frequency of Treatment 1-2x/wk Duration of treatment (weeks) 8 Plan of Care Start Date 12/12/24 Plan of Care End Date 02/06/25 Therapeutic Interventions Therapeutic Interventions Balance Training,Gait Training ,Home Exercise Program,Joint Mobilizations,Manual Therapy, Neuromuscular Re-education, Orthotic/Prosthetic Management ,Patient/Caregiver Education, Self-Care/Home Management,Soft Tissue Mobilization,Taping, Therapeutic Activities, Therapeutic Exercises Modalities Cold Pack/Ice Massage,Electric Stimulation,Hot Packs, Infrared Therapy Next Visit Focus/Plan Next Note Type Treatment Note Next Visit Plan Re-eval on 01/10/25 with PT Nayana , add L knee to POC. Recheck L ankle ROM goal. She would benefit from continued dynamic gait including stairs, curb, uneven surface. POC: Cont to work on gait use metronome, dynamic balance, hurdles, bal board, stairs and curb. manual and exercise for improved ROM and improve hip strength, K taping L knee as needed.
--- NOTE | 2025-01-10 16:26 | PT.OTN ---
Current Diagnoses Pain in right ankle and joints of right foot (01/10/25) Nondisplaced pilon fracture of right tibia, subsequent encounter for closed fracture with routine healing (01/10/25) Nondisplaced pilon fracture of left tibia, initial encounter for closed fracture (01/10/25) Dislocation of tarsometatarsal joint of left foot, initial encounter (01/10/25) Sprain of tibiofibular ligament of left ankle, initial encounter (01/10/25) Physical Therapy Treatment Note PT-OP-A Visit Information Start: 07/12/24 17:42 Freq: Status: Active Protocol: Document 01/10/25 15:15 [facility] (Rec: 01/10/25 16:25 [facility] [id number]) Out-Patient Physical Therapy Visit Information Visit Information Visit Type Progress Note Visit Start Time 15:15 Visit Stop Time 16:00 Visit Number 49 9/10 Number of STAGE BUILDER Visits 0 PT-OP-B Current Condition Start: 07/12/24 17:42 Freq: Status: Active Protocol: Document 09/18/24 14:45 [facility] (Rec: 09/18/24 18:08 [facility] [id number]) Current Condition History of Current Condition Onset Date injury april 15, sx 04/30 Current Complaints L ORIF lisfranc, pilon and syndesmosis History of Current Condition 09/18/24-pt fell 09/04 on 1 step w/FWW and hurt from L knee down to foot. Saw ortho and no further fx and cleared to cont PT and does not have return to ortho IE:Pt reports stood up to go to bed on April 15 and fell over her feet and broke her leg and bones in foot. She was put in splint ER and on April 30 got screws in foot, leg and ankle. Has had boot for 6-8 weeks. Tried to do the walker when cleared to in May and it hurt so bad, she couldn't do it. Dr. Guzman told her to wait a couple weeks again and on 06/19 was told again. Sees her again next Tuesday. Last tried to use walker about 1.5 weeks ago but it is too painful . When uses the walker , L shoulder has been more painful too. Broke ankle in 80s without surgery. Denies LE and back pain. Pt reports prior ot this was a couch potato. prior to this was indep w/dressing and bathing. Cannot get into shower so has been doing bird baths insteadwith help. He helps some w/dressing too. It is a walk in shower but has a step up so can't get in. Has a built in seat in there with grab bars in there. DOes SPT for all transfers w/o FWW. Has a ramp built in now for livingroom area to cover step. [facility] w/flat entry. Pt has been doing APs Treatment Goals Patient/Caregiver Goals get back to walking PT-OP-C Subjective Start: 07/12/24 17:42 Freq: Status: Active Protocol: Document 01/10/25 15:15 [facility] (Rec: 01/10/25 16:22 [facility] [id number]) OP-PT Subjective Patient Comments Patient Comments pt describes symptoms of left knee pain when she went to stand up without use of her hands in October 2024. Then 6 weeks ago she was bent over to tuck the matress pad under the bed and she felt it twinge . Xrays have been taken and not fractures but she has degenerative changes. Augusta notes she has progressed from her walker to a cane and today she is here without her cane. She notes her knee pain can be twingy when she walks PT-OP-F Manual Assessment Start: 07/12/24 17:42 Freq: Status: Active Protocol: Document 09/18/24 14:45 [facility] (Rec: 09/18/24 18:08 [facility] [id number]) Manual Assessments Other Manual Assessments Other Manual Assessments lat foot bruising, cont foot swelling L PT-OP-G Mobility & Gait Start: 07/12/24 17:42 Freq: Status: Active Protocol: Document 07/25/24 11:38 [facility] (Rec: 07/25/24 13:45 [facility] [id number]) OP Gait Assessment Comments Gait Comments came in w/WC. able to amb w/ FWW w/cues for step to pattern PT-OP-J Posture/Palpation/Skin Start: 07/12/24 17:42 Freq: Status: Active Protocol: Document 01/10/25 15:15 [facility] (Rec: 01/10/25 16:25 [facility] [id number]) Palpation Assessment Location left lateral joint line Palpation Findings Tenderness PT-OP-K Range of Motion Start: 07/12/24 17:42 Freq: Status: Active Protocol: Document 01/10/25 15:15 [facility] (Rec: 01/10/25 16:24 [facility] [id number]) Knee Goniometric Range of Motion Knee Left Knee ROM WFL No Patient Position Supine Flexion Active (degrees) 115 Knee ROM Limitations Knee ROM Limitations Soft Tissue Tightness Comments c/o tightness with end range knee flexion at 115 note this did improve after quad stretches, heel slides and manual quad release today PT-OP-M Strength Start: 07/12/24 17:42 Freq: Status: Active Protocol: Document 12/12/24 16:21 [facility] (Rec: 12/12/24 17:03 [facility] [id number]) Ankle/Foot Strength Ankle and Foot Manual Muscle Testing Right Dorsiflexion (L4) 5 Normal Plantarflexion (S1) 5 Normal Inversion 5 Normal Eversion (S1) 5 Normal Left Dorsiflexion (L4) 4+ Good+ Plantarflexion (S1) 4+ Good+ Inversion 4 Good Eversion (S1) 4 Good Comments mild pain; 4/5 toe ext; 3+/5 toe flex PF tested seated PT-OP-Q Treatments Start: 07/12/24 17:42 Freq: Status: Active Protocol: Document 01/10/25 15:15 [facility] (Rec: 01/10/25 16:22 [facility] [id number]) Therapeutic Exercises Supine Exercises quad set Reps/Minutes 10 reps with 5 second hold quad stretch in stephen test position Supine Exercise Name manual assistance to bend and extend the knee Reps/Minutes 10 reps bending and extending the leg and then held in a bent position. heel slides Reps/Minutes x 10 reps Standing Exercises standing hamstring curls Reps/Minutes x 10 reps each side Comments at counter top standing calf stretch Standing Exercise Name lunge position: Gastroc & soleus stretch Side bilateral Equipment Used rail/wall support Reps/Minutes 60 sec hold each position and LE Comments cued heel down: knee straight then bent Manual Therapy Treatment Soft Tissue Mobilization manual quad release Body Location supine and in stephen test position Mobilization Type Myofascial Release Intensity/Depth Moderate Body Position Hooklying PT-OP-R Modalities Start: 07/12/24 17:42 Freq: Status: Active Protocol: Document 08/06/24 13:43 [facility] (Rec: 08/06/24 15:29 [facility] [id number]) Hot Pack/Cold Pack Treatment CP Location L ankle Patient Position Hooklying Patient Tolerance Good Comments Reports helps decreased discomfort end tx. PT-OP-T Assessment and Plan Start: 07/12/24 17:42 Freq: Status: Active Protocol: Document 01/10/25 15:15 [facility] (Rec: 01/10/25 16:22 [facility] [id number]) Physical Therapy Assessment Goals left knee ROM Impairment decreased left knee ROM with pain at end range 115 on the left Senior Care Goal (LTG) Augusta presents with a 5 degree improvement with her knee flexion ROM and reports decreased pain at end range ROM Short Term Goal (STG) Pt will have DF to neutral in knee flex position 09/18-worse since fall 10/18-much improved, -2 11/05/2024 lacking 2 deg from neutral end of session AROM left ankle STG Duration achieved 11/15 Senior Care Goal (LTG) Pt will have at least DF to 5 deg in knee flex and extended position to allow for improved gait mechanics. 12/12-0 in ext, 2 in flex 01/08/25: measure next tx LTG Duration 02/06 activity Short Term Goal (STG) Pt will ambulate in house w/ LRAD 100% of the time instead of use WC 09/18-during day but not at night STG Duration achieved 10/18 Senior Care Goal (LTG) Pt will amb w/o AD w/o significant gait deviations and be able to go for short walks w/o inc pain greater than 2/10 11/15-amb w/SPC 12/12-amb w/o AD but dec stance time and push off LLE d/t pain 01/08/25: GOAL MET: not using SPC inside but using over grass, every now and then twinge 2/10 at most and arch foot when wakes up but AROm makes it go away.. LTG Duration 02/06 GOAL MET 01/08/25 LEFS Impairment 15 Short Term Goal (STG) Pt will improve LEFS score to at least 30/80 to show improved functional ability. 09/18-10/18- 11/15- STG Duration achieved to 43 Senior Care Goal (LTG) Pt will improve LEFS score to at least 50/80 to show improved functional ability. 12/12- 01/08/25: 38/80=47.5%, reports many activities doesn't perform dynamic running activities so logged how difficult thinks would be to perform. LTG Duration 02/06 updated 01/08/25 Assessment Summary Assessment Augusta is making gains in activities overall and is ambulating now independently. She notes her pain is decreasing in her ankle and her LEFS score is now 38/80 with 47.5%. She has been complaining of left sided knee pain and she states she had a knee xray which showed mild degenerative changes. She is tender to palpation over the lateral joint line and has tightness at end range knee flexion to 120. Time was spent working on quad stretching and releasing the quad and Augusta notes she felt better with her ROM after this. I would like to add the Left knee to her plan of care and Augusta would benefit from continued PT Physical Therapy Plan Frequency and Duration Frequency of Treatment 1-2x/wk Duration of treatment (weeks) 8 Plan of Care Start Date 01/10/25 Plan of Care End Date 03/07/25 Therapeutic Interventions Therapeutic Interventions Balance Training,Gait Training ,Home Exercise Program,Joint Mobilizations,Manual Therapy, Neuromuscular Re-education, Orthotic/Prosthetic Management ,Patient/Caregiver Education, Self-Care/Home Management,Soft Tissue Mobilization,Taping, Therapeutic Activities, Therapeutic Exercises Modalities Cold Pack/Ice Massage,Electric Stimulation,Hot Packs, Infrared Therapy Next Visit Focus/Plan Next Note Type Treatment Note Next Visit Plan continue POC for the left ankle and add in left knee ROM and quad stretching (see exercises given at today's visit) Continue working on dynamic gait activities
--- NOTE | 2025-01-17 14:23 | PT.OTN ---
Current Diagnoses Pain in right ankle and joints of right foot (01/17/25) Nondisplaced pilon fracture of right tibia, subsequent encounter for closed fracture with routine healing (01/17/25) Nondisplaced pilon fracture of left tibia, initial encounter for closed fracture (01/17/25) Dislocation of tarsometatarsal joint of left foot, initial encounter (01/17/25) Sprain of tibiofibular ligament of left ankle, initial encounter (01/17/25) Physical Therapy Treatment Note PT-OP-A Visit Information Start: 07/12/24 17:42 Freq: Status: Active Protocol: Document 01/17/25 12:43 [facility] (Rec: 01/17/25 14:23 [facility] [id number]) Out-Patient Physical Therapy Visit Information Visit Information Visit Type Treatment Note Visit Start Time 13:03 Visit Stop Time 13:46 Visit Number 50 (2/10 Number of WIG SALES CONSULTANT Visits 1 PT-OP-B Current Condition Start: 07/12/24 17:42 Freq: Status: Active Protocol: Document 09/18/24 14:45 [facility] (Rec: 09/18/24 18:08 [facility] [id number]) Current Condition History of Current Condition Onset Date injury april 15, sx 04/30 Current Complaints L ORIF lisfranc, pilon and syndesmosis History of Current Condition 09/18/24-pt fell 09/04 on 1 step w/FWW and hurt from L knee down to foot. Saw ortho and no further fx and cleared to cont PT and does not have return to ortho IE:Pt reports stood up to go to bed on April 15 and fell over her feet and broke her leg and bones in foot. She was put in splint ER and on April 30 got screws in foot, leg and ankle. Has had boot for 6-8 weeks. Tried to do the walker when cleared to in May and it hurt so bad, she couldn't do it. Dr. Guzman told her to wait a couple weeks again and on 06/19 was told again. Sees her again next Tuesday. Last tried to use walker about 1.5 weeks ago but it is too painful . When uses the walker , L shoulder has been more painful too. Broke ankle in 80s without surgery. Denies LE and back pain. Pt reports prior ot this was a couch potato. prior to this was indep w/dressing and bathing. Cannot get into shower so has been doing bird baths insteadwith help. He helps some w/dressing too. It is a walk in shower but has a step up so can't get in. Has a built in seat in there with grab bars in there. DOes SPT for all transfers w/o FWW. Has a ramp built in now for livingroom area to cover step. [facility] w/flat entry. Pt has been doing APs Treatment Goals Patient/Caregiver Goals get back to walking PT-OP-C Subjective Start: 07/12/24 17:42 Freq: Status: Active Protocol: Document 01/17/25 12:43 [facility] (Rec: 01/17/25 14:23 [facility] [id number]) OP-PT Subjective Patient Comments Patient Comments Patient reports having no pain start of session ambulating into session without device. Patient ambulates with ipsilateral trunk sidebend R > L, L LE in excessive ER at hip . Patient reports using cane when out ambulating on grass/ uneven surfaces. SLS 1 sec left on right 2,3,2 without UE use PT-OP-F Manual Assessment Start: 07/12/24 17:42 Freq: Status: Active Protocol: Document 09/18/24 14:45 [facility] (Rec: 09/18/24 18:08 [facility] [id number]) Manual Assessments Other Manual Assessments Other Manual Assessments lat foot bruising, cont foot swelling L PT-OP-G Mobility & Gait Start: 07/12/24 17:42 Freq: Status: Active Protocol: Document 07/25/24 11:38 [facility] (Rec: 07/25/24 13:45 [facility] [id number]) OP Gait Assessment Comments Gait Comments came in w/WC. able to amb w/ FWW w/cues for step to pattern PT-OP-J Posture/Palpation/Skin Start: 07/12/24 17:42 Freq: Status: Active Protocol: Document 01/10/25 15:15 [facility] (Rec: 01/10/25 16:25 [facility] [id number]) Palpation Assessment Location left lateral joint line Palpation Findings Tenderness PT-OP-K Range of Motion Start: 07/12/24 17:42 Freq: Status: Active Protocol: Document 01/10/25 15:15 [facility] (Rec: 01/10/25 16:24 [facility] [id number]) Knee Goniometric Range of Motion Knee Left Knee ROM WFL No Patient Position Supine Flexion Active (degrees) 115 Knee ROM Limitations Knee ROM Limitations Soft Tissue Tightness Comments c/o tightness with end range knee flexion at 115 note this did improve after quad stretches, heel slides and manual quad release today PT-OP-M Strength Start: 07/12/24 17:42 Freq: Status: Active Protocol: Document 12/12/24 16:21 [facility] (Rec: 12/12/24 17:03 [facility] [id number]) Ankle/Foot Strength Ankle and Foot Manual Muscle Testing Right Dorsiflexion (L4) 5 Normal Plantarflexion (S1) 5 Normal Inversion 5 Normal Eversion (S1) 5 Normal Left Dorsiflexion (L4) 4+ Good+ Plantarflexion (S1) 4+ Good+ Inversion 4 Good Eversion (S1) 4 Good Comments mild pain; 4/5 toe ext; 3+/5 toe flex PF tested seated PT-OP-Q Treatments Start: 07/12/24 17:42 Freq: Status: Active Protocol: Document 01/17/25 12:43 [facility] (Rec: 01/17/25 14:23 [facility] [id number]) Therapeutic Exercises Supine Exercises quad stretch in stephen test position Supine Exercise Name holding opp knee with towel Side left Reps/Minutes 60 sec of knee flexion X 2 heel slides Reps/Minutes x 10 reps Sitting Exercises seated hip abduction Sitting Exercise Name HEP review Resistance [place] blue level 4 band Reps/Minutes one minute X 1 Comments Verbal cues Manual Therapy Treatment Consent Patient gave verbal consent for manual Yes treatment Soft Tissue Mobilization calf Body Location L gastroc, soleus, achilles Mobilization Type Cross-Friction,Instrument Assisted,Myofascial Release, Rolling Body Position Hooklying Comments suction cup Joint Mobilizations Talocrual Joint AP and PA tib fib the MWM TC Body Position II Reps/Duration hooklying, and standing Comments X 5 X 5 each Neuro Re-Education Treatment Balance Activities SLS Details hands above counter Reps/Duration X 3 X 3 each LE Comments HEP PT-OP-R Modalities Start: 07/12/24 17:42 Freq: Status: Active Protocol: Document 08/06/24 13:43 [facility] (Rec: 08/06/24 15:29 [facility] [id number]) Hot Pack/Cold Pack Treatment CP Location L ankle Patient Position Hooklying Patient Tolerance Good Comments Reports helps decreased discomfort end tx. PT-OP-T Assessment and Plan Start: 07/12/24 17:42 Freq: Status: Active Protocol: Document 01/17/25 12:43 [facility] (Rec: 01/17/25 14:23 [facility] [id number]) Physical Therapy Assessment Goals left knee ROM Impairment decreased left knee ROM with pain at end range 115 on the left Budget Counselor Goal (LTG) Augusta presents with a 5 degree improvement with her knee flexion ROM and reports decreased pain at end range ROM Short Term Goal (STG) Pt will have DF to neutral in knee flex position 09/18-worse since fall 10/18-much improved, -2 11/05/2024 lacking 2 deg from neutral end of session AROM left ankle STG Duration achieved 11/15 Budget Counselor Goal (LTG) Pt will have at least DF to 5 deg in knee flex and extended position to allow for improved gait mechanics. 12/12-0 in ext, 2 in flex 01/08/25: measure next tx LTG Duration 02/06 activity Short Term Goal (STG) Pt will ambulate in house w/ LRAD 100% of the time instead of use WC 09/18-during day but not at night STG Duration achieved 10/18 [facility] Goal (LTG) Pt will amb w/o AD w/o significant gait deviations and be able to go for short walks w/o inc pain greater than 2/10 11/15-amb w/SPC 12/12-amb w/o AD but dec stance time and push off LLE d/t pain 01/08/25: GOAL MET: not using SPC inside but using over grass, every now and then twinge 2/10 at most and arch foot when wakes up but AROm makes it go away.. LTG Duration 02/06 GOAL MET 01/08/25 LEFS Impairment 15 Short Term Goal (STG) Pt will improve LEFS score to at least 30/80 to show improved functional ability. 09/18-10/18- 11/15- STG Duration achieved to Budget Counselor Goal (LTG) Pt will improve LEFS score to at least 50/80 to show improved functional ability. 12/12- 01/08/25: 80=47.5%, reports many activities doesn't perform dynamic running activities so logged how difficult thinks would be to perform. LTG Duration 02/06 updated 01/08/25 Assessment Summary Assessment Patient reports ankle feels looser end of session Physical Therapy Plan Frequency and Duration Frequency of Treatment 1-2x/wk Duration of treatment (weeks) 8 Plan of Care Start Date 01/10/25 Plan of Care End Date 03/07/25 Next Visit Focus/Plan Next Note Type Treatment Note Next Visit Plan continue POC for the left ankle and add in left knee ROM and quad stretching (see exercises given at today's visit) Continue working on dynamic gait activities Update HEP
--- NOTE | 2025-01-24 16:29 | PT.OTN ---
Current Diagnoses Pain in right ankle and joints of right foot (01/24/25) Nondisplaced pilon fracture of right tibia, subsequent encounter for closed fracture with routine healing (01/24/25) Nondisplaced pilon fracture of left tibia, initial encounter for closed fracture (01/24/25) Dislocation of tarsometatarsal joint of left foot, initial encounter (01/24/25) Sprain of tibiofibular ligament of left ankle, initial encounter (01/24/25) Physical Therapy Treatment Note PT-OP-A Visit Information Start: 07/12/24 17:42 Freq: Status: Active Protocol: Document 01/24/25 14:34 AB (Rec: 01/24/25 16:17 AB Laptop) Out-Patient Physical Therapy Visit Information Visit Information Visit Type Treatment Note Visit Start Time 14:35 Visit Stop Time 15:18 Visit Number 51 Number of WASTE MANAGEMENT ENGINEER Visits 2 PT-OP-B Current Condition Start: 07/12/24 17:42 Freq: Status: Active Protocol: Document 09/18/24 14:45 [facility] (Rec: 09/18/24 18:08 [facility] [id number]) Current Condition History of Current Condition Onset Date injury april 15, sx 04/30 Current Complaints L ORIF lisfranc, pilon and syndesmosis History of Current Condition 09/18/24-pt fell 09/04 on 1 step w/FWW and hurt from L knee down to foot. Saw ortho and no further fx and cleared to cont PT and does not have return to ortho IE:Pt reports stood up to go to bed on April 15 and fell over her feet and broke her leg and bones in foot. She was put in splint ER and on April 30 got screws in foot, leg and ankle. Has had boot for 6-8 weeks. Tried to do the walker when cleared to in May and it hurt so bad, she couldn't do it. Dr. Guzman told her to wait a couple weeks again and on 06/19 was told again. Sees her again next Tuesday. Last tried to use walker about 1.5 weeks ago but it is too painful . When uses the walker , L shoulder has been more painful too. Broke ankle in 80s without surgery. Denies LE and back pain. Pt reports prior ot this was a couch potato. prior to this was indep w/dressing and bathing. Cannot get into shower so has been doing bird baths insteadwith help. He helps some w/dressing too. It is a walk in shower but has a step up so can't get in. Has a built in seat in there with grab bars in there. DOes SPT for all transfers w/o FWW. Has a ramp built in now for livingroom area to cover step. SLH w/flat entry. Pt has been doing APs Treatment Goals Patient/Caregiver Goals get back to walking PT-OP-C Subjective Start: 07/12/24 17:42 Freq: Status: Active Protocol: Document 01/24/25 14:34 AB (Rec: 01/24/25 16:17 AB Laptop) OP-PT Subjective Patient Comments Patient Comments Patient reports she is better, is back to using the cane and she walks better, spouse reports she walks better with cane per patient. Patient reports she made it to 2 seconds to right leg, still one second L LE and continues to lean to side when standing on one leg. Patient rates pain .5-1 start of session PT-OP-F Manual Assessment Start: 07/12/24 17:42 Freq: Status: Active Protocol: Document 09/18/24 14:45 [facility] (Rec: 09/18/24 18:08 [facility] [id number]) Manual Assessments Other Manual Assessments Other Manual Assessments lat foot bruising, cont foot swelling L PT-OP-G Mobility & Gait Start: 07/12/24 17:42 Freq: Status: Active Protocol: Document 07/25/24 11:38 LR (Rec: 07/25/24 13:45 [facility] [id number]) OP Gait Assessment Comments Gait Comments came in w/WC. able to amb w/ FWW w/cues for step to pattern PT-OP-J Posture/Palpation/Skin Start: 07/12/24 17:42 Freq: Status: Active Protocol: Document 01/10/25 15:15 [facility] (Rec: 01/10/25 16:25 [facility] [id number]) Palpation Assessment Location left lateral joint line Palpation Findings Tenderness PT-OP-K Range of Motion Start: 07/12/24 17:42 Freq: Status: Active Protocol: Document 01/10/25 15:15 [facility] (Rec: 01/10/25 16:24 [facility] [id number]) Knee Goniometric Range of Motion Knee Left Knee ROM WFL No Patient Position Supine Flexion Active (degrees) 115 Knee ROM Limitations Knee ROM Limitations Soft Tissue Tightness Comments c/o tightness with end range knee flexion at 115 note this did improve after quad stretches, heel slides and manual quad release today PT-OP-M Strength Start: 07/12/24 17:42 Freq: Status: Active Protocol: Document 12/12/24 16:21 [facility] (Rec: 12/12/24 17:03 [facility] [id number]) Ankle/Foot Strength Ankle and Foot Manual Muscle Testing Right Dorsiflexion (L4) 5 Normal Plantarflexion (S1) 5 Normal Inversion 5 Normal Eversion (S1) 5 Normal Left Dorsiflexion (L4) 4+ Good+ Plantarflexion (S1) 4+ Good+ Inversion 4 Good Eversion (S1) 4 Good Comments mild pain; 4/5 toe ext; 3+/5 toe flex PF tested seated PT-OP-Q Treatments Start: 07/12/24 17:42 Freq: Status: Active Protocol: Document 01/24/25 14:34 AB (Rec: 01/24/25 16:17 AB Laptop) Therapeutic Exercises Sitting Exercises seated hip abduction Sitting Exercise Name HEP review Resistance [place] blue level 4 band Reps/Minutes one minute X 1, then X 15 without hold Comments Verbal cues Standing Exercises miniture lunges Standing Exercise Name HEP reviewed Side bilateral Resistance AROM Equipment Used rail support 1 UE light Reps/Minutes 10 reps Comments verbal cues for hip hinge sidesteps Standing Exercise Name HEP reviewed lateral, fwd, bwd Side bilateral Resistance Tb #3 at ankles Equipment Used near rail Reps/Minutes 10ft x1 laps Comments cued no lateral lean heel raises/ toe raises Standing Exercise Name HEP Side bilateral Resistance AROM Equipment Used near rail no UE support Reps/Minutes X 16 PIPPA dynamic calf stretch Standing Exercise Name fwd/bwd stepping Side bilateral Equipment Used PIPPA, BUE on rail Reps/Minutes 10 X 2 Comments improved even WB BLE standing calf stretch Standing Exercise Name on PIPPA Side bilateral Reps/Minutes 60 sec straight 60 sec bent X 2 each Manual Therapy Treatment Consent Patient gave verbal consent for manual Yes treatment Soft Tissue Mobilization calf Body Location L gastroc, soleus, achilles Mobilization Type Cross-Friction,Instrument Assisted,Myofascial Release, Rolling Body Position Hooklying Comments suction cup Joint Mobilizations Talocrual Joint AP and PA tib fib the MWM TC Body Position II Reps/Duration hooklying, and standing Comments X 5 X 5 each Neuro Re-Education Treatment Balance Activities SLS Details without UE use Reps/Duration X 3 each LE Comments HEP PT-OP-R Modalities Start: 07/12/24 17:42 Freq: Status: Active Protocol: Document 08/06/24 13:43 SP (Rec: 08/06/24 15:29 [facility] [id number]) Hot Pack/Cold Pack Treatment CP Location L ankle Patient Position Hooklying Patient Tolerance Good Comments Reports helps decreased discomfort end tx. PT-OP-T Assessment and Plan Start: 07/12/24 17:42 Freq: Status: Active Protocol: Document 01/24/25 14:34 AB (Rec: 01/24/25 16:17 AB Laptop) Physical Therapy Assessment Goals left knee ROM Impairment decreased left knee ROM with pain at end range 115 on the left Custodial Goal (LTG) [place] presents with a 5 degree improvement with her knee flexion ROM and reports decreased pain at end range ROM Short Term Goal (STG) Pt will have DF to neutral in knee flex position 09/18-worse since fall 10/18-much improved, -2 11/05/2024 lacking 2 deg from neutral end of session AROM left ankle STG Duration achieved 11/15 Custodial Goal (LTG) Pt will have at least DF to 5 deg in knee flex and extended position to allow for improved gait mechanics. 12/12-0 in ext, 2 in flex 01/08/25: measure next tx LTG Duration 02/06 activity Short Term Goal (STG) Pt will ambulate in house w/ LRAD 100% of the time instead of use WC 09/18-during day but not at night STG Duration achieved 10/18 Custodial Goal (LTG) Pt will amb w/o AD w/o significant gait deviations and be able to go for short walks w/o inc pain greater than 2/10 11/15-amb w/SPC 12/12-amb w/o AD but dec stance time and push off LLE d/t pain 01/08/25: GOAL MET: not using SPC inside but using over grass, every now and then twinge 2/10 at most and arch foot when wakes up but AROm makes it go away.. LTG Duration 02/06 GOAL MET 01/08/25 LEFS Impairment 15 Short Term Goal (STG) Pt will improve LEFS score to at least 30/80 to show improved functional ability. 09/18-10/18- 11/15- STG Duration achieved to 43 Inspector Assemblies And Installations Goal (LTG) Pt will improve LEFS score to at least 50/80 to show improved functional ability. 12/12- 01/08/25: 38/80=47.5%, reports many activities doesn't perform dynamic running activities so logged how difficult thinks would be to perform. LTG Duration 02/06 updated 01/08/25 Assessment Summary Assessment SLS 3 sec R 2 sec L without UE use this session. [place] reports having no pain end of session. HEP condensed and progressed this session. Physical Therapy Plan Frequency and Duration Frequency of Treatment 1-2x/wk Duration of treatment (weeks) 8 Plan of Care Start Date 01/10/25 Plan of Care End Date 03/07/25 Next Visit Focus/Plan Next Note Type Treatment Note Next Visit Plan continue POC for the left ankle and add in left knee ROM and quad stretching Continue working on dynamic gait activities Update HEP
--- NOTE | 2025-01-29 14:51 | PT.OTN ---
Current Diagnoses Pain in right ankle and joints of right foot (01/29/25) Nondisplaced pilon fracture of right tibia, subsequent encounter for closed fracture with routine healing (01/29/25) Nondisplaced pilon fracture of left tibia, initial encounter for closed fracture (01/29/25) Dislocation of tarsometatarsal joint of left foot, initial encounter (01/29/25) Sprain of tibiofibular ligament of left ankle, initial encounter (01/29/25) Physical Therapy Treatment Note PT-OP-A Visit Information Start: 07/12/24 17:42 Freq: Status: Active Protocol: Document 01/29/25 13:25 [facility] (Rec: 01/29/25 14:50 [facility] [id number]) Out-Patient Physical Therapy Visit Information Visit Information Visit Type Treatment Note Visit Start Time 13:48 Visit Stop Time 14:30 Visit Number 52 Number of CAREER MANAGER Visits 0 PT-OP-B Current Condition Start: 07/12/24 17:42 Freq: Status: Active Protocol: Document 09/18/24 14:45 [facility] (Rec: 09/18/24 18:08 [facility] [id number]) Current Condition History of Current Condition Onset Date injury april 15, sx 04/30 Current Complaints L ORIF lisfranc, pilon and syndesmosis History of Current Condition 09/18/24-pt fell 09/04 on 1 step w/FWW and hurt from L knee down to foot. Saw ortho and no further fx and cleared to cont PT and does not have return to ortho IE:Pt reports stood up to go to bed on April 15 and fell over her feet and broke her leg and bones in foot. She was put in splint ER and on April 30 got screws in foot, leg and ankle. Has had boot for 6-8 weeks. Tried to do the walker when cleared to in May and it hurt so bad, she couldn't do it. Dr. Guzman told her to wait a couple weeks again and on 06/19 was told again. Sees her again next Tuesday. Last tried to use walker about 1.5 weeks ago but it is too painful . When uses the walker , L shoulder has been more painful too. Broke ankle in 80s without surgery. Denies LE and back pain. Pt reports prior ot this was a couch potato. prior to this was indep w/dressing and bathing. Cannot get into shower so has been doing bird baths insteadwith help. He helps some w/dressing too. It is a walk in shower but has a step up so can't get in. Has a built in seat in there with grab bars in there. DOes SPT for all transfers w/o FWW. Has a ramp built in now for livingroom area to cover step. H w/flat entry. Pt has been doing APs Treatment Goals Patient/Caregiver Goals get back to walking PT-OP-C Subjective Start: 07/12/24 17:42 Freq: Status: Active Protocol: Document 01/29/25 13:25 [facility] (Rec: 01/29/25 14[facility]50 [id number] Subjective Patient Comments Patient Comments Pt reports got stiff about 1 week ago and was moving leg to get it to release and that helped but L knee tweaked. PT-OP-F Manual Assessment Start: 07/12/24 17:42 Freq: Status: Active Protocol: Document 09/18/24 14:45 [facility] (Rec: 09/18/24 18:08 [facility] [id number]) Manual Assessments Other Manual Assessments Other Manual Assessments lat foot bruising, cont foot swelling L PT-OP-G Mobility & Gait Start: 07/12/24 17:42 Freq: Status: Active Protocol: Document 07/25/24 11:38 [facility] (Rec: 07/25/24 13:45 [facility] [id number]) OP Gait Assessment Comments Gait Comments came in w/WC. able to amb w/ FWW w/cues for step to pattern PT-OP-J Posture/Palpation/Skin Start: 07/12/24 17:42 Freq: Status: Active Protocol: Document 01/10/25 15:15 [facility] (Rec: 01/10/25 16:25 [facility] [id number]) Palpation Assessment Location left lateral joint line Palpation Findings Tenderness PT-OP-K Range of Motion Start: 07/12/24 17:42 Freq: Status: Active Protocol: Document 01/10/25 15:15 [facility] (Rec: 01/10/25 16:24 [facility] [id number]) Knee Goniometric Range of Motion Knee Left Knee ROM WFL No Patient Position Supine Flexion Active (degrees) 115 Knee ROM Limitations Knee ROM Limitations Soft Tissue Tightness Comments c/o tightness with end range knee flexion at 115 note this did improve after quad stretches, heel slides and manual quad release today PT-OP-M Strength Start: 07/12/24 17:42 Freq: Status: Active Protocol: Document 12/12/24 16:21 [facility] (Rec: 12/12/24 17:03 [facility] [id number]) Ankle/Foot Strength Ankle and Foot Manual Muscle Testing Right Dorsiflexion (L4) 5 Normal Plantarflexion (S1) 5 Normal Inversion 5 Normal Eversion (S1) 5 Normal Left Dorsiflexion (L4) 4+ Good+ Plantarflexion (S1) 4+ Good+ Inversion 4 Good Eversion (S1) 4 Good Comments mild pain; 4/5 toe ext; 3+/5 toe flex PF tested seated PT-OP-Q Treatments Start: 07/12/24 17:42 Freq: Status: Active Protocol: Document 01/29/25 13:25 [facility] (Rec: 01/29/25 14:50 [facility] [id number]) Gym Equipment Shuttle Balance Red chains Comments lat facing WBOS balancing and wt shifts-cues dec UE use Therapeutic Exercises Standing Exercises hip hike Side bilateral Equipment Used 5 in step w/rail Reps/Minutes 15 heel raises/ toe raises Standing Exercise Name HEP 1.DF back at wall 2. PF Side bilateral Resistance AROM Equipment Used near rail no UE support Reps/Minutes 20 ea Gait Training Gait Activity resisted gait Comments w/dowel (PT aide guarding pt) 4x50ft cane Comments 1. SPC elevated 1x and working on no lat lean 2x30ft 2. walking stick walk 50ft x2 w/cues for no lean and posture WB LLE acceptance Comments in mirror working on no lat lean 20t x6 fwd walking working on arm swing to normalize gait 2x50ft Neuro Re-Education Treatment Balance Activities tandem Equipment rail prn Comments 1. stance B trials 2. fwd walk w/1 finger 10ft x4 SLS Comments 1. SLS B trials 2. march in place in mirror- cues no lean x10 3. RLE on ball modified PT-OP-R Modalities Start: 07/12/24 17:42 Freq: Status: Active Protocol: Document 08/06/24 13:43 SP (Rec: 10/21/24 15:29 [facility] [id number]) Hot Pack/Cold Pack Treatment CP Location L ankle Patient Position Hooklying Patient Tolerance Good Comments Reports helps decreased discomfort end tx. PT-OP-T Assessment and Plan Start: 07/12/24 17:42 Freq: Status: Active Protocol: Document 01/29/25 13:25 [facility] (Rec: 01/29/25 14:50 [facility] [id number]) Physical Therapy Assessment Goals left knee ROM Impairment decreased left knee ROM with pain at end range 115 on the left Shelter Goal (LTG) [place] presents with a 5 degree improvement with her knee flexion ROM and reports decreased pain at end range ROM Short Term Goal (STG) Pt will have DF to neutral in knee flex position 09/18-worse since fall 10/18-much improved, -2 11/05/2024 lacking 2 deg from neutral end of session AROM left ankle STG Duration achieved 11/15 Manager Pricing Goal (LTG) Pt will have at least DF to 5 deg in knee flex and extended position to allow for improved gait mechanics. 12/12-0 in ext, 2 in flex 01/08/25: measure next tx LTG Duration 02/06 activity Short Term Goal (STG) Pt will ambulate in house w/ LRAD 100% of the time instead of use WC 09/18-during day but not at night STG Duration achieved 10/18 Shelter Goal (LTG) Pt will amb w/o AD w/o significant gait deviations and be able to go for short walks w/o inc pain greater than 2/10 11/15-amb w/SPC 12/12-amb w/o AD but dec stance time and push off LLE d/t pain 01/08/25: GOAL MET: not using SPC inside but using over grass, every now and then twinge 2/10 at most and arch foot when wakes up but AROm makes it go away.. LTG Duration 02/06 GOAL MET 01/08/25 LEFS Impairment 15 Short Term Goal (STG) Pt will improve LEFS score to at least 30/80 to show improved functional ability. 09/18-10/18- 11/15- STG Duration achieved to 43 Shelter Goal (LTG) Pt will improve LEFS score to at least 50/80 to show improved functional ability. 12/12- 01/08/25: 38/80=47.5%, reports many activities doesn't perform dynamic running activities so logged how difficult thinks would be to perform. LTG Duration 02/06 updated 01/08/25 Assessment Summary Assessment Pt demonstrated gradually improving balance but still struggles with SLS activities. She is improving w/gait w/ cues and education on proper position along w/facilitation Physical Therapy Plan Frequency and Duration Frequency of Treatment 1-2x/wk Duration of treatment (weeks) 8 Plan of Care Start Date 01/10/25 Plan of Care End Date 03/07/25 Next Visit Focus/Plan Next Note Type Treatment Note Next Visit Plan work towards dc. focus on gait and balance
--- NOTE | 2025-02-04 13:50 | PT.OTN ---
Current Diagnoses Pain in right ankle and joints of right foot (02/04/25) Nondisplaced pilon fracture of right tibia, subsequent encounter for closed fracture with routine healing (02/04/25) Nondisplaced pilon fracture of left tibia, initial encounter for closed fracture (02/04/25) Dislocation of tarsometatarsal joint of left foot, initial encounter (02/04/25) Sprain of tibiofibular ligament of left ankle, initial encounter (02/04/25) Physical Therapy Treatment Note PT-OP-A Visit Information Start: 07/12/24 17:42 Freq: Status: Active Protocol: Document 02/04/25 13:02 [facility] (Rec: 02/04/25 13:50 [facility] [id number]) Out-Patient Physical Therapy Visit Information Visit Information Visit Type Progress Note Visit Start Time 13:03 Visit Stop Time 13:43 Visit Number 53 Number of TECHNOLOGY SOLUTIONS ARCHITECT Visits 0 PT-OP-B Current Condition Start: 07/12/24 17:42 Freq: Status: Active Protocol: Document 09/18/24 14:45 [facility] (Rec: 09/18/24 18:08 [facility] [id number]) Current Condition History of Current Condition Onset Date injury april 15, sx 04/30 Current Complaints L ORIF lisfranc, pilon and syndesmosis History of Current Condition 09/18/24-pt fell 09/04 on 1 step w/FWW and hurt from L knee down to foot. Saw ortho and no further fx and cleared to cont PT and does not have return to ortho IE:Pt reports stood up to go to bed on April 15 and fell over her feet and broke her leg and bones in foot. She was put in splint ER and on April 30 got screws in foot, leg and ankle. Has had boot for 6-8 weeks. Tried to do the walker when cleared to in May and it hurt so bad, she couldn't do it. Dr. Guzman told her to wait a couple weeks again and on 06/19 was told again. Sees her again next Tuesday. Last tried to use walker about 1.5 weeks ago but it is too painful . When uses the walker , L shoulder has been more painful too. Broke ankle in 80s without surgery. Denies LE and back pain. Pt reports prior ot this was a couch potato. prior to this was indep w/dressing and bathing. Cannot get into shower so has been doing bird baths insteadwith help. He helps some w/dressing too. It is a walk in shower but has a step up so can't get in. Has a built in seat in there with grab bars in there. DOes SPT for all transfers w/o FWW. Has a ramp built in now for livingroom area to cover step. H w/flat entry. Pt has been doing APs Treatment Goals Patient/Caregiver Goals get back to walking PT-OP-C Subjective Start: 07/12/24 17:42 Freq: Status: Active Protocol: Document 02/04/25 13:02 [facility] (Rec: 02/04/25 13:50 [facility] [id number]) OP-PT Subjective Patient Comments Patient Comments Pt reports hasn't walked yet PT-OP-F Manual Assessment Start: 07/12/24 17:42 Freq: Status: Active Protocol: Document 09/18/24 14:45 [facility] (Rec: 09/18/24 18:08 [facility] [id number]) Manual Assessments Other Manual Assessments Other Manual Assessments lat foot bruising, cont foot swelling L PT-OP-G Mobility & Gait Start: 07/12/24 17:42 Freq: Status: Active Protocol: Document 07/25/24 11:38 [facility] (Rec: 07/25/24 13:45 [facility] [id number]) OP Gait Assessment Comments Gait Comments came in w/WC. able to amb w/ FWW w/cues for step to pattern PT-OP-J Posture/Palpation/Skin Start: 07/12/24 17:42 Freq: Status: Active Protocol: Document 01/10/25 15:15 [facility] (Rec: 01/10/25 16:25 [facility] [id number]) Palpation Assessment Location left lateral joint line Palpation Findings Tenderness PT-OP-K Range of Motion Start: 07/12/24 17:42 Freq: Status: Active Protocol: Document 02/04/25 13:02 [facility] (Rec: 02/04/25 13:50 [facility] [id number]) Knee Goniometric Range of Motion Knee Left Knee ROM WFL No Patient Position Supine Flexion Active (degrees) 122 Extension Active (degrees) 0 Ankle and Foot Goniometric Range of Motion Ankle and Foot Left Active Dorsiflexion with Knee Flexed 3 Dorsiflexion with Knee Extended 1 PT-OP-M Strength Start: 07/12/24 17:42 Freq: Status: Active Protocol: Document 02/04/25 13:02 [facility] (Rec: 02/04/25 13:50 [facility] [id number]) Knee Strength Knee Manual Muscle Testing Left Flexion (S2) 4+ Good+ Extension (L3) 4 Good Comments pain baxter w/ext Ankle/Foot Strength Ankle and Foot Manual Muscle Testing Left Dorsiflexion (L4) 5 Normal Plantarflexion (S1) 4+ Good+ Inversion 4+ Good+ Eversion (S1) 4+ Good+ Comments 4/5 toe ext; 3+/5 toe flex PF tested seated PT-OP-Q Treatments Start: 07/12/24 17:42 Freq: Status: Active Protocol: Document 02/04/25 13:02 [facility] (Rec: 02/04/25 13:50 [facility] [id number]) Gym Equipment Sport Cord red Comments focus on push off x10 fwd/back Therapeutic Exercises Sitting Exercises isometrics Sitting Exercise Name BLE MMT Side bilateral ankle DF, EV, IV Sitting Exercise Name AROM DF Standing Exercises hip hike Side bilateral Equipment Used 5 in step w/rail Reps/Minutes 15 Step ups Standing Exercise Name lat step up Side bilateral Equipment Used 5 in step-rail prn Reps/Minutes 10 Comments up and over heel raises/ toe raises Standing Exercise Name 1. DL inc wt LLE 2. DL back on bar Side bilateral Reps/Minutes 20 Gait Training Gait Activity resisted gait Comments w/dowel (PT aide guarding pt) 2x50ft no AD Comments focus on push off and not lean 50ft x4 PT-OP-R Modalities Start: 07/12/24 17:42 Freq: Status: Active Protocol: Document 08/06/24 13:43 [facility] (Rec: 08/06/24 15:29 [facility] [id number]) Hot Pack/Cold Pack Treatment CP Location L ankle Patient Position Hooklying Patient Tolerance Good Comments Reports helps decreased discomfort end tx. 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 12/12-0 in ext, 2 in flex 01/08/25: measure next tx 02/04-no change recently LTG Duration 02/06 activity Short Term Goal (STG) Pt will ambulate in house w/ LRAD 100% of the time instead of use WC 09/18-during day but not at night STG Duration achieved 10/18 Correction Goal (LTG) Pt will amb w/o AD w/o significant gait deviations and be able to go for short walks w/o inc pain greater than 2/10 11/15-amb w/SPC 12/12-amb w/o AD but dec stance time and push off LLE d/t pain 01/08/25: GOAL MET: not using SPC inside but using over grass, every now and then twinge 2/10 at most and arch foot when wakes up but AROm makes it go away.. LTG Duration 02/06 LEFS Impairment 15 Short Term Goal (STG) Pt will improve LEFS score to at least 30/80 to show improved functional ability. 09/18-10/18- 11/15- STG Duration achieved to 43 Correction Goal (LTG) Pt will improve LEFS score to at least 50/80 to show improved functional ability. 12/12- 01/08/25: 38/80=47.5%, reports many activities doesn't perform dynamic running activities so logged how difficult thinks would be to perform. LTG Duration achieved to 55 02/04 Assessment Summary Assessment Pt making good progress with mobility. Still requires cues w/gait and does lean laterally unless cued. She still struggles w/balance but is gradually progressing. She still has weak PF which cont to affect gait. Improving balance w/SLS about 10 sec on R and about 4 sec on L. Cont PT for balance and gait Physical Therapy Plan Frequency and Duration Frequency of Treatment 1-2x/wk Duration of treatment (weeks) 8 Plan of Care Start Date 01/10/25 Plan of Care End Date 03/07/25 Therapeutic Interventions Therapeutic Interventions Balance Training,Gait Training ,Home Exercise Program,Joint Mobilizations,Manual Therapy, Neuromuscular Re-education, Orthotic/Prosthetic Management ,Patient/Caregiver Education, Self-Care/Home Management,Soft Tissue Mobilization,Taping, Therapeutic Activities, Therapeutic Exercises Modalities Cold Pack/Ice Massage,Electric Stimulation,Hot Packs, Infrared Therapy Next Visit Focus/Plan Next Note Type Treatment Note Next Visit Plan work towards dc. focus on gait and balance
--- NOTE | 2025-02-15 14:30 | PT.OTN ---
Current Diagnoses Pain in right ankle and joints of right foot (02/15/25) Nondisplaced pilon fracture of right tibia, subsequent encounter for closed fracture with routine healing (02/15/25) Nondisplaced pilon fracture of left tibia, initial encounter for closed fracture (02/15/25) Dislocation of tarsometatarsal joint of left foot, initial encounter (02/15/25) Sprain of tibiofibular ligament of left ankle, initial encounter (02/15/25) Physical Therapy Treatment Note PT-OP-A Visit Information Start: 07/12/24 17:42 Freq: Status: Active Protocol: Document 02/15/25 13:52 [facility] (Rec: 02/15/25 15:37 [facility] [id number]) Out-Patient Physical Therapy Visit Information Visit Information Visit Type Treatment Note Visit Note PRATIBHA Lee led tx with pt's permission and direct supervision of Mel KIRBY. Visit Start Time 13:52 Visit Stop Time 14:30 Visit Number 54 Number of LOAN EXAMINER Visits 1 PT-OP-B Current Condition Start: 07/12/24 17:42 Freq: Status: Active Protocol: Document 09/18/24 14:45 [facility] (Rec: 09/18/24 18:08 [facility] [id number]) Current Condition History of Current Condition Onset Date injury april 15, sx 04/30 Current Complaints L ORIF lisfranc, pilon and syndesmosis History of Current Condition 09/18/24-pt fell 09/04 on 1 step w/FWW and hurt from L knee down to foot. Saw ortho and no further fx and cleared to cont PT and does not have return to ortho IE:Pt reports stood up to go to bed on April 15 and fell over her feet and broke her leg and bones in foot. She was put in splint ER and on April 30 got screws in foot, leg and ankle. Has had boot for 6-8 weeks. Tried to do the walker when cleared to in May and it hurt so bad, she couldn't do it. Dr. Guzman told her to wait a couple weeks again and on 06/19 was told again. Sees her again next Tuesday. Last tried to use walker about 1.5 weeks ago but it is too painful . When uses the walker , L shoulder has been more painful too. Broke ankle in 80s without surgery. Denies LE and back pain. Pt reports prior ot this was a couch potato. prior to this was indep w/dressing and bathing. Cannot get into shower so has been doing bird baths insteadwith help. He helps some w/dressing too. It is a walk in shower but has a step up so can't get in. Has a built in seat in there with grab bars in there. DOes SPT for all transfers w/o FWW. Has a ramp built in now for livingroom area to cover step. SLH w/flat entry. Pt has been doing APs Treatment Goals Patient/Caregiver Goals get back to walking PT-OP-C Subjective Start: 07/12/24 17:42 Freq: Status: Active Protocol: Document 02/15/25 13:52 [facility] (Rec: 02/15/25 15:37 [facility] [id number]) OP-PT Subjective Patient Comments Patient Comments Pt reports she walked in and heard her ankle crack but it did not affect her gait with no AD. Still wearing her husbands boots due to not being able to get into her own , sometimes can get crocs on but still too tight. Did recently drive 1/2 mile to the [employer]. Taking meloxicam for relieve with her big toe on LLE. PT-OP-F Manual Assessment Start: 07/12/24 17:42 Freq: Status: Active Protocol: Document 09/18/24 14:45 [facility] (Rec: 09/18/24 18:08 [facility] [id number]) Manual Assessments Other Manual Assessments Other Manual Assessments lat foot bruising, cont foot swelling L PT-OP-G Mobility & Gait Start: 07/12/24 17:42 Freq: Status: Active Protocol: Document 07/25/24 11:38 [facility] (Rec: 07/25/24 13:45 [facility] [id number]) OP Gait Assessment Comments Gait Comments came in w/WC. able to amb w/ FWW w/cues for step to pattern PT-OP-J Posture/Palpation/Skin Start: 07/12/24 17:42 Freq: Status: Active Protocol: Document 01/10/25 15:15 [facility] (Rec: 01/10/25 16:25 [facility] [id number]) Palpation Assessment Location left lateral joint line Palpation Findings Tenderness PT-OP-K Range of Motion Start: 07/12/24 17:42 Freq: Status: Active Protocol: Document 02/04/25 13:02 [facility] (Rec: 02/04/25 13:50 [facility] [id number]) Knee Goniometric Range of Motion Knee Left Knee ROM WFL No Patient Position Supine Flexion Active (degrees) 122 Extension Active (degrees) 0 Ankle and Foot Goniometric Range of Motion Ankle and Foot Left Active Dorsiflexion with Knee Flexed 3 Dorsiflexion with Knee Extended 1 PT-OP-M Strength Start: 07/12/24 17:42 Freq: Status: Active Protocol: Document 02/04/25 13:02 [facility] (Rec: 02/04/25 13:50 [facility] [id number]) Knee Strength Knee Manual Muscle Testing Left Flexion (S2) 4+ Good+ Extension (L3) 4 Good Comments pain baxter w/ext Ankle/Foot Strength Ankle and Foot Manual Muscle Testing Left Dorsiflexion (L4) 5 Normal Plantarflexion (S1) 4+ Good+ Inversion 4+ Good+ Eversion (S1) 4+ Good+ Comments 4/5 toe ext; 3+/5 toe flex PF tested seated PT-OP-Q Treatments Start: 07/12/24 17:42 Freq: Status: Active Protocol: Document 02/15/25 13:52 [facility] (Rec: 02/15/25 15:37 [facility] [id number]) Gym Equipment Shuttle Balance Red chains Reps/Duration 20x with 1 UE support Comments lat facing WBOS balancing and wt shifts-cues dec UE use Therapeutic Exercises Standing Exercises heel raises/ toe raises Standing Exercise Name Heel raises off 4inch step Side bilateral Equipment Used stair case, bilateral UE support Reps/Minutes 20x bilateral, 10x L>R Comments cued for left to do most of the work on 2nd set Gait Training Gait Activity Hurdles Description Fwd/lateral walking (added airex pads after 3 reps)) Level of Assistance CGA within //bars Distance/Duration thorugh //bars down and back x 6 each Treatment Focus increase time in SLS, heel strike, uneven terrain Comments pt relied heavily on //bar support but did not need it. Used CGA with gait belt but encouraged pt to use less UE support; finger tip grazing or 1UE > 2UE. Cued for engagement of core, neutral foot alignment. dynamic gait Description Fwd walking: head turn L&R, Up /Dwn, speed up/slow down Level of Assistance CGA Distance/Duration Along railing in hallway x2 each Comments V/c's to engage core, swing arms, strike with heel. PT-OP-R Modalities Start: 07/12/24 17:42 Freq: Status: Active Protocol: Document 08/06/24 13:43 [facility] (Rec: 08/06/24 15:29 [facility] [id number]) Hot Pack/Cold Pack Treatment CP Location L ankle Patient Position Hooklying Patient Tolerance Good Comments Reports helps decreased discomfort end tx. PT-OP-T Assessment and Plan Start: 07/12/24 17:42 Freq: Status: Active Protocol: Document 02/15/25 13:52 [facility] (Rec: 02/15/25 15:37 [facility] [id number]) Physical Therapy Assessment Goals left knee ROM Impairment decreased left knee ROM with pain at end range 115 on the left [facility] Goal (LTG) [place] presents with a 5 degree improvement with her knee flexion ROM and reports decreased pain at end range LTG Duration achieved 02/04 ROM Short Term Goal (STG) Pt will have DF to neutral in knee flex position 09/18-worse since fall 10/18-much improved, -2 11/05/2024 lacking 2 deg from neutral end of session AROM left ankle STG Duration achieved 11/15 [facility]entiary Goal (LTG) Pt will have at least DF to 5 deg in knee flex and extended position to allow for improved gait mechanics. 12/12-0 in ext, 2 in flex 01/08/25: measure next tx 02/04-no change recently LTG Duration 02/06 activity Short Term Goal (STG) Pt will ambulate in house w/ LRAD 100% of the time instead of use WC 09/18-during day but not at night STG Duration achieved 10/18 Field Collector Goal (LTG) Pt will amb w/o AD w/o significant gait deviations and be able to go for short walks w/o inc pain greater than 2/10 11/15-amb w/SPC 12/12-amb w/o AD but dec stance time and push off LLE d/t pain 01/08/25: GOAL MET: not using SPC inside but using over grass, every now and then twinge 2/10 at most and arch foot when wakes up but AROm makes it go away.. LTG Duration 02/06 LEFS Impairment 15/80 Short Term Goal (STG) Pt will improve LEFS score to at least 30/80 to show improved functional ability. 09/18-10/18- 11/15- STG Duration achieved to 43 Field Collector Goal (LTG) Pt will improve LEFS score to at least 50/80 to show improved functional ability. 12/12- 01/08/25: 38/80=47.5%, reports many activities doesn't perform dynamic running activities so logged how difficult thinks would be to perform. LTG Duration achieved to 55 02/04 Assessment Summary Assessment Pt displayed good progress with balance activities today. Required frequent v/c's to engage core to help stabilize herself and often depends on UE support when not needed. Able to complete 20 controlled lateral weight shifts on shuttle balance board with finger tips of 1 UE on rail and CGA-min 5%. Pt tolerated dynamic gait walking and increased time in SLS walking through the hurdles to work on ambulating through uneven terrain/obstacles, cued for engaged core, standing tall, striking with heel/ lifting toes for improved DF ROM and neutral toe alignment. Physical Therapy Plan Frequency and Duration Frequency of Treatment 1-2x/wk Duration of treatment (weeks) 8 Plan of Care Start Date 01/10/25 Plan of Care End Date 03/07/25 Therapeutic Interventions Therapeutic Interventions Balance Training,Gait Training ,Home Exercise Program,Joint Mobilizations,Manual Therapy, Neuromuscular Re-education, Orthotic/Prosthetic Management ,Patient/Caregiver Education, Self-Care/Home Management,Soft Tissue Mobilization,Taping, Therapeutic Activities, Therapeutic Exercises Modalities Cold Pack/Ice Massage,Electric Stimulation,Hot Packs, Infrared Therapy Next Visit Focus/Plan Next Note Type Treatment Note Next Visit Plan Next: Assess uneven outdoor grass walking, tandem walking. work towards dc. focus on gait and balance
--- NOTE | 2025-02-19 17:15 | PT.OTN ---
Current Diagnoses Pain in right ankle and joints of right foot (02/19/25) Nondisplaced pilon fracture of right tibia, subsequent encounter for closed fracture with routine healing (02/19/25) Nondisplaced pilon fracture of left tibia, initial encounter for closed fracture (02/19/25) Dislocation of tarsometatarsal joint of left foot, initial encounter (02/19/25) Sprain of tibiofibular ligament of left ankle, initial encounter (02/19/25) Physical Therapy Treatment Note PT-OP-A Visit Information Start: 07/12/24 17:42 Freq: Status: Active Protocol: Document 02/19/25 13:45 AB (Rec: 02/19/25 17:15 AB Laptop) Out-Patient Physical Therapy Visit Information Visit Information Visit Type Treatment Note Visit Start Time 14:33 Visit Stop Time 15:15 Visit Number 55 Number of WOOD PILER Visits 2 PT-OP-B Current Condition Start: 07/12/24 17:42 Freq: Status: Active Protocol: Document 09/18/24 14:45 [facility] (Rec: 09/18/24 18:08 [facility] [id number]) Current Condition History of Current Condition Onset Date injury april 15, sx 04/30 Current Complaints L ORIF lisfranc, pilon and syndesmosis History of Current Condition 09/18/24-pt fell 09/04 on 1 step w/FWW and hurt from L knee down to foot. Saw ortho and no further fx and cleared to cont PT and does not have return to ortho IE:Pt reports stood up to go to bed on April 15 and fell over her feet and broke her leg and bones in foot. She was put in splint ER and on April 30 got screws in foot, leg and ankle. Has had boot for 6-8 weeks. Tried to do the walker when cleared to in May and it hurt so bad, she couldn't do it. Dr. Guzman told her to wait a couple weeks again and on 06/19 was told again. Sees her again next Tuesday. Last tried to use walker about 1.5 weeks ago but it is too painful . When uses the walker , L shoulder has been more painful too. Broke ankle in 80s without surgery. Denies LE and back pain. Pt reports prior ot this was a couch potato. prior to this was indep w/dressing and bathing. Cannot get into shower so has been doing bird baths insteadwith help. He helps some w/dressing too. It is a walk in shower but has a step up so can't get in. Has a built in seat in there with grab bars in there. DOes SPT for all transfers w/o FWW. Has a ramp built in now for livingroom area to cover step. SLH w/flat entry. Pt has been doing APs Treatment Goals Patient/Caregiver Goals get back to walking PT-OP-C Subjective Start: 07/12/24 17:42 Freq: Status: Active Protocol: Document 02/19/25 13:45 AB (Rec: 02/19/25 17:15 AB Laptop) OP-PT Subjective Patient Comments Patient Comments Patient reports she is better, but isn't good about doing her exercises. Patient reports performing HEP twice a week and performs 2 or 3 of the exercises. SLS 1-2 seconds each LE. Patient reports stress MRI will be performed in March PT-OP-F Manual Assessment Start: 07/12/24 17:42 Freq: Status: Active Protocol: Document 09/18/24 14:45 [facility] (Rec: 09/18/24 18:08 [facility] [id number]) Manual Assessments Other Manual Assessments Other Manual Assessments lat foot bruising, cont foot swelling L PT-OP-G Mobility & Gait Start: 07/12/24 17:42 Freq: Status: Active Protocol: Document 07/25/24 11:38 LR (Rec: 07/25/24 13:45 [facility] [id number]) OP Gait Assessment Comments Gait Comments came in w/WC. able to amb w/ FWW w/cues for step to pattern PT-OP-J Posture/Palpation/Skin Start: 07/12/24 17:42 Freq: Status: Active Protocol: Document 01/10/25 15:15 [facility] (Rec: 01/10/25 16:25 [facility] [id number]) Palpation Assessment Location left lateral joint line Palpation Findings Tenderness PT-OP-K Range of Motion Start: 07/12/24 17:42 Freq: Status: Active Protocol: Document 02/04/25 13:02 LR (Rec: 02/04/25 13:50 [facility] [id number]) Knee Goniometric Range of Motion Knee Left Knee ROM WFL No Patient Position Supine Flexion Active (degrees) 122 Extension Active (degrees) 0 Ankle and Foot Goniometric Range of Motion Ankle and Foot Left Active Dorsiflexion with Knee Flexed 3 Dorsiflexion with Knee Extended 1 PT-OP-M Strength Start: 07/12/24 17:42 Freq: Status: Active Protocol: Document 02/04/25 13:02 [facility] (Rec: 02/04/25 13:50 [facility] [id number]) Knee Strength Knee Manual Muscle Testing Left Flexion (S2) 4+ Good+ Extension (L3) 4 Good Comments pain baxter w/ext Ankle/Foot Strength Ankle and Foot Manual Muscle Testing Left Dorsiflexion (L4) 5 Normal Plantarflexion (S1) 4+ Good+ Inversion 4+ Good+ Eversion (S1) 4+ Good+ Comments 4/5 toe ext; 3+/5 toe flex PF tested seated PT-OP-Q Treatments Start: 07/12/24 17:42 Freq: Status: Active Protocol: Document 02/19/25 13:45 AB (Rec: 02/19/25 17:15 AB Laptop) Therapeutic Exercises Sitting Exercises seated hip abduction Sitting Exercise Name HEP review Resistance Hickman blue level 4 band Reps/Minutes one minute X 1, then X 15 without hold Comments Verbal cues Standing Exercises sidesteps Standing Exercise Name HEP reviewed lateral Side bilateral Resistance Tb 4 above knees Equipment Used near rail Reps/Minutes 10ft x3 laps Comments cued no lateral lean PIPPA dynamic calf stretch Standing Exercise Name fwd/bwd stepping Side bilateral Equipment Used PIPPA, BUE on rail Reps/Minutes 10 X 2 and one one minute hold knees straight. knees bent Comments improved even WB BLE Therapeutic Activity Therapeutic Activity grass, hills, curbs outdoors Name without device Comments 9 minutes CGA throughout, positioned for breathlessness when seated due to c/o feeling out of breath Manual Therapy Treatment Consent Patient gave verbal consent for manual Yes treatment Joint Mobilizations Talocrual Joint AP and PA tib fib the MWM TC Body Position II Reps/Duration standing Comments X 2 X 5 each Neuro Re-Education Treatment Balance Activities tandem Reps/Duration 10 feet L and Right X 3 CGA SLS Reps/Duration bilateral X 3 X 2 CGA foam Details step up taps standing on foam Reps/Duration X 12 each LE CGA tilt board Details fwd/back and lat facing Reps/Duration X12 with CGA each PT-OP-R Modalities Start: 07/12/24 17:42 Freq: Status: Active Protocol: Document 08/06/24 13:43 SP (Rec: 08/06/24 15:29 SP [id number]) Hot Pack/Cold Pack Treatment CP Location L ankle Patient Position Hooklying Patient Tolerance Good Comments Reports helps decreased discomfort end tx. PT-OP-T Assessment and Plan Start: 07/12/24 17:42 Freq: Status: Active Protocol: Document 02/19/25 13:45 AB (Rec: 02/19/25 17:15 AB Laptop) Physical Therapy Assessment Goals left knee ROM Impairment decreased left knee ROM with pain at end range 115 on the left Mcc Goal (LTG) [place] presents with a 5 degree improvement with her knee flexion ROM and reports decreased pain at end range LTG Duration achieved 02/04 ROM Short Term Goal (STG) Pt will have DF to neutral in knee flex position 09/18-worse since fall 10/18-much improved, -2 11/05/2024 lacking 2 deg from neutral end of session AROM left ankle STG Duration achieved 11/15 Local Delivery Driver Goal (LTG) Pt will have at least DF to 5 deg in knee flex and extended position to allow for improved gait mechanics. 12/12-0 in ext, 2 in flex 01/08/25: measure next tx 02/04-no change recently LTG Duration 02/06 activity Short Term Goal (STG) Pt will ambulate in house w/ LRAD 100% of the time instead of use WC 09/18-during day but not at night STG Duration achieved 10/18 Mcc Goal (LTG) Pt will amb w/o AD w/o significant gait deviations and be able to go for short walks w/o inc pain greater than 2/10 11/15-amb w/SPC 12/12-amb w/o AD but dec stance time and push off LLE d/t pain 01/08/25: GOAL MET: not using SPC inside but using over grass, every now and then twinge 2/10 at most and arch foot when wakes up but AROm makes it go away.. LTG Duration 02/06 LEFS Impairment 15/80 Short Term Goal (STG) Pt will improve LEFS score to at least 30/80 to show improved functional ability. 09/18-10/18- 11/15- STG Duration achieved to 43 Mcc Goal (LTG) Pt will improve LEFS score to at least 50/80 to show improved functional ability. 12/12- 01/08/25: 38/80=47.5%, reports many activities doesn't perform dynamic running activities so logged how difficult thinks would be to perform. LTG Duration achieved to 55 02/04 Assessment Summary Assessment CGA throughout out door ambulation up and down hills of grass, curbs, inclines declines, inc effort for highest depth curb, but remains CGA. Physical Therapy Plan Frequency and Duration Frequency of Treatment 1-2x/wk Duration of treatment (weeks) 8 Plan of Care Start Date 01/10/25 Plan of Care End Date 03/07/25 Next Visit Focus/Plan Next Note Type Treatment Note Next Visit Plan continue to focus on gait/ balance, condense HEP
--- NOTE | 2025-02-25 16:00 | PT.OTN ---
Current Diagnoses Pain in right ankle and joints of right foot (02/25/25) Nondisplaced pilon fracture of right tibia, subsequent encounter for closed fracture with routine healing (02/25/25) Nondisplaced pilon fracture of left tibia, initial encounter for closed fracture (02/25/25) Dislocation of tarsometatarsal joint of left foot, initial encounter (02/25/25) Sprain of tibiofibular ligament of left ankle, initial encounter (02/25/25) Physical Therapy Treatment Note PT-OP-A Visit Information Start: 07/12/24 17:42 Freq: Status: Active Protocol: Document 02/25/25 13:01 PG (Rec: 02/25/25 15:48 [facility] [id number]) Out-Patient Physical Therapy Visit Information Visit Information Visit Type Treatment Note Visit Note PRATIBHA Lee led tx with pt's permission and direct supervision of Mel KIRBY. Visit Start Time 13:01 Visit Stop Time 13:44 Visit Number 56 Number of BOOKING MANAGER Visits 3 PT-OP-B Current Condition Start: 07/12/24 17:42 Freq: Status: Active Protocol: Document 09/18/24 14:45 [facility] (Rec: 09/18/24 18:08 [facility] [id number]) Current Condition History of Current Condition Onset Date injury april 15, sx 04/30 Current Complaints L ORIF lisfranc, pilon and syndesmosis History of Current Condition 09/18/24-pt fell 09/04 on 1 step w/FWW and hurt from L knee down to foot. Saw ortho and no further fx and cleared to cont PT and does not have return to ortho IE:Pt reports stood up to go to bed on April 15 and fell over her feet and broke her leg and bones in foot. She was put in splint ER and on April 30 got screws in foot, leg and ankle. Has had boot for 6-8 weeks. Tried to do the walker when cleared to in May and it hurt so bad, she couldn't do it. Dr. Guzman told her to wait a couple weeks again and on 06/19 was told again. Sees her again next Tuesday. Last tried to use walker about 1.5 weeks ago but it is too painful . When uses the walker , L shoulder has been more painful too. Broke ankle in 80s without surgery. Denies LE and back pain. Pt reports prior ot this was a couch potato. prior to this was indep w/dressing and bathing. Cannot get into shower so has been doing bird baths insteadwith help. He helps some w/dressing too. It is a walk in shower but has a step up so can't get in. Has a built in seat in there with grab bars in there. DOes SPT for all transfers w/o FWW. Has a ramp built in now for livingroom area to cover step. H w/flat entry. Pt has been doing APs Treatment Goals Patient/Caregiver Goals get back to walking PT-OP-C Subjective Start: 07/12/24 17:42 Freq: Status: Active Protocol: Document 02/25/25 13:01 PG (Rec: 02/25/25 15:48 PG [id number]) OP-PT Subjective Patient Comments Patient Comments Pt reports she is doing okay, still can't fit her foot into any other shoes. Admits to not being consistent with her exercises, does try to complete some 3x a week. PT-OP-F Manual Assessment Start: 07/12/24 17:42 Freq: Status: Active Protocol: Document 09/18/24 14:45 [facility] (Rec: 09/18/24 18:08 [facility] [id number]) Manual Assessments Other Manual Assessments Other Manual Assessments lat foot bruising, cont foot swelling L PT-OP-G Mobility & Gait Start: 07/12/24 17:42 Freq: Status: Active Protocol: Document 07/25/24 11:38 LR (Rec: 07/25/24 13:45 [facility] [id number]) OP Gait Assessment Comments Gait Comments came in w/WC. able to amb w/ FWW w/cues for step to pattern PT-OP-J Posture/Palpation/Skin Start: 07/12/24 17:42 Freq: Status: Active Protocol: Document 01/10/25 15:15 [facility] (Rec: 01/10/25 16:25 [facility] [id number]) Palpation Assessment Location left lateral joint line Palpation Findings Tenderness PT-OP-K Range of Motion Start: 07/12/24 17:42 Freq: Status: Active Protocol: Document 02/04/25 13:02 LR (Rec: 02/04/25 13:50 [facility] [id number]) Knee Goniometric Range of Motion Knee Left Knee ROM WFL No Patient Position Supine Flexion Active (degrees) 122 Extension Active (degrees) 0 Ankle and Foot Goniometric Range of Motion Ankle and Foot Left Active Dorsiflexion with Knee Flexed 3 Dorsiflexion with Knee Extended 1 PT-OP-M Strength Start: 07/12/24 17:42 Freq: Status: Active Protocol: Document 02/04/25 13:02 [facility] (Rec: 02/04/25 13:50 [facility] [id number]) Knee Strength Knee Manual Muscle Testing Left Flexion (S2) 4+ Good+ Extension (L3) 4 Good Comments pain baxter w/ext Ankle/Foot Strength Ankle and Foot Manual Muscle Testing Left Dorsiflexion (L4) 5 Normal Plantarflexion (S1) 4+ Good+ Inversion 4+ Good+ Eversion (S1) 4+ Good+ Comments 4/5 toe ext; 3+/5 toe flex PF tested seated PT-OP-Q Treatments Start: 07/12/24 17:42 Freq: Status: Active Protocol: Document 02/25/25 13:01 (Rec: 02/25/25 15:48 PG [id number]) Therapeutic Exercises Sitting Exercises ankle DF, EV, IV Sitting Exercise Name Reviewed, keeping ankle inversion. Side left Resistance Tb #4 dark blue TB Reps/Minutes 10 reps Standing Exercises SL slider Standing Exercise Name Reviewed, progressed with no hand support Side bilateral Comments cued for foot alignment, small range to maintain balance miniture lunges Standing Exercise Name HEP reviewed Side bilateral Resistance AROM Equipment Used rail support 1 UE light Reps/Minutes 10 reps Comments verbal cues for hip hinge, neutral foot alignment Step ups Standing Exercise Name fwd/lat step up Side bilateral Equipment Used 6in step Reps/Minutes 10x each Comments cued upright posture, 1UE ( instead of 2), glute activation, netural feet heel raises/ toe raises Standing Exercise Name verbally reviewed standing calf stretch Standing Exercise Name Reviewed Gait Training Gait Activity dynamic gait Description Fwd walking: head turns (L/R, U/D) Level of Assistance CGA> SBA Distance/Duration Along hallway railing x2 each Comments cued for heel strike, decrease lateral lean to the right, engage core. Reviewed HEP Neuro Re-Education Treatment Balance Activities tandem Details tandem walking Surface floor Equipment fingertips on railing Reps/Duration along railing in hallway x4 Comments cued for heel to toe, eyes forward, neutral foot alignment. PT-OP-R Modalities Start: 07/12/24 17:42 Freq: Status: Active Protocol: Document 08/06/24 13:43 SP (Rec: 08/06/24 15:29 SP [id number]) Hot Pack/Cold Pack Treatment CP Location L ankle Patient Position Hooklying Patient Tolerance Good Comments Reports helps decreased discomfort end tx. PT-OP-T Assessment and Plan Start: 07/12/24 17:42 Freq: Status: Active Protocol: Document 02/25/25 13:01 PG (Rec: 02/25/25 15:48 [facility] [id number]) Physical Therapy Assessment Goals left knee ROM Impairment decreased left knee ROM with pain at end range 115 on the left Shelter Goal (LTG) [place] presents with a 5 degree improvement with her knee flexion ROM and reports decreased pain at end range LTG Duration achieved 02/04 ROM Short Term Goal (STG) Pt will have DF to neutral in knee flex position 09/18-worse since fall 10/18-much improved, -2 11/05/2024 lacking 2 deg from neutral end of session AROM left ankle STG Duration achieved 11/15 Shelter Goal (LTG) Pt will have at least DF to 5 deg in knee flex and extended position to allow for improved gait mechanics. 12/12-0 in ext, 2 in flex 01/08/25: measure next tx 02/04-no change recently LTG Duration 02/06 activity Short Term Goal (STG) Pt will ambulate in house w/ LRAD 100% of the time instead of use WC 09/18-during day but not at night STG Duration achieved 10/18 Family Medicine Chair Goal (LTG) Pt will amb w/o AD w/o significant gait deviations and be able to go for short walks w/o inc pain greater than 2/10 11/15-amb w/SPC 12/12-amb w/o AD but dec stance time and push off LLE d/t pain 01/08/25: GOAL MET: not using SPC inside but using over grass, every now and then twinge 2/10 at most and arch foot when wakes up but AROm makes it go away.. LTG Duration 02/06 LEFS Impairment Short Term Goal (STG) Pt will improve LEFS score to at least 30/80 to show improved functional ability. 09/18-10/18- 11/15- STG Duration achieved to 43 Shelter Goal (LTG) Pt will improve LEFS score to at least 50/80 to show improved functional ability. 12/12- 01/08/25: 38/80=47.5%, reports many activities doesn't perform dynamic running activities so logged how difficult thinks would be to perform. LTG Duration achieved to 55 02/04 Assessment Summary Assessment Worked on condensing and progressing pt's HEP. Reviewed dynamic gait, cued pt to slow pace and focus on decreasing lateral leaning toward the right with gait. Pt was able to improve with cues and focus. Initiated tandem walking to work on balance and neutral foot alignment. Kept seated inversion theraband exercise to continue strengthening ankle inversion muscles and work on decreasing out toeing alignment. Pt was challenged with forward lunges to work on LE strengthening and DF ROM, required mod cues for form. Cued for hip hinge to decrease rounding of back. Physical Therapy Plan Frequency and Duration Frequency of Treatment 1-2x/wk Duration of treatment (weeks) 8 Plan of Care Start Date 01/10/25 Plan of Care End Date 03/07/25 Therapeutic Interventions Therapeutic Interventions Balance Training,Gait Training ,Home Exercise Program,Joint Mobilizations,Manual Therapy, Neuromuscular Re-education, Orthotic/Prosthetic Management ,Patient/Caregiver Education, Self-Care/Home Management,Soft Tissue Mobilization,Taping, Therapeutic Activities, Therapeutic Exercises Modalities Cold Pack/Ice Massage,Electric Stimulation,Hot Packs, Infrared Therapy Next Visit Focus/Plan Next Note Type Treatment Note Next Visit Plan Next: Plan on DC next session, continue reviewing/ progressing/condensing HEP.
--- NOTE | 2025-03-05 15:12 | PT.OTN ---
Current Diagnoses Pain in right ankle and joints of right foot (03/05/25) Nondisplaced pilon fracture of right tibia, subsequent encounter for closed fracture with routine healing (03/05/25) Nondisplaced pilon fracture of left tibia, initial encounter for closed fracture (03/05/25) Dislocation of tarsometatarsal joint of left foot, initial encounter (03/05/25) Sprain of tibiofibular ligament of left ankle, initial encounter (03/05/25) Physical Therapy Treatment Note PT-OP-A Visit Information Start: 07/12/24 17:42 Freq: Status: Active Protocol: Document 03/05/25 13:50 [facility] (Rec: 03/05/25 15:11 [facility] [id number]) Out-Patient Physical Therapy Visit Information Visit Information Visit Type Discharge Summary Visit Start Time 13:49 Visit Stop Time 14:30 Visit Number [id number] 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 Saw ortho and no further fx and cleared to cont PT and does not have return to ortho IE:Pt reports stood up to go to bed on April 15 and fell over her feet and broke her leg and bones in foot. She was put in splint ER and on April 30 got screws in foot, leg and ankle. Has had boot for 6-8 weeks. Tried to do the walker when cleared to in May and it hurt so bad, she couldn't do it. Dr. Guzman told her to wait a couple weeks again and on 06/19 was told again. Sees her again next Tuesday. Last tried to use walker about 1.5 weeks ago but it is too painful . When uses the walker , L shoulder has been more painful too. Broke ankle in 80s without surgery. Denies LE and back pain. Pt reports prior ot this was a couch potato. prior to this was indep w/dressing and bathing. Cannot get into shower so has been doing bird baths insteadwith help. He helps some w/dressing too. It is a walk in shower but has a step up so can't get in. Has a built in seat in there with grab bars in there. DOes SPT for all transfers w/o FWW. Has a ramp built in now for livingroom area to cover step. H w/flat entry. Pt has been doing APs Treatment Goals Patient/Caregiver Goals get back to walking PT-OP-C Subjective Start: 07/12/24 17:42 Freq: Status: Active Protocol: Document 03/05/25 13:50 [facility] (Rec: 03/05/25 15:11 [facility] [id number]) OP-PT Subjective Patient Comments Patient Comments Pt reports she hasn't done exercises too much. Notes happy she can walk and has been walking at parking lots etc PT-OP-F Manual Assessment Start: 07/12/24 17:42 Freq: Status: Active Protocol: Document 09/18/24 14:45 [facility] (Rec: 09/18/24 18:08 [facility] [id number]) Manual Assessments Other Manual Assessments Other Manual Assessments lat foot bruising, cont foot swelling L PT-OP-G Mobility & Gait Start: 07/12/24 17:42 Freq: Status: Active Protocol: Document 07/25/24 11:38 [facility] (Rec: 07/25/24 13:45 [facility] [id number]) OP Gait Assessment Comments Gait Comments came in w/WC. able to amb w/ FWW w/cues for step to pattern PT-OP-J Posture/Palpation/Skin Start: 07/12/24 17:42 Freq: Status: Active Protocol: Document 01/10/25 15:15 [facility] (Rec: 01/10/25 16:25 [facility] [id number]) Palpation Assessment Location left lateral joint line Palpation Findings Tenderness PT-OP-K Range of Motion Start: 07/12/24 17:42 Freq: Status: Active Protocol: Document 03/05/25 13:50 [facility] (Rec: 03/05/25 15:11 [facility] [id number]) Ankle and Foot Goniometric Range of Motion Ankle and Foot Left Active Dorsiflexion with Knee Flexed 3 Dorsiflexion with Knee Extended 1 PT-OP-M Strength Start: 07/12/24 17:42 Freq: Status: Active Protocol: Document 03/05/25 13:50 [facility] (Rec: 03/05/25 15:11 [facility] [id number]) Ankle/Foot Strength Ankle and Foot Manual Muscle Testing Left Dorsiflexion (L4) 5 Normal Plantarflexion (S1) 5 Normal Inversion 4+ Good+ Eversion (S1) 5 Normal Comments 4/5 toe ext; 3+/5 toe flex PF tested seated PT-OP-Q Treatments Start: 07/12/24 17:42 Freq: Status: Active Protocol: Document 03/05/25 13:50 [facility] (Rec: 03/05/25 15:11 [facility] [id number]) Gym Equipment Shuttle Balance Red chains Comments fwd & lat: WBOS, NBOS fwd: staggered stance B Therapeutic Exercises Sitting Exercises isometrics Sitting Exercise Name ankle MMT and AROM DF ROM ankle DF, EV, IV Sitting Exercise Name 1. inversion 2. DF Side left Resistance Tb #4 dark blue TB Reps/Minutes 10 reps Comments min cues Standing Exercises miniture lunges Standing Exercise Name HEP reviewed Side bilateral Resistance AROM Equipment Used rail support 1 UE light Reps/Minutes 10 reps Comments verbal cues for hip hinge, neutral foot alignment Step ups Standing Exercise Name fwd Side bilateral Equipment Used 6 in Reps/Minutes 10 ea Comments rail prn standing calf stretch Standing Exercise Name 1. gastroc 2. soleus Side bilateral Reps/Minutes 1 min ea Comments cues for foot position Neuro Re-Education Treatment Balance Activities taps Details fwd/back tap over olvin x10 B dynamic walk Comments 1. horizontal head turns x50ft 2. vertical head turns x50ft tandem Comments 1. tandem stance B rail prn 2. tandem walk w/2 fingers 10ft x2 SLS Comments towel slides fwd, lat, back x10 B rail prn PT-OP-R Modalities Start: 07/12/24 17:42 Freq: Status: Active Protocol: Document 08/06/24 13:43 [facility] (Rec: 08/06/24 15:29 [facility] [id number]) Hot Pack/Cold Pack Treatment CP Location L ankle Patient Position Hooklying Patient Tolerance Good Comments Reports helps decreased discomfort end tx. PT-OP-T Assessment and Plan Start: 07/12/24 17:42 Freq: Status: Active Protocol: Document 03/05/25 13:50 [facility] (Rec: 03/05/25 15:11 [facility] [id number]) Physical Therapy Assessment Goals left knee ROM Impairment decreased left knee ROM with pain at end range 115 on the left Fci Goal (LTG) Augusta presents with a 5 degree improvement with her knee flexion ROM and reports decreased pain at end range LTG Duration achieved 02/04 ROM Short Term Goal (STG) Pt will have DF to neutral in knee flex position 09/18-worse since fall 10/18-much improved, -2 11/05/2024 lacking 2 deg from neutral end of session AROM left ankle STG Duration achieved 11/15 Pharmacy Operations Specialist Goal (LTG) Pt will have at least DF to 5 deg in knee flex and extended position to allow for improved gait mechanics. 12/12-0 in ext, 2 in flex 01/08/25: measure next tx 02/04-no change recently 03/05-still limited LTG Duration cont w/HEP activity Short Term Goal (STG) Pt will ambulate in house w/ LRAD 100% of the time instead of use WC 09/18-during day but not at night STG Duration achieved 10/18 Pharmacy Operations Specialist Goal (LTG) Pt will amb w/o AD w/o significant gait deviations and be able to go for short walks w/o inc pain greater than 2/10 11/15-amb w/SPC 12/12-amb w/o AD but dec stance time and push off LLE d/t pain 01/08/25: GOAL MET: not using SPC inside but using over grass, every now and then twinge 2/10 at most and arch foot when wakes up but AROm makes it go away.. LTG Duration achieved 03/05 LEFS Impairment 15 Short Term Goal (STG) Pt will improve LEFS score to at least 30/80 to show improved functional ability. 09/18-10/18- 11/15- STG Duration achieved to 43 Pharmacy Operations Specialist Goal (LTG) Pt will improve LEFS score to at least 50/80 to show improved functional ability. 12/12- 01/08/25: 38/80=47.5%, reports many activities doesn't perform dynamic running activities so logged how difficult thinks would be to perform. LTG Duration achieved to 55 02/04 Assessment Summary Assessment Pt made excellent progress w/ PT w/improved gait and balance and ROM of L ankle after surgery d/t fx. SHe had an extended recovery w/inc time d /t injuries along the way including injuring L knee and big toe. At this time, pt able to return to typical function so DC to HEP. Physical Therapy Plan Discharge Physical Therapy Discharge Reasons Goals Met
== END 2025-03-06 14:30 | disposition home or self-care (01) ==
LOC: PHYS 13:45
PROVIDERS: Family Provider Family Medicine; PCP Family Medicine; Referring Provider Orthopaedic Surgery Foot and Ankle Surgery; Visit Provider Orthopaedic Surgery Foot and Ankle Surgery
DX: S82.875A Nondisplaced pilon fracture of left tibia, initial encounter for closed fracture (principal); S93.432A Sprain of tibiofibular ligament of left ankle, initial encounter; S93.325A Dislocation of tarsometatarsal joint of left foot, initial encounter; S82.874D Nondisplaced pilon fracture of right tibia, subsequent encounter for closed fracture with routine healing; M25.571 Pain in right ankle and joints of right foot
CPT/HCPCS: 97110; 97112; 97116; 97140; 97162; 97164; 97530; 97535

== ENCOUNTER 2025-04-12 04:34 | Observation (INO) | payer MEDICARE, OTHER, SELFPAY ==
[2025-04-12] VITALS (35 sets, daily range): BP systolic 97–208; BP diastolic 51–120; PULSE 72–157; RESP 10–24; TEMP 35.9–36.6; O2SAT 92–98; BMI 32.4; BMI 32.3
--- NOTE | 2025-04-12 04:36 | DI.RAD.S_ITS ---
PROCEDURE: XR CHEST 1V INDICATIONS: Chest Pain TECHNIQUE: One view of the chest was acquired. COMPARISON: [facility], CT, CT ANGIO CHEST PE PROTOCOL, 04/12/2025, 5:18. FINDINGS: Surgical changes and devices: None. Lungs and pleura: Lungs are clear. No pleural effusions or pneumothorax. Pleural parenchymal band in the left middle lung zone. Mediastinum: Dilation of the main pulmonary artery. Bones and chest wall: No suspicious bony lesions. Overlying soft tissues appear unremarkable. IMPRESSION: No acute cardiopulmonary abnormality is seen. Dilation of the main pulmonary artery, consistent with pulmonary hypertension. Agree with preliminary report. Dictated by: Orville Diane M.D. on 04/12/2025 at 8:15 Approved by: Orville Diane M.D. on 04/12/2025 at 8:16
--- NOTE | 2025-04-12 04:41 | EKG_ITS ---
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
[2025-04-12] MEDS: dilTIAZem 25 MG/5 ML SDV 20 MG IV (04:55)
[2025-04-12 05:01] LABS: Add Manual Diff / Slide Review NO; Basophils Absolute Auto 0 /uL (0-100); Basophils Percent Auto 0.6 % (0-2); Eosinophils Absolute Auto 400 /uL (0-450); Hematocrit 40.9 % (36-46); Hemoglobin 13.9 g/dL (12.0-16.0); Lymphocytes Absolute Auto 1900 /uL (1100-4500); Lymphocytes Percent Auto 23.6 % (25-40); Mean Corpuscular Hemoglobin 32.5 PG (26-34); Mean Corpuscular Volume 95.4 fL (80-100); Monocytes Absolute Auto 700 /uL (0-900); Monocytes Percent Auto 8.6 % (3-14); Neutrophils Absolute Auto 5000 /uL (1500-7000); Neutrophils Percent Auto 62.2 % (50-75); Platelet Count 242 X10^3/uL (150-400); Red Blood Cell Count 4.29 X10^6/uL (4.0-5.2); Red Cell Distribution Width 13.6 % (11.6-14.8); White Blood Cell Count 8.1 X10^3/uL (4.5-11.0)
[2025-04-12 05:09] LABS: Prothrombin Time 11.7 SECONDS (9.4-12.5)
--- NOTE | 2025-04-12 05:11 | DI.CT.S_ITS ---
PROCEDURE: CT ANGIO CHEST PE PROTOCOL INDICATIONS: Afib RVR, ?prior PE TECHNIQUE: After the administration of intravenous contrast, 2 mm thick sections acquired from the pulmonary apices to the posterior costophrenic angles. 3-dimensional maximum intensity projection (MIP) coronal and sagittal reformats were then acquired through the thorax. For radiation dose reduction, the following was used: automated exposure control, adjustment of mA and/or kV according to patient size. COMPARISON: [facility], CT, CT ANGIO CHEST, 04/17/2019, 11:39. FINDINGS: Image quality: Diagnostic. 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 Lower Neck: No enlarged lymph nodes. Thyroid: No thyroid nodules which require sonographic follow up, per consensus guidelines. Axillae: No enlarged lymph nodes. Chest Wall: Unremarkable. Bones: Unremarkable. Lungs and Pleura: No pneumothorax or pleural effusions. No consolidation or suspicious nodules. Heart: Heart size is normal. No pericardial effusion. Thoracic Vessels: No aortic aneurysm. Mediastinum and Vale: No enlarged lymph nodes. Esophagus: No wall thickening. Small hiatal hernia. Upper Abdomen: Visualized upper abdomen solid organs and bowel loops appear normal. IMPRESSION: No pulmonary embolus. 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 Findings likely indicate pulmonary hypertension. Agree with preliminary report. Dictated by: Orville Diane M.D. on 04/12/2025 at 8:16 Approved by: Orville Diane M.D. on 04/12/2025 at 8:39
[2025-04-12 05:12] LABS: PTT Partial Thromboplastin Tim 30 SECONDS (25.1-36.5)
[2025-04-12 05:13] LABS: Alanine Aminotransferase 95 IU/L (<35); Albumin 4.8 g/dL (3.5-5.0); Albumin Globulin Ratio 1.7 (1.0-2.8); Alkaline Phosphatase 105 U/L (38-126); Aspartate Aminotransferase 40 IU/L (14-36); BUN Creatinine Ratio 15.4 (6-22); Bilirubin Total 0.9 mg/dL (0.2-1.3); Blood Urea Nitrogen 10 mg/dL (7-17); Calcium 9.4 mg/dL (8.4-10.2); Carbon Dioxide 24 mmol/L (22-32); Chloride 101 mmol/L (98-107); Creatine Kinase < 20 U/L (30-135); Estimated Glomerular Filt Rate > 60 mL/min (>60); Globulin 2.9 g/dL (1.7-4.1); Glucose 113 mg/dL (70-99); HEMOLYSIS < 15 (0-50); Lipase 44 U/L (23-300); Magnesium 1.8 mg/dL (1.6-2.3); Potassium 3.9 mmol/L (3.4-5.1); Sodium 135 mmol/L (137-145); Total Protein 7.7 g/dL (6.3-8.2)
--- NOTE | 2025-04-12 05:16 | ED_ITS ---
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 She has been most recently followed by e d tech Dr. Chong of [facility] at [facility]. No known history of atrial fibrillation. She has had intermittent palpitation symptoms for weeks/months. She takes baby aspirin but no other blood thinner medications. Early this morning 1 hour prior to arrival she felt fast racing heart sensation, irregular beating, seemed to be persisting, no associated chest pain but some shortness of breath, no diaphoresis or nausea or vomiting. No symptoms of syncope or presyncope. Denies weakness or dizziness. She takes baby aspirin but no other blood thinner medications. She has not had any recent surgeries, no brain bleeds, no GI bleeding history. No black or red stools. No easy bruising or nosebleeds. complaint: rapid heart beat Related Data Home Medications ?Medication ?Instructions ?Recorded ?Confirmed aspirin 81 mg tablet,delayed 81 mg PO DAILY 09/19/24 0 04/12/25 release (Adult Aspirin Regimen) meloxicam 7.5 mg tablet 7.5 mg PO BID PRN pain 04/1204/12/25 Previous Rx's ?Medication ?Instructions ?Recorded atorvastatin 40 mg tablet 40 mg PO DAILY #90 tabs 02/08 losartan 50 mg tablet 50 mg PO DAILY high blood pr essure 11/27/24 #90 tabs apixaban 5 mg tablet 5 mg PO BID #60 tabs 5 metoprolol tartrate 50 mg tablet 50 mg PO BID #60 tabs 04/13/25 Allergies Allergy/AdvReac Type Severity Reaction Status Date / Time Penicillins AdvReac Intermediate hives Verified 04/12/25 04:37 Patient History <Jesus Berry MD - Last Filed: 04/13/25 12:31> Medical History Encounter for subsequent annual wellness visit (AWV) in Medicare patient Benign essential tremor Obesity (BMI 30-39.9) Alcohol use Pulmonary artery aneurysm Hypertension Asthma (~1987) Seasonal allergies (~1945) Benign familial tremor (~1959) Osteopenia Fractures Mumps Measles Chicken pox Cataracts, bilateral (~2015) Painful menstrual periods (~1978) Fibroids (~1978) Endometriosis (~1978) Colon polyps (~2011) Pulmonary stenosis (~1995) Surgical History History of colonoscopy (01/2012) Papilloma of right breast (~2018) Anesthesia History of laparoscopy (~1978) History of lumpectomy History of cardiac catheterization History of open heart surgery (~1950) History of hysterectomy (~1978) Family History Father Cancer Mother Heart disease Social History marital status: number of children: 0 household members: spouse lives independently: Yes education level: college occupational status: other (retired) Smoking Status: Never smoker alcohol intake: current substance use type: does not use Smoking Status: Never smoker alcohol intake frequency: 0-2 drinks per day Exam <Jesus Berry MD - Last Filed: 04/13/25 12:31> Narrative Exam Narrative: GENERAL: Well-developed patient, in mild distress. HEAD: Atraumatic. Normocephalic. EYES: Pupils equal round and reactive. Extraocular motions intact. No scleral icterus. No injection or drainage. ENT: Nose without bleeding, purulent drainage. Throat without erythema, tonsillar hypertrophy or exudate. Airway patent. NECK: Trachea midline. Non tender CARDIOVASCULAR: Fast rate irregular rhythm, without obvious murmurs RESPIRATORY: Clear to auscultation. Breath sounds equal bilaterally. No wheezes, rales, or rhonchi. GASTROINTESTINAL: Abdomen soft, non-tender, nondistended. EXTREMITIES: No edema or joint tenderness. BACK: Nontender without deformity or crepitance. No flank tenderness. NEURO: AOx3. Motor functions grossly nonfocal SKIN: No rash or erythema of visible areas Initial Vital Signs Initial Vital Signs: Vital Signs Temperature 98 F 04/12/25 04:38 Pulse Rate 136 H 04/12/25 04:38 Respiratory Rate 18 04/12/25 04:38 Blood Pressure 208/120 H 04/12/25 04:38 Pulse Oximetry 97 04/12/25 04:38 Oxygen Delivery Method Room Air 04/12/25 04:38 <Beverly Hsieh MD - Last Filed: 04/12/25 07:54> Initial Vital Signs Initial Vital Signs: Vital Signs Temperature 98 F 04/12/25 04:38 Pulse Rate 136 H 04/12/25 04:38 Respiratory Rate 18 04/12/25 04:38 Blood Pressure 208/120 H 04/12/25 04:38 Pulse Oximetry 97 04/12/25 04:38 Oxygen Delivery Method Room Air 04/12/25 04:38 Course <Jesus Berry MD - Last Filed: 04/13/25 12:31> Orders Ordered: Discontinued Medications Acetaminophen (Acetaminophen 325 Mg Tablet) 650 mg PO Q6H PRN PRN Reason: Fever/Mild Pain (1-3) Aspirin (Aspirin 81 Mg Chew Tab) 324 mg PO NOW ONE Stop: 04/12/25 04:36 Last Admin: 04/12/25 06:14 Dose: Not Given Documented By: AB Aspirin (Aspirin Ec 81 Mg Tablet) 81 mg PO DAILY [facility] Last Admin: 04/13/25 08:22 Dose: 81 mg Documented By: EF Atorvastatin Calcium (Atorvastatin 20 Mg Tablet) 40 mg PO DAILY [facility] Last Admin: 04/13/25 08:22 Dose: 40 mg Documented By: EF Diltiazem HCl (Diltiazem 25 Mg/5 Ml Sdv) 20 mg IV NOW ONE Stop: 04/12/25 04:51 Last Admin: 04/12/25 04:55 Dose: 20 mg Documented By: HNG Furosemide (Furosemide 40 Mg/4 Ml Vial) 40 mg IV NOW ONE Stop: 04/12/25 07:36 Last Admin: 04/12/25 07:55 Dose: 40 mg Documented By: ES Heparin Sodium (Porcine) (Heparin 5,000 Unit/Ml Vial) 5,000 unit SUBCUT BID [facility] Last Admin: 04/12/25 21:08 Dose: Not Given Documented By: Admin: 04/12/25 14:57 Dose: Not Given Documented By: EF Diltiazem HCl 125 mg/ Sodium (Chloride) 125 mls @ 5 mls/hr IV TITRATE [facility]; Protocol Last Titration: 04/12/25 18:45 Dose: 0 mg/hr, 0 mls/hr Documented By: Titration: 04/12/25 17:00 Dose: 5 mg/hr, 5 mls/hr Documented By: Titration: 04/12/25 15:48 Dose: 0 mg/hr, 0 mls/hr Documented By: Titration: 04/12/25 14:57 Dose: 5 mg/hr, 5 mls/hr Documented By: Titration: 04/12/25 12:51 Dose: 10 mg/hr, 10 mls/hr Documented By: Titration: 04/12/25 12:51 Dose: 0 mg/hr, 0 mls/hr Documented By: Titration: 04/12/25 09:42 Dose: 10 mg/hr, 10 mls/hr Documented By: Titration: 04/12/25 07:32 Dose: 15 mg/hr, 15 mls/hr Documented By: Titration: 04/12/25 07:05 Dose: 10 mg/hr, 10 mls/hr Documented By: Admin: 04/12/25 06:34 Dose: 5 mg/hr, 5 mls/hr Documented By: KH Losartan Potassium (Losartan 50 Mg Tablet) 50 mg PO DAILY [facility] Last Admin: 04/13/25 08:22 Dose: 50 mg Documented By: EF Meloxicam (Meloxicam 7.5 Mg Tablet) 7.5 mg PO BID PRN PRN Reason: pain Metoprolol Tartrate (Metoprolol Ir 25 Mg Tablet) 25 mg PO NOW ONE Stop: 04/12/25 07:36 Last Admin: 04/12/25 07:55 Dose: 25 mg Documented By: ES Metoprolol Tartrate (Metoprolol Ir 25 Mg Tablet) 25 mg PO BID [facility] Last Admin: 04/13/25 08:22 Dose: 25 mg Documented By: Admin: 04/12/25 20:52 Dose: 25 mg Documented By: SMS Metoprolol Tartrate (Metoprolol Ir 25 Mg Tablet) 25 mg PO NOW ONE Stop: 04/13/25 08:55 Last Admin: 04/13/25 09:33 Dose: 25 mg Documented By: EF Naloxone HCl (Naloxone 0.4 Mg/Ml Vial) 0.2 mg IV Q2MIN PRN PRN Reason: Opiate Reversal Vital Signs Vital signs: Vital Signs - 8 hr 04/12/25 04:38 04/12/25 04:55 04/12/25 04:57 Temperature 98 F Pulse Rate 136 H 157 H Respiratory Rate 18 19 Blood Pressure 208/120 H 140/72 Pulse Oximetry 97 98 Oxygen Delivery Method Room Air 04/12/25 04:57 04/12/25 05:00 04/12/25 05:00 Temperature Pulse Rate 108 H 106 H Respiratory Rate 21 14 Blood Pressure 177/87 H Pulse Oximetry 98 98 Oxygen Delivery Method 04/12/25 05:30 04/12/25 05:48 04/12/25 05:48 Temperature Pulse Rate 121 H 119 H Respiratory Rate 14 13 Blood Pressure 178/86 H Pulse Oximetry 96 96 Oxygen Delivery Method 04/12/25 06:00 04/12/25 06:01 04/12/25 06:01 Temperature Pulse Rate 119 H 119 H Respiratory Rate 16 10 L Blood Pressure 176/81 H Pulse Oximetry 97 97 Oxygen Delivery Method 04/12/25 06:30 04/12/25 06:30 04/12/25 06:34 Temperature Pulse Rate 118 H 118 H Respiratory Rate 10 L Blood Pressure 155/89 H 155/89 H Pulse Oximetry 97 Oxygen Delivery Method <Beverly Hsieh MD - Last Filed: 04/12/25 07:54> Orders Ordered: Discontinued Medications Acetaminophen (Acetaminophen 325 Mg Tablet) 650 mg PO Q6H PRN PRN Reason: Fever/Mild Pain (1-3) Aspirin (Aspirin 81 Mg Chew Tab) 324 mg PO NOW ONE Stop: 04/12/25 04:36 Last Admin: 04/12/25 06:14 Dose: Not Given Documented By: AB Aspirin (Aspirin Ec 81 Mg Tablet) 81 mg PO DAILY [facility] Last Admin: 04/13/25 08:22 Dose: 81 mg Documented By: EF Atorvastatin Calcium (Atorvastatin 20 Mg Tablet) 40 mg PO DAILY [facility] Last Admin: 04/13/25 08:22 Dose: 40 mg Documented By: EF Diltiazem HCl (Diltiazem 25 Mg/5 Ml Sdv) 20 mg IV NOW ONE Stop: 04/12/25 04:51 Last Admin: 04/12/25 04:55 Dose: 20 mg Documented By: HNG Furosemide (Furosemide 40 Mg/4 Ml Vial) 40 mg IV NOW ONE Stop: 04/12/25 07:36 Last Admin: 04/12/25 07:55 Dose: 40 mg Documented By: ES Heparin Sodium (Porcine) (Heparin 5,000 Unit/Ml Vial) 5,000 unit SUBCUT BID [facility] Last Admin: 04/12/25 21:08 Dose: Not Given Documented By: Admin: 04/12/25 14:57 Dose: Not Given Documented By: EF Diltiazem HCl 125 mg/ Sodium (Chloride) 125 mls @ 5 mls/hr IV TITRATE [facility]; Protocol Last Titration: 04/12/25 18:45 Dose: 0 mg/hr, 0 mls/hr Documented By: Titration: 04/12/25 17:00 Dose: 5 mg/hr, 5 mls/hr Documented By: Titration: 04/12/25 15:48 Dose: 0 mg/hr, 0 mls/hr Documented By: Titration: 04/12/25 14:57 Dose: 5 mg/hr, 5 mls/hr Documented By: Titration: 04/12/25 12:51 Dose: 10 mg/hr, 10 mls/hr Documented By: Titration: 04/12/25 12:51 Dose: 0 mg/hr, 0 mls/hr Documented By: Titration: 04/12/25 09:42 Dose: 10 mg/hr, 10 mls/hr Documented By: Titration: 04/12/25 07:32 Dose: 15 mg/hr, 15 mls/hr Documented By: Titration: 04/12/25 07:05 Dose: 10 mg/hr, 10 mls/hr Documented By: Admin: 04/12/25 06:34 Dose: 5 mg/hr, 5 mls/hr Documented By: KH Losartan Potassium (Losartan 50 Mg Tablet) 50 mg PO DAILY [facility] Last Admin: 04/13/25 08:22 Dose: 50 mg Documented By: EF Meloxicam (Meloxicam 7.5 Mg Tablet) 7.5 mg PO BID PRN PRN Reason: pain Metoprolol Tartrate (Metoprolol Ir 25 Mg Tablet) 25 mg PO NOW ONE Stop: 04/12/25 07:36 Last Admin: 04/12/25 07:55 Dose: 25 mg Documented By: ES Metoprolol Tartrate (Metoprolol Ir 25 Mg Tablet) 25 mg PO BID [facility] Last Admin: 04/13/25 08:22 Dose: 25 mg Documented By: Admin: 04/12/25 20:52 Dose: 25 mg Documented By: SMS Metoprolol Tartrate (Metoprolol Ir 25 Mg Tablet) 25 mg PO NOW ONE Stop: 04/13/25 08:55 Last Admin: 04/13/25 09:33 Dose: 25 mg Documented By: EF Naloxone HCl (Naloxone 0.4 Mg/Ml Vial) 0.2 mg IV Q2MIN PRN PRN Reason: Opiate Reversal Vital Signs Vital signs: Vital Signs - 8 hr 04/12/25 04:38 04/12/25 04:55 04/12/25 04:57 Temperature 98 F Pulse Rate 136 H 157 H Respiratory Rate 18 19 Blood Pressure 208/120 H 140/72 Pulse Oximetry 97 98 Oxygen Delivery Method Room Air 04/12/25 04:57 04/12/25 05:00 04/12/25 05:00 Temperature Pulse Rate 108 H 106 H Respiratory Rate 21 14 Blood Pressure 177/87 H Pulse Oximetry 98 98 Oxygen Delivery Method 04/12/25 05:30 04/12/25 05:48 04/12/25 05:48 Temperature Pulse Rate 121 H 119 H Respiratory Rate 14 13 Blood Pressure 178/86 H Pulse Oximetry 96 96 Oxygen Delivery Method 04/12/25 06:00 04/12/25 06:01 04/12/25 06:01 Temperature Pulse Rate 119 H 119 H Respiratory Rate 16 10 L Blood Pressure 176/81 H Pulse Oximetry 97 97 Oxygen Delivery Method 04/12/25 06:30 04/12/25 06:30 04/12/25 06:34 Temperature Pulse Rate 118 H 118 H Respiratory Rate 10 L Blood Pressure 155/89 H 155/89 H Pulse Oximetry 97 Oxygen Delivery Method MDM - Arrhythmia/Palpitations <Jesus Berry MD - Last Filed: 04/13/25 12:31> Lab Data Attestation: I reviewed the patient's lab results. Lab results narrative: White blood cell count 8100, hemoglobin 13.9, platelets adequate. Glucose 113. Normal renal function. Serum CO2 24. Sodium 135 with potassium 3.9. Mild transaminitis, alkaline phosphatase and total bilirubin normal. Lipase normal. BNP 1810 elevated. Troponin negative. 04/13/25 08:45 04/13/25 08:45 Labs: Lab Results 04/12/25 04/12/25 Range/Units 04:42 07:00 WBC 8.1 (4.5-11.0) X10^3/uL RBC 4.29 (4.0-5.2) X10^6/uL Hgb 13.9 (12.0-16.0) g/dL Hct 40.9 (36-46) % MCV 95.4 (80-100) fL MCH 32.5 (26-34) PG MCHC 34.0 (30-36) % RDW 13.6 (11.6-14.8) % Plt Count 242 (150-400) X10^3/uL Neut % (Auto) 62.2 (50-75) % Lymph % (Auto) 23.6 L (25-40) % [place] % (Auto) 8.6 (3-14) % Eos % (Auto) 5.0 H (2-4) % Baso % (Auto) 0.6 (0-2) % Neut # (Auto) 5000 (0113-8007) /uL Lymph # (Auto) 1900 (0946-4060) /uL [place] # (Auto) 700 (0-900) /uL Eos # (Auto) 400 (0-450) /uL Baso # (Auto) 0 (0-100) /uL PT 11.7 (9.4-12.5) SECONDS INR 1.0 (0.9-1.3) APTT 30 (25.1-36.5) SECONDS Sodium 135 L (137-145) mmol/L Potassium 3.9 (3.4-5.1) mmol/L Chloride 101 (98-107) mmol/L Carbon Dioxide 24 (22-32) mmol/L BUN 10 (7-17) mg/dL Creatinine 0.65 (0.52-1.04) mg/dL Estimated GFR > 60 (>60) mL/min BUN/Creatinine Ratio 15.4 (6-22) Glucose 113 H (70-99) mg/dL Calcium 9.4 (8.4-10.2) mg/dL Magnesium 1.8 (1.6-2.3) mg/dL Total Bilirubin 0.9 (0.2-1.3) mg/dL AST 40 H (14-36) IU/L ALT 95 H (<35) IU/L Alkaline Phosphatase 105 (38-126) U/L Total Creatine Kinase < 20 L (30-135) U/L Troponin I < 0.012 < 0.012 (0.01-0.034) ng/mL NT-Pro-B Natriuret Pep 1810 H (<450) pg/mL Total Protein 7.7 (6.3-8.2) g/dL Albumin 4.8 (3.5-5.0) g/dL Globulin 2.9 (1.7-4.1) g/dL Albumin/Globulin Ratio 1.7 (1.0-2.8) Lipase 44 (23-300) U/L MDM Narrative Medical decision making narrative: 79-year-old female admits to intermittent palpitation symptoms but no established diagnosis of atrial fib/flutter who other dysrhythmia, awakened 1 hour prior to arrival with racing heart sensation. Afebrile, sirs screen negative. monitoring manager shows atrial fibrillation with rapid ventricular response rate. No obvious ST segment elevation or depression changes on EKG. Labs pending. Chest x-ray pending. Has been prescribed propranolol for benign essential tremor. Elevated blood pressure. IV diltiazem bolus then infusion. Medical record review: Cardiology consult from February of this year indicates last echocardiogram was December of 2022 the [facility] with an ejection fraction 65%, dilated pulmonary artery, no pulmonic valve stenosis and trace pulmonic valve regurgitation. Chest x-ray shows no acute changes, see tele radiology report. Lab data: White blood cell count 8100, hemoglobin 13.9, platelets adequate. Glucose 113. Normal renal function. Serum CO2 24. Sodium 135 with potassium 3.9. Mild transaminitis, alkaline phosphatase and total bilirubin normal. Lipase normal. BNP [address] angiogram chest. No acute PE noted. See tele radiology report. 0700, repeat trop pending. Signed out to Dr Hsieh. Repeat troponin 0645 at 2:[address] Hsieh care is assumed, patient is independently evaluated, chart is reviewed. New atrial fibrillation with rapid ventricular response. Unclear if she has actually been for a number of months or whether she has been having brief episodes of notable rapid AFib that do spontaneously convert. Currently on diltiazem at 15, rate is still not adequately controlled, oral metoprolol at 25 mg immediate release has been added. She also has a slightly elevated BNP with no previous history of congestive heart failure last echo in 2022 showing ejection fraction at 65%. Troponins have been undetectable, she is not currently having chest pain. She notes she has been more short of breath over the last number of months but feels that is simply because she is ?a lazy couch potato who does not exercise?. Findings reviewed with the patient, reasons for hospital admission and anticipated hospital care is reviewed. Questions are answered. Reviewed the case with Dr. Crotez, patient will be admitted <Beverly Hsieh MD - Last Filed: 04/12/25 07:54> Lab Data Labs: Lab Results 04/12/25 04/12/25 Range/Units 04:42 07:00 WBC 8.1 (4.5-11.0) X10^3/uL RBC 4.29 (4.0-5.2) X10^6/uL Hgb 13.9 (12.0-16.0) g/dL Hct 40.9 (36-46) % MCV 95.4 (80-100) fL MCH 32.5 (26-34) PG MCHC 34.0 (30-36) % RDW 13.6 (11.6-14.8) % Plt Count 242 (150-400) X10^3/uL Neut % (Auto) 62.2 (50-75) % Lymph % (Auto) 23.6 L (25-40) % [place] % (Auto) 8.6 (3-14) % Eos % (Auto) 5.0 H (2-4) % Baso % (Auto) 0.6 (0-2) % Neut # (Auto) 5000 (5122-1303) /uL Lymph # (Auto) 1900 (2265-7724) /uL [place] # (Auto) 700 (0-900) /uL Eos # (Auto) 400 (0-450) /uL Baso # (Auto) 0 (0-100) /uL PT 11.7 (9.4-12.5) SECONDS INR 1.0 (0.9-1.3) APTT 30 (25.1-36.5) SECONDS Sodium 135 L (137-145) mmol/L Potassium 3.9 (3.4-5.1) mmol/L Chloride 101 (98-107) mmol/L Carbon Dioxide 24 (22-32) mmol/L BUN 10 (7-17) mg/dL Creatinine 0.65 (0.52-1.04) mg/dL Estimated GFR > 60 (>60) mL/min BUN/Creatinine Ratio 15.4 (6-22) Glucose 113 H (70-99) mg/dL Calcium 9.4 (8.4-10.2) mg/dL Magnesium 1.8 (1.6-2.3) mg/dL Total Bilirubin 0.9 (0.2-1.3) mg/dL AST 40 H (14-36) IU/L ALT 95 H (<35) IU/L Alkaline Phosphatase 105 (38-126) U/L Total Creatine Kinase < 20 L (30-135) U/L Troponin I < 0.012 < 0.012 (0.01-0.034) ng/mL NT-Pro-B Natriuret Pep 1810 H (<450) pg/mL Total Protein 7.7 (6.3-8.2) g/dL Albumin 4.8 (3.5-5.0) g/dL Globulin 2.9 (1.7-4.1) g/dL Albumin/Globulin Ratio 1.7 (1.0-2.8) Lipase 44 (23-300) U/L [facility] Narrative Medical decision making narrative: 79-year-old female admits to intermittent palpitation symptoms but no established diagnosis of atrial fib/flutter who other dysrhythmia, awakened 1 hour prior to arrival with racing heart sensation. Afebrile, sirs screen negative. monitoring manager shows atrial fibrillation with rapid ventricular response rate. No obvious ST segment elevation or depression changes on EKG. Labs pending. Chest x-ray pending. Has been prescribed propranolol for benign essential tremor. IV diltiazem bolus then infusion. Medical record review: Cardiology consult from February of this year indicates last echocardiogram was December of 2022 the [facility] with an ejection fraction 65%, dilated pulmonary artery, no pulmonic valve stenosis and trace pulmonic valve regurgitation. Chest x-ray shows no acute changes, see tele radiology report. Lab data: White blood cell count 8100, hemoglobin 13.9, platelets adequate. Glucose 113. Normal renal function. Serum CO2 24. Sodium 135 with potassium 3.9. Mild transaminitis, alkaline phosphatase and total bilirubin normal. Lipase normal. BNP [address] angiogram chest. No acute PE noted. See tele radiology report. Repeat troponin 0645 at 2:[address] Hsieh care is assumed, patient is independently evaluated, chart is reviewed. New atrial fibrillation with rapid ventricular response. Unclear if she has actually been for a number of months or whether she has been having brief episodes of notable rapid AFib that do spontaneously convert. Currently on diltiazem at 15, rate is still not adequately controlled, oral metoprolol at 25 mg immediate release has been added. She also has a slightly elevated BNP with no previous history of congestive heart failure last echo in 2022 showing ejection fraction at 65%. Troponins have been undetectable, she is not currently having chest pain. She notes she has been more short of breath over the last number of months but feels that is simply because she is ?a lazy couch potato who does not exercise?. Findings reviewed with the patient, reasons for hospital admission and anticipated hospital care is reviewed. Questions are answered. Reviewed the case with Dr. Cortez, patient will be admitted Critical Care Time <Beverly Hsieh MD - Last Filed: 04/12/25 07:54> Critical Care Time Critical Care Time: Yes Total Critical Care Time: 33 Attestation: Critical care time is separate from other billable procedures. There is a high probability of a significant, sudden or life-threatening deterioration that requires my full and direct attention, intervention and personal management. This critical care time includes consultation with family and other consulting doctors, review of records, and interpretation of data from labs, EKGs and imaging as well as managements of atrial fibrillation with rapid ventricular response with IV rate control medications as well as IV diuretics Discharge Plan Departure Patient Disposition: Admitted as Observation Clinical Impression: Atrial fibrillation with rapid ventricular response, Elevated brain natriuretic peptide (BNP) level Admit Date/Time: 04/12/25 07:51 Admit Provider: Raj Cortez
[2025-04-12 05:25] LABS: NT-proBNP (BNP-Adult 18+) 1810 pg/mL (<450); Troponin I < 0.012 ng/mL (0.01-0.034)
[2025-04-12] MEDS: dilTIAZem 125 MG in SODIUM CHLORIDE 0.9% 100 ML IV (06:34)
[2025-04-12 07:38] LABS: Troponin I < 0.012 ng/mL (0.01-0.034)
[2025-04-12] MEDS: FUROSEMIDE 40 MG/4 ML VIAL IV (07:55)
[2025-04-12] MEDS: METOPROLOL IR 25 MG TABLET PO ×2 (07:55→20:52)
--- NOTE | 2025-04-12 11:13 | DI.RAD.S_ITS ---
PROCEDURE: XR CHEST 1V INDICATIONS: Dyspnea TECHNIQUE: One view of the chest was acquired. COMPARISON: [facility], CT, CT ANGIO CHEST PE PROTOCOL, 04/12/2025, 5:18. [facility], CR, XR CHEST 1V, 04/12/2025, 4:39. FINDINGS: Surgical changes and devices: None. Lungs and pleura: Lungs are abnormal with a mild interstitial prominence and linear scarring or atelectasis along the left mid chest lung parenchyma. No pleural effusions or pneumothorax. Mediastinum: Mediastinal contours appear abnormal with a contour bulge in the expected area of the main pulmonary artery on the left. Heart size is normal. Bones and chest wall: No suspicious bony lesions. Overlying soft tissues appear unremarkable. IMPRESSION: Chronic mild interstitial prominence, mild lung scarring left mid chest. 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 Please also refer to CT pulmonary angiogram same day. Dictated by: Santosh Leyva M.D. on 04/12/2025 at 13:10 Approved by: Santosh Leyva M.D. on 04/12/2025 at 13:13
--- NOTE | 2025-04-12 13:12 | P.HP_ITS ---
History of Present Illness History of Present Illness Date Patient Seen: 04/12/25 Chief complaint: heart palpitations Narrative: The patient was a 71-year-old female who presents with palpitations and was found to have AFib with RVR. Her heart rate was 140 in the ED. She was initially treated with IV diltiazem followed by diltiazem drip and then oral metoprolol. She has a better heart rate upon transfer to the ICU, her diltiazem was turned down to 10 per hour. She describes intermittent palpitations for some period of time. She was followed by Dr. Chong, Cardiology at [facility]. She was a stress test MRI scheduled for June of this year. It was delayed from March due to being COVID positive. Although she was recently COVID positive she denies any respiratory symptoms from COVID. She also notes some dyspnea with walking but denies any chest pain episodes. [facility] Medical History Encounter for subsequent annual wellness visit (AWV) in Medicare patient Benign essential tremor Obesity (BMI 30-39.9) Alcohol use Pulmonary artery aneurysm Hypertension Asthma (~1987) Seasonal allergies (~1945) Benign familial tremor (~1959) Osteopenia Fractures Mumps Measles Chicken pox Cataracts, bilateral (~2015) Painful menstrual periods (~1978) Fibroids (~1978) Endometriosis (~1978) Colon polyps (~2011) Pulmonary stenosis (~1995) Surgical History History of colonoscopy (01/2012) Papilloma of right breast (~2018) Anesthesia History of laparoscopy (~1978) History of lumpectomy History of cardiac catheterization History of open heart surgery (~1950) History of hysterectomy (~1978) Family History Father Cancer Mother Heart disease Social History marital status: number of children: 0 household members: spouse lives independently: Yes education level: college occupational status: other (retired) Smoking Status: Never smoker alcohol intake: current substance use type: does not use Meds Home Medications and Allergies Home Medications ?Medication ?Instructions ?Recorded ?Confirmed ?Type propranolol 60 mg capsule,24 60 mg PO DAILY #90 caps 1 11/20/22 04/12/25 Rx hr,extended release aspirin 81 mg tablet,delayed 81 mg PO DAILY 09/19/24 0 04/12/25 History release (Adult Aspirin Regimen) atorvastatin 40 mg tablet 40 mg PO DAILY #90 tabs 02/02/0804/12/25 Rx losartan 50 mg tablet 50 mg PO DAILY high blood pr essure 11/27/24 04/12/25 Rx #90 tabs meloxicam 7.5 mg tablet 7.5 mg PO BID PRN pain 04/1204/12/25 History Allergies Allergy/AdvReac Type Severity Reaction Status Date / Time Penicillins AdvReac Intermediate hives Verified 04/12/25 04:37 Review of Systems Review of Systems Narrative: All else reviewed and otherwise unremarkable except as noted in the history and physical. Exam Vital Signs (past 8 hours): - 04/12/25 05:30 04/12/25 05:48 04/12/25 05:48 Pulse Rate 121 H 119 H Respiratory Rate 14 13 Blood Pressure 178/86 H Pulse Oximetry 96 96 04/12/25 06:00 04/12/25 06:01 04/12/25 06:01 Pulse Rate 119 H 119 H Respiratory Rate 16 10 L Blood Pressure 176/81 H Pulse Oximetry 97 97 04/12/25 06:30 04/12/25 06:30 04/12/25 06:34 Pulse Rate 118 H 118 H Respiratory Rate 10 L Blood Pressure 155/89 H 155/89 H Pulse Oximetry 97 04/12/25 07:00 04/12/25 07:01 04/12/25 07:01 Pulse Rate 115 H 121 H Respiratory Rate 17 16 Blood Pressure 168/83 H Pulse Oximetry 96 96 04/12/25 07:26 04/12/25 07:26 04/12/25 07:30 Pulse Rate 126 H Respiratory Rate 15 Blood Pressure 147/92 H 162/82 H Pulse Oximetry 95 04/12/25 07:30 04/12/25 08:05 04/12/25 08:30 Pulse Rate 116 H 123 H 87 Respiratory Rate 12 20 10 L Blood Pressure Pulse Oximetry 96 96 04/12/25 08:46 04/12/25 08:46 04/12/25 09:00 Pulse Rate 83 82 Respiratory Rate 17 15 Blood Pressure 121/70 Pulse Oximetry 95 96 04/12/25 09:00 04/12/25 09:30 04/12/25 09:30 Pulse Rate 74 Respiratory Rate 15 Blood Pressure 132/73 97/62 Pulse Oximetry 95 04/12/25 10:00 04/12/25 10:00 04/12/25 10:30 Pulse Rate 75 Respiratory Rate 11 L Blood Pressure 99/56 L 112/57 L Pulse Oximetry 95 04/12/25 10:30 04/12/25 11:00 04/12/25 11:30 Pulse Rate 72 73 75 Respiratory Rate 11 L 15 24 Blood Pressure Pulse Oximetry 96 92 96 04/12/25 12:00 04/12/25 12:10 04/12/25 12:10 Pulse Rate 74 75 Respiratory Rate 19 19 Blood Pressure 119/59 L Pulse Oximetry 98 93 Oxygen Delivery Method Room Air Narrative Exam Narrative: NAD, alert and oriented, fluent speech, calm. Normocephalic skull, EOMI, anicteric sclera, symmetric pupils. Oropharynx unremarkable, no droop. Neck supple, midline trachea, no adenopathy. Lungs clear, normal rate and effort. Heart irregular, no murmur gallop or rub. Abdomen is soft, non distended and non tender. Extremities are free of edema. Skin is free of rash or lesions. Joints are not swollen or deformed. Judgment appears to be normal. Objective ECG Impression: Atrial fibrillation with rapid ventricular response Rightward axis NO PRIOR TRACING Imaging Chest x-ray: Radiologist's impression: Chronic mild interstitial prominence, mild lung scarring left mid chest. 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 Please also refer to CT pulmonary angiogram same day. CT scan - chest: Radiologist's impression: No pulmonary embolus. 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 Findings likely indicate pulmonary hypertension. Labs 04/12/25 04:42 04/12/25 04:42 Labs: Laboratory Results - last 24 hr 04/12/25 04/12/25 04:42 07:00 WBC 8.1 RBC 4.29 Hgb 13.9 Hct 40.9 MCV 95.4 MCH 32.5 MCHC 34.0 RDW 13.6 Plt Count 242 Neut % (Auto) 62.2 Lymph % (Auto) 23.6 L [place] % (Auto) 8.6 Eos % (Auto) 5.0 H Baso % (Auto) 0.6 Neut # (Auto) 5000 Lymph # (Auto) 1900 [place] # (Auto) 700 Eos # (Auto) 400 Baso # (Auto) 0 PT 11.7 INR 1.0 APTT 30 Sodium 135 L Potassium 3.9 Chloride 101 Carbon Dioxide 24 BUN 10 Creatinine 0.65 Estimated GFR > 60 BUN/Creatinine Ratio 15.4 Glucose 113 H Calcium 9.4 Magnesium 1.8 Total Bilirubin 0.9 AST 40 H ALT 95 H Alkaline Phosphatase 105 Total Creatine Kinase < 20 L Troponin I < 0.012 < 0.012 NT-Pro-B Natriuret Pep 1810 H Total Protein 7.7 Albumin 4.8 Globulin 2.9 Albumin/Globulin Ratio 1.7 Lipase 44 Assessment & Plan Assessment & Plan narrative: 1. PAF with RVR, present on admission and active. 2. Chronic pulmonary aneurysm, stable. 3. Essential tremor, stable. 4. HTN, stable. 5. Asthma, stable. PLAN: -wean diltiazem drip and start metoprolol 12.5 b.i.d.. -consider anticoagulation and close follow up with Dr. Chong of Cardiology. Anticipate 1 MN in the hospital. Full code. Time-Based Coding :: 35 min spent with patient and on the chart (including review of chart, obtaining history, exam, reviewing outside data, placing orders, documenting exam and treatment plan, and counseling patient) on 04/12. Quality VTE Deep Vein Thrombosis/Pulmonary Embolism Present on Admission: No MIPS - Admit I confirm the patient?s Advance Care Plan is present, Code status is documented, Surrogate decision maker is in patient?s record [If Yes, STOP here]: Yes MIPS - Meds 'Current medications' to include all prescriptions, [id number] products, herbals, cannabis/cannabidiol products, and vitamin/mineral/dietary (nutritional) supplements. I have utilized all available resources to obtain, update, or review the patient?s current medications. [If Yes, STOP here]: Yes
[2025-04-12 21:22] LABS: MRSA (Nasal) PCR NOT DETECTED (Not Detect)
[2025-04-13] VITALS (9 sets, daily range): BP systolic 118–167; BP diastolic 61–96; PULSE 38–114; RESP 11–29; TEMP 36.7; O2SAT 94–98
[2025-04-13] MEDS: LOSARTAN 50 MG TABLET PO (08:22)
[2025-04-13] MEDS: METOPROLOL IR 25 MG TABLET PO ×2 (08:22→09:33)
[2025-04-13] MEDS: ASPIRIN EC 81 MG TABLET PO (08:22)
[2025-04-13] MEDS: ATORVASTATIN 20 MG TABLET 40 MG PO (08:22)
[2025-04-13 08:52] LABS: Hematocrit 38.4 % (36-46); Mean Corpuscular HGB Conc 33.9 % (30-36); Mean Corpuscular Hemoglobin 32.4 PG (26-34); Mean Corpuscular Volume 95.4 fL (80-100); Platelet Count 228 X10^3/uL (150-400); Red Blood Cell Count 4.02 X10^6/uL (4.0-5.2); Red Cell Distribution Width 13.5 % (11.6-14.8); White Blood Cell Count 6.3 X10^3/uL (4.5-11.0)
[2025-04-13 09:19] LABS: BUN Creatinine Ratio 20.6 (6-22); Blood Urea Nitrogen 13 mg/dL (7-17); Carbon Dioxide 27 mmol/L (22-32); Chloride 98 mmol/L (98-107); Estimated Glomerular Filt Rate > 60 mL/min (>60); Glucose 113 mg/dL (70-99); HEMOLYSIS 16 (0-50); Sodium 133 mmol/L (137-145)
--- NOTE | 2025-04-13 11:04 | PM.DS.1 ---
History of Present Illness History of Present Illness Chief complaint: heart palpitations Narrative: The patient was a 71-year-old female who presents with palpitations and was found to have AFib with RVR. Her heart rate was 140 in the ED. She was initially treated with IV diltiazem followed by diltiazem drip and then oral metoprolol. She has a better heart rate upon transfer to the ICU, her diltiazem was turned down to 10 per hour. She describes intermittent palpitations for some period of time. She was followed by Dr. Chong, Cardiology at [facility]. She was a stress test MRI scheduled for June of this year. It was delayed from March due to being COVID positive. Although she was recently COVID positive she denies any respiratory symptoms from COVID. She also notes some dyspnea with walking but denies any chest pain episodes. Discharge Providers Provider Date of admission: 04/12/25 07:51 Discharge Date: 04/13/25 Primary care physician: Claudio Garcias DO Consults: None. Discharge provider: Raj Cortez MD Summary Hospital Course Discharge Diagnosis: 1. PAF with RVR, present on admission and improved. 2. Chronic pulmonary aneurysm, stable. 3. Essential tremor, stable. 4. HTN, stable. 5. Asthma, stable. Hospital Course: She was admitted with palpitations and RVR. She was in atrial fibrillation and did recount multiple episodes of palpitations at appear to be consistent with possible PAF. She was initially rate controlled with diltiazem IV as a bolus and drip and then up titrated on metoprolol. She had good rate control in the day of discharge. She will be placed on apixaban it was asked to call her instructor looping, Dr. Chong early this week to notify him of her issues. I suspect he will like to see here and likely put a Zio patch onto monitor the persistence of her atrial fibrillation. Anticoagulation was placed based on her PAF and hypertension as well as the possibility that he may pursue a cardioversion over the next several weeks. Status at Discharge Cognitive/behavioral status at discharge: oriented Functional status at discharge: independent ambulation Overall status at discharge: patient is back to baseline Time Spent with Patient Time spent: Greater than 30 minutes Exam Vital Signs (past 8 hours): - 04/13/25 07:00 04/13/25 08:00 04/13/25 08:22 Temperature Pulse Rate 98 H 102 H Respiratory Rate 11 L 19 Blood Pressure 139/80 167/96 H 167/96 H Pulse Oximetry 94 98 Oxygen Flow Rate 04/13/25 08:49 Temperature 98.0 F Pulse Rate 114 H Respiratory Rate 18 Blood Pressure 167/96 H Pulse Oximetry 96 Oxygen Flow Rate 0 Oxygen Delivery Method Room Air Oxygen Flow Rate 0 Narrative Exam Narrative: NAD, alert and oriented. Fluent speech. Lungs are clear, normal rate and effort. Heart is irregular, no murmur gallop or rub. Abdomen is soft, non distended. Extremities are free of edema. Objective ECG Impression: Atrial fibrillation with rapid ventricular response Rightward axis Imaging Chest x-ray: Radiologist's impression: Chronic mild interstitial prominence, mild lung scarring left mid chest. 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 Please also refer to CT pulmonary angiogram same day. CT scan - chest: Radiologist's impression: No pulmonary embolus. 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 Findings likely indicate pulmonary hypertension. Labs 04/13/25 08:45 04/13/25 08:45 Labs: Laboratory Results - last 24 hr 04/12/25 04/13/25 19:55 08:45 WBC 6.3 RBC 4.02 Hgb 13.0 Hct 38.4 MCV 95.4 MCH 32.4 MCHC 33.9 RDW 13.5 Plt Count 228 Sodium 133 L Potassium 4.0 Chloride 98 Carbon Dioxide 27 BUN 13 Creatinine 0.63 Estimated GFR > 60 BUN/Creatinine Ratio 20.6 Glucose 113 H Calcium 9.0 Nasal Screen MRSA (PCR) Not detected [facility] Medical History Encounter for subsequent annual wellness visit (AWV) in Medicare patient Benign essential tremor Obesity (BMI 30-39.9) Alcohol use Pulmonary artery aneurysm Hypertension Asthma (~1987) Seasonal allergies (~1945) Benign familial tremor (~1959) Osteopenia Fractures Mumps Measles Chicken pox Cataracts, bilateral (~2015) Painful menstrual periods (~1978) Fibroids (~1978) Endometriosis (~1978) Colon polyps (~2011) Pulmonary stenosis (~1995) Surgical History History of colonoscopy (01/2012) Papilloma of right breast (~2018) Anesthesia History of laparoscopy (~1978) History of lumpectomy History of cardiac catheterization History of open heart surgery (~1950) History of hysterectomy (~1978) Family History Father Cancer Mother Heart disease Social History marital status: number of children: 0 household members: spouse lives independently: Yes education level: college occupational status: other (retired) Smoking Status: Never smoker alcohol intake: current substance use type: does not use Discharge Assessment & Plan Assessment and Plan Assessment: 1. AF with RVR, rate better controlled. Plan of Treatment: Discharge home with metoprolol 50 b.i.d. and Eliquis 5 b.i.d.. She was urged to follow up with her instructor looping, Dr. Castillo Espinosa in [place] as soon as possible this week. Discharge Plan Discharge Plan Patient Disposition: Home Provider Discharge Comment: Stable for discharge, and better rate control on metoprolol 50 b.i.d.. Nursing Discharge Comment: Dr. Cortez made changes to your medications. Please stop taking propranolol and begin taking metoprolol 50mg twice daily. You will also begin taking apixaban also known as eliquis. Eliquis is a blood thinner, so you are at higher risk for bleeding. Minimize NSAID/alcohol use as needed for GI protection. Discharge orders & Medications Prescriptions: New metoprolol tartrate 50 mg tablet 50 mg PO BID Qty: 60 0RF apixaban 5 mg tablet 5 mg PO BID Qty: 60 0RF Continued atorvastatin 40 mg tablet 40 mg PO DAILY Qty: 90 3RF losartan 50 mg tablet 50 mg PO DAILY Qty: 90 3RF aspirin [Adult Aspirin Regimen] 81 mg tablet,delayed release (DR/EC) 81 mg PO DAILY meloxicam 7.5 mg tablet 7.5 mg PO BID PRN (Reason: pain) Discontinued propranolol 60 mg capsule,extended release 24 hr 60 mg PO DAILY Qty: 90 3RF Medication counseling provided by Pharmacist: No Follow up/Referrals: Claudio Garcias DO [Primary Care Provider, Family Practice] Discharge Health Status Multidrug resistant organism: No MDRO Diet/Activity/Treatments Diet: Regular Visit Report/Discharge Packet Instructions: VINCENT for Atrial Fibrillation Stand Alone Forms: Patient Portal/API Discharge Data Primary Care Provider: Claudio Garcias Attending Provider: Raj Cortez Admit Date/Time: 04/12/25 07:51 Quality VTE Deep Vein Thrombosis/Pulmonary Embolism Present on Admission: No
--- NOTE | 2025-04-13 11:28 | PC.NURSE ---
Pt has order to discharge home. Discharge packet reviewed in detail with patient and at bedside. Education on atrial fibrillation and new prescriptions provided. Questions answered. Pt appropriate for discharge.
--- NOTE | 2025-04-13 11:36 | CM.DANOTE ---
DCP Assessment note brief pt is a 79yo F admitted with heart palpitations. PCP Claudio Garcias Payer medicare and [employer] INSIDE SALES SPECIALIST reviewed EMR per provider in morning rounds, anticipate dc today. per chart review, pt lives in [place] with spouse indep at baseline. per chart review/RN report, no obivious CM needs. Pt left prior to being seen by this INSIDE SALES SPECIALIST. P: dc today with spouse support and OP f/u likely recommended. CM team will continue to follow as needed LOLI Collins Discharge Planning/Care Management CM Discharge Assessment Start: 04/12/25 07:56 Freq: Status: Active Protocol: Document 04/13/25 11:35 SL (Rec: 04/13/25 11:36 SL Desktop) Discharge Planning Assessment Assigned Discharge LOLI Alfaro Religious Education Director DPOA/Assigned [place], spouse Designee Name Contact Information [phone] Advance Directives? Yes: HC Directive, POLST Advance Directives Yes on File History Provided By Patient,Medical Record Prior Living Apartment/Condo Arrangements Household Members spouse Independent with ADL Yes 's Is patient alert and Yes oriented? Discharge Plan Home Referrals Initiated None needed Review Status In Process Please Provide Date 04/13/25 Initial DC Assessment Was Performed Next Review Type Continued Stay Review
== END 2025-04-13 11:37 | disposition home or self-care (01) ==
LOC: ED 04:44 → AC 07:51 → ICU 08:36
PROVIDERS: Admitting Provider Hospitalist; Emergency Provider Emergency Medicine; Family Provider Family Medicine; PCP Family Medicine; Referring Provider Emergency Medicine; Visit Provider Hospitalist
DX: I48.0 Paroxysmal atrial fibrillation (principal); G25.0 Essential tremor; J45.909 Unspecified asthma, uncomplicated; I10 Essential (primary) hypertension; I28.1 Aneurysm of pulmonary artery; Z79.82 Long term (current) use of aspirin; R79.89 Other specified abnormal findings of blood chemistry
CPT/HCPCS: 36415; 71045; 71275; 80048; 80053; 82550; 83690; 83735; 83880; 84484; 85025; 85027; 85610; 85730; 87797; 93005; 96365; 96366; 96375; 96376; 99284; 99291; G0378; J1938; Q9967

== ENCOUNTER 2025-05-13 09:41 | Observation (INO) | payer MEDICARE, OTHER, SELFPAY ==
[2025-04-12 12:55] VITALS: BMI 32.3
[2025-05-13] VITALS (37 sets, daily range): BP systolic 90–177; BP diastolic 50–100; PULSE 62–130; RESP 16–32; TEMP 36–37.7; O2SAT 92–98; BMI 32.4
--- NOTE | 2025-05-13 09:46 | EKG_ITS ---
[address] [address] Test Date: 2025-05-13 Pat Name: Augusta Arzola Department: Room: Gender: Female Tangled Yarn Worker: ILDEFONSO : 1945 Requested By: Order Number: [id number] Reading MD: Raj Cortez Measurements Intervals [place] Rate: 103 P: ND: QRS: 92 QRSD: 90 T: -45 QT: 298 QTc: 390 Interpretive Statements Atrial fibrillation with rapid ventricular response Rightward axis Septal infarct , age undetermined Electronically Signed On 05-24-2025 8:46:57 PDT by Raj Cortez
--- NOTE | 2025-05-13 09:48 | DI.RAD.S_ITS ---
PROCEDURE: XR CHEST 1V INDICATIONS: Chest Pain TECHNIQUE: One view of the chest was acquired. COMPARISON: [facility], CR, XR CHEST 1V, 04/12/2025, 11:40. FINDINGS: Surgical changes and devices: None. Lungs and pleura: Lungs are clear. No pleural effusions or pneumothorax. Mediastinum: Mediastinal contours appear normal. Heart size is enlarged. Bones and chest wall: No suspicious bony lesions. Overlying soft tissues appear unremarkable. IMPRESSION: No acute cardiopulmonary pathology. Dictated by: Damian Latham M.D. on 05/13/2025 at 10:10 Approved by: Damian Latham M.D. on 05/13/2025 at 10:16
--- NOTE | 2025-05-13 09:48 | EKG_ITS ---
[address] [address] Test Date: 2025-05-13 Pat Name: Augusta Arzola Department: Room: 228 Gender: Female Reservation Manager: ILDEFONSO : 1945 Requested By: Order Number: [id number] Reading MD: Raj Cortez Measurements Intervals [place] Rate: 109 P: TN: QRS: 92 QRSD: 90 T: -46 QT: 338 QTc: 455 Interpretive Statements Atrial fibrillation with rapid ventricular response Rightward axis Abnormal QRS-T angle, consider primary T wave abnormality Electronically Signed On 05-24-2025 8:47:11 PDT by Raj Cortez
[2025-05-13 09:53] LABS: Add Manual Diff / Slide Review NO; Hematocrit 43.6 % (36-46); Hemoglobin 14.9 g/dL (12.0-16.0); Lymphocytes Absolute Auto 1100 /uL (1100-4500); Mean Corpuscular HGB Conc 34.1 % (30-36); Mean Corpuscular Hemoglobin 32.4 PG (26-34); Mean Corpuscular Volume 95.1 fL (80-100); Platelet Count 180 X10^3/uL (150-400)
[2025-05-13 09:58] LABS: INR 1.6 (0.9-1.3); Prothrombin Time 17.9 SECONDS (9.4-12.5)
[2025-05-13 10:00] LABS: PTT Partial Thromboplastin Tim 35 SECONDS (25.1-36.5)
[2025-05-13 10:02] LABS: Alanine Aminotransferase 59 IU/L (<35); Albumin 4.9 g/dL (3.5-5.0); Albumin Globulin Ratio 1.4 (1.0-2.8); Alkaline Phosphatase 111 U/L (38-126); Blood Urea Nitrogen 8 mg/dL (7-17); Calcium 9.5 mg/dL (8.4-10.2); Carbon Dioxide 25 mmol/L (22-32); Chloride 101 mmol/L (98-107); Creatine Kinase 22 U/L (30-135); Estimated Glomerular Filt Rate > 60 mL/min (>60); Globulin 3.4 g/dL (1.7-4.1); Glucose 118 mg/dL (70-99); HEMOLYSIS < 15 (0-50); Lipase 30 U/L (23-300); Magnesium 1.8 mg/dL (1.6-2.3); Potassium 4.0 mmol/L (3.4-5.1); Sodium 138 mmol/L (137-145); Total Protein 8.3 g/dL (6.3-8.2)
[2025-05-13 10:13] LABS: NT-proBNP (BNP-Adult 18+) 2200 pg/mL (<450); Troponin I < 0.012 ng/mL (0.01-0.034)
--- NOTE | 2025-05-13 10:21 | ED_ITS ---
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 She has been most recently followed by chemical production engineer Dr. Chong of [facility]. No known history of atrial fibrillation. She has had intermittent palpitation symptoms for weeks/months. She takes baby aspirin but no other blood thinner medications. Early this morning 1 hour prior to arrival she felt fast racing heart sensation, irregular beating, seemed to be persisting, no associated chest pain but some shortness of breath, no diaphoresis or nausea or vomiting. No symptoms of syncope or presyncope. Denies weakness or dizziness. Related Data Home Medications ?Medication ?Instructions ?Recorded ?Confirmed aspirin 81 mg tablet,delayed 81 mg PO DAILY 09/19/24 0 04/12/25 release (Adult Aspirin Regimen) meloxicam 7.5 mg tablet 7.5 mg PO BID PRN pain 04/1204/12/25 Previous Rx's ?Medication ?Instructions ?Recorded atorvastatin 40 mg tablet 40 mg PO DAILY #90 tabs 02/08 losartan 50 mg tablet 50 mg PO DAILY high blood pr essure 11/27/24 #90 tabs apixaban 5 mg tablet 5 mg PO BID #60 tabs 5 metoprolol tartrate 50 mg tablet 50 mg PO BID #60 tabs 04/13/25 Allergies Allergy/AdvReac Type Severity Reaction Status Date / Time Penicillins AdvReac Intermediate hives Verified 05/13/25 09:41 Review of Systems Review of Systems ROS Unobtainable: All systems reviewed & are unremarkable except as noted in HPI and below Patient History Medical History Encounter for subsequent annual wellness visit (AWV) in Medicare patient Benign essential tremor Obesity (BMI 30-39.9) Alcohol use Pulmonary artery aneurysm Hypertension Asthma (~1987) Seasonal allergies (~194) Benign familial tremor (~1959) Osteopenia Fractures Mumps Measles Chicken pox Cataracts, bilateral (~2015) Painful menstrual periods (~1978) Fibroids (~1978) Endometriosis (~1978) Colon polyps (~2011) Pulmonary stenosis (~1995) Surgical History History of colonoscopy (01/2012) Papilloma of right breast (~2018) Anesthesia History of laparoscopy (~1978) History of lumpectomy History of cardiac catheterization History of open heart surgery (~1950) History of hysterectomy (~1978) Family History Father Cancer Mother Heart disease Social History marital status: number of children: 0 household members: spouse lives independently: Yes education level: college occupational status: other (retired) Smoking Status: Never smoker alcohol intake: current substance use type: does not use Smoking Status: Never smoker alcohol intake frequency: 0-2 drinks per day Alcohol type: wine Exam Narrative Exam Narrative: General: Patient appears to be in no acute distress, acting appropriately Head: normocephalic, atraumatic, HEENT: Pupils equal round reactive, eyes tracking well, neck supple, no JVD Heart: irrregular rhythm, tachycardia, no murmurs, rubs, or gallops heard Lungs: clear to auscultation, no adventitious sounds Abdomen: soft , nontender, nondistended, positive bowel sounds Neurological: no focal neurological signs, moving all extremities well, alert and oriented x3, Psych: good judgment ,good insight, mood is normal. Initial Vital Signs Initial Vital Signs: Vital Signs Temperature 99.3 F 05/13/25 09:41 Pulse Rate 112 H 05/13/25 09:41 Respiratory Rate 22 05/13/25 09:41 Blood Pressure 156/85 H 05/13/25 09:41 Pulse Oximetry 93 05/13/25 09:41 Oxygen Delivery Method Room Air 05/13/25 09:41 Course Course Course Narrative: 71-year-old female with recent diagnosis of atrial fibrillation here in the ED a few days ago. Patient was started on metoprolol 50 mg b.i.d. initially and then increase to 100 mg b.i.d.. Patient also anticoagulated with Eliquis 5 mg p.o. b.i.d. and was planned to have a cardioversion done 1 month out. Currently has been anticoagulate for 2 weeks but still having some shortness of breath to the point of coming here in the ER. Patient was given 50 mg of diltiazem IV by the paramedics on route here to the ED. Decision to Admit Date: 05/13/25 Decision to Admit time: 12:25 Orders Ordered: ED Orders 05/13/25 09:44 Complete Blood Count AUTO DIFF Stat Comprehensive Metabolic Panel Stat Lipase Stat Magnesium Stat NT-proBNP (BNP-Adult 18+) Stat PTT Partial Thromboplastin [place] Stat Prothrombin Time INR Stat Troponin & CK Cardiac Panel Stat 05/13/25 09:48 XR chest 1V Stat EKG-12 Lead Stat 05/13/25 10:43 Urine Culture Stat Urine Microscopic Stat 05/13/25 10:55 Covid-19 + FLU A/B + RSV - PCR Stat 05/13/25 12:00 Troponin I Stat Diltiazem HCl 125 mg/ Sodium (Chloride) 125 mls @ 5 mls/hr IV TITRATE ANNA; Protocol Last Admin: 05/13/25 12:24 Dose: 5 mg/hr, 5 mls/hr Discontinued Medications Aspirin (Aspirin 81 Mg Chew Tab) 324 mg PO NOW ONE Stop: 05/13/25 09:49 Last Admin: 05/13/25 10:57 Dose: Not Given Documented By: PINKY Furosemide (Furosemide 40 Mg/4 Ml Vial) 20 mg IV NOW ONE Stop: 05/13/25 10:49 Last Admin: 05/13/25 10:56 Dose: 20 mg Documented By: PINKY Metoprolol Tartrate (Metoprolol Ir 25 Mg Tablet) 25 mg PO NOW ONE Stop: 05/13/25 10:44 Last Admin: 05/13/25 10:56 Dose: 25 mg Documented By: PINKY Reevaluation(s) Reevaluation #1: After the 20 mg IV Lasix, patient's shortness of breath improved some. She was given an additional metoprolol tartrate 25 mg p.o. dose but her heart rate continues to stay in the 120s. Consultations Consultation #1: initial consultation with Dr. grider cardiology on staff here now suggested giving some Lasix 20 mg IV as well as metoprolol tartrate 25 mg p.o. x1. Consultation #2: Dr. Sherman hospitalist was consulted who agreed graciously admitted the patient for this atrial fibrillation with RVR. Patient will be started on a Cardizem drip because her heart rate continues to stay in the 120s even though her shortness of breath has improved. Vital Signs Vital signs: Vital Signs - 8 hr 05/13/25 09:41 05/13/25 09:44 05/13/25 09:46 Temperature 99.3 F Pulse Rate 112 H 100 H 100 H Respiratory Rate 22 26 H Blood Pressure 156/85 H Pulse Oximetry 93 93 92 Oxygen Delivery Method Room Air 05/13/25 09:46 05/13/25 10:00 05/13/25 10:00 Temperature Pulse Rate 102 H Respiratory Rate Blood Pressure 156/85 H 177/81 H Pulse Oximetry 93 Oxygen Delivery Method 05/13/25 10:30 05/13/25 10:41 05/13/25 10:41 Temperature Pulse Rate 104 H 115 H Respiratory Rate Blood Pressure 143/100 H Pulse Oximetry 92 92 Oxygen Delivery Method 05/13/25 11:00 05/13/25 11:00 05/13/25 11:30 Temperature Pulse Rate 113 H 121 H Respiratory Rate Blood Pressure 162/81 H Pulse Oximetry 93 94 Oxygen Delivery Method 05/13/25 11:30 05/13/25 11:57 05/13/25 11:57 Temperature Pulse Rate 119 H Respiratory Rate Blood Pressure 140/75 144/93 H Pulse Oximetry 92 Oxygen Delivery Method 05/13/25 12:00 05/13/25 12:00 Temperature Pulse Rate 123 H Respiratory Rate Blood Pressure 149/86 H Pulse Oximetry 93 Oxygen Delivery Method MDM - Arrhythmia/Palpitations Differential Diagnosis Differential diagnosis: Likely palpitations, artial fibrillation and supraventricular tachycardia Lab Data 05/13/25 09:44 05/13/25 09:44 Labs: Lab Results 05/13/25 05/13/25 Range/Units 09:44 10:43 WBC 8.5 (4.5-11.0) X10^3/uL RBC 4.59 (4.0-5.2) X10^6/uL Hgb 14.9 (12.0-16.0) g/dL Hct 43.6 (36-46) % MCV 95.1 (80-100) fL MCH 32.4 (26-34) PG MCHC 34.1 (30-36) % RDW 13.5 (11.6-14.8) % Plt Count 180 (150-400) X10^3/uL Neut % (Auto) 77.0 H (50-75) % Lymph % (Auto) 12.8 L (25-40) % [place] % (Auto) 7.3 (3-14) % Eos % (Auto) 2.5 (2-4) % Baso % (Auto) 0.4 (0-2) % Neut # (Auto) 6600 (4744-7187) /uL Lymph # (Auto) 1100 (7867-8635) /uL [place] # (Auto) 600 (0-900) /uL Eos # (Auto) 200 (0-450) /uL Baso # (Auto) 0 (0-100) /uL PT 17.9 H (9.4-12.5) SECONDS INR 1.6 H (0.9-1.3) APTT 35 (25.1-36.5) SECONDS Sodium 138 (137-145) mmol/L Potassium 4.0 (3.4-5.1) mmol/L Chloride 101 (98-107) mmol/L Carbon Dioxide 25 (22-32) mmol/L BUN 8 (7-17) mg/dL Creatinine 0.66 (0.52-1.04) mg/dL Estimated GFR > 60 (>60) mL/min BUN/Creatinine Ratio 12.1 (6-22) Glucose 118 H (70-99) mg/dL Calcium 9.5 (8.4-10.2) mg/dL Magnesium 1.8 (1.6-2.3) mg/dL Total Bilirubin 1.4 H (0.2-1.3) mg/dL AST 52 H (14-36) IU/L ALT 59 H (<35) IU/L Alkaline Phosphatase 111 (38-126) U/L Total Creatine Kinase 22 L (30-135) U/L Troponin I < 0.012 (0.01-0.034) ng/mL NT-Pro-B Natriuret Pep 2200 H (<450) pg/mL Total Protein 8.3 H (6.3-8.2) g/dL Albumin 4.9 (3.5-5.0) g/dL Globulin 3.4 (1.7-4.1) g/dL Albumin/Globulin Ratio 1.4 (1.0-2.8) Lipase 30 (23-300) U/L Urine RBC 1-5/hpf (0-5/HPF) Urine WBC 5-10/hpf H (0-5/HPF) Ur Squamous Epith Cells 1-5 /hpf (0-5/HPF) Urine Bacteria Few (2-10) H (None) Ur Culture Indicated? Specimen cultured Vol Urine Centrifuged 10ml (spun) Urine Dip Bedside Urine Glucose Negative Bedside Urine Bilirubin - Negative Bedside Urine Ketone - Negative Urine Specific Orange 1.020 Bedside Urine Occult Blood +++ Bedside Urine pH 6.0 Bedside Urine Protein +/- 15 Bedside Urine Urobilinogen - Negative Bedside Urine Nitrite - Negative Bedside Urine Leukocytes ++ 125 Esterase ECG Data Interpretation: EKG shows an atrial fibrillation with RVR with rightward axis. Heart rate of 109 beats per minute. no obvious pr and st changes. Previous EKG showed a similar picture. MDM Narrative Medical decision making narrative: Due to the patient's still being slight short of breath and not quite rate controlled, so a diltiazem drip was initiated and patient will be admitted into the hospital. Discharge Plan Departure Patient Disposition: Admitted As Inpatient Clinical Impression: Atrial fibrillation with rapid ventricular response Admit Date/Time: 05/13/25 12:22 Admit Provider: Santosh Woody
--- NOTE | 2025-05-13 10:43 | PC.NURSE ---
Pt ambulated to bathroom with stand by assist. Became more SOB and HR in 130s during ambulation. aware. A&Ox4.
[2025-05-13] MEDS: FUROSEMIDE 40 MG/4 ML VIAL 20 MG IV (10:56)
[2025-05-13] MEDS: METOPROLOL IR 25 MG TABLET PO (10:56)
[2025-05-13 11:24] LABS: Culture Indicated Urine Specimen Cultured
[2025-05-13 12:33] LABS: Troponin I < 0.012 ng/mL (0.01-0.034)
[2025-05-13 13:37] LABS: Influenza A - CEPHEID Flu A NEGATIVE (NEGATIVE); Influenza B - CEPHEID Flu B NEGATIVE (NEGATIVE)
[2025-05-13 13:44] LABS: COVID-19 CEPHEID 4-PLEX PCR Negative (Negative)
--- NOTE | 2025-05-13 14:03 | DI.ECHO.S_ITS ---
[facility] : : [address] : [place] : : [id number] : : Phone: [phone] Echocardiogram Report + + :Name: JAMIN QUINONEZ Study Date: 05/14/2025 Height: 65 in : :Hospital ReadingLocation: Weight: 195 lb : : Gender: Female BSA: 2.0 m2 : :: 1945 Age: 79 yrs BP: 131/66 mmHg: :Reason For Study: ATRIAL FIBRILLATION : :Ordering Physician: JAKUB, : :BREANN Performed By: Mckayla Cordon : :Referring: BREANN CALL : + + Interpretation Summary Patient states history of pulmonic valve stenosis with surgery as child. The patient was in atrial fibrillation with heart rates between 70-87 bpm during the exam. Limited study only. The left ventricular cavity is small. The ejection fraction is estimated to be 55-60%. The right ventricle is mildly dilated. Right ventricular systolic function is at the lower limits of normal. The pulmonic valve is not well seen, but is grossly normal. There is no pulmonic valvular stenosis. There is trace pulmonic regurgitation. The IVC is dilated (diameter is greater than 2.1 cm) yet it collapses greater than 50% with a sniff. This suggests a right atrial pressure of 8 mm Hg. Procedure: A two-dimensional transthoracic echocardiogram was performed in limited views only to assess atrial fibrillation.. There is no prior echocardiogram noted for this patient. The study quality was technically difficult. A contrast injection of Definity was performed to improve assessment of LV function. The patient was in atrial fibrillation with heart rates between 70-87 bpm during the exam. Left Ventricle: The left ventricular cavity is small. There is normal left ventricular wall thickness. The ejection fraction is estimated to be 55-60%. There are no focal wall motion abnormalities. Diastolic function could not be accurately assessed due to atrial fibrillation. Right Ventricle: The right ventricle is mildly dilated. Right ventricular systolic function is at the lower limits of normal. Atria: The left atrium is mildly dilated. Right atrial size is normal. There is no Doppler evidence for an interatrial shunt. Mitral Valve: The mitral valve leaflets appear mildly thickened. The mitral valve leaflets are mildly calcified. No significant mitral valve stenosis. There is no mitral regurgitation noted. Aortic Valve: The aortic valve is trileaflet. The aortic valve opens well. The aortic valve is mildly calcified. Tricuspid Valve: The tricuspid valve is not well visualized, but is grossly normal. There is mild tricuspid regurgitation. Pulmonic Valve: The pulmonic valve is not well seen, but is grossly normal. There is no pulmonic valvular stenosis. There is trace pulmonic regurgitation. Great Vessels: The IVC is dilated (diameter is greater than 2.1 cm) yet it collapses greater than 50% with a sniff. This suggests a right atrial pressure of 8 mm Hg. Pericardium/ Pleura There is no pericardial effusion. MMode/2D Measurements & Calculations LVIDd: 3.8 cm LA A2 area: 22.3 cm2 LVIDs: 2.8 cm LA A4 area: 24.1 cm2 FS: 26.5 % LA length (vol): 6.0 cm IVSd: 0.86 cm LA vol: 75.9 ml LVPWd: 0.83 cm LA vol index: 38.8 ml/m2 LV miranda. diameter/BSA (cm/m^2): 1.9 LV sys. diameter/BSA (cm/m^2): 1.4 RA long axis: 5.0 cm RA area: 17.8 cm2 RA vol: 53.3 ml RA : 27.2 ml/m2 IVC diam: 2.1 cm Doppler Measurements & Calculations PA V2 max: 109.4 cm/sec PA V2 mean: 68.1 cm/sec PA mean P.2 mmHg PA pr(Accel): 41.3 mmHg Reading Physician:08:59 AM
--- NOTE | 2025-05-13 14:18 | PM.HP.1 ---
History of Present Illness History of Present Illness Date Patient Seen: 05/13/25 Chief complaint: Dyspnea atrial fibrillation RVR Narrative: Chief complaint: Dyspnea in the setting of atrial fibrillation rapid ventricular response History of present illness: 05/13: 79-year-old female with chronic atrial fibrillation rapid ventricular response followed by Dr. Chong of [facility] at the [facility]. She was started on Eliquis 2 weeks ago and the plan was for a DC cardioversion after 4 weeks of anticoagulation on Eliquis. Her rate was previously controlled on metoprolol 100 mg p.o. b.i.d.. On the morning of admission patient woke up at 4:30 a.m. quite dyspneic with squeezing and discomfort in her chest and a pounding sensation. She quickly recognized that this was atrial fibrillation and was brought to the emergency room for evaluation. Finding in the emergency department significant for atrial fibrillation with rapid ventricular response rate of 140 started on intravenous diltiazem. Which improved the rate down to 100. Patient was admitted to the intensive care unit for diuresis diltiazem infusion and consultation with Cardiology Dr. Chow She has a past medical history of congenital pulmonary artery stenosis in an incidental finding 5 years ago of a pulmonary aneurysm which has been monitored at the [facility] with no signs of change. For past medical surgical family and social history please see the bottom of the note: Review of systems: She does report feeling feverish with a temperature of 99.4? No nausea vomiting diaphoresis No sore throat headache diplopia or cough No urinary symptoms Physical exam: Elderly female alert mild to moderately labored respirations on room air HEENT unremarkable Neck no JVD Heart irregularly irregular rhythm heart sounds are hyperdynamic Lungs have bibasilar rales but good air movement Abdomen benign Extremities 1+ bipedal edema Neuro nonfocal EKG shows atrial fibrillation with rapid ventricular response no ST segment changes Chest x-ray shows cephalization of vessels and hyperinflation of lungs no pleural effusion subtle right lower lobe shadow might be atelectasis Assessment and plan: Atrial fibrillation with rapid ventricular response followed by Dr. Chong with plans in 2 weeks to get DC cardioversion after 4 weeks on Eliquis (has been on Eliquis 2 weeks) Diltiazem infusion in addition to the metoprolol Repeat echocardiogram Consultation with Cardiology Continue Eliquis Very subtle finding that might indicate right lower lobe pneumonia white count is slightly higher 8.5 with 77% neutrophils COVID influenza and RSV are negative One dose of ceftriaxone and azithromycin DVT prophylaxis: Covered with Eliquis Code status: Full code 55 minutes were involved in the management of this patient half of the time was [id number] reviewing of records objective findings and examination and history taking [facility] Medical History Encounter for subsequent annual wellness visit (AWV) in Medicare patient Benign essential tremor Obesity (BMI 30-39.9) Alcohol use Pulmonary artery aneurysm Hypertension Asthma (~1987) Seasonal allergies (~1945) Benign familial tremor (~1959) Osteopenia Fractures Mumps Measles Chicken pox Cataracts, bilateral (~2015) Painful menstrual periods (~1978) Fibroids (~1978) Endometriosis (~1978) Colon polyps (~2011) Pulmonary stenosis (~1995) Surgical History History of colonoscopy (01/2012) Papilloma of right breast (~2018) Anesthesia History of laparoscopy (~1978) History of lumpectomy History of cardiac catheterization History of open heart surgery (~1950) History of hysterectomy (~1978) Family History Father Cancer Mother Heart disease Social History marital status: number of children: 0 household members: spouse lives independently: Yes education level: college occupational status: other (retired) Smoking Status: Never smoker alcohol intake: current substance use type: does not use Meds Home Medications and Allergies Home Medications ?Medication ?Instructions ?Recorded ?Confirmed ?Type aspirin 81 mg tablet,delayed 81 mg PO DAILY 09/19/24 05/13/25 History release (Adult Aspirin Regimen) atorvastatin 40 mg tablet 40 mg PO DAILY #90 tabs 11/20/24 05/13/25 Rx apixaban 5 mg tablet 5 mg PO BID #60 tabs 04/13/25 05/13/25 Rx metoprolol tartrate 50 mg tablet 50 mg PO BID #60 tabs 04/13/25 05/13/25 Rx losartan 50 mg tablet 50 mg PO BEDTIME high blood 05/13/25 05/13/25 History pressure metoprolol tartrate 100 mg tablet 100 mg PO BID 05/13/25 05/13/25 History Allergies Allergy/AdvReac Type Severity Reaction Status Date / Time Penicillins Allergy Intermediate hives Verified 05/13/25 13:07 Exam Vital Signs (past 8 hours): - 05/13/25 09:41 05/13/25 09:44 05/13/25 09:46 Temperature 99.3 F Pulse Rate 112 H 100 H 100 H Respiratory Rate 22 26 H Blood Pressure 156/85 H Pulse Oximetry 93 93 92 Oxygen Delivery Method Room Air 05/13/25 09:46 05/13/25 10:00 05/13/25 10:00 Temperature Pulse Rate 102 H Respiratory Rate Blood Pressure 156/85 H 177/81 H Pulse Oximetry 93 Oxygen Delivery Method 05/13/25 10:30 05/13/25 10:41 05/13/25 10:41 Temperature Pulse Rate 104 H 115 H Respiratory Rate Blood Pressure 143/100 H Pulse Oximetry 92 92 Oxygen Delivery Method 05/13/25 11:00 05/13/25 11:00 05/13/25 11:30 Temperature Pulse Rate 113 H 121 H Respiratory Rate Blood Pressure 162/81 H Pulse Oximetry 93 94 Oxygen Delivery Method 05/13/25 11:30 05/13/25 11:57 05/13/25 11:57 Temperature Pulse Rate 119 H Respiratory Rate Blood Pressure 140/75 144/93 H Pulse Oximetry 92 Oxygen Delivery Method 05/13/25 12:00 05/13/25 12:00 05/13/25 12:24 Temperature Pulse Rate 123 H 130 H Respiratory Rate Blood Pressure 149/86 H 149/86 H Pulse Oximetry 93 Oxygen Delivery Method 05/13/25 12:30 05/13/25 12:30 05/13/25 13:00 Temperature Pulse Rate 119 H 120 H Respiratory Rate Blood Pressure 145/79 H Pulse Oximetry 93 92 Oxygen Delivery Method 05/13/25 13:00 Temperature Pulse Rate Respiratory Rate Blood Pressure 121/83 Pulse Oximetry Oxygen Delivery Method Oxygen Delivery Method Room Air Objective Labs 05/13/25 09:44 05/13/25 09:44 Labs: Laboratory Results - last 24 hr 05/13/25 05/13/25 05/13/25 09:44 10:43 12:00 WBC 8.5 RBC 4.59 Hgb 14.9 Hct 43.6 MCV 95.1 MCH 32.4 MCHC 34.1 RDW 13.5 Plt Count 180 Neut % (Auto) 77.0 H Lymph % (Auto) 12.8 L [place] % (Auto) 7.3 Eos % (Auto) 2.5 Baso % (Auto) 0.4 Neut # (Auto) 6600 Lymph # (Auto) 1100 [place] # (Auto) 600 Eos # (Auto) 200 Baso # (Auto) 0 PT 17.9 H INR 1.6 H APTT 35 Sodium 138 Potassium 4.0 Chloride 101 Carbon Dioxide 25 BUN 8 Creatinine 0.66 Estimated GFR > 60 BUN/Creatinine Ratio 12.1 Glucose 118 H Calcium 9.5 Magnesium 1.8 Total Bilirubin 1.4 H AST 52 H ALT 59 H Alkaline Phosphatase 111 Total Creatine Kinase 22 L Troponin I < 0.012 < 0.012 NT-Pro-B Natriuret Pep 2200 H Total Protein 8.3 H Albumin 4.9 Globulin 3.4 Albumin/Globulin Ratio 1.4 Lipase 30 Urine RBC 1-5/hpf Urine WBC 5-10/hpf H Ur Squamous Epith Cells 1-5 /hpf Urine Bacteria Few (2-10) H Ur Culture Indicated? Specimen cultured Vol Urine Centrifuged 10ml (spun) SARS-CoV-2 (PCR) Influenza A (RT-PCR) Influenza B (RT-PCR) RSV (PCR) 05/13/25 12:51 WBC RBC Hgb Hct MCV MCH MCHC RDW Plt Count Neut % (Auto) Lymph % (Auto) [place] % (Auto) Eos % (Auto) Baso % (Auto) Neut # (Auto) Lymph # (Auto) [place] # (Auto) Eos # (Auto) Baso # (Auto) PT INR APTT Sodium Potassium Chloride Carbon Dioxide BUN Creatinine Estimated GFR BUN/Creatinine Ratio Glucose Calcium Magnesium Total Bilirubin AST ALT Alkaline Phosphatase Total Creatine Kinase Troponin I NT-Pro-B Natriuret Pep Total Protein Albumin Globulin Albumin/Globulin Ratio Lipase Urine RBC Urine WBC Ur Squamous Epith Cells Urine Bacteria Ur Culture Indicated? Vol Urine Centrifuged SARS-CoV-2 (PCR) Negative Influenza A (RT-PCR) Flu a negative Influenza B (RT-PCR) Flu b negative RSV (PCR) Negative Assessment & Plan Time-Based Coding :: [TOTAL MINUTES] spent with patient and on the chart (including review of chart, obtaining history, exam, reviewing outside data, placing orders, documenting exam and treatment plan, and counseling patient) on [DATE]. Quality VTE Deep Vein Thrombosis/Pulmonary Embolism Present on Admission: No
[2025-05-13] MEDS: FUROSEMIDE 40 MG/4 ML VIAL IV (14:29)
[2025-05-13 16:00] LABS: MRSA (Nasal) PCR NOT DETECTED (Not Detect)
--- NOTE | 2025-05-13 16:10 | PM.HP.1 ---
History of Present Illness History of Present Illness Date Patient Seen: 05/13/25 Chief complaint: Dyspnea atrial fibrillation RVR Narrative: Chief complaint: Dyspnea in the setting of atrial fibrillation rapid ventricular response History of present illness: 05/13: 79-year-old female with chronic atrial fibrillation rapid ventricular response followed by Dr. Chong of [facility] at the [facility]. She was started on Eliquis 2 weeks ago and the plan was for a DC cardioversion after 4 weeks of anticoagulation on Eliquis. Her rate was previously controlled on metoprolol 100 mg p.o. b.i.d.. On the morning of admission patient woke up at 4:30 a.m. quite dyspneic with squeezing and discomfort in her chest and a pounding sensation. She quickly recognized that this was atrial fibrillation and was brought to the emergency room for evaluation. Finding in the emergency department significant for atrial fibrillation with rapid ventricular response rate of 140 started on intravenous diltiazem. Which improved the rate down to 100. Patient was admitted to the intensive care unit for diuresis diltiazem infusion and consultation with Cardiology Dr. 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 For past medical surgical family and social history please see the bottom of the note: Review of systems: She does report feeling feverish with a temperature of 99.4? No nausea vomiting diaphoresis No sore throat headache diplopia or cough No urinary symptoms Physical exam: Elderly female alert mild to moderately labored respirations on room air HEENT unremarkable Neck no JVD Heart irregularly irregular rhythm heart sounds are hyperdynamic Lungs have bibasilar rales but good air movement Abdomen benign Extremities 1+ bipedal edema Neuro nonfocal EKG shows atrial fibrillation with rapid ventricular response no ST segment changes Chest x-ray shows cephalization of vessels and hyperinflation of lungs no pleural effusion subtle right lower lobe shadow might be atelectasis Assessment and plan: Atrial fibrillation with rapid ventricular response followed by Dr. Chong with plans in 2 weeks to get DC cardioversion after 4 weeks on Eliquis (has been on Eliquis 2 weeks) Diltiazem infusion in addition to the metoprolol Repeat echocardiogram Consultation with Cardiology Continue Eliquis Very subtle finding that might indicate right lower lobe pneumonia white count is slightly higher 8.5 with 77% neutrophils COVID influenza and RSV are negative One dose of ceftriaxone and azithromycin DVT prophylaxis: Covered with Eliquis Code status: Full code 55 minutes were involved in the management of this patient half of the time was [id number] reviewing of records objective findings and examination and history taking [facility] Medical History Encounter for subsequent annual wellness visit (AWV) in Medicare patient Benign essential tremor Obesity (BMI 30-39.9) Alcohol use Pulmonary artery aneurysm Hypertension Asthma (~1987) Seasonal allergies (~1945) Benign familial tremor (~1959) Osteopenia Fractures Mumps Measles Chicken pox Cataracts, bilateral (~2015) Painful menstrual periods (~1978) Fibroids (~1978) Endometriosis (~1978) Colon polyps (~2011) Pulmonary stenosis (~1995) Surgical History History of colonoscopy (01/2012) Papilloma of right breast (~2018) Anesthesia History of laparoscopy (~1978) History of lumpectomy History of cardiac catheterization History of open heart surgery (~1950) History of hysterectomy (~1978) Family History Father Cancer Mother Heart disease Social History marital status: number of children: 0 household members: spouse lives independently: Yes education level: college occupational status: other (retired) Smoking Status: Never smoker alcohol intake: current substance use type: does not use Meds Home Medications and Allergies Home Medications ?Medication ?Instructions ?Recorded ?Confirmed ?Type aspirin 81 mg tablet,delayed 81 mg PO DAILY 09/19/24 05/13/25 History release (Adult Aspirin Regimen) atorvastatin 40 mg tablet 40 mg PO DAILY #90 tabs 11/20/24 05/13/25 Rx apixaban 5 mg tablet 5 mg PO BID #60 tabs 04/13/25 05/13/25 Rx metoprolol tartrate 50 mg tablet 50 mg PO BID #60 tabs 04/13/25 05/13/25 Rx losartan 50 mg tablet 50 mg PO BEDTIME high blood 05/13/25 05/13/25 History pressure metoprolol tartrate 100 mg tablet 100 mg PO BID 05/13/25 05/13/25 History Allergies Allergy/AdvReac Type Severity Reaction Status Date / Time Penicillins Allergy Intermediate hives Verified 05/13/25 13:07 Exam Vital Signs (past 8 hours): - 05/13/25 09:41 05/13/25 09:44 05/13/25 09:46 Temperature 99.3 F Pulse Rate 112 H 100 H 100 H Respiratory Rate 22 26 H Blood Pressure 156/85 H Pulse Oximetry 93 93 92 Oxygen Delivery Method Room Air Oxygen Flow Rate 05/13/25 09:46 05/13/25 10:00 05/13/25 10:00 Temperature Pulse Rate 102 H Respiratory Rate Blood Pressure 156/85 H 177/81 H Pulse Oximetry 93 Oxygen Delivery Method Oxygen Flow Rate 05/13/25 10:30 05/13/25 10:41 05/13/25 10:41 Temperature Pulse Rate 104 H 115 H Respiratory Rate Blood Pressure 143/100 H Pulse Oximetry 92 92 Oxygen Delivery Method Oxygen Flow Rate 05/13/25 11:00 05/13/25 11:00 05/13/25 11:30 Temperature Pulse Rate 113 H 121 H Respiratory Rate Blood Pressure 162/81 H Pulse Oximetry 93 94 Oxygen Delivery Method Oxygen Flow Rate 05/13/25 11:30 05/13/25 11:57 05/13/25 11:57 Temperature Pulse Rate 119 H Respiratory Rate Blood Pressure 140/75 144/93 H Pulse Oximetry 92 Oxygen Delivery Method Oxygen Flow Rate 05/13/25 12:00 05/13/25 12:00 05/13/25 12:24 Temperature Pulse Rate 123 H 130 H Respiratory Rate Blood Pressure 149/86 H 149/86 H Pulse Oximetry 93 Oxygen Delivery Method Oxygen Flow Rate 05/13/25 12:30 05/13/25 12:30 05/13/25 13:00 Temperature Pulse Rate 119 H 120 H Respiratory Rate Blood Pressure 145/79 H Pulse Oximetry 93 92 Oxygen Delivery Method Oxygen Flow Rate 05/13/25 13:00 05/13/25 14:06 05/13/25 14:40 Temperature 99.8 F H Pulse Rate 119 H Respiratory Rate 24 Blood Pressure 121/83 145/99 H Pulse Oximetry 93 Oxygen Delivery Method Room Air Oxygen Flow Rate 0 05/13/25 14:42 Temperature Pulse Rate Respiratory Rate 22 Blood Pressure Pulse Oximetry 97 Oxygen Delivery Method Oxygen Flow Rate 2 Oxygen Delivery Method Room Air Oxygen Flow Rate 2 Objective Labs 05/13/25 09:44 05/13/25 09:44 Labs: Laboratory Results - last 24 hr 05/13/25 05/13/25 05/13/25 09:44 10:43 12:00 WBC 8.5 RBC 4.59 Hgb 14.9 Hct 43.6 MCV 95.1 MCH 32.4 MCHC 34.1 RDW 13.5 Plt Count 180 Neut % (Auto) 77.0 H Lymph % (Auto) 12.8 L [place] % (Auto) 7.3 Eos % (Auto) 2.5 Baso % (Auto) 0.4 Neut # (Auto) 6600 Lymph # (Auto) 1100 [place] # (Auto) 600 Eos # (Auto) 200 Baso # (Auto) 0 PT 17.9 H INR 1.6 H APTT 35 Sodium 138 Potassium 4.0 Chloride 101 Carbon Dioxide 25 BUN 8 Creatinine 0.66 Estimated GFR > 60 BUN/Creatinine Ratio 12.1 Glucose 118 H Calcium 9.5 Magnesium 1.8 Total Bilirubin 1.4 H AST 52 H ALT 59 H Alkaline Phosphatase 111 Total Creatine Kinase 22 L Troponin I < 0.012 < 0.012 NT-Pro-B Natriuret Pep 2200 H Total Protein 8.3 H Albumin 4.9 Globulin 3.4 Albumin/Globulin Ratio 1.4 Lipase 30 Urine RBC 1-5/hpf Urine WBC 5-10/hpf H Ur Squamous Epith Cells 1-5 /hpf Urine Bacteria Few (2-10) H Ur Culture Indicated? Specimen cultured Vol Urine Centrifuged 10ml (spun) Nasal Screen MRSA (PCR) SARS-CoV-2 (PCR) Influenza A (RT-PCR) Influenza B (RT-PCR) RSV (PCR) 05/13/25 05/13/25 12:51 14:00 WBC RBC Hgb Hct MCV MCH MCHC RDW Plt Count Neut % (Auto) Lymph % (Auto) [place] % (Auto) Eos % (Auto) Baso % (Auto) Neut # (Auto) Lymph # (Auto) [place] # (Auto) Eos # (Auto) Baso # (Auto) PT INR APTT Sodium Potassium Chloride Carbon Dioxide BUN Creatinine Estimated GFR BUN/Creatinine Ratio Glucose Calcium Magnesium Total Bilirubin AST ALT Alkaline Phosphatase Total Creatine Kinase Troponin I NT-Pro-B Natriuret Pep Total Protein Albumin Globulin Albumin/Globulin Ratio Lipase Urine RBC Urine WBC Ur Squamous Epith Cells Urine Bacteria Ur Culture Indicated? Vol Urine Centrifuged Nasal Screen MRSA (PCR) Not detected SARS-CoV-2 (PCR) Negative Influenza A (RT-PCR) Flu a negative Influenza B (RT-PCR) Flu b negative RSV (PCR) Negative Assessment & Plan Time-Based Coding :: [TOTAL MINUTES] spent with patient and on the chart (including review of chart, obtaining history, exam, reviewing outside data, placing orders, documenting exam and treatment plan, and counseling patient) on [DATE]. Quality VTE Deep Vein Thrombosis/Pulmonary Embolism Present on Admission: No
[2025-05-13] MEDS: AZITHROMYCIN 500 MG in DEXTROSE 5% IN WATER 250 ML 250 MG IV (20:39)
[2025-05-13] MEDS: METOPROLOL IR 50 MG TABLET 100 MG PO (20:39)
[2025-05-13] MEDS: APIXABAN 5 MG TABLET PO (20:39)
[2025-05-14] VITALS (38 sets, daily range): BP systolic 93–134; BP diastolic 50–78; PULSE 70–114; RESP 12–30; TEMP 36.5–36.8; O2SAT 84–100
[2025-05-14 05:38] LABS: Add Manual Diff / Slide Review NO; Hematocrit 35.1 % (36-46); Hemoglobin 12.1 g/dL (12.0-16.0); Lymphocytes Absolute Auto 1200 /uL (1100-4500); Mean Corpuscular HGB Conc 34.6 % (30-36); Mean Corpuscular Hemoglobin 32.6 PG (26-34); Mean Corpuscular Volume 94.4 fL (80-100); Platelet Count 161 X10^3/uL (150-400)
[2025-05-14 05:52] LABS: Blood Urea Nitrogen 16 mg/dL (7-17); Calcium 8.6 mg/dL (8.4-10.2); Carbon Dioxide 27 mmol/L (22-32); Chloride 98 mmol/L (98-107); Estimated Glomerular Filt Rate > 60 mL/min (>60); Glucose 119 mg/dL (70-99); HEMOLYSIS < 15 (0-50); Potassium 3.9 mmol/L (3.4-5.1); Sodium 133 mmol/L (137-145)
--- NOTE | 2025-05-14 06:29 | PC.NURSE ---
[employer] Note-Diltiazem gtt titrated off at 2130, HR <60. Patients routine metoprolol 100mg given at HS. Remained A-fib CVR 70s mostly. BP trended up from 90/50(64) at 2230 to 131/66 at 0600. Denies chest pain, did have mild shortness of breath early shift, resoved by am. Echo in progress.
[2025-05-14] MEDS: ATORVASTATIN 20 MG TABLET 40 MG PO (08:19)
[2025-05-14] MEDS: APIXABAN 5 MG TABLET PO ×2 (08:19→20:52)
[2025-05-14] MEDS: METOPROLOL IR 50 MG TABLET 100 MG PO ×2 (08:19→20:51)
[2025-05-14] MEDS: ASPIRIN EC 81 MG TABLET PO (08:19)
[2025-05-14] MEDS: SODIUM CHLORIDE 0.9% FLUSH 10 ML IV ×2 (08:25→20:52)
--- NOTE | 2025-05-14 15:32 | CM.DANOTE ---
DCP assessment note- Brief Pt is a 79yo F admitted with afib with RVR/pneumonia. PCP Claudio Garcias Payer Medicare and [employer] [facility] [place]. per chart, pt was admitted end of March 2025 for similar concerns. discharged home with spouse to home in [place] no CM needs. per RN, pt ambulating indep in room, no DME, and spouse has been at bedside to support. no obvious CM needs. per provider, anticipate dc tomorrow, want to keep her for another day due to her recent readmission P: dc tomorrow home with spouse and OP f/u. no identified CM needs at this time. will continue to follow as needed in case any should arise LOLI Collins Discharge Planning/Care Management CM Discharge Assessment Start: 05/13/25 12:23 Freq: Status: Active Protocol: Document 05/14/25 15:28 (Rec: 05/14/25 15:29 [email or web address]) Discharge Planning Assessment Assigned Discharge LOLI Alfaro It Technical Architect DPOA/Assigned [place], spouse Designee Name Contact Information [phone] Advance Directives? Yes: HC Directive, POLST Advance Directives Yes on File History Provided By Patient,Medical Record Prior Living Apartment/Condo Arrangements Household Members spouse Independent with ADL Yes 's Is patient alert and Yes oriented? Discharge Plan Home Referrals Initiated None needed Review Status In Process Please Provide Date 05/14/25 Initial DC Assessment Was Performed Next Review Type Continued Stay Review Document 05/14/25 15:32 (Rec: 05/14/25 15:32 [id number]) Discharge Planning Assessment Assigned Discharge LOLI Alfaro It Technical Architect DPOA/Assigned [place], spouse Designee Name Contact Information [phone] Advance Directives? Yes: HC Directive, POLST Advance Directives Yes on File History Provided By Patient,Medical Record Prior Living Apartment/Condo Arrangements Household Members spouse Independent with ADL Yes 's Is patient alert and Yes oriented? Discharge Plan Home Referrals Initiated None needed Review Status In Process Please Provide Date 05/14/25 Initial DC Assessment Was Performed Next Review Type Continued Stay Review
--- NOTE | 2025-05-14 17:11 | PM.PN.1 ---
Subjective Subjective Date Patient Seen: 05/14/25 Interval history: Chief complaint: Dyspnea in the setting of atrial fibrillation rapid ventricular response History of present illness: 05/13: 79-year-old female with chronic atrial fibrillation rapid ventricular response followed by Dr. Chong of [facility] at the [facility]. She was started on Eliquis 2 weeks ago and the plan was for a DC cardioversion after 4 weeks of anticoagulation on Eliquis. Her rate was previously controlled on metoprolol 100 mg p.o. b.i.d.. On the morning of admission patient woke up at 4:30 a.m. quite dyspneic with squeezing and discomfort in her chest and a pounding sensation. She quickly recognized that this was atrial fibrillation and was brought to the emergency room for evaluation. Finding in the emergency department significant for atrial fibrillation with rapid ventricular response rate of 140 started on intravenous diltiazem. Which improved the rate down to 100. Patient was admitted to the intensive care unit for diuresis diltiazem infusion and consultation with Cardiology Dr. 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 05/14: Feeling better no further palpitations heart rate 80 feeling less weak does need to catch her breath after walking to the bathroom but no significant dyspnea and no desaturation with activity Review of systems: No fevers or chills No nausea vomiting diaphoresis No sore throat headache diplopia or cough No urinary symptoms Physical exam: Elderly female alert mild to moderately labored respirations on room air HEENT unremarkable Neck no JVD Heart irregularly irregular rhythm heart sounds are normal Lungs have bibasilar rales but good air movement Abdomen benign Extremities no edema Neuro nonfocal Assessment and plan: Atrial fibrillation with rapid ventricular response followed by Dr. Chong with plans in 2 weeks to get DC cardioversion after 4 weeks on Eliquis (has been on Eliquis 2 weeks) Controlled on 100 mg metoprolol b.i.d. Repeat echocardiogram poor quality but no acute abnormality Consultation with Cardiology Continue Eliquis Very subtle finding that might indicate right lower lobe pneumonia white count is slightly higher 8.5 with 77% neutrophils COVID influenza and RSV are negative One dose of ceftriaxone and azithromycin DVT prophylaxis: Covered with [employer] Code status: Full code 55 minutes were involved in the management of this patient half of the time was [id number] reviewing of records objective findings and examination and history taking Exam Vital Signs (past 8 hours): - 05/14/25 09:30 05/14/25 10:00 05/14/25 10:00 Pulse Rate 80 81 Respiratory Rate 18 20 Blood Pressure 95/50 L Pulse Oximetry 96 96 Oxygen Delivery Method 05/14/25 10:01 05/14/25 10:01 05/14/25 10:30 Pulse Rate 82 74 Respiratory Rate 22 12 Blood Pressure 107/59 L Pulse Oximetry 97 97 Oxygen Delivery Method 05/14/25 11:00 05/14/25 11:00 05/14/25 11:30 Pulse Rate 74 79 Respiratory Rate 12 16 Blood Pressure 104/57 L Pulse Oximetry 96 96 Oxygen Delivery Method 05/14/25 12:00 05/14/25 12:00 05/14/25 12:00 Pulse Rate 81 Respiratory Rate 18 Blood Pressure 100/56 L Pulse Oximetry 93 Oxygen Delivery Method Room Air 05/14/25 12:30 05/14/25 13:12 Pulse Rate 86 85 Respiratory Rate 23 18 Blood Pressure Pulse Oximetry 97 Oxygen Delivery Method Oxygen Delivery Method Room Air Oxygen Flow Rate 1.5 Objective Labs 05/14/25 04:25 05/14/25 04:25 Labs: Laboratory Results - last 24 hr 05/14/25 04:25 WBC 4.9 RBC 3.72 L Hgb 12.1 Hct 35.1 L MCV 94.4 MCH 32.6 MCHC 34.6 RDW 13.5 Plt Count 161 Neut % (Auto) 59.6 Lymph % (Auto) 24.7 L [place] % (Auto) 11.7 Eos % (Auto) 3.4 Baso % (Auto) 0.6 Neut # (Auto) 2900 Lymph # (Auto) 1200 [place] # (Auto) 600 Eos # (Auto) 200 Baso # (Auto) 0 Sodium 133 L Potassium 3.9 Chloride 98 Carbon Dioxide 27 BUN 16 Creatinine 0.75 Estimated GFR > 60 BUN/Creatinine Ratio 21.3 Glucose 119 H Calcium 8.6 PFSH Medical History Encounter for subsequent annual wellness visit (AWV) in Medicare patient Benign essential tremor Obesity (BMI 30-39.9) Alcohol use Pulmonary artery aneurysm Hypertension Asthma (~1987) Seasonal allergies (~1945) Benign familial tremor (~1959) Osteopenia Fractures Mumps Measles Chicken pox Cataracts, bilateral (~2015) Painful menstrual periods (~1978) Fibroids (~1978) Endometriosis (~1978) Colon polyps (~2011) Pulmonary stenosis (~1995) Surgical History History of colonoscopy (01/2012) Papilloma of right breast (~2018) Anesthesia History of laparoscopy (~1978) History of lumpectomy History of cardiac catheterization History of open heart surgery (~1950) History of hysterectomy (~1978) Family History Father Cancer Mother Heart disease Social History marital status: number of children: 0 household members: spouse lives independently: Yes education level: college occupational status: other (retired) Smoking Status: Never smoker alcohol intake: current substance use type: does not use Assessment & Plan Time-Based Coding :: [TOTAL MINUTES] spent with patient and on the chart (including review of chart, obtaining history, exam, reviewing outside data, placing orders, documenting exam and treatment plan, and counseling patient) on [DATE]. Quality VTE Deep Vein Thrombosis/Pulmonary Embolism Present on Admission: No
[2025-05-14] MEDS: AZITHROMYCIN 500 MG in DEXTROSE 5% IN WATER 250 ML 250 MG IV (20:50)
[2025-05-15] VITALS (11 sets, daily range): BP systolic 144–145; BP diastolic 79–89; PULSE 86–110; RESP 16–17; TEMP 36.2–36.6; O2SAT 78–98
[2025-05-15 05:51] LABS: Add Manual Diff / Slide Review NO; Hematocrit 35.3 % (36-46); Hemoglobin 12.0 g/dL (12.0-16.0); Lymphocytes Absolute Auto 1400 /uL (1100-4500); Mean Corpuscular HGB Conc 34.1 % (30-36); Mean Corpuscular Hemoglobin 32.1 PG (26-34); Mean Corpuscular Volume 94.2 fL (80-100); Platelet Count 170 X10^3/uL (150-400)
[2025-05-15 06:00] LABS: Blood Urea Nitrogen 16 mg/dL (7-17); Calcium 8.8 mg/dL (8.4-10.2); Carbon Dioxide 26 mmol/L (22-32); Chloride 101 mmol/L (98-107); Estimated Glomerular Filt Rate > 60 mL/min (>60); Glucose 113 mg/dL (70-99); HEMOLYSIS < 15 (0-50); Potassium 3.9 mmol/L (3.4-5.1); Sodium 135 mmol/L (137-145)
[2025-05-15] MEDS: METOPROLOL IR 50 MG TABLET 100 MG PO (08:06)
[2025-05-15] MEDS: ASPIRIN EC 81 MG TABLET PO (08:06)
[2025-05-15] MEDS: APIXABAN 5 MG TABLET PO (08:06)
[2025-05-15] MEDS: ATORVASTATIN 20 MG TABLET 40 MG PO (08:06)
[2025-05-15] MEDS: SODIUM CHLORIDE 0.9% FLUSH 10 ML IV (08:07)
--- NOTE | 2025-05-15 12:09 | PC.NURSE ---
PT WALKED AROUND UNIT. UP TO 124 AFIB RVR WHEN WALKING. BACK DOWN TO 90-LOW 100S POST WALK. MARY MADE AWARE. STATES HE WILL DISCHARGE PATIENT.
--- NOTE | 2025-05-15 12:10 | P.DS_ITS ---
History of Present Illness History of Present Illness Date Patient Seen: 05/15/25 Chief complaint: Dyspnea atrial fibrillation RVR Narrative: Chief complaint: Dyspnea in the setting of atrial fibrillation rapid ventricular response History of present illness: 05/13: 79-year-old female with chronic atrial fibrillation rapid ventricular response followed by Dr. Chong of [facility] at the [facility]. She was started on Eliquis 2 weeks ago and the plan was for a DC cardioversion after 4 weeks of anticoagulation on Eliquis. Her rate was previously controlled on metoprolol 100 mg p.o. b.i.d.. On the morning of admission patient woke up at 4:30 a.m. quite dyspneic with squeezing and discomfort in her chest and a pounding sensation. She quickly recognized that this was atrial fibrillation and was brought to the emergency room for evaluation. Finding in the emergency department significant for atrial fibrillation with rapid ventricular response rate of 140 started on intravenous diltiazem. Which improved the rate down to 100. Patient was admitted to the intensive care unit for diuresis diltiazem infusion and consultation with Cardiology Dr. 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 For past medical surgical family and social history please see the bottom of the note: Hospital course: [id number] patient's heart rate was well controlled resting rate 90-100 briefly while exercising to 124 and then back down to 90-100 patient discharged home in stable condition we will follow up with Cardiology in 2 weeks for cardioversion Review of systems: She does report feeling feverish with a temperature of 99.4? No nausea vomiting diaphoresis No sore throat headache diplopia or cough No urinary symptoms Physical exam: Elderly female alert mild to moderately labored respirations on room air HEENT unremarkable Neck no JVD Heart irregularly irregular rhythm heart sounds are hyperdynamic Lungs have bibasilar rales but good air movement Abdomen benign Extremities 1+ bipedal edema Neuro nonfocal EKG shows atrial fibrillation with rapid ventricular response no ST segment changes Chest x-ray shows cephalization of vessels and hyperinflation of lungs no pleural effusion subtle right lower lobe shadow might be atelectasis Assessment and plan: Atrial fibrillation with rapid ventricular response followed by Dr. Csatillo with plans in 2 weeks to get DC cardioversion after 4 weeks on Eliquis (has been on Eliquis 2 weeks) * Discharge home on same medications and show up for cardioversion in 2 weeks Very subtle finding that might indicate right lower lobe pneumonia white count is slightly higher 8.5 with 77% neutrophils COVID influenza and RSV are negative * One dose of ceftriaxone and azithromycin DVT prophylaxis: * Covered with Eliquis Code status: * Full code 35 minutes were involved in the management of this patient half of the time was [id number] reviewing of records objective findings and examination and history taking Discharge Providers Provider Date of admission: 05/13/25 12:22 Discharge Date: 05/15/25 Primary care physician: Claudio Garcias DO Discharge provider: Santosh Woody MD Exam Vital Signs (past 8 hours): - 05/15/25 04:32 05/15/25 04:33 05/15/25 04:33 Temperature Pulse Rate 106 H Respiratory Rate Blood Pressure 144/88 H Pulse Oximetry 78 L 94 Oxygen Delivery Method Oxygen Flow Rate 05/15/25 05:00 05/15/25 08:00 05/15/25 08:00 Temperature 97.2 F L 97.2 F L Pulse Rate 110 H 100 H Respiratory Rate 16 17 Blood Pressure 144/88 H Pulse Oximetry 94 Oxygen Delivery Method Oxygen Flow Rate 0 05/15/25 08:00 05/15/25 08:05 05/15/25 08:06 Temperature Pulse Rate Respiratory Rate Blood Pressure 144/89 H Pulse Oximetry 96 Oxygen Delivery Method Room Air Oxygen Flow Rate 05/15/25 08:06 Temperature Pulse Rate Respiratory Rate Blood Pressure Pulse Oximetry 96 Oxygen Delivery Method Oxygen Flow Rate Oxygen Delivery Method Room Air Oxygen Flow Rate 0 Objective Labs 05/15/25 04:14 05/15/25 04:14 Labs: Laboratory Results - last 24 hr 05/15/25 04:14 WBC 6.6 RBC 3.75 L Hgb 12.0 Hct 35.3 L MCV 94.2 MCH 32.1 MCHC 34.1 RDW 13.5 Plt Count 170 Neut % (Auto) 62.2 Lymph % (Auto) 22.0 L [place] % (Auto) 10.9 Eos % (Auto) 4.2 H Baso % (Auto) 0.7 Neut # (Auto) 4100 Lymph # (Auto) 1400 [place] # (Auto) 700 Eos # (Auto) 300 Baso # (Auto) 0 Sodium 135 L Potassium 3.9 Chloride 101 Carbon Dioxide 26 BUN 16 Creatinine 0.61 Estimated GFR > 60 BUN/Creatinine Ratio 26.2 H Glucose 113 H Calcium 8.8 PFSH Medical History Encounter for subsequent annual wellness visit (AWV) in Medicare patient Benign essential tremor Obesity (BMI 30-39.9) Alcohol use Pulmonary artery aneurysm Hypertension Asthma (~1987) Seasonal allergies (~1945) Benign familial tremor (~1959) Osteopenia Fractures Mumps Measles Chicken pox Cataracts, bilateral (~2015) Painful menstrual periods (~1978) Fibroids (~1978) Endometriosis (~1978) Colon polyps (~2011) Pulmonary stenosis (~1995) Surgical History History of colonoscopy (01/2012) Papilloma of right breast (~2018) Anesthesia History of laparoscopy (~1978) History of lumpectomy History of cardiac catheterization History of open heart surgery (~1950) History of hysterectomy (~1978) Family History Father Cancer Mother Heart disease Social History marital status: number of children: 0 household members: spouse lives independently: Yes education level: college occupational status: other (retired) Smoking Status: Never smoker alcohol intake: current substance use type: does not use Discharge Plan Discharge Plan Patient Disposition: Home Discharge orders & Medications Prescriptions: Continued atorvastatin 40 mg tablet 40 mg PO DAILY Qty: 90 3RF aspirin [Adult Aspirin Regimen] 81 mg tablet,delayed release (DR/EC) 81 mg PO DAILY apixaban 5 mg tablet 5 mg PO BID Qty: 60 0RF metoprolol tartrate 100 mg tablet 100 mg PO BID losartan 50 mg tablet 50 mg PO BEDTIME Discontinued metoprolol tartrate 50 mg tablet 50 mg PO BID Qty: 60 0RF Follow up/Referrals: Claudio Garcias DO [Primary Care Provider, Family Practice] Visit Report/Discharge Packet Stand Alone Forms: Patient Portal/API, Stroke Signs & Symptoms Discharge Data Primary Care Provider: Claudio Garcias Attending Provider: Santosh Woody Admit Date/Time: 05/13/25 12:22 Quality VTE Deep Vein Thrombosis/Pulmonary Embolism Present on Admission: No
--- NOTE | 2025-05-15 13:11 | PC.NURSE ---
1300 DISCHARGE PAPERWORK DISCUSSED WITH PATIENT/ SPOUSE. SIGNATURE PAGE SIGNED AND PLACED IN CHART. IV D/C'D.
--- NOTE | 2025-05-15 13:25 | CM.DPNOTE ---
DCP Note CAR CLEANER reviewed EMR per provider, rate controlled better this afternoon. stable to dc. per RN, no new obvious CM needs identified at this time. P: Dc today home with spouse support and OP f/u likely. CM team will continue to follow as needed LOLI Collins
== END 2025-05-15 13:28 | disposition home or self-care (01) ==
LOC: ED 12:10 → AC 12:30 → ICU 14:23 → AC 05-14 12:37 → ICU 05-14 12:37
PROVIDERS: Admitting Provider Internal Medicine; Emergency Provider Family Medicine; Family Provider Family Medicine; PCP Family Medicine; Referring Provider Family Medicine; Visit Provider Internal Medicine
DX: I48.20 Chronic atrial fibrillation, unspecified (principal); I10 Essential (primary) hypertension; R06.02 Shortness of breath; R91.8 Other nonspecific abnormal finding of lung field; Z79.01 Long term (current) use of anticoagulants; Z86.79 Personal history of other diseases of the circulatory system
CPT/HCPCS: 36415; 71045; 80048; 80053; 81003; 81015; 82550; 83690; 83735; 83880; 84484; 85025; 85610; 85730; 87086; 87637; 87797; 93005; 93307; 96365; 96366; 96367; 96368; 96375; 96376; 99284; G0378; J0696; J1938; Q9957

== ENCOUNTER 2025-07-31 10:59 | Emergency (ER) | payer MEDICARE, OTHER, SELFPAY ==
[2025-05-13 13:39] VITALS: BMI 32.4
[2025-07-31] VITALS (17 sets, daily range): BP systolic 150–199; BP diastolic 70–118; PULSE 54–76; RESP 12–24; TEMP 37.1; O2SAT 94–99; BMI 33.6
--- NOTE | 2025-07-31 11:08 | EKG_ITS ---
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
--- NOTE | 2025-07-31 11:08 | DI.RAD.S_ITS ---
PROCEDURE: XR CHEST 1V INDICATIONS: Chest Pain TECHNIQUE: One view of the chest was acquired. COMPARISON: [facility], CT, CT ANGIO CHEST PE PROTOCOL, 04/12/2025, 5:18. [facility], CR, XR CHEST 1V, 05/13/2025, 9:52. FINDINGS: Surgical changes and devices: None. Lungs and pleura: Lungs are clear. No pleural effusions or pneumothorax. Mediastinum: Marked enlargement of the main pulmonary artery again noted.. Heart size is normal. Bones and chest wall: No suspicious bony lesions. Overlying soft tissues appear unremarkable. IMPRESSION: Marked enlargement of the main pulmonary artery, as before. No acute pulmonary process. Dictated by: Dante Lei M.D. on 07/31/2025 at 12:27 Approved by: Dante Lei M.D. on 07/31/2025 at 12:28
[2025-07-31 11:31] LABS: INR 1.9 (0.9-1.3); Prothrombin Time 21.2 SECONDS (9.4-12.5)
[2025-07-31 11:33] LABS: Alanine Aminotransferase 58 IU/L (<35); Albumin 4.6 g/dL (3.5-5.0); Albumin Globulin Ratio 1.5 (1.0-2.8); Alkaline Phosphatase 68 U/L (38-126); Blood Urea Nitrogen 13 mg/dL (7-17); Calcium 9.3 mg/dL (8.4-10.2); Carbon Dioxide 25 mmol/L (22-32); Chloride 102 mmol/L (98-107); Creatine Kinase 28 U/L (30-135); Estimated Glomerular Filt Rate > 60 mL/min (>60); Globulin 3.0 g/dL (1.7-4.1); Glucose 106 mg/dL (70-99); Lipase 31 U/L (23-300); PTT Partial Thromboplastin Tim 34 SECONDS (25.1-36.5); Sodium 137 mmol/L (137-145); Total Protein 7.6 g/dL (6.3-8.2)
[2025-07-31 11:39] LABS: HEMOLYSIS 75 (0-50)
[2025-07-31 11:40] LABS: Magnesium 1.8 mg/dL (1.6-2.3); Potassium 4.6 mmol/L (3.4-5.1)
[2025-07-31 11:45] LABS: NT-proBNP (BNP-Adult 18+) 1530 pg/mL (<450); Troponin I < 0.012 ng/mL (0.01-0.034)
[2025-07-31 11:54] LABS: Add Manual Diff / Slide Review NO; Hematocrit 40.3 % (36-46); Hemoglobin 13.5 g/dL (12.0-16.0); Lymphocytes Absolute Auto 1300 /uL (1100-4500); Mean Corpuscular HGB Conc 33.5 % (30-36); Mean Corpuscular Hemoglobin 31.6 PG (26-34); Mean Corpuscular Volume 94.4 fL (80-100); Platelet Count 174 X10^3/uL (150-400)
--- NOTE | 2025-07-31 12:11 | ED.ARRPALP ---
HPI - Arrhythmia/Palpitations General Chief Complaint: Arrhythmia/Palpitations Stated Complaint: SOB x 1 day sent from [facility] Time Seen by Provider: 07/31/25 11:51 Source: patient Mode of arrival: Wheelchair History of Present Illness HPI narrative: Patient is a 79-year-old female history of chronic atrial fibrillation presenting today with increasing shortness of breath. She reports that she had orthopnea last night shortness of breath with exertion. No specific fever or chest pain. She reports that she was cardioverted on Tuesday 2 days ago for her AFib. She continues to be in sinus rhythm. She has not missed her Eliquis. Related Data Home Medications ?Medication ?Instructions ?Recorded ?Confirmed aspirin 81 mg tablet,delayed 81 mg PO DAILY 09/19/24 05/13/25 release (Adult Aspirin Regimen) losartan 50 mg tablet 50 mg PO BEDTIME high blood 05/13/25 05/13/25 pressure metoprolol tartrate 100 mg tablet 100 mg PO BID 05/13/25 05/13/25 Previous Rx's ?Medication ?Instructions ?Recorded atorvastatin 40 mg tablet 40 mg PO DAILY #90 tabs 11/20/24 apixaban 5 mg tablet 5 mg PO BID #60 tabs 04/13/25 furosemide 20 mg tablet 20 mg PO DAILY #3 tabs 07/31/25 Allergies Allergy/AdvReac Type Severity Reaction Status Date / Time Penicillins Allergy Intermediate hives Verified 07/31/25 11:07 Patient History Medical History Encounter for subsequent annual wellness visit (AWV) in Medicare patient Benign essential tremor Obesity (BMI 30-39.9) Alcohol use Pulmonary artery aneurysm Hypertension Asthma (~1987) Seasonal allergies (~1945) Benign familial tremor (~1959) Osteopenia Fractures Mumps Measles Chicken pox Cataracts, bilateral (~2015) Painful menstrual periods (~1978) Fibroids (~1978) Endometriosis (~1978) Colon polyps (~2011) Pulmonary stenosis (~1995) Surgical History History of colonoscopy (01/2012) Papilloma of right breast (~2018) Anesthesia History of laparoscopy (~1978) History of lumpectomy History of cardiac catheterization History of open heart surgery (~1950) History of hysterectomy (~1978) Family History Father Cancer Mother Heart disease Social History marital status: number of children: 0 household members: spouse lives independently: Yes education level: college occupational status: other (retired) Smoking Status: Never smoker alcohol intake: current substance use type: does not use Smoking Status: Never smoker alcohol intake frequency: 0-2 drinks per day Alcohol type: wine Exam Initial Vital Signs Initial Vital Signs: Vital Signs Temperature 98.8 F 07/31/25 11:04 Pulse Rate 74 07/31/25 11:04 Respiratory Rate 20 07/31/25 11:04 Blood Pressure 199/91 H 07/31/25 11:04 Pulse Oximetry 99 07/31/25 11:04 Oxygen Delivery Method Room Air 07/31/25 11:04 GENERAL: Alert 79-year-old female and in no acute distress. HEENT: Head atraumatic,EOMI, pupils reactive, face symmetric, moist mucous membranes CARDIOVASCULAR: Regular rate and rhythm without murmurs, rubs or gallops. RESPIRATORY: Breath sounds equal bilaterally, no wheezes rales or rhonchi. ABDOMEN: Soft, nontender. Normoactive bowel sounds all 4 quadrants. No guarding or rebound. EXTREMITIES: Normal range of motion, no clubbing or edema. Neurovascularly intact NEUROLOGICAL: Alert and oriented x4.Normal gait and speech. Cranial nerves II through XII grossly intact. SKIN: Warm, dry, no laceration, no petechiae, no rashes or lesions. Course Orders Ordered: ED Orders 07/31/25 11:08 XR chest 1V Stat EKG-12 Lead Stat 07/31/25 11:10 Complete Blood Count AUTO DIFF Stat Comprehensive Metabolic Panel Stat Lipase Stat Magnesium Stat NT-proBNP (BNP-Adult 18+) Stat PTT Partial Thromboplastin [place] Stat Prothrombin Time INR Stat Troponin & CK Cardiac Panel Stat 07/31/25 13:30 Trop I [Troponin I] Stat 07/31/25 13:57 EKG-12 Lead Stat Discontinued Medications Aspirin (Aspirin 81 Mg Chew Tab) 324 mg PO NOW ONE Stop: 07/31/25 11:09 Last Admin: 07/31/25 13:28 Dose: 324 mg Documented By: JOSÉ LUIS Furosemide (Furosemide 40 Mg/4 Ml Vial) 20 mg IV NOW ONE Stop: 07/31/25 12:23 Last Admin: 07/31/25 13:27 Dose: 20 mg Documented By: JOSÉ LUIS Vital Signs Vital signs: Vital Signs - 8 hr 07/31/25 11:04 07/31/25 11:42 07/31/25 11:42 Temperature 98.8 F Pulse Rate 74 76 Respiratory Rate 20 Blood Pressure 199/91 H 178/118 H Pulse Oximetry 99 96 Oxygen Delivery Method Room Air 07/31/25 12:00 07/31/25 12:01 07/31/25 12:01 Temperature Pulse Rate 58 L 60 Respiratory Rate 14 21 Blood Pressure 154/77 H Pulse Oximetry 97 97 Oxygen Delivery Method 07/31/25 12:30 07/31/25 12:30 07/31/25 13:00 Temperature Pulse Rate 57 L 67 Respiratory Rate 12 22 Blood Pressure 150/76 H Pulse Oximetry 97 96 Oxygen Delivery Method 07/31/25 13:00 07/31/25 13:30 07/31/25 13:31 Temperature Pulse Rate 56 L 59 L Respiratory Rate 21 22 Blood Pressure 158/84 H Pulse Oximetry 95 96 Oxygen Delivery Method 07/31/25 13:31 07/31/25 14:00 07/31/25 14:01 Temperature Pulse Rate 60 60 Respiratory Rate 19 18 Blood Pressure 155/77 H Pulse Oximetry 97 97 Oxygen Delivery Method 07/31/25 14:01 07/31/25 14:21 07/31/25 14:21 Temperature Pulse Rate 71 Respiratory Rate 24 Blood Pressure 183/85 H 176/92 H Pulse Oximetry 95 Oxygen Delivery Method 07/31/25 14:30 07/31/25 14:30 07/31/25 15:00 Temperature Pulse Rate 56 L Respiratory Rate 12 Blood Pressure 162/86 H 172/73 H Pulse Oximetry 99 Oxygen Delivery Method 07/31/25 15:00 07/31/25 15:30 07/31/25 15:31 Temperature Pulse Rate 59 L 57 L 58 L Respiratory Rate 19 22 23 Blood Pressure Pulse Oximetry 95 96 96 Oxygen Delivery Method 07/31/25 15:31 07/31/25 16:00 07/31/25 16:01 Temperature Pulse Rate 56 L 54 L Respiratory Rate 17 16 Blood Pressure 152/80 H Pulse Oximetry 95 94 Oxygen Delivery Method 07/31/25 16:01 Temperature Pulse Rate Respiratory Rate Blood Pressure 155/70 H Pulse Oximetry Oxygen Delivery Method MDM - Arrhythmia/Palpitations Lab Data 07/31/25 11:10 07/31/25 11:10 Labs: Lab Results 07/31/25 07/31/25 Range/Units 11:10 13:30 WBC 9.4 (4.5-11.0) X10^3/uL RBC 4.27 (4.0-5.2) X10^6/uL Hgb 13.5 (12.0-16.0) g/dL Hct 40.3 (36-46) % MCV 94.4 (80-100) fL MCH 31.6 (26-34) PG MCHC 33.5 (30-36) % RDW 13.6 (11.6-14.8) % Plt Count 174 (150-400) X10^3/uL Neut % (Auto) 75.1 H (50-75) % Lymph % (Auto) 13.9 L (25-40) % [place] % (Auto) 7.3 (3-14) % Eos % (Auto) 2.7 (2-4) % Baso % (Auto) 1.0 (0-2) % Neut # (Auto) 7100 H (3514-8193) /uL Lymph # (Auto) 1300 (2838-0312) /uL [place] # (Auto) 700 (0-900) /uL Eos # (Auto) 300 (0-450) /uL Baso # (Auto) 100 (0-100) /uL PT 21.2 H (9.4-12.5) SECONDS INR 1.9 H (0.9-1.3) APTT 34 (25.1-36.5) SECONDS Sodium 137 (137-145) mmol/L Potassium 4.6 (3.4-5.1) mmol/L Chloride 102 (98-107) mmol/L Carbon Dioxide 25 (22-32) mmol/L BUN 13 (7-17) mg/dL Creatinine 0.61 (0.52-1.04) mg/dL Estimated GFR > 60 (>60) mL/min BUN/Creatinine Ratio 21.3 (6-22) Glucose 106 H (70-99) mg/dL Calcium 9.3 (8.4-10.2) mg/dL Magnesium 1.8 (1.6-2.3) mg/dL Total Bilirubin 1.7 H (0.2-1.3) mg/dL AST 55 H (14-36) IU/L ALT 58 H (<35) IU/L Alkaline Phosphatase 68 (38-126) U/L Total Creatine Kinase 28 L (30-135) U/L Troponin I < 0.012 < 0.012 (0.01-0.034) ng/mL NT-Pro-B Natriuret Pep 1530 H (<450) pg/mL Total Protein 7.6 (6.3-8.2) g/dL Albumin 4.6 (3.5-5.0) g/dL Globulin 3.0 (1.7-4.1) g/dL Albumin/Globulin Ratio 1.5 (1.0-2.8) Lipase 31 (23-300) U/L Imaging Data Chest x-ray: Radiologist's Impresson: PROCEDURE: XR CHEST 1V INDICATIONS: Chest Pain TECHNIQUE: One view of the chest was acquired. COMPARISON: [facility], CT, CT ANGIO CHEST PE PROTOCOL, 04/12/2025, 5:18. [facility], CR, XR CHEST 1V, 05/13/2025, 9:52. FINDINGS: Surgical changes and devices: None. Lungs and pleura: Lungs are clear. No pleural effusions or pneumothorax. Mediastinum: Marked enlargement of the main pulmonary artery again noted.. Heart size is normal. Bones and chest wall: No suspicious bony lesions. Overlying soft tissues appear unremarkable. IMPRESSION: Marked enlargement of the main pulmonary artery, as before. No acute pulmonary process. Dictated by: Dante Lei M.D. on 07/31/2025 at 12:27 Approved by: Dante Lei M.D. on 07/31/2025 at 12:28 ECG Data Attestation: I personally reviewed and interpreted this ECG as follows: Prior ECG tracings: available for review Interpretation: Sinus rhythm rate 61 MN interval 216 QRS 90 QTC [address] depression noted in lead 3 and AVF V2 V3 V4 and V5, all new from previous EKGs MDM Narrative Medical decision making narrative: MDM CC: Shortness of breath Complicating co-morbidities: AFib recently cardioverted Data collected from: Medical records reviewed: [ ] Differential considered: Congestive heart failure pulmonary embolism but seems unlikely Exam documented above, pertinent findings include: Alert 71-year-old female slightly decreased breath sounds bilaterally no we wheezes rales or rhonchi no peripheral edema abdomen soft Lab Test results independently reviewed as above. Pertinent findings: Troponin negative BNP 1530 CBC no leukocytosis no anemia CMP no electrolyte abnormality Bilirubin 1.7 AST 55 ALT 58 previously these were similar in April bilirubin 1.4 AST 52 and ALT 59 lipase 30 Independently reviewed EKG as above No T-wave inversion and ST depression Imaging studies independently reviewed: Chest x-ray enlarged pulmonary artery as before no acute process Consultations: 1600 Dr. Rothman on-call Cardiology at [facility] updated on T-wave inversions patient's symptoms test results. Reports that she has had multiple T-wave inversions on July 29 after her cardioversion. She had a cardiac MRI in June which showed an EF of 50%. Agrees with IV of Lasix in the ED. She has no prior history of congestive heart failure. Treatments: Lasix Re-evaluations: Patient has been up to the restroom urinating multiple times while in the ED. She reports improvement in her breathing Discussion: Patient 79-year-old female with recent cardioversion 2 days ago presenting today with shortness of breath. She complains of orthopnea and shortness of breath with exertion. She is anticoagulated on Eliquis in his not missed any doses. She is not hypoxic or tachycardic she also remains in sinus rhythm. Blood work is overall reassuring she has slight elevation of BNP 1530. However cardiology reports that she does not have any history of congestive heart failure and has not EF 50%. She did have some T-wave inversions noted in our EKGs here this is confirmed with Cardiology that these are persistent EKGs changes and nothing is new. She has no known coronary artery disease either. At this time will send her home with a couple days of Lasix she is feeling better. She has no evidence of infection or pneumonia you needed for antibiotics. She had improvement with Lasix I really do not think that this is a pulmonary embolism she is anticoagulated no need for imaging at this time. Discharge Plan Departure Patient Disposition: Home Clinical Impression: Peripheral edema Instructions: Heart Failure Activity Restrictions/Additional Instructions: *You have been diagnosed with peripheral edema *What to do: At this time was to try a couple of days of Lasix to see if you continue to improve no need for antibiotics. *Continue to take medications as directed Lasix 20 mg once a day for 3 days *Follow up with your primary care provider in 2-3 days or call [phone] Follow-up with your asset liability analyst Dr. Chong *Return to ER if you should have increasing chest pain shortness of breath or wheezing [or] any new, worsening or concerning symptoms Prescriptions: New furosemide 20 mg tablet 20 mg PO DAILY Qty: 3 0RF No Action atorvastatin 40 mg tablet 40 mg PO DAILY Qty: 90 3RF aspirin [Adult Aspirin Regimen] 81 mg tablet,delayed release (DR/EC) 81 mg PO DAILY apixaban 5 mg tablet 5 mg PO BID Qty: 60 0RF metoprolol tartrate 100 mg tablet 100 mg PO BID losartan 50 mg tablet 50 mg PO BEDTIME Referrals: Claudio Garcias DO [Primary Care Provider, Family Practice] Stand Alone Forms: Patient Portal/API
[2025-07-31] MEDS: FUROSEMIDE 40 MG/4 ML VIAL 20 MG IV (13:27)
[2025-07-31] MEDS: ASPIRIN 81 MG CHEW TAB 324 MG PO (13:28)
--- NOTE | 2025-07-31 14:00 | EKG_ITS ---
[facility] [address] [place] [address] Test Date: 2025-07-31 Pat Name: Augusta Arzola Department: 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
[2025-07-31 14:10] LABS: Troponin I < 0.012 ng/mL (0.01-0.034)
== END 2025-07-31 16:30 | disposition home or self-care (01) ==
PROVIDERS: Emergency Provider Emergency Medicine; Family Provider Family Medicine; PCP Family Medicine
DX: R60.0 Localized edema (principal); R07.9 Chest pain, unspecified; Z79.01 Long term (current) use of anticoagulants
CPT/HCPCS: 36415; 71045; 80053; 82550; 83690; 83735; 83880; 84484; 85025; 85610; 85730; 93005; 96374; 99284; J1938

== ENCOUNTER 2025-09-25 14:24 | Inpatient (IN) | payer MEDICARE, OTHER, SELFPAY ==
[2025-05-13 13:39] VITALS: BMI 32.4
[2025-09-25] VITALS (14 sets, daily range): BP systolic 110–182; BP diastolic 71–94; PULSE 70–87; RESP 12–20; TEMP 36.8; O2SAT 92–98; BMI 32.4
--- NOTE | 2025-09-25 | DI.RAD.S_ITS ---
PROCEDURE: XR FEMUR LT MIN 2V INDICATIONS: PAIN TECHNIQUE: 2 views of the femur were acquired. COMPARISON: None. FINDINGS: Bones: Comminuted distal femoral shaft fracture with overriding and displacement. No suspicious bony lesions. Soft tissues: No suspicious soft tissue calcifications or masses. IMPRESSION: Comminuted distal femoral fracture. Dictated by: Dante Lei M.D. on 09/25/2025 at 15:30 Approved by: Dante Lei M.D. on 09/25/2025 at 15:30
--- NOTE | 2025-09-25 14:54 | ED.FALL ---
HPI - Fall <Kristina Tan PA-C - Last Filed: 09/25/25 19:12> General Chief Complaint: Fall Stated Complaint: Fall with lt leg and knee pain Time Seen by Provider: 09/25/25 14:51 Source: EMS Mode of arrival: EMS History of Present Illness HPI Narrative: Ms. Arzola is a pleasant 80-year-old female with a past medical history of congenital pulmonary stenosis s/p surgical repair at age 6, pulmonary aneurysm, AFib on Eliquis, HTN, CHF, prior L ankle/foot injury with hardware who presents to the emergency department via EMS after a reported ground level fall that occurred while slipping on wet garage at 1400 today now with left leg pain. Patient reports she slipped causing her right leg to go forward and her left leg to bend abnormally to her side. She was on the floor for 30 minutes. She was given 1000 mg of acetaminophen, 25 mcg of fentanyl and 4 mg of Zofran via EMS. EMS placed the patient into a left leg splint. Her pain is improved at this time. She denies pain anywhere on her body except for the left knee. She did not hit her head or lose consciousness. She had no chest pain, shortness of breath or other symptoms precipitating the fall. She has no numbness tingling or weakness of the leg below the pain in the left knee. She has no open wounds or bleeding. She did take her Eliquis this morning. She is accompanied by her neighbors. Related Data Home Medications ?Medication ?Instructions ?Recorded ?Confirmed aspirin 81 mg tablet,delayed 81 mg PO DAILY 09/19/24 05/13/25 release (Adult Aspirin Regimen) losartan 50 mg tablet 50 mg PO BEDTIME high blood 05/13/25 05/13/25 pressure metoprolol tartrate 100 mg tablet 100 mg PO BID 05/13/25 05/13/25 Previous Rx's ?Medication ?Instructions ?Recorded atorvastatin 40 mg tablet 40 mg PO DAILY #90 tabs 11/20/24 apixaban 5 mg tablet 5 mg PO BID #60 tabs 04/13/25 furosemide 20 mg tablet 20 mg PO DAILY #3 tabs 07/31/25 Allergies Allergy/AdvReac Type Severity Reaction Status Date / Time Penicillins Allergy Intermediate hives Verified 09/25/25 14:44 Review of Systems <Kristina Tan PA-C - Last Filed: 09/25/25 19:12> Review of Systems ROS Unobtainable: All systems reviewed & are unremarkable except as noted in HPI and below Patient History <Kristina Tan PA-C - Last Filed: 09/25/25 19:12> Medical History Encounter for subsequent annual wellness visit (AWV) in Medicare patient Benign essential tremor Obesity (BMI 30-39.9) Alcohol use Pulmonary artery aneurysm Hypertension Asthma (~1987) Seasonal allergies (~1945) Benign familial tremor (~1959) Osteopenia Fractures Mumps Measles Chicken pox Cataracts, bilateral (~2015) Painful menstrual periods (~1978) Fibroids (~1978) Endometriosis (~1978) Colon polyps (~2011) Pulmonary stenosis (~1995) Surgical History History of colonoscopy (01/2012) Papilloma of right breast (~2018) Anesthesia History of laparoscopy (~1978) History of lumpectomy History of cardiac catheterization History of open heart surgery (~1950) History of hysterectomy (~1978) Family History Father Cancer Mother Heart disease Social History marital status: number of children: 0 household members: spouse lives independently: Yes education level: college occupational status: other (retired) Smoking Status: Never smoker alcohol intake: current substance use type: does not use Smoking Status: Never smoker alcohol intake frequency: 0-2 drinks per day Alcohol type: wine Exam <Kristina Tan PA-C - Last Filed: 09/25/25 19:12> Narrative Exam Narrative: GENERAL: 80 year old patient appears stated age. Well-developed patient, in no acute distress. HEAD: Atraumatic. Normocephalic. No scalp tenderness. EYES: PERRL. Extraocular motions intact. No scleral icterus. No injection or drainage. ENT: Nose without bleeding, purulent drainage. Throat without erythema, tonsillar hypertrophy or exudate. Uvula midline. Airway patent. NECK: Trachea midline. Cervical ROM intact. No midline spinal tenderness. CARDIOVASCULAR: Regular rate and rhythm. RESPIRATORY: ?Nonlabored respirations. ?Speaking in clear, full sentences. ?Clear to auscultation. Breath sounds equal bilaterally. No wheezes, rales, or rhonchi. ? GASTROINTESTINAL: Abdomen soft, non-tender, nondistended. EXTREMITIES: Left leg straight in the EMS splint. There is tenderness of the left anterior knee overlying the distal femur. No open wounds. Palpable DP and PT pulses on both legs, patient is able to wiggle toes, sensation intact to light touch on plantar and dorsal aspect of both feet. No focal tenderness to palpation of the bilateral feet, ankles. No tenderness of right lower extremity or bilateral upper extremities. BACK: Nontender without deformity or crepitance. No flank tenderness. NEURO: AOx3. ?Clear speech. ?Sensation intact to light touch in all 4 extremities. SKIN: No rash or erythema of visible areas. Initial Vital Signs Initial Vital Signs: Vital Signs Temperature 98.3 F 09/25/25 14:35 Pulse Rate 70 09/25/25 14:35 Respiratory Rate 20 09/25/25 14:35 Blood Pressure 182/94 H 09/25/25 14:35 Pulse Oximetry 97 09/25/25 14:35 Oxygen Delivery Method Room Air 09/25/25 14:35 <Beverly Hsieh MD - Last Filed: 09/25/25 19:56> Initial Vital Signs Initial Vital Signs: Vital Signs Temperature 98.3 F 09/25/25 14:35 Pulse Rate 70 09/25/25 14:35 Respiratory Rate 20 09/25/25 14:35 Blood Pressure 182/94 H 09/25/25 14:35 Pulse Oximetry 97 09/25/25 14:35 Oxygen Delivery Method Room Air 09/25/25 14:35 Course <Kristina Tan PA-C - Last Filed: 09/25/25 19:12> Orders Ordered: ED Orders 09/25/25 14:30 CBC Auto Diff [Complete Blood Count AUTO DIFF] Stat CMP [Comprehensive Metabolic Panel] Stat PT [Prothrombin Time INR] Stat PTT Partial Thromboplastin [place] Stat 09/25/25 14:56 XR knee LT 3V Stat Acetaminophen (Acetaminophen 325 Mg Tablet) 650 mg PO Q6H PRN PRN Reason: Fever/Mild Pain (1-3) Naloxone HCl (Naloxone 0.4 Mg/Ml Vial) 0.2 mg IV Q2MIN PRN PRN Reason: Opiate Reversal Ondansetron HCl (Ondansetron 4 Mg/2 Ml Inj) 4 mg IV Q8HR PRN PRN Reason: Nausea And Vomiting Last Admin: 09/25/25 17:29 Dose: 4 mg Documented By: ANDREA Discontinued Medications Fentanyl (Fentanyl 100 Mcg/2 Ml Inj) 25 mcg IV NOW ONE Stop: 09/25/25 16:11 Last Admin: 09/25/25 17:23 Dose: 25 mcg Documented By: ANDREA Vital Signs Vital signs: Vital Signs - 8 hr 09/25/25 14:35 09/25/25 15:30 09/25/25 16:00 Temperature 98.3 F Pulse Rate 70 79 80 Respiratory Rate 20 Blood Pressure 182/94 H Pulse Oximetry 97 95 94 Oxygen Delivery Method Room Air Room Air Room Air <Beverly Hsieh MD - Last Filed: 09/25/25 19:56> Orders Ordered: ED Orders 09/25/25 14:30 CBC Auto Diff [Complete Blood Count AUTO DIFF] Stat CMP [Comprehensive Metabolic Panel] Stat PT [Prothrombin Time INR] Stat PTT Partial Thromboplastin [place] Stat 09/25/25 14:56 XR knee LT 3V Stat Acetaminophen (Acetaminophen 325 Mg Tablet) 650 mg PO Q6H PRN PRN Reason: Fever/Mild Pain (1-3) Naloxone HCl (Naloxone 0.4 Mg/Ml Vial) 0.2 mg IV Q2MIN PRN PRN Reason: Opiate Reversal Ondansetron HCl (Ondansetron 4 Mg/2 Ml Inj) 4 mg IV Q8HR PRN PRN Reason: Nausea And Vomiting Last Admin: 09/25/25 17:29 Dose: 4 mg Documented By: ANDREA Discontinued Medications Fentanyl (Fentanyl 100 Mcg/2 Ml Inj) 25 mcg IV NOW ONE Stop: 09/25/25 16:11 Last Admin: 09/25/25 17:23 Dose: 25 mcg Documented By: ANDREA Vital Signs Vital signs: Vital Signs - 8 hr 09/25/25 14:35 09/25/25 15:30 09/25/25 16:00 Temperature 98.3 F Pulse Rate 70 79 80 Respiratory Rate 20 Blood Pressure 182/94 H Pulse Oximetry 97 95 94 Oxygen Delivery Method Room Air Room Air Room Air MDM - Fall <Kristina Tan PA-C - Last Filed: 09/25/25 19:12> Medical Records Attestation: I reviewed the patient's medical records. Lab Data 09/25/25 14:30 09/25/25 14:30 Labs: Lab Results 09/25/25 Range/Units 14:30 WBC 7.2 (4.5-11.0) X10^3/uL RBC 4.53 (4.0-5.2) X10^6/uL Hgb 14.4 (12.0-16.0) g/dL Hct 42.4 (36-46) % MCV 93.7 (80-100) fL MCH 31.7 (26-34) PG MCHC 33.8 (30-36) % RDW 13.6 (11.6-14.8) % Plt Count 254 (150-400) X10^3/uL Neut % (Auto) 60.1 (50-75) % Lymph % (Auto) 26.7 (25-40) % [place] % (Auto) 9.6 (3-14) % Eos % (Auto) 3.0 (2-4) % Baso % (Auto) 0.6 (0-2) % Neut # (Auto) 4300 (6298-7837) /uL Lymph # (Auto) 1900 (8096-4626) /uL [place] # (Auto) 700 (0-900) /uL Eos # (Auto) 200 (0-450) /uL Baso # (Auto) 0 (0-100) /uL PT 15.0 H (9.4-12.5) SECONDS INR 1.3 (0.9-1.3) APTT 36 (25.1-36.5) SECONDS Sodium 140 (137-145) mmol/L Potassium 3.8 (3.4-5.1) mmol/L Chloride 104 (98-107) mmol/L Carbon Dioxide 24 (22-32) mmol/L BUN 13 (7-17) mg/dL Creatinine 0.94 (0.52-1.04) mg/dL Estimated GFR > 60 (>60) mL/min BUN/Creatinine Ratio 13.8 (6-22) Glucose 101 H (70-99) mg/dL Calcium 9.6 (8.4-10.2) mg/dL Total Bilirubin 1.0 (0.2-1.3) mg/dL AST 33 (14-36) IU/L ALT 25 (<35) IU/L Alkaline Phosphatase 81 (38-126) U/L Total Protein 8.1 (6.3-8.2) g/dL Albumin 5.0 (3.5-5.0) g/dL Globulin 3.1 (1.7-4.1) g/dL Albumin/Globulin Ratio 1.6 (1.0-2.8) [facility] Narrative Medical decision making narrative: 80-year-old female with a past medical history of congenital pulmonary stenosis s/p surgical repair at age 6, pulmonary aneurysm, AFib on Eliquis, HTN, CHF, prior L ankle/foot injury with hardware who presents to the emergency department via EMS after a reported ground level fall that occurred while slipping on wet garage at 1400 today now with left leg pain. Differential diagnosis includes but is not limited to left knee fracture, left femur fracture, left tib-fib fracture, etc. On exam the patient is in no acute distress, nontoxic appearing, vital signs appropriate. Her left leg was placed into a splint by EMS and her pain is controlled at this time. Both of her lower extremities are neurovascularly intact. She does have significant tenderness to the anterior portion of her left knee/distal femur. No open wounds. She did not hit her head or lose consciousness. We will obtain imaging of left knee and femur, baseline labs, treat pain with fentanyl. 1600: Spoke with the orthopedic surgeon on-call, Dr. Harrison. He will come see the patient after clinic in about 1 hour. Plan to take her to the OR tomorrow. Admit to medicine. Patient updated on the need for admission with further evaluation and management by Orthopedics. Lab work is overall reassuring, normal hemoglobin hematocrit 14.4, 42.4. Platelets 254. Normal renal function. Called and discussed the case with the hospitalist, Dr. Cortez, who graciously accepts the patient for admission, inpatient. She is awaiting surgery tomorrow. Patient is aware and agreeable to the plan for admission and surgery and is stable for transfer to the floor at this time. <Beverly Hsieh MD - Last Filed: 09/25/25 19:56> Lab Data Labs: Lab Results 09/25/25 Range/Units 14:30 WBC 7.2 (4.5-11.0) X10^3/uL RBC 4.53 (4.0-5.2) X10^6/uL Hgb 14.4 (12.0-16.0) g/dL Hct 42.4 (36-46) % MCV 93.7 (80-100) fL MCH 31.7 (26-34) PG MCHC 33.8 (30-36) % RDW 13.6 (11.6-14.8) % Plt Count 254 (150-400) X10^3/uL Neut % (Auto) 60.1 (50-75) % Lymph % (Auto) 26.7 (25-40) % [place] % (Auto) 9.6 (3-14) % Eos % (Auto) 3.0 (2-4) % Baso % (Auto) 0.6 (0-2) % Neut # (Auto) 4300 (1364-1072) /uL Lymph # (Auto) 1900 (4420-8997) /uL [place] # (Auto) 700 (0-900) /uL Eos # (Auto) 200 (0-450) /uL Baso # (Auto) 0 (0-100) /uL PT 15.0 H (9.4-12.5) SECONDS INR 1.3 (0.9-1.3) APTT 36 (25.1-36.5) SECONDS Sodium 140 (137-145) mmol/L Potassium 3.8 (3.4-5.1) mmol/L Chloride 104 (98-107) mmol/L Carbon Dioxide 24 (22-32) mmol/L BUN 13 (7-17) mg/dL Creatinine 0.94 (0.52-1.04) mg/dL Estimated GFR > 60 (>60) mL/min BUN/Creatinine Ratio 13.8 (6-22) Glucose 101 H (70-99) mg/dL Calcium 9.6 (8.4-10.2) mg/dL Total Bilirubin 1.0 (0.2-1.3) mg/dL AST 33 (14-36) IU/L ALT 25 (<35) IU/L Alkaline Phosphatase 81 (38-126) U/L Total Protein 8.1 (6.3-8.2) g/dL Albumin 5.0 (3.5-5.0) g/dL Globulin 3.1 (1.7-4.1) g/dL Albumin/Globulin Ratio 1.6 (1.0-2.8) Discharge Plan Departure Patient Disposition: Admitted As Inpatient Clinical Impression: Femoral distal fracture Qualifiers: Encounter type: initial encounter Fracture type: closed Fracture morphology: unspecified fracture morphology Laterality: left Qualified Code(s): S72.402A - Unspecified fracture of lower end of left femur, initial encounter for closed fracture Fall from slipping Qualifiers: Encounter type: initial encounter Qualified Code(s): W01.0XXA - Fall on same level from slipping, tripping and stumbling without subsequent striking against object, initial encounter Admit Date/Time: 09/25/25 16:08 Admit Provider: Raj Cortez ED Sign-out <Beverly Hsieh MD - Last Filed: 09/25/25 19:56> Cosign ED Attending Cosignature Attestation: I was immediately available in the department for consultation throughout this patient's visit. Patient was seen and independently evaluated Care is reviewed with on-call orthopedist along with plan for operative intervention tomorrow Agree with plan for admission. Agree with documentation above Beverly Hsieh MD
--- NOTE | 2025-09-25 14:56 | DI.RAD.S_ITS ---
PROCEDURE: XR KNEE LT 3V INDICATIONS: fall TECHNIQUE: 2 views of the knee were acquired. COMPARISON: None. FINDINGS: Bones: Comminuted distal shaft fracture of the femur with mild overriding and displacement. Soft tissues: No joint effusion. No suspicious soft tissue calcifications. IMPRESSION: Distal femoral fracture. Dictated by: Dante Lei M.D. on 09/25/2025 at 15:28 Approved by: Dante Lei M.D. on 09/25/2025 at 15:29
[2025-09-25 15:07] LABS: Add Manual Diff / Slide Review NO; Hematocrit 42.4 % (36-46); Hemoglobin 14.4 g/dL (12.0-16.0); Lymphocytes Absolute Auto 1900 /uL (1100-4500); Mean Corpuscular HGB Conc 33.8 % (30-36); Mean Corpuscular Hemoglobin 31.7 PG (26-34); Mean Corpuscular Volume 93.7 fL (80-100); Platelet Count 254 X10^3/uL (150-400)
[2025-09-25 15:08] LABS: INR 1.3 (0.9-1.3); Prothrombin Time 15.0 SECONDS (9.4-12.5)
[2025-09-25 15:11] LABS: PTT Partial Thromboplastin Tim 36 SECONDS (25.1-36.5)
[2025-09-25 15:14] LABS: Alanine Aminotransferase 25 IU/L (<35); Albumin 5.0 g/dL (3.5-5.0); Albumin Globulin Ratio 1.6 (1.0-2.8); Alkaline Phosphatase 81 U/L (38-126); Blood Urea Nitrogen 13 mg/dL (7-17); Calcium 9.6 mg/dL (8.4-10.2); Carbon Dioxide 24 mmol/L (22-32); Chloride 104 mmol/L (98-107); Estimated Glomerular Filt Rate > 60 mL/min (>60); Globulin 3.1 g/dL (1.7-4.1); Glucose 101 mg/dL (70-99); HEMOLYSIS < 15 (0-50); Potassium 3.8 mmol/L (3.4-5.1); Sodium 140 mmol/L (137-145); Total Protein 8.1 g/dL (6.3-8.2)
--- NOTE | 2025-09-25 16:35 | PM.HP.1 ---
History of Present Illness History of Present Illness Chief complaint: Fall with lt leg and knee pain Narrative: Patient was a pleasant 80-year-old female with a history of congenital pulmonary stenosis with surgical repair at age 6, known pulmonary aneurysm, AFib, chronic anticoagulation, hypertension, and CHF who had a ground level fall on a slippery garage today. She injured her left leg and presented by ambulance. She was found to have a displaced distal femur fracture and was immobilized. She would good peripheral perfusion. She denies any other injuries, no dyspnea, or chest pain. No nausea, or diarrhea. She was [place] with her who is currently suffering with a compression fracture. ROS: All else reviewed and otherwise unremarkable except as noted in the history and physical. O: T 98.3?, pulse 70, respiration 20, BP 182/94, SpO2 97% room air. NAD, alert and oriented, fluent speech, calm. Normocephalic skull, EOMI, anicteric sclera, symmetric pupils. Oropharynx unremarkable, no droop. Neck supple, midline trachea, no adenopathy. Lungs clear, normal rate and effort. Heart regular, no murmur gallop or rub. Abdomen is soft, non distended and non tender. Extremities are free of edema. Skin is free of rash or lesions. Joints are not swollen or deformed. Judgment appears to be normal. Distal aspect of left thigh is swollen. ECG: Intervals [place] Rate: 61 P: 95 TX: 224 QRS: 96 QRSD: 100 T: 5 QT: 496 QTc: 499 Interpretive Statements Suspect arm lead reversal, interpretation assumes no reversal Sinus rhythm with 1st degree AV block Rightward axis T wave abnormality, consider anterior ischemia Prolonged QT NO SIGNIFICANT CHANGE FROM PRIOR TRACING IMAGING: Knee X-ray: Comminuted distal femoral fracture. Femur X-ray: Distal femoral fracture. CXR: Marked enlargement of the main pulmonary artery, as before. No acute pulmonary process. A/P: 1. left femur fracture, active. 2. AFib, on Eliquis, stable. 3. HTN, active. 4. CHF (The ejection fraction is estimated to be 55-60%), stable. PLAN: -NPO midnight -stay medications -IV fluids -hold Eliquis -operative repair anticipated 09 26. Anticipate 2 midnights in the hospital, supports inpatient status. Full code [facility] Medical History Encounter for subsequent annual wellness visit (AWV) in Medicare patient Benign essential tremor Obesity (BMI 30-39.9) Alcohol use Pulmonary artery aneurysm Hypertension Asthma (~1987) Seasonal allergies (~1945) Benign familial tremor (~1959) Osteopenia Fractures Mumps Measles Chicken pox Cataracts, bilateral (~2015) Painful menstrual periods (~1978) Fibroids (~1978) Endometriosis (~1978) Colon polyps (~2011) Pulmonary stenosis (~1995) Surgical History History of colonoscopy (01/2012) Papilloma of right breast (~2018) Anesthesia History of laparoscopy (~1978) History of lumpectomy History of cardiac catheterization History of open heart surgery (~1950) History of hysterectomy (~1978) Family History Father Cancer Mother Heart disease Social History marital status: number of children: 0 household members: spouse lives independently: Yes education level: college occupational status: other (retired) Smoking Status: Never smoker alcohol intake: current substance use type: does not use Meds Home Medications and Allergies Home Medications ?Medication ?Instructions ?Recorded ?Confirmed ?Type aspirin 81 mg tablet,delayed 81 mg PO DAILY 09/19/24 05/13/25 History release (Adult Aspirin Regimen) atorvastatin 40 mg tablet 40 mg PO DAILY #90 tabs 11/20/24 05/13/25 Rx apixaban 5 mg tablet 5 mg PO BID #60 tabs 04/13/25 05/13/25 Rx losartan 50 mg tablet 50 mg PO BEDTIME high blood 05/13/25 05/13/25 History pressure metoprolol tartrate 100 mg tablet 100 mg PO BID 05/13/25 05/13/25 History furosemide 20 mg tablet 20 mg PO DAILY #3 tabs 07/31/25 Rx Allergies Allergy/AdvReac Type Severity Reaction Status Date / Time Penicillins Allergy Intermediate hives Verified 09/25/25 14:44 Exam Vital Signs (past 8 hours): - 09/25/25 14:35 Temperature 98.3 F Pulse Rate 70 Respiratory Rate 20 Blood Pressure 182/94 H Pulse Oximetry 97 Oxygen Delivery Method Room Air Oxygen Delivery Method Room Air Objective Labs 09/25/25 14:30 09/25/25 14:30 Labs: Laboratory Results - last 24 hr 09/25/25 14:30 WBC 7.2 RBC 4.53 Hgb 14.4 Hct 42.4 MCV 93.7 MCH 31.7 MCHC 33.8 RDW 13.6 Plt Count 254 Neut % (Auto) 60.1 Lymph % (Auto) 26.7 [place] % (Auto) 9.6 Eos % (Auto) 3.0 Baso % (Auto) 0.6 Neut # (Auto) 4300 Lymph # (Auto) 1900 [place] # (Auto) 700 Eos # (Auto) 200 Baso # (Auto) 0 PT 15.0 H INR 1.3 APTT 36 Sodium 140 Potassium 3.8 Chloride 104 Carbon Dioxide 24 BUN 13 Creatinine 0.94 Estimated GFR > 60 BUN/Creatinine Ratio 13.8 Glucose 101 H Calcium 9.6 Total Bilirubin 1.0 AST 33 ALT 25 Alkaline Phosphatase 81 Total Protein 8.1 Albumin 5.0 Globulin 3.1 Albumin/Globulin Ratio 1.6 Assessment & Plan Time-Based Coding :: 35 min spent with patient and on the chart (including review of chart, obtaining history, exam, reviewing outside data, placing orders, documenting exam and treatment plan, and counseling patient) on 09/25. Quality MIPS - Admit I confirm the patient?s Advance Care Plan is present, Code status is documented, Surrogate decision maker is in patient?s record [If Yes, STOP here]: Yes MIPS - Meds 'Current medications' to include all prescriptions, [id number] products, herbals, cannabis/cannabidiol products, and vitamin/mineral/dietary (nutritional) supplements. I have utilized all available resources to obtain, update, or review the patient?s current medications. [If Yes, STOP here]: Yes
[2025-09-25] MEDS: fentaNYL 100 MCG/2 ML INJ 25 MCG IV (17:23)
[2025-09-25] MEDS: ONDANSETRON 4 MG/2 ML INJ IV ×2 (17:29→20:27)
--- NOTE | 2025-09-25 18:04 | PC.NURSE ---
Vitals not transferring directing into chart, provider aware.
--- NOTE | 2025-09-25 19:29 | PC.NURSE ---
Vitals not crossing over to chart. Physician, Director and Charge aware. Printed vitals sent to medical records.
--- NOTE | 2025-09-25 20:00 | PC.NURSE ---
pt has fx left leg unable to ambulate at this time but normally ambulates without assistance. at present splint to the LLE with ext elevated on pillows, cap refill <2sec
--- NOTE | 2025-09-25 20:38 | PM.HP.IH.1 ---
History of Present Illness History of Present Illness Chief complaint: Fall with lt leg and knee pain [facility], [facility] Medical History Encounter for subsequent annual wellness visit (AWV) in Medicare patient Benign essential tremor Obesity (BMI 30-39.9) Alcohol use Pulmonary artery aneurysm Hypertension Asthma (~1987) Seasonal allergies (~1945) Benign familial tremor (~1959) Osteopenia Fractures Mumps Measles Chicken pox Cataracts, bilateral (~2015) Painful menstrual periods (~1978) Fibroids (~1978) Endometriosis (~1978) Colon polyps (~2011) Pulmonary stenosis (~1995) Surgical History History of colonoscopy (01/2012) Papilloma of right breast (~2018) Anesthesia History of laparoscopy (~1978) History of lumpectomy History of cardiac catheterization History of open heart surgery (~1950) History of hysterectomy (~1978) Family History Father Cancer Mother Heart disease Social History marital status: number of children: 0 household members: spouse lives independently: Yes education level: college occupational status: other (retired) Smoking Status: Never smoker alcohol intake: current substance use type: does not use Meds Home Medications and Allergies Home Medications ?Medication ?Instructions ?Recorded ?Confirmed ?Type aspirin 81 mg tablet,delayed 81 mg PO DAILY 09/19/24 05/13/25 History release (Adult Aspirin Regimen) atorvastatin 40 mg tablet 40 mg PO DAILY #90 tabs 11/20/24 05/13/25 Rx apixaban 5 mg tablet 5 mg PO BID #60 tabs 04/13/25 05/13/25 Rx losartan 50 mg tablet 50 mg PO BEDTIME high blood 05/13/25 05/13/25 History pressure metoprolol tartrate 100 mg tablet 100 mg PO BID 05/13/25 05/13/25 History furosemide 20 mg tablet 20 mg PO DAILY #3 tabs 07/31/25 Rx Allergies Allergy/AdvReac Type Severity Reaction Status Date / Time Penicillins Allergy Intermediate hives Verified 09/25/25 14:44 Exam Vital Signs (past 8 hours): - 09/25/25 14:35 09/25/25 15:30 09/25/25 16:00 Temperature 98.3 F Pulse Rate 70 79 80 Pulse Rate [Left Dorsalis Pedis] Respiratory Rate 20 Blood Pressure 182/94 H Pulse Oximetry 97 95 94 Oxygen Delivery Method Room Air Room Air Room Air 09/25/25 16:30 09/25/25 17:00 09/25/25 17:30 Temperature Pulse Rate 80 80 87 Pulse Rate [Left Dorsalis Pedis] Respiratory Rate Blood Pressure Pulse Oximetry 95 95 92 Oxygen Delivery Method Room Air Room Air 09/25/25 18:00 09/25/25 19:00 09/25/25 19:32 Temperature Pulse Rate 87 85 Pulse Rate [Left Dorsalis Pedis] 70 Respiratory Rate 18 18 Blood Pressure 163/94 H 110/87 Pulse Oximetry 92 95 Oxygen Delivery Method Room Air Room Air Oxygen Delivery Method Room Air Objective Labs 09/25/25 14:30 09/25/25 14:30 Labs: Laboratory Results - last 24 hr 09/25/25 14:30 WBC 7.2 RBC 4.53 Hgb 14.4 Hct 42.4 MCV 93.7 MCH 31.7 MCHC 33.8 RDW 13.6 Plt Count 254 Neut % (Auto) 60.1 Lymph % (Auto) 26.7 [place] % (Auto) 9.6 Eos % (Auto) 3.0 Baso % (Auto) 0.6 Neut # (Auto) 4300 Lymph # (Auto) 1900 [place] # (Auto) 700 Eos # (Auto) 200 Baso # (Auto) 0 PT 15.0 H INR 1.3 APTT 36 Sodium 140 Potassium 3.8 Chloride 104 Carbon Dioxide 24 BUN 13 Creatinine 0.94 Estimated GFR > 60 BUN/Creatinine Ratio 13.8 Glucose 101 H Calcium 9.6 Total Bilirubin 1.0 AST 33 ALT 25 Alkaline Phosphatase 81 Total Protein 8.1 Albumin 5.0 Globulin 3.1 Albumin/Globulin Ratio 1.6 Assessment & Plan Assessment & Plan narrative: CC: LEFT Femur Fracture HPI: 80yo F With a past medical history of congenital pulmonary stenosis, pulmonary aneurysm, atrial fibrillation, chronic anticoagulation, hypertension and CHF had a ground level fall today in a slippery garage.? She reports that she slipped and fell and injured her left leg.? She was unable to get up so she called 911.? She was brought into the emergency department by ambulance where they obtained radiographs.? She was found to have a displaced distal femur fracture and was immobilized.? Orthopedics was then consulted. ? She reports that she has isolated pain to the left thigh area.? Denies loss of function. EXAM: LEFT ?lower extremity: Well appearing, No acute distress. ? Left lower leg in a splint.? No obvious deformity.? No open wounds. ? Range motion deferred. Neurovascular exam: ??Fires ta/gc/ehl; SILT s/s/sp/dp/t, ?cap refill less than 2 IMAGING: ?Left femur and Knee Radiographs on ?September 25, 2025: ?displaced, oblique distal femur fracture.? It is mildly comminuted. ASSESSMENT: 80yo F ??Presents with history, physical exam and imaging findings consistent with a left distal femur fracture.? I explained to the patient that in order to have returned to weightbearing faster and have her best functional outcome I would recommend operative management. ? The risks, benefits and alternatives of the procedure were discussed with the patient to include bleeding, infection, damage to surrounding structures, ongoing pain, knee stiffness, malunion, nonunion, need for additional surgeries and anesthesia risks such as heart attack, stroke and .? Patient understood these risks and want to move forward with the procedure.? Consent was signed in the emergency room. ? She was consented for operative management of the left femur fracture. PLAN: ?Admit to medicine ?Nonweightbearing left lower extremity ?NPO at midnight ?hold Eliquis ?plan for operative management on September 26, 2025 ? The patient had the treatment plan explained, questions answered and seemed satisfied with the plan. There were no apparent barriers to communication. The documentation in this note may have been entered with the assistance of computer voice recognition and dictation software. Therefore, it may contain unintended errors in text, spelling, punctuation, or grammar. Jewel Harrison MD Orthopaedic Surgeon Time-Based Coding :: 60minutes spent with patient and on the chart (including review of chart, obtaining history, exam, reviewing outside data, placing orders, documenting exam and treatment plan, and counseling patient) on 09/25/25. PROFEE [employer] Helper Document charge(s): Yes
--- NOTE | 2025-09-25 21:13 | PC.NURSE ---
EMS splint removed and long leg splint applied to left leg, pt tolerated well
[2025-09-26] VITALS (39 sets, daily range): BP systolic 104–156; BP diastolic 47–85; PULSE 70–101; RESP 8–18; TEMP 36–36.9; O2SAT 92–98; BMI 32.4
--- NOTE | 2025-09-26 | DI.RAD.S_ITS ---
PROCEDURE: XR FEMUR LT MIN 2V INDICATIONS: IM NAILING LEFT FEMUR INTEROP TECHNIQUE: 9 intraoperative fluoroscopic views of the femur were acquired. COMPARISON: [facility], CR, XR FEMUR LT MIN 2V, 09/25/2025, 15:02. FINDINGS: Intraoperative fluoroscopic images shows intramedullary rodding of left femoral shaft with fixation screws placed in place. IMPRESSION: Fluoro guidance was provided intraoperatively for intramedullary rim nailing of left femur by ordering physician. Dictated by: Damian Latham M.D. on 09/26/2025 at 14:36 Approved by: Damian Latham M.D. on 09/26/2025 at 14:37
[2025-09-26] MEDS: ONDANSETRON 4 MG/2 ML INJ IV ×2 (02:02→09:29)
--- NOTE | 2025-09-26 02:25 | PC.NURSE ---
Patient admitted and boarding in ED overnight. Patient was placed in a hospital bed instead of ED stretcher for comfort. Purewick in place and on monitor. Call light is within patient reach. POLLY manuel
--- NOTE | 2025-09-26 02:30 | PC.NURSE ---
pt moved to hospital bed for comfort and lights dimmed and warm blanket given. pt states she is more comfortable since the long leg splint was placed on her leg call gorman in reach
--- NOTE | 2025-09-26 04:00 | PC.NURSE ---
pt medicated again for pain, states after moving over to the new bed the pain just didn't settle back down, offered to reposition
--- NOTE | 2025-09-26 07:13 | P.PN_ITS ---
Subjective Subjective Interval history: Summary: Patient was a pleasant 80-year-old female with a history of congenital pulmonary stenosis with surgical repair at age 6, known pulmonary aneurysm, AFib, chronic anticoagulation, hypertension, and CHF who had a ground level fall on a slippery garage today. She injured her left leg and presented by ambulance. She was found to have a displaced distal femur fracture and was immobilized. 09/26: S/P ORIF left distal fibula. S: Good pain control, no dyspnea. O: T 97.1, BP 123/61, HR 83, RR 15, SaO2 95%. NAD, alert and oriented. Fluent speech. Lungs are clear, normal rate and effort. Heart is regular, no murmur gallop or rub. Abdomen is soft, non distended. Extremities are free of edema. LABS: ECG: Intervals [place] Rate: 61 P: 95 MN: 224 QRS: 96 QRSD: 100 T: 5 QT: 496 QTc: 499 Interpretive Statements Suspect arm lead reversal, interpretation assumes no reversal Sinus rhythm with 1st degree AV block Rightward axis T wave abnormality, consider anterior ischemia Prolonged QT NO SIGNIFICANT CHANGE FROM PRIOR TRACING IMAGING: Knee X-ray: Comminuted distal femoral fracture. Femur X-ray: Distal femoral fracture. CXR: Marked enlargement of the main pulmonary artery, as before. No acute pulmonary process. A/P: 1. left femur fracture, active. S/P ORIF. 2. AFib, on Eliquis, stable. 3. HTN, active. 4. CHF (The ejection fraction is estimated to be 55-60%), stable. PLAN: -PT evaluation -pain medications -IV fluids -hold Eliquis, start 12/12 AM. Anticipate 2 midnights in the hospital, supports inpatient status. Full code Exam Vital Signs (past 8 hours): - 09/25/25 23:32 09/26/25 00:28 09/26/25 00:30 Pulse Rate 72 83 85 Respiratory Rate 12 11 L 13 Blood Pressure 153/71 H Pulse Oximetry 98 98 96 09/26/25 00:30 09/26/25 01:00 09/26/25 01:00 Pulse Rate 72 Respiratory Rate 12 Blood Pressure 124/64 134/61 Pulse Oximetry 96 09/26/25 01:30 09/26/25 01:30 09/26/25 02:00 Pulse Rate 79 Respiratory Rate 14 Blood Pressure 143/67 H 155/85 H Pulse Oximetry 97 09/26/25 02:00 09/26/25 02:23 09/26/25 02:23 Pulse Rate 84 91 H Respiratory Rate 14 11 L Blood Pressure 156/75 H Pulse Oximetry 98 98 09/26/25 02:30 09/26/25 03:00 09/26/25 03:30 Pulse Rate 84 83 80 Respiratory Rate 14 14 9 L Blood Pressure Pulse Oximetry 96 97 96 09/26/25 04:00 09/26/25 04:00 09/26/25 04:30 Pulse Rate 82 83 Respiratory Rate 8 L Blood Pressure 139/65 Pulse Oximetry 95 95 09/26/25 05:00 09/26/25 05:30 09/26/25 06:00 Pulse Rate 84 84 86 Respiratory Rate 8 L 8 L 8 L Blood Pressure Pulse Oximetry 93 95 96 09/26/25 06:30 Pulse Rate 86 Respiratory Rate 8 L Blood Pressure Pulse Oximetry 95 Oxygen Delivery Method Room Air Objective Labs 09/26/25 07:55 09/26/25 07:55 Labs: Laboratory Results - last 24 hr 09/25/25 14:30 WBC 7.2 RBC 4.53 Hgb 14.4 Hct 42.4 MCV 93.7 MCH 31.7 MCHC 33.8 RDW 13.6 Plt Count 254 Neut % (Auto) 60.1 Lymph % (Auto) 26.7 [place] % (Auto) 9.6 Eos % (Auto) 3.0 Baso % (Auto) 0.6 Neut # (Auto) 4300 Lymph # (Auto) 1900 [place] # (Auto) 700 Eos # (Auto) 200 Baso # (Auto) 0 PT 15.0 H INR 1.3 APTT 36 Sodium 140 Potassium 3.8 Chloride 104 Carbon Dioxide 24 BUN 13 Creatinine 0.94 Estimated GFR > 60 BUN/Creatinine Ratio 13.8 Glucose 101 H Calcium 9.6 Total Bilirubin 1.0 AST 33 ALT 25 Alkaline Phosphatase 81 Total Protein 8.1 Albumin 5.0 Globulin 3.1 Albumin/Globulin Ratio 1.6 [facility] Medical History Encounter for subsequent annual wellness visit (AWV) in Medicare patient Benign essential tremor Obesity (BMI 30-39.9) Alcohol use Pulmonary artery aneurysm Hypertension Asthma (~1987) Seasonal allergies (~1945) Benign familial tremor (~1959) Osteopenia Fractures Mumps Measles Chicken pox Cataracts, bilateral (~2015) Painful menstrual periods (~1978) Fibroids (~1978) Endometriosis (~1978) Colon polyps (~2011) Pulmonary stenosis (~1995) Surgical History History of colonoscopy (01/2012) Papilloma of right breast (~2018) Anesthesia History of laparoscopy (~1978) History of lumpectomy History of cardiac catheterization History of open heart surgery (~1950) History of hysterectomy (~1978) Family History Father Cancer Mother Heart disease Social History marital status: number of children: 0 household members: spouse lives independently: Yes education level: college occupational status: other (retired) Smoking Status: Never smoker alcohol intake: current substance use type: does not use Assessment & Plan Time-Based Coding :: [TOTAL MINUTES] spent with patient and on the chart (including review of chart, obtaining history, exam, reviewing outside data, placing orders, documenting exam and treatment plan, and counseling patient) on [DATE].
[2025-09-26 08:13] LABS: Add Manual Diff / Slide Review NO; Hematocrit 33.4 % (36-46); Hemoglobin 11.4 g/dL (12.0-16.0); Lymphocytes Absolute Auto 1500 /uL (1100-4500); Mean Corpuscular HGB Conc 34.1 % (30-36); Mean Corpuscular Hemoglobin 32.0 PG (26-34); Mean Corpuscular Volume 93.7 fL (80-100); Platelet Count 200 X10^3/uL (150-400)
[2025-09-26 08:26] LABS: Blood Urea Nitrogen 13 mg/dL (7-17); Calcium 8.7 mg/dL (8.4-10.2); Carbon Dioxide 29 mmol/L (22-32); Chloride 103 mmol/L (98-107); Estimated Glomerular Filt Rate > 60 mL/min (>60); Glucose 120 mg/dL (70-99); HEMOLYSIS < 15 (0-50); Potassium 4.4 mmol/L (3.4-5.1); Sodium 138 mmol/L (137-145)
[2025-09-26] MEDS: METOPROLOL ER 50 MG TABLET PO (08:26)
[2025-09-26] MEDS: LACTATED RINGERS 1,000 ML 42 ML IV ×2 (10:55→13:58)
[2025-09-26] MEDS: TRANEXAMIC ACID IRR (11:30)
[2025-09-26] MEDS: SODIUM CHLORIDE IRR (11:30)
--- NOTE | 2025-09-26 11:47 | SUR.OPER ---
Head on pillow. Supine on fracture table with operative leg prepped into field. Other leg secured in padded stirrup. Arms extended <90 degrees, belt over abdomen
--- NOTE | 2025-09-26 14:08 | DI.RAD.S_ITS ---
PROCEDURE: XR FEMUR LT MIN 2V INDICATIONS: POST OP IM NAILING LEFT FEMUR TECHNIQUE: 2 views of the femur were acquired. COMPARISON: [facility], CR, XR FEMUR LT MIN 2V, 09/26/2025, 11:39. [facility], CR, XR FEMUR LT MIN 2V, 09/25/2025, 15:02. FINDINGS: Bones: Interval postsurgical changes from distal femoral fracture fixation with an intramedullary nail. Proximal and distal locking screws are present and there is a single inter fragmentary screws. Anatomic alignment has been restored. Soft tissues: Multiple skin rashmi and additional postsurgical changes are seen in the soft tissues surrounding the thigh. IMPRESSION: Status post internal fixation of the previously seen distal femoral fracture with sikh of anatomic alignment. Approved by: Kayden Granado M.D. on 09/26/2025 at 15:28
--- NOTE | 2025-09-26 15:29 | PM.OP.1 ---
Operative Date/Time/Diagnoses Date of procedure: 09/26/25 Time of procedure: 11:00 Pre-op diagnosis: LEFT Distal Femoral Shaft Post-op diagnosis: same Procedure & Clinicians Procedure: Open reduction and internal fixation with a intramedullary nail of the left femur fracture Same procedure(s) as scheduled: Yes Surgeon: Jewel Harrison Assisted?: Yes Data Entry Clerk: Sona Cummings Anesthesia Type: General Operative Notes Findings: Unstable, displaced distal femoral shaft fracture Closure Type: primary Specimen(s): none sent Applied: none Estimated Blood Loss (mL): 200 Blood products transfused: none Procedure in detail: Operative Report Procedure Date: 09/26/25 Planned Procedure: Open reduction and internal fixation of the left femoral shaft fracture with intramedullary nail/screws Pre-Op Diagnosis: Closed,Displaced femoral shaft fractures of the left leg Procedure Performed: Open reduction internal fixation of the left Femur Fracture utilizing [employer] 13 mm x 38 cm locked intramedullary nail, 3 distal locking screws, 1 blocking screw and 1 proximal screws. Post Op Diagnosis: Same as preoperative diagnosis - Procedure Note Primary Surgeon: Jewel Harrison MD Secondary Surgeon: Sona WANG A physician assistant family teacher was medically necessary to help with prepping and draping, positioning, protection of vital structures, assistance during the procedure including wound closure, dressing and/or splinting. Anesthesia Technique: General ET tube Estimated Blood Loss (mL): 200 Indications: Unstable, displaced left distal femoral shaft fracture Complications: None Narrative: The patient was brought to the operating room. Placed in supine position. After general endotracheal anesthesia been obtained, a bump was placed beneath the operative buttock. The injured extremity was prepped and draped in a sterile manner in the usual fashion. The C-arm image intensifier was covered with sterile drape. A timeout procedure was performed by the entire operating room team and all were in agreement. No tourniquet was utilized. Given the location and angle of the fracture, it was determined that a anterior approach would best give access to the fracture and the best angle for reduction. Fluoro was utilized to locate the level of the fracture. This was marked on her anterior thigh. We came sharply through the skin with a scalpel. Hemostasis was obtained. We then bluntly dissected down until we identified the quadriceps tendon. This was split sharply with a scalpel. Self retractor was placed and we immediately identified the anterior cortex of the femur. We are able to palpate within this incision and feel the displacement of the fracture fragments. Utilizing a combination of fluoroscopy, axial traction, internal and external rotation and bone clamps we are able to get nearly anatomic reduction. This was confirmed both on the AP and lateral radiographs. We then turned our attention to placing the femoral nail. A peripatellar tendon approach was utilized. A 4 centimeter incision was made just medial to the patellar tendon. The patellar tendon was protected throughout the remaining portion of the operation. Using AP and lateral fluoroscopy we identified our starting point. We were midline on the AP fluoroscopy and just anterior to [place]um[place]at's line. The guidewire was driven into the femoral canal. Again the location was confirmed on AP and lateral fluoroscopy. Opening Reamer was used to open the canal. Ball-tip guidewire was then passed retrograde up past the lesser trochanter. The length of the nail was then measured utilizing the measuring device. We then sequentially reamed getting to a size 14. The nail was then selected and we placed it from distal to proximal. Utilizing fluoroscopy we ensured that it was at its adequate depth at the knee and that it was past the lesser trochanter proximally. Utilizing the sure shot we placed 1 interlocking screw proximally. We then turned our attention distally where we placed 3 interlocking bolts. We also added a anterior to posterior blocking screw for additional fixation. Happy with the reduction and the location of all of our screws we then took final fluoroscopy ensuring adequate reductions and no hardware complications. The incision sites were thoroughly irrigated with saline. The quadriceps tendon was repaired with 0 Vycryl suture, 2-0 Vicryl and rashmi. The locking screws holes were approximated with single 2-0 Vicryl and rashmi. Xeroform was applied to the incision sites. She did receive 2 g of Ancef and 1 g of TXA intravenously, tolerated procedure well. Jewel Harrison MD Orthopedic Surgeon Complications: none Post-operative Condition: stable Disposition: PACU
[2025-09-26] MEDS: ACETAMINOPHEN 325 MG TABLET 650 MG PO ×2 (15:49→20:49)
--- NOTE | 2025-09-26 17:00 | PT.IIE ---
Current Diagnoses Unspecified fracture of left femur, initial encounter for closed fracture (09/25/25) Surgery Performed Operation Date: 09/26/25 10:45 Actual Procedures p Intramedullary Nailing Femoral(Left) - Jewel Harrison MD Surgical History (Last Reviewed 09/25/25 @ 19:08 by Kristina Tan PA-C) Anesthesia History of cardiac catheterization History of colonoscopy (01/2012) History of hysterectomy (~1978) History of laparoscopy (~1978) History of lumpectomy History of open heart surgery (~1950) Papilloma of right breast (~2018) Medical History (Last Reviewed 09/25/25 @ 19:08 by Kristina Tan PA-C) Alcohol use Asthma (~1987) Benign essential tremor Benign familial tremor (~1959) Cataracts, bilateral (~2015) Chicken pox Colon polyps (~2011) Encounter for subsequent annual wellness visit (AWV) in Medicare patient Endometriosis (~1978) Fibroids (~1978) Fractures Hypertension Measles Mumps Obesity (BMI 30-39.9) Osteopenia Painful menstrual periods (~1978) Pulmonary artery aneurysm Pulmonary stenosis (~1995) Seasonal allergies (~1945) Physical Therapy Inpatient Evaluation/Re-Eval M1 PT IP Prior Functional Status Start: 09/26/25 16:05 Freq: NEEDED Status: Active Protocol: Document 09/26/25 16:05 [facility] (Rec: 09/26/25 17:00 [facility] [id number]) Medical Review Prior Functional Status Medical History Yes Reviewed Diet/Fluid Regular Consistency Communication WNL Mobility and Gait no AD Activities of Daily normally orders meals, has vessel scrapper helper every 2 weeks Living and IADL's Social History Household Members spouse Living Arrangements Apartment/Condo Number of Floors ( One Floor Floors) Number of Stairs To sunken living room; no ANIL Enter/Railing? Home Environment High Toilet,Walk in Shower Home Equipment Long Handled Shoe Horn,Supervisor General,Grab Bars In Shower Employment Status Retired Additional Social step up shower; just had fall and L1 History Comment compression fx so can't physically help M2 PT-IP Current Condition Start: 09/26/25 16:05 Freq: NEEDED Status: Active Protocol: Document 09/26/25 16:05 [facility] (Rec: 09/26/25 17:00 [facility] [id number]) Physical Therapy Current Condition Current Condition Evaluation Date 09/26/25 Treatment Diagnosis L distal femur ORIF w/IM nailing M3 PT-IP Subjective Start: 09/26/25 16:05 Freq: NEEDED Status: Active Protocol: Document 09/26/25 16:05 [facility] (Rec: 09/26/25 17:00 [facility] [id number]) Subjective Physical Therapy Visit Type Type Initial Evaluation Visit Start Time 16:00 Visit Stop Time 16:42 Number of SENIOR IT ASSISTANT Visits 0 Physical Therapy Visit Comments Patient Goals concerned about home d/t having recent fall and L1 compression fx M4 PT-IP Mobility and Gait Start: 09/26/25 16:05 Freq: NEEDED Status: Active Protocol: Document 09/26/25 16:05 [facility] (Rec: 09/26/25 17:00 [facility] [id number]) PT-Bed Mobility Assessment Supine to Sit Supine to Sit Standby Assistance,Head of Bed Elevated,Bedrails Sit to Supine Sit to Supine Standby Assistance,Head of Bed Elevated,Bedrails Scooting Scooting to Edge of Standby Assistance Bed Scooting Up and Down Standby Assistance in Bed PT-Transfer Assessment Sit to and From Stand Sit to and from Contact Guard Assistance,Use of Upper Extremities Stand Equipment Transfer Assistive Gait Belt,Front Wheeled Walker Device Orthotic/Prosthetic No Devices or Brace: Comments Mobility Comments supine BP 116/59, seated 122/64, after activity 127/64 supine to sit w/HOB elevated SBA w/cues for sequencing. Scoot to EOB SBA. Sat for a few min to adjust to position. Cues for sit to stand to FWW w/o WB Into LLE CGA. Pt felt woozy so sat back down then scooted up the bed w/cues for sequence then SBA for sit to supine. left with call light in reach and bed alarm on. PT-Balance Assessment Sitting Balance and Reactions Static Sitting Good Balance Ability Dynamic Sitting Good Balance Ability Standing Balance and Reactions Static Standing Fair Balance Ability Dynamic Standing Poor Balance Ability Device Used FWW M5 PT-IP Objective Assessments Start: 09/26/25 16:05 Freq: NEEDED Status: Active Protocol: Document 09/26/25 16:05 [facility] (Rec: 09/26/25 17:00 [facility] [id number]) Orientation Orientation/Cognition Level of Alertness Alert Language Function No Deficits Noted Ability Safety Awareness Understands Safety Issues Memory Description No Deficits Noted Gross Range of Motion Lower Extremity ROM Assessment Left Impaired Strength Lower Extremity Strength Assessment Left Impaired Hip 3+/5 Knee 3/5 Ankle 4-/5 M6 PT-IP Treatment Start: 09/26/25 16:05 Freq: NEEDED Status: Active Protocol: Document 09/26/25 16:05 [facility] (Rec: 09/26/25 17:00 [facility] [id number]) Physical Therapy Treatment Education Education Provided Safety Other Treatments Other Treatment edu re: needing FWW, SPC, BSC and shower chair for home Performed . M7 PT-IP Assessment and Plan Start: 09/26/25 16:05 Freq: NEEDED Status: Active Protocol: Document 09/26/25 16:05 [facility] (Rec: 09/26/25 17:00 [facility] [id number]) PT Summary Assessment and Plan Potential Rehabilitation Good Potential Status of Condition Evolving at Evaluation Summary Impairments Pain,ROM,Strength,Balance,Bed Mobility,Transfers,Gait, Activity Tolerance Assessment Summary Pt presents w/L distal femur ORIF w/IM nailing done today with good pain control at this time. She does not have appropriate home equipment at this time and just had a fall w/L1 compression fx so will not be able to lift, bend or help much w/mobility. She is concerned about this w/going home despite the preference to return home. At this time d/t pt likely requiring a lot of assist w/ADLs and will likely have difficulty maintaining TTWB w/transfer safely, she would benefit from SNF rehab prior to return home to dec risk for falls and improve pt functional independence. Goals Bed Mobility Goal Independent Transfer Goal Independent Gait Goal Independent,Front Wheel Walker Gait Distance 20ft TTWB Other Goals up/down 1 step w/WC Able to self propel in WC 50ft Days to Meet Goals 10 Frequency of Treatment Frequency Of Once a Day Treatment Treatment Plan Physical Therapy Bed Mobility Training,Transfer Training,Gait Training, Treatment Plan Therapeutic Exercise,Balance Retraining,Post Op Education,Neuromuscular Re-ed,Manual Therapy Weight Bearing Status Weight Bearing Touch Down Weight Bearing Status Recommendations To Nursing Amount of Assist 2 Person Assist Needed Discharge Recommendations PT Discharge SNF Rehab Recommendations Equipment Needed for FWW, WC, SPC, BSC, shower chair Home Before Discharge Transportation Needs Wheelchair/Cabulance at Discharge - PT assist 1
[2025-09-26] MEDS: APIXABAN 5 MG TABLET PO (20:49)
[2025-09-26] MEDS: LOSARTAN 50 MG TABLET PO (20:49)
[2025-09-26] MEDS: SOTALOL 80 MG TABLET PO (20:49)
[2025-09-26] MEDS: DOCUSATE 100 MG CAPSULE PO (20:51)
[2025-09-27] MEDS: ACETAMINOPHEN 325 MG TABLET 650 MG PO ×3 (05:28→20:53)
[2025-09-27 06:32] LABS: Add Manual Diff / Slide Review NO; Hematocrit 28.6 % (36-46); Hemoglobin 9.8 g/dL (12.0-16.0); Lymphocytes Absolute Auto 1600 /uL (1100-4500); Mean Corpuscular HGB Conc 34.2 % (30-36); Mean Corpuscular Hemoglobin 32.1 PG (26-34); Mean Corpuscular Volume 94.1 fL (80-100); Platelet Count 197 X10^3/uL (150-400)
[2025-09-27 06:49] LABS: Blood Urea Nitrogen 13 mg/dL (7-17); Calcium 8.5 mg/dL (8.4-10.2); Carbon Dioxide 28 mmol/L (22-32); Chloride 102 mmol/L (98-107); Estimated Glomerular Filt Rate > 60 mL/min (>60); Glucose 117 mg/dL (70-99); HEMOLYSIS < 15 (0-50); Potassium 4.1 mmol/L (3.4-5.1); Sodium 136 mmol/L (137-145)
--- NOTE | 2025-09-27 08:27 | P.PN_ITS ---
Subjective Subjective Interval history: Subjective Patient was a pleasant 80-year-old female with a history of congenital pulmonary stenosis with surgical repair at age 6, known pulmonary aneurysm, AFib, chronic anticoagulation, hypertension, and CHF who had a ground level fall on a slippery garage today. She injured her left leg and presented by ambulance. She was found to have a displaced distal femur fracture and was immobilized. She is s/p ORIF with intramedullary nail on 09/26/25. The patient tolerated the procedure well and has had no postoperative complications. Her pain is currently well controlled. She denies paresthesias of the left lower extremity, no nausea/vomiting, no chest pain or shortness of breath. She had a brief visit with PT yesterday and is awaiting follow-up today. Objective T 96.6, BP 108/53, HR 80, RR 15, 95% on RA Alert and oriented, no acute distress Regular rate and rhythm, no murmurs Clear to auscultation, normal work of breathing Soft, nondistended, positive bowel signs Warm without edema, dressings left lower extremity have minimal sanguinous drainage Pleasant and cooperative Labs-H&H decreased from 11.4/33.4 to 9.8/28.6, otherwise no clinically significant abnormalities and CBC or BMP Radiology-postoperative x-ray shows anatomic alignment after internal fixation of distal femur fracture EKG-no new EKGs A&P Left femur fracture Postoperative day 1., patient is doing well with adequate pain control. She is going to be toe-touch weightbear and PT feels that she will require a SNF and she is unable to manage the toe-touch weightbear independently. Her recently sustained a spinal compression fracture so is unable to assist at home -PT/OT -multimodal pain management Postoperative anemia Likely from intraoperative blood loss and dilutional component. -recheck in the a.m. Hypertension HFpEF (EF 55-60%) Clinically stable -resume Eliquis -continue losartan -continue sotalol -continue statin Discharge planning Patient is medically stable for discharge to the hospital but requires half-way facility. Care management is working on this. Exam Vital Signs (past 8 hours): Oxygen Delivery Method Room Air Oxygen Flow Rate 0 Objective Labs 09/27/25 05:43 09/27/25 05:43 Labs: Laboratory Results - last 24 hr 09/27/25 05:43 WBC 9.4 RBC 3.04 L Hgb 9.8 L Hct 28.6 L MCV 94.1 MCH 32.1 MCHC 34.2 RDW 13.3 Plt Count 197 Neut % (Auto) 70.7 Lymph % (Auto) 17.0 L [place] % (Auto) 11.7 Eos % (Auto) 0.3 L Baso % (Auto) 0.3 Neut # (Auto) 6700 Lymph # (Auto) 1600 [place] # (Auto) 1100 H Eos # (Auto) 0 Baso # (Auto) 0 Sodium 136 L Potassium 4.1 Chloride 102 Carbon Dioxide 28 BUN 13 Creatinine 0.78 Estimated GFR > 60 BUN/Creatinine Ratio 16.7 Glucose 117 H Calcium 8.5 PFSH Medical History Encounter for subsequent annual wellness visit (AWV) in Medicare patient Benign essential tremor Obesity (BMI 30-39.9) Alcohol use Pulmonary artery aneurysm Hypertension Asthma (~1987) Seasonal allergies (~1945) Benign familial tremor (~1959) Osteopenia Fractures Mumps Measles Chicken pox Cataracts, bilateral (~2015) Painful menstrual periods (~1978) Fibroids (~1978) Endometriosis (~1978) Colon polyps (~2011) Pulmonary stenosis (~1995) Surgical History History of colonoscopy (01/2012) Papilloma of right breast (~2018) Anesthesia History of laparoscopy (~1978) History of lumpectomy History of cardiac catheterization History of open heart surgery (~1950) History of hysterectomy (~1978) Family History Father Cancer Mother Heart disease Social History marital status: number of children: 0 household members: spouse lives independently: Yes education level: college occupational status: other (retired) Smoking Status: Never smoker alcohol intake: current substance use type: does not use Assessment & Plan Time-Based Coding :: [TOTAL MINUTES] spent with patient and on the chart (including review of chart, obtaining history, exam, reviewing outside data, placing orders, documenting exam and treatment plan, and counseling patient) on [DATE].
[2025-09-27] MEDS: SOTALOL 80 MG TABLET PO ×2 (08:37→20:53)
[2025-09-27] MEDS: APIXABAN 5 MG TABLET PO ×2 (08:37→20:52)
[2025-09-27] MEDS: BENZOCAINE/MENTHOL 1 LOZ PKT 1 EACH PO (08:37)
[2025-09-27] MEDS: DOCUSATE 100 MG CAPSULE PO ×2 (08:37→20:52)
[2025-09-27] MEDS: ATORVASTATIN 20 MG TABLET 40 MG PO (08:37)
[2025-09-27 08:38] VITALS: BP 108/53; PULSE 80; RESP 15; TEMP 35.9; O2SAT 95
--- NOTE | 2025-09-27 10:11 | OT.IP.EVAL ---
Current Diagnoses Unspecified fracture of left femur, initial encounter for closed fracture (09/25/25) Surgery Performed Operation Date: 09/26/25 10:45 Actual Procedures p Intramedullary Nailing Femoral(Left) - Jewel Harrison MD Past Medical History (Last Reviewed 09/26/25 @ 17:07 by Raj Cortez MD) Alcohol use Asthma (~1987) Benign essential tremor Benign familial tremor (~1959) Cataracts, bilateral (~2015) Chicken pox Colon polyps (~2011) Encounter for subsequent annual wellness visit (AWV) in Medicare patient Endometriosis (~1978) Fibroids (~1978) Fractures Hypertension Measles Mumps Obesity (BMI 30-39.9) Osteopenia Painful menstrual periods (~1978) Pulmonary artery aneurysm Pulmonary stenosis (~1995) Seasonal allergies (~1945) Surgical History (Last Reviewed 09/26/25 @ 17:07 by Raj Cortez MD) Anesthesia History of cardiac catheterization History of colonoscopy (01/2012) History of hysterectomy (~1978) History of laparoscopy (~1978) History of lumpectomy History of open heart surgery (~1950) Papilloma of right breast (~2018) Occupational Therapy Inpatient Evaluation/Re-Eval M1 OT IP Prior Functional Status Start: 09/27/25 09:39 Freq: Status: Active Protocol: Document 09/27/25 09:42 [facility] (Rec: 09/27/25 09:45 AMS [id number]) Medical Review Prior Functional Status Medical History Yes Reviewed Diet/Fluid Regular Consistency Communication WNL Mobility and Gait no AD Activities of Daily normally orders meals, has report clerk every 2 weeks Living and IADL's Social History Household Members spouse Living Arrangements Apartment/Condo Number of Floors ( One Floor Floors) Number of Stairs To sunken living room; no ANIL Enter/Railing? Home Environment High Toilet,Walk in Shower Home Equipment Long Handled Shoe Horn,Air Carrier Inspector,Grab Bars In Shower Employment Status Retired Additional Social step up shower with 4-5 inch lip to walk-over; tub is History Comment separate from the shower; just had fall and L1 compression fx so can't physically help M2 OT-IP Current Condition Start: 09/27/25 09:39 Freq: Status: Active Protocol: Document 09/27/25 09:42 AMS (Rec: 09/27/25 09:45 AMS [id number]) Occupational Therapy Current Condition Current Condition Evaluation Date 09/27/25 Treatment Diagnosis GLF on slippery garage; injured L LE; displaced distal femur fracture Diagnosis Onset Date 09/25/25 Post Operative Precautions Other Precautions TTWB M3 OT- IP Subjective and Pain Start: 09/27/25 09:39 Freq: Status: Active Protocol: Document 09/27/25 09:42 AMS (Rec: 09/27/25 09:45 AMS [id number]) OT- Subjective Occupational Therapy Visit Type Type Initial Evaluation Visit Start Time 09:15 Visit Stop Time 09:35 Occupational Therapy Visit Comments Patient Comments Augusta indicated that she would like to remain in bed. OT Pain Assessment Pain Present Pain Present Pain Reported Location left leg Intensity 1 Scale Used Numeric (0 - 10) M4 OT- IP ADL's Start: 09/27/25 09:39 Freq: Status: Active Protocol: Document 09/27/25 09:42 AMS (Rec: 09/27/25 10:10 AMS [id number]) OT ADL-Grooming General Evaluation Grooming Ability Independent OT ADL-Oral Care General Eval Oral Care Ability Independent M6 OT- IP Functional Cognition Start: 09/27/25 09:39 Freq: Status: Active Protocol: Document 09/27/25 09:42 AMS (Rec: 09/27/25 10:10 AMS [id number]) Cognitive Factors Limiting Selfcare Function Cognitive Ability Level of Alertness Alert Patient Orientation Name,Month,Date,Year,Place,Situation Attention Span Capable of Sustained Attention Ability OT- Vision and Hearing OT- Hearing Assessment OT- Hearing WFL Assessment OT- Vision Assessment Visual Acuity Glasses For Reading M8 OT- IP Objective Assessments Start: 09/27/25 09:39 Freq: Status: Active Protocol: Document 09/27/25 09:42 AMS (Rec: 09/27/25 10:10 AMS [id number]) OT Gross Range of Motion Upper Extremity Range of Motion Assessment Within Functional Limits ROM Impairments Able to oppose thumb to each digit pad without difficulties. Bilaterally. OT- Coordination Assessment Comments Coordination R hand dominant. Reports R UE essential tremor. Thus, Comments uses L hand frequently d/t R handed shakiness. OT-Muscle Tone Assessment Muscle Tone WNL Yes M9 OT- IP Assessment and Plan Start: 09/27/25 09:39 Freq: Status: Active Protocol: Document 09/27/25 09:42 AMS (Rec: 12/12/25 10:10 [facility] [id number]) OT Summary Assessment and Plan Summary Assessment Summary Augusta is a 80 year-old female referred to outpatient OT secondary GLF in slippery garage w/ subsequent L LE w/ displaced distal femur. Augusta expressed that she would prefer to stay in bed vs transfer to chair given that she was told by her doctor to avoid walking on the leg; discussed w/ Augusta the s-s she previously completed w/ PT; she indicated it was a s-s vs a transfer. She wanted to stay in bed at this time; thus, functional ADLs at the sink are recommended during the next treatment session. She demonstrated functional independence w/ brushing hair and washing face in sitting up in bed w/ head of bed elevated. Additional treatment recommended to to support functional independence. Goals Dressing Goal Independent Toileting Goal Independent Bathing Goal Independent Shower Transfer Goal Independent Frequency of Treatment Frequency Of Once a Day Treatment Treatment Plan OT Treatment Plan ADL Training,Functional Mobility,Therapeutic Exercises, Patient/Family Education Discharge Recommendations OT Discharge SNF Rehab Recommendations Transportation Needs Wheelchair/Cabulance at Discharge
--- NOTE | 2025-09-27 13:02 | PT.IPTN ---
Current Diagnoses Unspecified fracture of left femur, initial encounter for closed fracture (09/25/25) Surgery Performed Operation Date: 09/26/25 10:45 Actual Procedures p Intramedullary Nailing Femoral(Left) - Jewel Harrison MD Physical Therapy Treatment Note M2 PT-IP Current Condition Start: 09/26/25 16:05 Freq: NEEDED Status: Active Protocol: Document 09/26/25 16:05 [facility] (Rec: 09/26/25 17:00 [facility] [id number]) Physical Therapy Current Condition Current Condition Evaluation Date 09/26/25 Treatment Diagnosis L distal femur ORIF w/IM nailing M3 PT-IP Subjective Start: 09/26/25 16:05 Freq: NEEDED Status: Active Protocol: Document 09/27/25 14:51 [facility] (Rec: 09/27/25 15:01 [facility] [id number]) Subjective Physical Therapy Visit Type Type Treatment Note Visit Start Time 13:00 Visit Stop Time 13:42 Number of DERRICK MAN Visits 0 Physical Therapy Visit Comments Patient Comments Pt is found resting in bed, states pain is low at 3/10. Has been very thirsty and no dizziness laying down. Concerned about . Is able to tell PT weight bearing status. Patient Goals concerned about home d/t having recent fall and L1 compression fx Therapy Pain Assessment Location left leg Intensity 3 Scale Used Numeric (0 - 10) Pain Management Modification of Treatment Techniques M4 PT-IP Mobility and Gait Start: 09/26/25 16:05 Freq: NEEDED Status: Active Protocol: Document 09/27/25 14:51 [facility] (Rec: 09/27/25 15:01 [facility] [id number]) PT-Bed Mobility Assessment Supine to Sit Supine to Sit Standby Assistance,Head of Bed Elevated,Bedrails Sit to Supine Sit to Supine Standby Assistance,Head of Bed Elevated,Bedrails Scooting Scooting to Edge of Standby Assistance Bed Scooting Up and Down Standby Assistance in Bed PT-Transfer Assessment Sit to and From Stand Sit to and from Contact Guard Assistance,Use of Upper Extremities Stand Equipment Transfer Assistive Gait Belt,Front Wheeled Walker Device Orthotic/Prosthetic No Devices or Brace: Transfers Transfer Destination Bed Transfer Technique Stand Pivot Transfer Ability Level of Assist Contact Guard Assistance,1 Person Assistance,Use of Upper Extremities Comments Mobility Comments Able to maintain WBing precautions and is able to hop laterally to L to assist with repositioning in bed. Pt notes being light headed with low BP fluctuation from 98/50 supine --> 90/48 seated --> 88/59 standing. Dizziness subsides once pt lays down back in bed. Pt is able to scoot and hop at [facility] to assess feasibility for transfer to [facility]. PT-Balance Assessment Sitting Balance and Reactions Static Sitting Good Balance Ability Dynamic Sitting Good Balance Ability Standing Balance and Reactions Static Standing Fair Balance Ability Dynamic Standing Poor Balance Ability Device Used FWW M5 PT-IP Objective Assessments Start: 09/26/25 16:05 Freq: NEEDED Status: Active Protocol: Document 09/26/25 16:05 [facility] (Rec: 09/26/25 17:00 [facility] [id number]) Orientation Orientation/Cognition Level of Alertness Alert Language Function No Deficits Noted Ability Safety Awareness Understands Safety Issues Memory Description No Deficits Noted Gross Range of Motion Lower Extremity ROM Assessment Left Impaired Strength Lower Extremity Strength Assessment Left Impaired Hip 3+/5 Knee 3/5 Ankle 4-/5 M6 PT-IP Treatment Start: 09/26/25 16:05 Freq: NEEDED Status: Active Protocol: Document 09/27/25 14:51 [facility] (Rec: 09/27/25 15:01 [facility] [id number]) Physical Therapy Treatment Other Treatments Other Treatment STS from edge of bed x 4 with FWW at [facility] Performed seated short arc quad 2 x 10 ankle pumps 2 x 10 SLR supine x 4 edu re: needing FWW, SPC, BSC and shower chair for home . Education on importance to increase time out of bed as symptoms allow and to continue with drinking fluids. Pt is able to perform teach back method with weight bearing precautions and is able to maintain throughout session. M7 PT-IP Assessment and Plan Start: 09/26/25 16:05 Freq: NEEDED Status: Active Protocol: Document 09/27/25 14:51 [facility] (Rec: 09/27/25 15:01 [facility] [id number]) PT Summary Assessment and Plan Potential Rehabilitation Good Potential Status of Condition Stable at Evaluation Summary Impairments Pain,ROM,Strength,Balance,Bed Mobility,Transfers,Gait, Activity Tolerance Assessment Summary Augusta continues to have low BP and lightheadedness in seated and standing position. Pt is able to maintain Wbing precautions without corrective cues with transfers and mimicking stand pivot and hopping laterally at edge of bed at CGA with FWW. Returned pt to bed with call light in reach and bed alarm on secondary to dizziness. Communicated with technical writer recommendations and BP. Goals Bed Mobility Goal Independent Transfer Goal Independent Gait Goal Independent,Front Wheel Walker Gait Distance 20ft TTWB Other Goals up/down 1 step w/WC Able to self propel in WC 50ft Days to Meet Goals 10 Frequency of Treatment Frequency Of Once a Day Treatment Treatment Plan Physical Therapy Bed Mobility Training,Transfer Training,Gait Training, Treatment Plan Therapeutic Exercise,Balance Retraining,Post Op Education,Neuromuscular Re-ed,Manual Therapy Precautions Other Precautions falls risk Weight Bearing Status Weight Bearing Touch Down Weight Bearing Status Recommendations To Nursing Amount of Assist 1 Person Assist Needed Discharge Recommendations PT Discharge SNF Rehab Recommendations Equipment Needed for FWW, WC, SPC, BSC, shower chair Home Before Discharge Transportation Needs Wheelchair/Cabulance at Discharge - PT assist 1
--- NOTE | 2025-09-27 13:31 | SLP.IPNOTE ---
ST received orders for swallow evaluation. Patient u/a, with PT at this time. RN consulted re: patient's swallow function. ST will continue to follow to re-attempt swallow evaluation.
--- NOTE | 2025-09-27 14:15 | PC.NURSE ---
Urinary catheter removed ~0900; pt not voided yet. Bladder scan revealed on 23mL in bladder. Encouraged pt to drink fluids more vigorously. Pt stated understanding. Will scan again in an hour.
--- NOTE | 2025-09-27 14:17 | ST.IPCSEOM ---
Visit Care Team Role Provider Type Claudio Garcias DO Family Provider Physician Primary Care Provider Specialty: Family Practice Address: [address] [place] [address], [address], [place], [address] Email: [email or web address] Tan PA-C Emergency Provider Advanced Laboratory Monitor Referring Provider Specialty: Emergency Medicine Address: [address] [place] [address], [place], [place], [facility] Fax: Email: Raj Cortez MD Admit Provider Physician Attending Provider Specialty: Internal Medicine Address: [address] [place] [address], [place], [address] Email: [email or web address] Current Diagnoses Unspecified fracture of left femur, initial encounter for closed fracture (09/25/25) Past Medical History (Last Reviewed 09/26/25 @ 17:07 by Raj Cortez MD) Alcohol use (Social Hx) Asthma (Medical ~1987) Benign essential tremor (Medical) Benign familial tremor (Medical ~1959) Cataracts, bilateral (Medical ~2015) Chicken pox (Medical) Colon polyps (Medical ~2011) Colonoscopy Encounter for subsequent annual wellness visit (AWV) in Medicare patient (Medical) Endometriosis (Medical ~1978) Fibroids (Medical ~1978) Fractures (Medical) Ankle 1981, wrist 1957 Hypertension (Medical) Measles (Medical) Mumps (Medical) Obesity (BMI 30-39.9) (Medical) Osteopenia (Medical) Painful menstrual periods (Medical ~1978) Pulmonary artery aneurysm (Medical) Pulmonary stenosis (Medical ~1995) Seasonal allergies (Medical ~1945) 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 Raj Cortez Reason for Referral swallowing Setting Assessment Location Acute Care Visit Type Note Type Initial evaluation Patient Information Identification Type Name,Wristband History Per H&P: Patient was a pleasant 80-year-old female with a history of congenital pulmonary stenosis with surgical repair at age 6, known pulmonary aneurysm, AFib, chronic anticoagulation, hypertension, and CHF who had a ground level fall on a slippery garage today. She injured her left leg and presented by ambulance. She was found to have a displaced distal femur fracture and was immobilized. She would good peripheral perfusion. She denies any other injuries, no dyspnea, or chest pain. No nausea, or diarrhea. She was [place] with her who is currently suffering with a compression fracture. Per Progress Note: 09/26: S/P ORIF left distal fibula. Subjective Chart reviewed, RN consulted who reported pt stated she Observations had to be careful when she swallowed and also endorsed swallowing difficulty /p intubation from surgery 09/26, however, this improved and pt tolerated her breakfast and lunch this date 09/27. Upon ST arrival, PT finished working with pt, and pt positioned upright in bed. Pt agreeable to participate in swallow evaluation. Pt reported c/o coughing with PO intake intermittently, improves when using compensatory strategies (sit upright, focus, small bites/sips, slow rate). Pt reported her baseline diet is IDDSI 7/regular solids and IDDSI 0/thin liquids. Pt denied hx of PNA. Reported by Patient/Caregiver Pain/Discomfort Yes Location Neck Other Symptoms Coughing,Other Comment Odynophagia secondary to intubation 09/26 Current Diet Regular (IDDSI 7) Baseline Feeding Independent in self-feeding Method The IDDSI Framework Protocol: IDDSI.1 Objective Assessment Mental Status Alert,Responsive,Cooperative Oral Integrity WFL Dentition Within normal limits Lip Function Within normal limits Tongue Function Within normal limits Jaw Function Within normal limits Hard/Soft Palate Within normal limits Function Respiratory Within normal limits Sufficiency Comment Oral mechanism exam revealed adequate dentition, oral health, and cranial nerves grossly intact bilaterally. Vocal quality appropriate for age/sex, mildly raspy secondary to intubation 09/26, perceptually judged as G1 R1 B0 A0 S0 (G indicating overall vocal quality, R roughness, B for breathiness, A asthenia, S strain with scale of 0 to 3 with 0 indicating normal, 1 mild, 2 moderate, and 3 severe). Pt was able to easily and effectively elicit a volitional cough, cough subjectively judged to have glottal attack. No baseline cough observed prior to PO trials. Food and Liquid Trials Position During Upright (90 degrees) Assessment Liquids Trialed Thin (IDDSI 0) Solid Trials Soft & Bite-sized (IDDSI 6),Regular (IDDSI 7) Administration Type Tea spoon,Straw,Self-feeding Oral Impairment Within normal limits Oral Phase Comments Pt observed across trials of thin liquids (>3 oz water via straw), soft/bite sized (x3 tsp diced peaches), and regular texture (x2 bites dannie cracker). Pt exhibited adequate bolus retrieval from spoon/straw, oral containment, bolus manipulation, and oral clearance across PO trials. Oral phase WFL. Pharyngeal Phase No globus sensation reported. No overt signs/symptoms Comments of aspiration noted when using compensatory strategies independently (sit upright, slow rate, small bites/sips , focus). However, when prompted to take bigger/ sequential sips, pt did exhibit cough x1. This is consistent with pt report of baseline swallowing status . Fatigue/Endurance Endurance WNL The IDDSI Framework Protocol: IDDSI.1 Findings Swallowing Function Within functional limits Prognosis Good Comment No clinical signs/symptoms of dysphagia when using compensatory strategies, pt appears to be at swallowing baseline. Pt is felt to be at low risk for development of aspiration pneumonia given WBC WNL, pulmonary stability on room air, ambulatory status, independence for feeding/oral care, intact cognitive-linguistic skills. Impact on Safety and No limitations Functioning Recommendations Instrumental No Assessment Swallowing Treatment No Recommended Solids Regular (IDDSI 7) Recommended Liquids Thin (IDDSI 0) Other Recommend continuation of baseline diet, regular solids Recommendations foods and thin liquids /c medications as tolerated/ preferred by pt. Discussed ability to obtain referral to OP ST for MBSS should pt's report of coughing /c PO intake become more frequent/worse to guide recommendations, pt politely declined at this time, but appreciative for future possibility. No further skilled ST services warranted. ST signing off. Safety Precautions/ Reduce distractions,Remain upright (90 degrees) during Swallowing all oral intake,Small bites and sips when eating,Slow Recommendations rate; swallow between bites Medication As Tolerated Recommendations Education Patient/Caregiver Described results of evaluation,Patient expressed Education understanding of evaluation,Patient expressed understanding of feeding recommendations
--- NOTE | 2025-09-27 15:00 | CM.DANOTE ---
DCP Cont. Reviewed EMR and team rounds for pt's medical status and updates. Met with pt at bedside to introduce self and role. Pt was found to be alert/oriented, sitting upright in bed, visiting with friends. Pt resides independently with her spouse in their own home here in [place]. She will need SNF rehab, per PT. Pt spouse also fell within this last week and fractured his lower back, so he is not able to provide for her cg. [facility] is preference, DCP will send referral on Sat. Facility will transport. Payor: Medicare PCP: Dr. Garcias Pt is a 80 year-old F who presented to the ED via EMS after slipping in her wet garage, resulting in a GLF and fractured L-femur. Surgery was consulted, and they took her to the OR yesterday for fixation surgery. She is limited in mobility, and will not be able to put pressure on that leg for 2-weeks. Pt has a strong support system of friends and family. No AD at baseline. Will continue to monitor for transition d/c date to [facility], pending acceptance and bed availability. Discharge Planning/Care Management CM Discharge Assessment Start: 09/26/25 07:50 Freq: Status: Active Protocol: Document 09/27/25 14:59 DPL (Rec: 09/27/25 15:00 DPL [id number]) Discharge Planning Assessment Assigned Discharge LOLI Cotton Email Manager Provider Ddr. Garcias Insurance Medicare Advance Directives? Yes: HC Directive, POLST Advance Directives Yes on File History Provided By Medical Record Has Patient been No admitted in last 30 days? Prior Living Apartment/Condo Arrangements Household Members spouse Type of Drives own vehicle transporation used prior to admit Independent with ADL Yes 's Is patient alert and Yes oriented? Comment N/A Comment N/A Discharge Plan Home Referrals Initiated None needed Whiteboard Updated Yes in Patient Room with name and ext. # of District Sales Leader Review Status In Process Please Provide Date 09/27/25 Initial DC Assessment Was Performed
--- NOTE | 2025-09-27 18:42 | PM.PNPO.1 ---
Exam Vital Signs (past 8 hours): Oxygen Delivery Method Room Air Oxygen Flow Rate 0 Objective Labs 09/27/25 05:43 09/27/25 05:43 Labs: Laboratory Results - last 24 hr 09/27/25 05:43 WBC 9.4 RBC 3.04 L Hgb 9.8 L Hct 28.6 L MCV 94.1 MCH 32.1 MCHC 34.2 RDW 13.3 Plt Count 197 Neut % (Auto) 70.7 Lymph % (Auto) 17.0 L [place] % (Auto) 11.7 Eos % (Auto) 0.3 L Baso % (Auto) 0.3 Neut # (Auto) 6700 Lymph # (Auto) 1600 [place] # (Auto) 1100 H Eos # (Auto) 0 Baso # (Auto) 0 Sodium 136 L Potassium 4.1 Chloride 102 Carbon Dioxide 28 BUN 13 Creatinine 0.78 Estimated GFR > 60 BUN/Creatinine Ratio 16.7 Glucose 117 H Calcium 8.5 PFSH Medical History Encounter for subsequent annual wellness visit (AWV) in Medicare patient Benign essential tremor Obesity (BMI 30-39.9) Alcohol use Pulmonary artery aneurysm Hypertension Asthma (~1987) Seasonal allergies (~1945) Benign familial tremor (~1959) Osteopenia Fractures Mumps Measles Chicken pox Cataracts, bilateral (~2015) Painful menstrual periods (~1978) Fibroids (~1978) Endometriosis (~1978) Colon polyps (~2011) Pulmonary stenosis (~1995) Surgical History History of colonoscopy (01/2012) Papilloma of right breast (~2018) Anesthesia History of laparoscopy (~1978) History of lumpectomy History of cardiac catheterization History of open heart surgery (~1950) History of hysterectomy (~1978) Family History Father Cancer Mother Heart disease Social History marital status: number of children: 0 household members: spouse lives independently: Yes education level: college occupational status: other (retired) Smoking Status: Never smoker alcohol intake: current substance use type: does not use Assessment & Plan Post-op Postoperative Procedures: Procedures Operation Date: 09/26/25 10:45 Actual Procedure Side Surgeon p Intramedullary Nailing Femoral Left Jewel Harrison MD Postoperative status narrative: ID: 80 yo F s/p open reduction and internal fixation with intramedullary nail of the left femur fracture on 09/26/25 S: Pain controlled with pain medications. Denies F/C/NS/CP/SOB. Tolerating PO. Saw physical therapy today. She was able to stand at the bedside and maintain her weight-bearing precautions. O: LEFT Lower Extremity Dressings C/D/I ? small breakthrough that is unchaged from yesterday Fires Quad/Hamstring/TA/Gastroc/EHL SILT in S/S/DP/SP/T nerve distributions Cap refill < 2 sec A/P: 80 yo F s/p open reduction and internal fixation with intramedullary nail of the left femur fracture on 09/26/25. Doing well. ?Admitted to Hospitalist (Appreciate assistance with this patient) ?Toe Touch WB; ROM as tolerated ?PT/OT ?DVT Proph per primary team ?Multimodal Pain Control ?DISPO: Pending (PT recommends SNF as of now) however the patient will follow up with Orthopedics in 2 weeks Jewel Harrison MD Orthopedics [phone] cell Time Spent With Patient Time with patient: 15-24 minutes
[2025-09-27 20:00] VITALS: BP 114/44; PULSE 92; RESP 17; TEMP 36.5; O2SAT 97
[2025-09-28] MEDS: ACETAMINOPHEN 325 MG TABLET 650 MG PO ×4 (02:38→20:50)
[2025-09-28 06:51] LABS: Hematocrit 24.8 % (36-46); Hemoglobin 8.6 g/dL (12.0-16.0); Mean Corpuscular HGB Conc 34.9 % (30-36); Mean Corpuscular Hemoglobin 32.5 PG (26-34); Mean Corpuscular Volume 93.1 fL (80-100); Platelet Count 175 X10^3/uL (150-400)
[2025-09-28 06:58] LABS: Blood Urea Nitrogen 12 mg/dL (7-17); Calcium 8.5 mg/dL (8.4-10.2); Carbon Dioxide 28 mmol/L (22-32); Chloride 103 mmol/L (98-107); Estimated Glomerular Filt Rate > 60 mL/min (>60); Glucose 116 mg/dL (70-99); HEMOLYSIS < 15 (0-50); Potassium 3.5 mmol/L (3.4-5.1); Sodium 136 mmol/L (137-145)
[2025-09-28] MEDS: POTASSIUM CHLORIDE 20 MEQ TAB PO (08:30)
[2025-09-28] MEDS: DOCUSATE 100 MG CAPSULE PO ×2 (08:30→20:52)
[2025-09-28] MEDS: SOTALOL 80 MG TABLET PO ×2 (08:30→20:52)
[2025-09-28] MEDS: APIXABAN 5 MG TABLET PO ×2 (08:30→20:52)
[2025-09-28] MEDS: ATORVASTATIN 20 MG TABLET 40 MG PO (08:30)
[2025-09-28 09:14] VITALS: BP 120/51; PULSE 95; RESP 15; TEMP 36.1; O2SAT 97
--- NOTE | 2025-09-28 09:28 | PT.IPTN ---
Current Diagnoses Unspecified fracture of left femur, initial encounter for closed fracture (09/25/25) Surgery Performed Operation Date: 09/26/25 10:45 Actual Procedures p Intramedullary Nailing Femoral(Left) - Jewel Harrison MD Physical Therapy Treatment Note M2 PT-IP Current Condition Start: 09/26/25 16:05 Freq: NEEDED Status: Active Protocol: Document 09/28/25 09:10 SP (Rec: 09/28/25 10:03 SP Laptop) Physical Therapy Current Condition Current Condition Evaluation Date 09/26/25 Treatment Diagnosis L distal femur ORIF w/IM nailing M3 PT-IP Subjective Start: 09/26/25 16:05 Freq: NEEDED Status: Active Protocol: Document 09/28/25 09:10 SP (Rec: 09/28/25 10:03 SP Laptop) Subjective Physical Therapy Visit Type Type Treatment Note Visit Start Time 09:10 Visit Stop Time 09:28 Number of AUTOMATIC HEMMER Visits 1 Physical Therapy Visit Comments Patient Comments Pt is found resting in bed, states pain is low at 1-2/ 10 at rest. Patient Goals agreeable to going to SNF d/t having recent fall and L1 compression fx, so is unable to assist her. Therapy Pain Assessment Pain When Pain Assessed 2 Pain Present Pain Present Pain Reported Location left leg Intensity 2 Scale Used at rest, 5/10 with mobility Description With Movement Pain Behaviors Facial Grimacing,Restlessness Pain Management Distraction,Modification of Treatment,Re-positioning Techniques M4 PT-IP Mobility and Gait Start: 09/26/25 16:05 Freq: NEEDED Status: Active Protocol: Document 09/28/25 09:10 SP (Rec: 09/28/25 10:03 SP Laptop) PT-Bed Mobility Assessment Supine to Sit Supine to Sit Minimal Assistance,1 Person Assistance,Head of Bed Elevated,Bedrails Scooting Scooting to Edge of Minimal Assistance Bed PT-Transfer Assessment Sit to and From Stand Sit to and from Contact Guard Assistance,1 Person Assistance,Use of Stand Upper Extremities Equipment Transfer Assistive Gait Belt,Front Wheeled Walker Device Orthotic/Prosthetic No Devices or Brace: Transfers Transfer Destination Bed Transfer Technique Stand Pivot Transfer Ability Level of Assist Contact Guard Assistance,1 Person Assistance,Use of Upper Extremities Comments Mobility Comments Pt symptomatic hypotensive during out of bed mobility, LUE BP 112/47 HR 80 SaO2 94% on RA at rest elevated supine, up in chair post mobility c/o little dizzy BP 88/66 HR 92, seated 1 min BP 121/51 HR 88-101 SaO2 99- 100% on RA. AUTOMATIC HEMMER instructed LLE therex pre mobility ankle pumps, Mod assisted L knee flexion approx 30 deg tolerated. Pt required Min A for LLE support only needed to EOB. CGA during STS with FWW, RLE lateral scoot and small retro hops on RLE bed>chair with FWW, good demonstration maintaining TTWB to NWB on LLE. Cued to reach back BUEs slow sit in chair. Pt demonstrates able to bend L knee to rest on floor seated up in chair . Pt recovers quickly from little c/o dizziness. Dr Jalloh entered room end tx, up dated him on mobility and vitals. Pt had call light and all needs in reach and warm blankets before left room. Dr Jalloh in room when left. Gait Assessment Comments Gait Comments Stand pivot transfer with FWW only, maintained TTWB LLE . PT-Balance Assessment Sitting Balance and Reactions Static Sitting Normal Balance Ability Dynamic Sitting Good Balance Ability Standing Balance and Reactions Static Standing Good Balance Ability Dynamic Standing Fair Balance Ability Device Used FWW M5 PT-IP Objective Assessments Start: 09/26/25 16:05 Freq: NEEDED Status: Active Protocol: Document 09/26/25 16:05 [facility] (Rec: 09/26/25 17:00 [facility] [id number]) Orientation Orientation/Cognition Level of Alertness Alert Language Function No Deficits Noted Ability Safety Awareness Understands Safety Issues Memory Description No Deficits Noted Gross Range of Motion Lower Extremity ROM Assessment Left Impaired Strength Lower Extremity Strength Assessment Left Impaired Hip 3+/5 Knee 3/5 Ankle 4-/5 M6 PT-IP Treatment Start: 09/26/25 16:05 Freq: NEEDED Status: Active Protocol: Document 09/28/25 09:10 SP (Rec: 09/28/25 10:03 SP Laptop) Physical Therapy Treatment Exercises Exercises Ankle Pumps,Heel Slides Knee ROM Measurement assited approx 30 deg L M7 PT-IP Assessment and Plan Start: 09/26/25 16:05 Freq: NEEDED Status: Active Protocol: Document 09/28/25 09:10 SP (Rec: 09/28/25 10:03 SP Laptop) PT Summary Assessment and Plan Potential Rehabilitation Good Potential Status of Condition Stable at Evaluation Summary Impairments Pain,ROM,Strength,Balance,Bed Mobility,Transfers,Gait, Activity Tolerance Progress Towards Slow Progress due to Pain,Slow Progress due to Medical Goals Issues,Slow Progress due to Activity Tolerance Assessment Summary Pt continues c/o dizziness and hypotensive during mobility see vitals 88/66 after mobility but recovers to 121/51 sitting in chair. Min A for LLE to EOB, CGA STS and pivot to chair with FWW, good maintaining TTWB LLE. Recommending SNF for strength and mobility progression. Will continue to assess progress. Goals Bed Mobility Goal Independent Transfer Goal Independent Gait Goal Independent,Front Wheel Walker Gait Distance 20ft TTWB Other Goals up/down 1 step w/WC Able to self propel in WC 50ft Days to Meet Goals 10 Frequency of Treatment Frequency Of Once a Day Treatment Treatment Plan Physical Therapy Bed Mobility Training,Transfer Training,Gait Training, Treatment Plan Therapeutic Exercise,Balance Retraining,Post Op Education,Neuromuscular Re-ed,Manual Therapy Other Monitor vitals, AAROM LLE, ther ex, transfers and gait Recommendations and with FWW TTWB on LLE tolerates Next Treatment Focus Precautions Other Precautions falls risk Weight Bearing Status Weight Bearing Touch Down Weight Bearing Status Recommendations To Nursing Amount of Assist 1 Person Assist Needed Discharge Recommendations PT Discharge SNF Rehab Recommendations Equipment Needed for FWW, WC, SPC, BSC, shower chair Home Before Discharge Transportation Needs Wheelchair/Cabulance at Discharge - PT assist 1
--- NOTE | 2025-09-28 09:46 | PM.PNPO.1 ---
Exam Vital Signs (past 8 hours): - 09/28/25 09:14 Temperature 96.9 F L Pulse Rate 95 H Respiratory Rate 15 Blood Pressure 120/51 L Pulse Oximetry 97 Oxygen Flow Rate 0 Oxygen Delivery Method Room Air Oxygen Flow Rate 0 Objective Labs 09/28/25 06:38 09/28/25 06:38 Labs: Laboratory Results - last 24 hr 09/28/25 06:38 WBC 7.4 RBC 2.66 L Hgb 8.6 L Hct 24.8 L MCV 93.1 MCH 32.5 MCHC 34.9 RDW 13.3 Plt Count 175 Sodium 136 L Potassium 3.5 Chloride 103 Carbon Dioxide 28 BUN 12 Creatinine 0.71 Estimated GFR > 60 BUN/Creatinine Ratio 16.9 Glucose 116 H Calcium 8.5 PFSH Medical History Encounter for subsequent annual wellness visit (AWV) in Medicare patient Benign essential tremor Obesity (BMI 30-39.9) Alcohol use Pulmonary artery aneurysm Hypertension Asthma (~1987) Seasonal allergies (~1945) Benign familial tremor (~1959) Osteopenia Fractures Mumps Measles Chicken pox Cataracts, bilateral (~2015) Painful menstrual periods (~1978) Fibroids (~1978) Endometriosis (~1978) Colon polyps (~2011) Pulmonary stenosis (~1995) Surgical History History of colonoscopy (01/2012) Papilloma of right breast (~2018) Anesthesia History of laparoscopy (~1978) History of lumpectomy History of cardiac catheterization History of open heart surgery (~1950) History of hysterectomy (~1978) Family History Father Cancer Mother Heart disease Social History marital status: number of children: 0 household members: spouse lives independently: Yes education level: college occupational status: other (retired) Smoking Status: Never smoker alcohol intake: current substance use type: does not use Assessment & Plan Post-op Postoperative Procedures: Procedures Operation Date: 09/26/25 10:45 Actual Procedure Side Surgeon p Intramedullary Nailing Femoral Left Jewel Harrison MD Postoperative status narrative: ID: 80 yo F s/p open reduction and internal fixation with intramedullary nail of the left femur fracture on 09/26/25 S: Pain controlled with pain medications. Denies F/C/NS/CP/SOB. Tolerating PO. Saw physical therapy today. She was able to stand and pivot to a chair with maintaining her TTWB status. O: LEFT Lower Extremity Dressings C/D/I ? small breakthrough on the anterior dressings Fires Quad/Hamstring/TA/Gastroc/EHL SILT in S/S/DP/SP/T nerve distributions Cap refill < 2 sec A/P: 80 yo F s/p open reduction and internal fixation with intramedullary nail of the left femur fracture on 09/26/25. Doing well. ?Admitted to Hospitalist (Appreciate assistance with this patient) ?Toe Touch WB; ROM as tolerated ?PT/OT ?DVT Proph per primary team ?Multimodal Pain Control ?DISPO: Pending (PT recommends SNF); patient will follow up with Orthopedics in 2 weeks Jewel Harrison MD Orthopedics [phone] cell Postoperative plan: routine post-op care Time Spent With Patient Time with patient: 15-24 minutes
--- NOTE | 2025-09-28 10:29 | CM.DPC ---
Addendum entered by LOLI Phelan 09/28/25 12:55: ADD: Per [facility] admissions, they can accept pt tomorrow Sun 09/29 with pickup around 1100. SW met bedside with pt and updated on above and she is very appreciative and agreeable with d/c tomorrow to [facility] and has some fresh clothes bedside. Updated RN and MD. BF Original Note: DCP SNF Planning: Per MD, pt tolerated her surgery well and worked with PT and recommendation for SNF and likely stable for d/c once SNF secured. Per MD and PT, pt preference remains [facility] for SNF. SW made initial [facility] referral requesting review for possible admit today vs tomorrow. Pt has Medicare and eligible for SNF starting today. PASRR done in anticipation of SNF. LOLI Phelan
[2025-09-28 15:20] VITALS: BP 117/48; PULSE 61; RESP 15; TEMP 36.4; O2SAT 94
--- NOTE | 2025-09-28 16:08 | P.PN_ITS ---
Subjective Subjective Interval history: 80-year-old female with remote history of congenital pulmonic stenosis status post repair at age 6, pulmonary aneurysm, atrial fibrillation on chronic anticoagulation, hypertension, and congestive heart failure with preserved ejection fraction (ejection fraction 55-60%) who was admitted with a left femur fracture on September 25. She underwent intramedullary nailing on September 26. She has been working on mobilization and states she does have significant discomfort but is tolerating management of that with acetaminophen. She states she does not want to use anything stronger. She has found somewhat challenging to mobilize to use the toilet but overall feels her pain is well controlled. She notes that she can not return home as her also sustained a fall and has a lumbar spinal fracture. Last BM was 2 days ago, but she denies feeling constipated. She states she has not been eating very much Exam Vital Signs (past 8 hours): - 09/28/25 09:14 09/28/25 15:20 Temperature 96.9 F L 97.5 F L Pulse Rate 95 H 61 Respiratory Rate 15 15 Blood Pressure 120/51 L 117/48 L Pulse Oximetry 97 94 Oxygen Flow Rate 0 0 Oxygen Delivery Method Room Air Oxygen Flow Rate 0 Narrative Exam Narrative: GEN: Very pleasant elderly female, Alert and oriented x 3, NAD HEENT:NC, Face symmetric CHEST: Respiratory excursions symmetric, CTAB CV: RRR, no M/R/G ABD: Soft, obese, NT/ND, BT present in all 4 quadrants, no organomegaly or masses EXTR: warm, well perfused, no C/C/E SKIN: warm and dry, no rash NEURO: Alert and oriented x 3, nonfocal Objective Labs 09/28/25 06:38 09/28/25 06:38 Labs: Laboratory Results - last 24 hr 09/28/25 06:38 WBC 7.4 RBC 2.66 L Hgb 8.6 L Hct 24.8 L MCV 93.1 MCH 32.5 MCHC 34.9 RDW 13.3 Plt Count 175 Sodium 136 L Potassium 3.5 Chloride 103 Carbon Dioxide 28 BUN 12 Creatinine 0.71 Estimated GFR > 60 BUN/Creatinine Ratio 16.9 Glucose 116 H Calcium 8.5 PFSH Medical History Encounter for subsequent annual wellness visit (AWV) in Medicare patient Benign essential tremor Obesity (BMI 30-39.9) Alcohol use Pulmonary artery aneurysm Hypertension Asthma (~1987) Seasonal allergies (~194) Benign familial tremor (~1959) Osteopenia Fractures Mumps Measles Chicken pox Cataracts, bilateral (~2015) Painful menstrual periods (~1978) Fibroids (~1978) Endometriosis (~1978) Colon polyps (~2011) Pulmonary stenosis (~1995) Surgical History History of colonoscopy (01/2012) Papilloma of right breast (~2018) Anesthesia History of laparoscopy (~1978) History of lumpectomy History of cardiac catheterization History of open heart surgery (~1950) History of hysterectomy (~1978) Family History Father Cancer Mother Heart disease Social History marital status: number of children: 0 household members: spouse lives independently: Yes education level: college occupational status: other (retired) Smoking Status: Never smoker alcohol intake: current substance use type: does not use Assessment & Plan Assessment & Plan narrative: 1. Left femur fracture Postoperative day 2 from intramedullary nailing. Continues to work with physical therapy. Taking acetaminophen for pain. Overall she seems to be doing well. Continue to work with therapy and continue mobilization. 2. Anemia Expected decrease likely related to fracture and intraoperative blood losses. No intervention required. 3. Hypertension Presently stable. 4. Chronic congestive heart failure with preserved ejection fraction Remains on losartan, sotalol, statin therapy. 5. Atrial fibrillation on chronic anticoagulation She is back on apixaban Code status Full Prophylaxis On apixaban Disposition Pending long term facility for rehab Time-Based Coding :: [TOTAL MINUTES] spent with patient and on the chart (including review of chart, obtaining history, exam, reviewing outside data, placing orders, documenting exam and treatment plan, and counseling patient) on [DATE].
[2025-09-28 20:00] VITALS: BP 131/58; PULSE 72; RESP 16; TEMP 36.2; O2SAT 100
[2025-09-28 20:51] VITALS: BP 131/58; PULSE 72
[2025-09-28] MEDS: LOSARTAN 50 MG TABLET PO (20:51)
[2025-09-29 06:55] LABS: Add Manual Diff / Slide Review NO; Hematocrit 24.7 % (36-46); Hemoglobin 8.5 g/dL (12.0-16.0); Lymphocytes Absolute Auto 1600 /uL (1100-4500); Mean Corpuscular HGB Conc 34.3 % (30-36); Mean Corpuscular Hemoglobin 32.3 PG (26-34); Mean Corpuscular Volume 94.1 fL (80-100); Platelet Count 207 X10^3/uL (150-400)
[2025-09-29 07:05] LABS: Blood Urea Nitrogen 9 mg/dL (7-17); Calcium 8.4 mg/dL (8.4-10.2); Carbon Dioxide 28 mmol/L (22-32); Chloride 102 mmol/L (98-107); Estimated Glomerular Filt Rate > 60 mL/min (>60); Glucose 116 mg/dL (70-99); HEMOLYSIS < 15 (0-50); Potassium 3.7 mmol/L (3.4-5.1); Sodium 137 mmol/L (137-145)
[2025-09-29 09:00] VITALS: BP 108/41; PULSE 86; RESP 16; TEMP 36.5; O2SAT 98
[2025-09-29] MEDS: ACETAMINOPHEN 325 MG TABLET 650 MG PO (09:29)
[2025-09-29] MEDS: APIXABAN 5 MG TABLET PO (09:31)
[2025-09-29] MEDS: DOCUSATE 100 MG CAPSULE PO (09:31)
[2025-09-29] MEDS: ATORVASTATIN 20 MG TABLET 40 MG PO (09:32)
[2025-09-29] MEDS: SOTALOL 80 MG TABLET PO (09:32)
--- NOTE | 2025-09-29 09:39 | PM.DS.1 ---
History of Present Illness History of Present Illness Chief complaint: Fall with lt leg and knee pain Narrative: Per H&P: Patient was a pleasant 80-year-old female with a history of congenital pulmonary stenosis with surgical repair at age 6, known pulmonary aneurysm, AFib, chronic anticoagulation, hypertension, and CHF who had a ground level fall on a slippery garage today. She injured her left leg and presented by ambulance. She was found to have a displaced distal femur fracture and was immobilized. She would good peripheral perfusion. She denies any other injuries, no dyspnea, or chest pain. No nausea, or diarrhea. She was [place] with her who is currently suffering with a compression fracture. Discharge Providers Provider Date of admission: 09/25/25 16:08 Discharge Date: 09/29/25 Primary care physician: Claudio Garcias DO Consults: 09/26/25 15:16 Consult to Discharge Planning Routine Comment: Consult to Occupational Therapy Evaluate & Treat Comment: Physician Instructions: Consult to Physical Therapy Evaluate & Treat Comment: Physician Instructions: touch down weight bearing 09/27/25 09:00 Consult to Speech Therapy Evaluate & Treat Comment: Pt states having issues swallowing inpt and @ home Physician Instructions: Evaluate and treat Discharge provider: Tabitha Fleming MD Summary Hospital Course Discharge Diagnosis: 1. Left femur fracture, postoperative day 3 from intramedullary nailing 2. Anemia, stable 3. Hypertension, chronic, stable 4. Chronic congestive heart failure with preserved ejection fraction 5. Atrial fibrillation on chronic anticoagulation Hospital Course: Patient was admitted with a left femur fracture after a fall. She underwent intramedullary nailing on 09/26/[address] Jewel Harrison. She did well postoperatively and was able to ambulate with difficulty but relatively quickly. Pain was managed with acetaminophen alone by 09/28/2025. While she did have expected blood losses and subsequent anemia, her hemoglobin stabilized in the 8.5 range. She remained stable for the duration of her hospitalization. She is discharged in stable condition. Status at Discharge Cognitive/behavioral status at discharge: at baseline, oriented Overall status at discharge: patient is progressing back to baseline Exam Vital Signs (past 8 hours): - 09/29/25 09:00 Temperature 97.7 F Pulse Rate 86 Respiratory Rate 16 Blood Pressure 108/41 L Pulse Oximetry 98 Oxygen Delivery Method Room Air Oxygen Flow Rate 0 Narrative Exam Narrative: GEN: Very pleasant elderly female, Alert and oriented x 3, NAD HEENT:NC, Face symmetric CHEST: Respiratory excursions symmetric, CTAB CV: Irregularly irregular, no M/R/G ABD: Soft, obese, NT/ND, BT present in all 4 quadrants, no organomegaly or masses EXTR: warm, well perfused, no C/C/E SKIN: warm and dry, no rash NEURO: Alert and oriented x 3, nonfocal Objective Labs 09/29/25 06:33 09/29/25 06:33 Labs: Laboratory Results - last 24 hr 09/29/25 06:33 WBC 7.5 RBC 2.63 L Hgb 8.5 L Hct 24.7 L MCV 94.1 MCH 32.3 MCHC 34.3 RDW 13.6 Plt Count 207 Neut % (Auto) 63.5 Lymph % (Auto) 21.2 L [place] % (Auto) 12.0 Eos % (Auto) 2.7 Baso % (Auto) 0.6 Neut # (Auto) 4800 Lymph # (Auto) 1600 [place] # (Auto) 900 Eos # (Auto) 200 Baso # (Auto) 0 Sodium 137 Potassium 3.7 Chloride 102 Carbon Dioxide 28 BUN 9 Creatinine 0.62 Estimated GFR > 60 BUN/Creatinine Ratio 14.5 Glucose 116 H Calcium 8.4 PFSH Medical History Encounter for subsequent annual wellness visit (AWV) in Medicare patient Benign essential tremor Obesity (BMI 30-39.9) Alcohol use Pulmonary artery aneurysm Hypertension Asthma (~1987) Seasonal allergies (~1945) Benign familial tremor (~1959) Osteopenia Fractures Mumps Measles Chicken pox Cataracts, bilateral (~2015) Painful menstrual periods (~1978) Fibroids (~1978) Endometriosis (~1978) Colon polyps (~2011) Pulmonary stenosis (~1995) Surgical History History of colonoscopy (01/2012) Papilloma of right breast (~2018) Anesthesia History of laparoscopy (~1978) History of lumpectomy History of cardiac catheterization History of open heart surgery (~1950) History of hysterectomy (~1978) Family History Father Cancer Mother Heart disease Social History marital status: number of children: 0 household members: spouse lives independently: Yes education level: college occupational status: other (retired) Smoking Status: Never smoker alcohol intake: current substance use type: does not use Discharge Plan Discharge Plan Patient Disposition: SNF Transfer to: [facility] Under care of provider: Facility MD Provider Discharge Comment: You were admitted with a femur fracture after a fall. This was repaired with a nailing of the femur by Orthopedic surgery. You have done well since surgery. You are moderately anemic which is expected with this type of fracture and surgery, but not low enough to require transfusion. You may feel a little lightheaded with position changes, so please avoid rapid position changes. Your transferring to [facility] for ongoing physical therapy occupational therapy and further rehabilitation. You will follow up with Orthopedic surgery for postoperative visits per their recommendations. Return to the ED: Increased shortness of breath/chest pain. Inability to hold down food/fluids/medications. Fevers/chills. Discharge orders & Medications Prescriptions: New acetaminophen 325 mg Tablet 650 mg PO Q6H Qty: 120 0RF docusate sodium 100 mg Capsule 100 mg PO BID Qty: 60 0RF Cepacol Sore Throat (thomas-men) 15-2.6 mg Lozenge 1 evans PO Q1HR PRN (Reason: Sore Throat) Qty: 60 0RF Continued atorvastatin 40 mg tablet 40 mg PO DAILY Qty: 90 3RF apixaban 5 mg tablet 5 mg PO BID Qty: 60 0RF losartan 50 mg tablet 50 mg PO BEDTIME sotalol 80 mg tablet 80 mg PO BID Follow up/Referrals: Claudio Garcias DO [Primary Care Provider, Family Practice] Discharge Health Status Multidrug resistant organism: No MDRO Precautions: [place] Diet/Activity/Treatments Diet: Diet as Tolerated and Regular Liquid consistency: Normal/Thin Food texture: Regular Activity: As tolerated Oxygen: N/A Special Rehabilitation Services Reason for rehabilitation: Post-operative therapy Rehab type: Physical therapy and Occupational therapy Visit Report/Discharge Packet Stand Alone Forms: Patient Portal/API, Surgery Discharge Discharge Data Primary Care Provider: Claudio Garcias
--- NOTE | 2025-09-29 10:35 | EKG_ITS ---
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
--- NOTE | 2025-09-29 10:44 | CM.DPC ---
DC Summary, Med List, and PASRR sent to [facility]. 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 Patient updated.
--- NOTE | 2025-09-29 10:55 | PM.PNPO.1 ---
Exam Vital Signs (past 8 hours): - 09/29/25 09:00 Temperature 97.7 F Pulse Rate 86 Respiratory Rate 16 Blood Pressure 108/41 L Pulse Oximetry 98 Oxygen Delivery Method Room Air Oxygen Flow Rate 0 Objective Labs 09/29/25 06:33 09/29/25 06:33 Labs: Laboratory Results - last 24 hr 09/29/25 06:33 WBC 7.5 RBC 2.63 L Hgb 8.5 L Hct 24.7 L MCV 94.1 MCH 32.3 MCHC 34.3 RDW 13.6 Plt Count 207 Neut % (Auto) 63.5 Lymph % (Auto) 21.2 L [place] % (Auto) 12.0 Eos % (Auto) 2.7 Baso % (Auto) 0.6 Neut # (Auto) 4800 Lymph # (Auto) 1600 [place] # (Auto) 900 Eos # (Auto) 200 Baso # (Auto) 0 Sodium 137 Potassium 3.7 Chloride 102 Carbon Dioxide 28 BUN 9 Creatinine 0.62 Estimated GFR > 60 BUN/Creatinine Ratio 14.5 Glucose 116 H Calcium 8.4 PFSH Medical History Encounter for subsequent annual wellness visit (AWV) in Medicare patient Benign essential tremor Obesity (BMI 30-39.9) Alcohol use Pulmonary artery aneurysm Hypertension Asthma (~1987) Seasonal allergies (~1945) Benign familial tremor (~1959) Osteopenia Fractures Mumps Measles Chicken pox Cataracts, bilateral (~2015) Painful menstrual periods (~1978) Fibroids (~1978) Endometriosis (~1978) Colon polyps (~2011) Pulmonary stenosis (~1995) Surgical History History of colonoscopy (01/2012) Papilloma of right breast (~2018) Anesthesia History of laparoscopy (~1978) History of lumpectomy History of cardiac catheterization History of open heart surgery (~1950) History of hysterectomy (~1978) Family History Father Cancer Mother Heart disease Social History marital status: number of children: 0 household members: spouse lives independently: Yes education level: college occupational status: other (retired) Smoking Status: Never smoker alcohol intake: current substance use type: does not use Assessment & Plan Post-op Postoperative Procedures: Procedures Operation Date: 09/26/25 10:45 Actual Procedure Side Surgeon p Intramedullary Nailing Femoral Left Jewel Harrison MD Postoperative status narrative: ID: [id number] yo F s/p open reduction and internal fixation with intramedullary nail of the left femur fracture on 09/26/25 S: Pain controlled with pain medications. Denies F/C/NS/CP/SOB. Tolerating PO. She reports that she started to have post nasal drainage. O: LEFT Lower Extremity Dressings C/D/I ? small breakthrough on the anterior dressings Fires Quad/Hamstring/TA/Gastroc/EHL SILT in S/S/DP/SP/T nerve distributions Cap refill < 2 sec A/P: 80 yo F s/p open reduction and internal fixation with intramedullary nail of the left femur fracture on 09/26/25. Doing well however will require SNF placement. ?Admitted to Hospitalist (Appreciate assistance with this patient) ?Toe Touch WB; ROM as tolerated ?PT/OT ?DVT Proph per primary team ?Multimodal Pain Control ?DISPO: Pending (PT recommends SNF); patient will follow up with Orthopedics in 2 weeks Jewel Harrison MD Orthopedics [phone] cell Postoperative plan: routine post-op care Time Spent With Patient Time with patient: 15-24 minutes
--- NOTE | 2025-09-29 11:11 | PC.NURSE ---
pt discharged to [facility], report called to POLLY Bull. with follow up call for pt to see her chief deputy court clerk after dc from rehab
== END 2025-09-29 11:28 | DRG 481 ==
LOC: ED 15:27 → AC 16:08
PROVIDERS: Family Medicine; Internal Medicine Infectious Disease; Orthopaedic Surgery; Physician Assistant Surgical; Admitting Provider Hospitalist; Emergency Provider Physician Assistant; Family Provider Family Medicine; PCP Family Medicine; Referring Provider Physician Assistant; Visit Provider Hospitalist
PROC: 0QSC06Z Reposition Left Lower Femur with Intramedullary Internal Fixation Device, Open Approach (ICD-10-PCS; CPT 27245; principal; 2025-09-26 10:45)
DX: S72.492A Other fracture of lower end of left femur, initial encounter for closed fracture (principal); I50.32 Chronic diastolic (congestive) heart failure; I48.91 Unspecified atrial fibrillation; I11.0 Hypertensive heart disease with heart failure; W01.0XXA Fall on same level from slipping, tripping and stumbling without subsequent striking against object, initial encounter; Z74.2 Need for assistance at home and no other household member able to render care; Z79.01 Long term (current) use of anticoagulants
CPT/HCPCS: 36415; 73552; 73562; 76000; 80048; 80053; 85025; 85027; 85610; 85730; 92610; 93005; 96374; 96375; 96376; 97110; 97162; 97165; 97530; 97535; 99284; C1713; J0689; J1100; J1171; J1885; J2405; J2704; J3010; J7120